=== PATIENT | male | born 1945 | race African-American/Black ===

== ENCOUNTER → 2020-08-16 13:23 | Outpatient (BNVA) | payer MEDICARE, MEDICAID, SELFPAY | PROVIDERS: PCP Hospitalist; Visit Provider Urology | DX: N40.1 Benign prostatic hyperplasia with lower urinary tract symptoms (principal); N39.41 Urge incontinence | CPT/HCPCS: 99212 ==

== ENCOUNTER 2020-09-06 09:47 | Outpatient (REF) | payer MEDICARE, MEDICAID, SELFPAY ==
--- NOTE | ~2020-09-06 | CT_ITS ---
EXAMINATION: CT ANGIOGRAM ABDOMEN CLINICAL INFORMATION: Aneurysmal dilation of the proximal abdominal aorta. COMPARISON: CT abdomen and pelvis 08/25/2012, CT chest 08/16/2016. TECHNIQUE: Multiple axial images were obtained through the abdomen following the administration of 85 mL Omnipaque 350 intravenous contrast. Images were reviewed on a dedicated 3-D workstation. This CT examination was performed using dose optimization techniques as appropriate, variously including the following: *Automated exposure control. *Adjustment of mA and/or kV according to patient size (this includes techniques or standardized protocols for targeted exams where dose is matched to indication/reason for exam; i.e. extremities or head). *Use of iterative reconstruction technique. DLP: 196 mGy-cm FINDINGS: VASCULAR: There is fusiform dilation of the descending thoracic aorta. From the [id number]-pk-[id number] aspect it measures 3.5 cm in diameter. There is no evidence of dissection or other acute aortic syndrome. While the study is not a dedicated evaluation of the ascending thoracic aorta, the aortic root and a portion of the ascending thoracic aorta is included in the [id number]. The sinotubular junction measures on the order of 4 x 3.8 cm and there is dilation of the ascending thoracic aorta beyond. On previous noncontrast study on 08/16/2016, the ascending thoracic aorta measures up to 4.7 cm in diameter. At the aortic hiatus, the aorta measures 3.8 x 3.5 cm and 3.7 x 3.3 cm between the levels of the celiac trunk and superior mesenteric artery. At the level the renal arteries, the aorta measures 3 x 2.8 cm and the infrarenal aorta measures 2.5 x 2.3 cm. The visualized portion of the iliac bifurcation is unremarkable and there is moderate eccentric wall calcification present. The celiac trunk and its branch vessels are widely patent. Superior mesenteric artery is widely patent from its origin and the inferior mesenteric artery is patent. There are 2 renal arteries to each kidney. Each of the more proximal arteries is relatively diminutive and the more dominant artery is located more distally. The arteries are widely patent from their origins and without hemodynamically significant stenosis. The venous structures have an unremarkable appearance for an arterial phase of contrast. NONVASCULAR: There is minimal opacity at the right base which may represent dependent atelectasis. There are no pleural fluid collections. Imaged heart is not enlarged. The liver is normal in size, shape and overall attenuation. There is a 6 mm focus of hyperattenuation/enhancement within segment 6 (image 251, series 8) abutting the capsule which is suggestive of transient hepatic attenuation difference or flash-filling hemangioma. No other focal hepatic lesion is seen. No intrahepatic or extrahepatic duct dilation is seen. The gallbladder is unremarkable. The pancreas is unremarkable. There is no pancreatic duct dilation. There is a 1 cm right adrenal nodule. There is a region of low attenuation identified within (less than 10 Hounsfield units) which is suggestive of a lipid-rich adenoma. Left adrenal gland is unremarkable. The kidneys are equal in overall enhancement. On the left there is a large, slightly lobulated cyst at the upper pole which now measures 9.7 x 5.7 x 6.3 cm. At the superior margin of this cyst, there is an indeterminate 2.7 x 1.7 x 1.3 cm soft tissue structure (images 222, series 8 and 74, series 6). Additionally, there is an oblong cystic structure adjacent to the left ureter which is similar to the prior study and measures 2.5 cm in diameter and 4.1 cm in length. There is no hydronephrosis or hydroureter. No renal calculi are identified. The distal esophagus and stomach are unremarkable. The imaged small and large bowel are normal in caliber. There is no free intraperitoneal fluid. There is no abdominal or retroperitoneal free fluid. There is no significant hernia of the body wall. Minimal degenerative changes of the imaged thoracolumbar spine. No acute or aggressive bony abnormality. CT/CT angio abdomen IMPRESSION: 1. Fusiform dilation of the descending thoracic aorta which measures on the order of 3.5 cm at its aks-dd-zqjmoi portion which extends distally into the abdominal aorta which measures 3.8 x 3.5 cm at the hiatus and 3.7 x 3.3 cm at the level of celiac trunk. The aorta tapers at the perirenal level and is normal in caliber beyond. 2. Partial visualization of dilated ascending thoracic aorta. 3. There is an indeterminate soft tissue structure along the superior margin of a large left renal cyst which measures 2.7 x 1.7 x 1.3 cm which was not seen on prior studies. Further evaluation with multiphasic MR would be recommended. 4. There is a relatively stable appearance of a cystic structure adjacent to the proximal left ureter which could be evaluated at time of MR as well. This could represent some variant of a duplication cyst or ureteral cyst. 5. A 1 cm right adrenal nodule felt most likely to represent a lipid-rich adenoma. This could be further evaluated at time of MR as well.
== END 2020-09-06 09:48 | disposition home or self-care (01) ==
LOC: HO.CT 09:47
PROVIDERS: PCP Hospitalist; Visit Provider Hospitalist
DX: R93.5 Abnormal findings on diagnostic imaging of other abdominal regions, including retroperitoneum (principal)
CPT/HCPCS: 74175

== ENCOUNTER → 2020-10-29 14:05 | Outpatient (BNVA) | payer MEDICARE, MEDICAID, SELFPAY | PROVIDERS: PCP Hospitalist; Referring Provider Hospitalist; Visit Provider Internal Medicine Cardiovascular Disease | DX: I48.0 Paroxysmal atrial fibrillation (principal); I45.10 Unspecified right bundle-branch block; R00.2 Palpitations | CPT/HCPCS: 93005; 99212 ==

== ENCOUNTER 2020-11-28 08:46 | Outpatient (REF) | payer MEDICARE, MEDICAID, SELFPAY ==
--- NOTE | ~2020-11-28 | MR_ITS ---
EXAMINATION: MR ABDOMEN WITHOUT AND WITH CONTRAST CLINICAL INFORMATION: Renal cyst. Possible lipid-rich adenoma. COMPARISON: Previous CT of the abdomen and pelvis August 2012 and CTA of the abdomen August 2020 TECHNIQUE: MR abdomen was performed without and with use of 7.5 mL intravenous Gadavist gadolinium contrast. Postcontrast images are performed in multiphase dynamic sequences. Imaging was performed in 3 planes. Exam is limited due to motion artifact. Exam is limited due to motion artifact. FINDINGS: LUNG BASES: The visualized lung bases are unremarkable. LIVER, GALLBLADDER, AND BILIARY TREE: The liver is normal in size and contour. The liver is normal in signal. There are 2 liver lesions. There is a 2 cm lesion in the peripheral right lobe of the liver. This is low signal on T1-weighted sequences, high signal on T2-weighted sequences and demonstrates gradual peripheral puddling enhancement suggestive of a benign hemangioma. This is unchanged in size from noncontrast CT August 2012. There is a second smaller 0.8 cm lesion in the more inferior peripheral right lobe of the liver. This is low signal on T1-weighted sequences, high signal on T2-weighted sequences and demonstrates early homogeneous arterial phase enhancement and remains enhanced. This probably represents a flash filling hemangioma. The gallbladder is normal. There is no biliary duct dilatation. PANCREAS: Unremarkable. SPLEEN: Normal. ADRENAL GLANDS: There is a small 1 cm right adrenal nodule. This signal on usa-zd-[id number] sequences is suggestive of a benign lipid-rich adenoma. The left adrenal gland is normal. KIDNEYS AND URETERS: There are several small right renal cysts, largest measuring 1 cm in the upper pole. There are multiple large left renal cysts. The largest measures 5.2 x 9.4 cm in the upper pole of the left kidney. This appears minimally complex with single thin septation. There is a 1 x 1.4 cm lesion in the upper pole of the left kidney superior to this cyst. This is high signal on T1-weighted sequences and low signal on T2-weighted sequences. Evaluation for enhancement is difficult given the intrinsic high signal on T1-weighted sequences, however, no definite enhancement is seen and this probably represents a complex cyst. The remainder of the renal cysts represent simple cysts. There is a left retroperitoneal cyst adjacent to the left ureter. This measures 1.2 x 1.2 x 3.8 cm. This is unchanged from previous CT scans going back to August 2012 suggesting a benign lesion. No hydronephrosis or ureteral dilatation is seen. GASTROINTESTINAL TRACT: No bowel obstruction. No ascites or fluid collection. ABDOMINAL WALL: There is diastasis of the rectus muscles and umbilical hernia containing fat. LYMPH NODES: No lymphadenopathy. VASCULAR: There is atherosclerotic disease and dilatation of the upper abdominal aorta measuring maximum 4 x 3.8 cm in AP and transverse dimension. OSSEOUS STRUCTURES: There are degenerative changes of the spine. 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 Bilateral renal cysts, left greater than right. Two probable complex cysts in the left kidney, one large measuring 5 x 9 cm with single thin septation and one small measuring 1 x 1.4 cm which is high signal on T1-weighted sequences and low signal on T2-weighted sequences suggestive of a proteinaceous or hemorrhagic cyst. It is difficult to evaluate enhancement due to intrinsic increased T1 signal on the latter cyst, however, no definite enhancement is appreciated. Imaging followup in 6 months recommended. Stable retroperitoneal cystic lesion adjacent to the left ureter measuring 1.2 x 1.2 x 3.8 cm going back to 2012 CT scan suggestive of a benign lesion. Dilated upper abdominal aorta.
== END 2020-11-28 08:47 | disposition home or self-care (01) ==
LOC: HO.MRI 08:46
PROVIDERS: PCP Hospitalist; Visit Provider Hospitalist
DX: N28.1 Cyst of kidney, acquired (principal)
CPT/HCPCS: 74183; A9585

== ENCOUNTER → 2020-12-10 09:23 | Outpatient (REF) | payer MEDICARE, MEDICAID, SELFPAY ==
--- NOTE | 2020-12-10 09:27 | HM_ITS ---
Total monitoring time 6 days and 21 hours. Underlying rhythm is sinus. Minimum heart rate 54/Min. Maximum 115/Min. Average 63/Min. No atrial fibrillation or flutter. Second-degree Mobitz type 1 block noted (4:24pm), rate 44/min. Longest pause 2.5 seconds during sleep hours. Frequent PVCs noted. Ariel 3%. Two morphologies. 326couplets. Longest run 3 beats; 9 episodes. Rare supraventricular ectopy. Longest run 5 beats. No patient events. MTDD
--- NOTE | 2020-12-10 09:27 | CA_ITS ---
Transthoracic Echocardiogram Patient (Last, First, Middle): Ras Jacobo, Gender: Male Date of : 1945 Age: 75 Procedure Date: 12/10/2020 Procedure Type: Transthoracic Echocardiogram Location: OP Height: 182.88 cm Weight: 88. kg BSA: 2.10 m2 Heart Rate: bpm BP: 116 / 60 mmHg Rib Puller: Referring MD: August Rodriguez MD Apprenticeship Consultant: August Rodriguez MD Symptoms: I48.0 - Paroxysmal atrial fibrillation Study Quality: Fair ECG Rhythm: Sinus Conclusions: - 1. Normal LV systolic function with impaired relaxation filling pattern 2. Mildly dilated right ventricle and left atrium 3. Trivial aortic regurgitation 4. Moderately dilated ascending aorta at 4.5 cm 5. Normal RV systolic pressure 6. No pericardial effusion Findings Left Ventricle Normal left ventricular size, thickness, and systolic function. The visually estimated ejection fraction is between 60-65%. Spectral Doppler is indicative of an impaired relaxation filling pattern. E/E prime ratio is between 8 and 15 consistent with indeterminate filling pressures. Right Ventricle Mildly increased right ventricular cavity size. There is normal right ventricular systolic function. Atria The left atrium is mildly dilated. There is no evidence of interatrial shunt. The right atrium is normal in size. Aortic Valve The aortic valve was not well visualized. There is no aortic valve stenosis. There is trace (trivial) aortic valve regurgitation. Mitral Valve There is mild anterior mitral leaflet thickening. There is trace mitral valve regurgitation. There is no mitral valve stenosis. Pulmonic Valve The pulmonic valve was not well visualized. Tricuspid Valve Likely normal tricuspid valve structure and function. There is trace tricuspid valve regurgitation. The right ventricular systolic pressure is normal. Normal right atrial pressure. There is no evidence of pulmonary hypertension. Great Vessels The pulmonary artery was not well visualized. There is moderate dilatation of the ascending aorta measuring 4.50 cm. Venous The inferior vena cava is normal in size and collapses greater than 50% with inspiration. Pericardium/Pleural There is no evidence of pericardial effusion. Prior Study Comparison Changes noted compared to prior study dated: 08/20/2016. Ascending aorta is moderately dilated, was not mentioned on the prior study Measurements 2D Linear Measurements IVSd: 1.07 0.6-0.9/0.6-1.0 cm LVIDd: 4.74 3.9-5.3/4.2-5.9 cm LVIDd Index: 2.26 2.4-3.2/2.2-3.1 cm/m2 LVIDs: 2.69 2.0-3.6 cm LVPWd: 1.09 0.7-1.1 cm Ao Root: 4.10 2.1-3.5 cm LA Diam: 3.70 2.7-3.8/3.0-4.0 cm LAIDs Index: 1.76 1.5-2.3 cm/m2 LV Mass: 230.89 67-162/88-224 g LV Mass Index: 109.95 43-95/49-115 g/m2 LVOT Diam: 2.40 3.0+(-)1.3 cm 2D Systolic Function EF 4C: 57.70 >55% EF 2C: 62.90 >55% EF BiP: 58.80 >55% Mitral Valve MV Pk E: 0.52 MV PK A: 0.83 MV Decel Time: 328.00 E/A: 0.60 E'Lateral: 3.92 E'Medial: 5.87 E/E' Med: 8.90 E/E' Lat: 13.30 PHT: 96.00 MVA PHT: 2.29 Decel [place]: 1.60 Aortic Valve AoV Pk Sj: 1.14 AoV Mn Sj: 0.75 AoV VTI: 0.24 AoV Pk Grad: 5.00 Aov Mn Grad: 3.00 MARÍA Cont.VTI: 3.36 LVOT LVOT Pk Sj: 0.67 LVOT Mn Sj: 0.41 LVOT VTI: 0.18 LVOT Pk Grad: 2.00 LVOT Mn Grad: 1.00 LVOT Diam: 2.40 LVOT Area: 4.52 Diastolic Function MV Pk E: 0.52 MV Pk A: 0.83 E/A: 0.60 E'Medial: 5.87 E/E' Med: 8.90 E' Laterial: 3.92 E/E' Lat: 13.30 Tricuspid Valve TR Pk Sj: 2.47 TR Pk Grad: 24.00 RA Press: 3.00 RVSP: 27.00 Great Vessels Aorta Ao Root-2D: 4.10 2.0-3.7 cm Ao Asc: 4.50 2.1-3.4 cm Pulmonary Valve PV Pk Sj: 1.14 Peak PV Grad: 5.00 Updated in Other Vendor System with Status of Final August Rodriguez MD electronically signed on 12/10/2020 4:31:40 PM with status of Final
== END ==
LOC: HO.CARD 09:23
PROVIDERS: Visit Provider Internal Medicine Cardiovascular Disease
DX: I45.10 Unspecified right bundle-branch block (principal); I48.0 Paroxysmal atrial fibrillation; R00.2 Palpitations
CPT/HCPCS: 93242; 93306

== ENCOUNTER 2021-03-07 07:38 | Outpatient (REF) | payer MEDICARE, MEDICAID, SELFPAY ==
--- NOTE | ~2021-03-07 | CT_ITS ---
EXAMINATION: CT ANGIOGRAM CHEST CLINICAL INFORMATION: Aortic aneurysm COMPARISON: CT chest 08/16/2016 TECHNIQUE: Multiple axial images were obtained through the chest after the administration of 70 mL of Omnipaque 350 intravenous contrast. 3D POSTPROCESSING: Multiple 3-D angiographic images were processed from the initial data set by the development technologist at the modality workstation under concurrent physician supervision. This CT examination was performed using dose optimization techniques as appropriate, variously including the following: *Automated exposure control *Adjustment of mA and/or kV according to patient size (this includes techniques or standardized protocols for targeted exams where dose is matched to indication/reason for exam; i.e. extremities or head) *Use of iterative reconstruction technique DLP: 192 mGy-cm FINDINGS: The ascending aorta measures 4.6 x 4.6 cm which is not significantly changed from 4.6 x 4.5 08/16/2016. Mild atherosclerosis in the ascending segment. The aortic arch measures 3.3 cm unchanged from 08/16/2016. Three-vessel branching pattern. Mild atherosclerosis in the arch segment. The great vessels are patent where visualized. The proximal descending thoracic aorta measures 3.6 x 3.5 cm proximally and 4.0 x 3.7 cm distally which are not changed compared to 08/16/2016. There is mild atherosclerosis in the descending segment. No mediastinal adenopathy. No pericardial or pleural effusion. The no suspicious pulmonary nodules are seen. There are several polygonal subpleural nodules measuring less than 6 mm bilaterally which are consistent with parenchymal lymph nodes. The prior study was significantly limited by motion artifact, however likely no significant change compared to prior. Unchanged lipid rich right adrenal adenoma. There are degenerative changes in the spine. CT/CT angio chest aorta IMPRESSION: Stable ascending aortic aneurysm measuring 4.6 cm. Stable descending thoracic aortic aneurysm measuring 3.6 cm proximally and 4.0 cm distally. Fleischner guidelines were followed.
[2021-03-07] MEDS: iohexoL 350 MG/ML 100 ML INFUS..BTL IV (08:42)
== END 2021-03-07 07:39 | disposition home or self-care (01) ==
LOC: HO.CT 07:38
PROVIDERS: PCP Hospitalist; Visit Provider Internal Medicine Cardiovascular Disease
DX: I45.10 Unspecified right bundle-branch block (principal); I48.0 Paroxysmal atrial fibrillation
CPT/HCPCS: 71275; Q9967

== ENCOUNTER 2021-05-29 08:03 | Day surgery (SDC) | payer MEDICARE, MEDICAID, SELFPAY ==
[2021-05-28 08:19] VITALS: BMI 25.7
--- NOTE | 2021-05-29 08:20 | HO.ANESPROP2 ---
HPI - Anesthesia Eval Consult details Narrative: 75yo male patient for Colonoscopy ON LICENSE OF [facility] Active Problems Active Problems: All Active Problems (Updated 05/28/21 @ 14:28 by Susan Diaz) Right bundle branch block (RBBB) on electrocardiogram (ECG) (Acute) Paroxysmal atrial fibrillation (Acute) Urgency incontinence (Acute) BPH loc w urin obs/LUTS (Acute) Past Medical History Medical History (Updated 05/28/21 @ 14:28 by Susan Diaz) AAA (abdominal aortic aneurysm) without rupture Acute stress reaction Alcohol abuse Atrial flutter BPH loc w urin obs/LUTS Constipation, unspecified COPD (chronic obstructive pulmonary disease) CVA (cerebral vascular accident) Cyst of kidney, acquired Deficiency of other vitamins Dementia in other diseases classified elsewhere with behavioral disturbance Fatty (change of) liver, not elsewhere classified GERD (gastroesophageal reflux disease) HIV (human immunodeficiency virus infection) Low back pain Muscular weakness Other abnormalities of gait and mobility Paroxysmal atrial fibrillation Personal history of COVID-19 Preglaucoma, unspecified, unspecified eye 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 Resides in senior living care facility Right bundle branch block (RBBB) on electrocardiogram (ECG) Unspecified cataract Unspecified urinary incontinence Urgency incontinence Ventricular premature depolarization Family History Family history of problems with anesthesia: No Surgical History Surgical History (Updated 05/23/21 @ 15:30 by Elise Rivero RN) No pertinent past surgical history History of Problems with Anesthesia: No Social History Social History Patient Tobacco Use Status: Former Tobacco user Use of substances other than those prescribed or required for medical reasons: No Are you DNR?: No Advance Directives: No Advance Directives Information Provided: Yes Meds Allergies Allergy/AdvReac Type Severity Reaction Status Date / Time No Known Allergies Allergy Verified 08/16/20 13:47 [No Known Allergies*] Home Medications Medication Instructions Recorded Confirmed Last Taken Type abacavir 600 mg-dolutegravir 50 tab PO DAILY 08/16/20 10/29/20 Unknown History mg-lamivudine 300 mg tablet lithium carbonate 300 mg capsule 300 mg PO DAILY cap 08/16/20 10/29/20 Unknown History oxcarbazepine 150 mg tablet 150 mg PO BID tab 08/16/20 10/29/20 Unknown History oxcarbazepine 300 mg tablet 300 mg PO BID tab 08/16/20 10/29/20 Unknown History perphenazine 8 mg tablet 8 mg PO BID tab 08/16/20 10/29/20 Unknown History propranolol 10 mg tablet 10 mg PO QNOON tab 08/16/20 10/29/20 Unknown History propranolol 20 mg tablet 20 mg PO BID tab 08/16/20 10/29/20 Unknown History rivaroxaban 20 mg tablet 20 mg PO DAILY tab 08/16/20 10/29/20 05/25/21 History tamsulosin 0.4 mg capsule 0.4 mg PO DAILY cap 08/16/20 10/29/20 Unknown History finasteride 5 mg tablet 5 mg PO DAILY tab 10/29/20 10/29/20 Unknown History Colace 2 cap PO DAILY 05/28/21 05/28/21 Unknown History Dulcolax (bisacodyl) 1 supp [place] DAILY PRN 05/28/21 05/28/21 Unknown History acetaminophen 2 tab PO Q4H PRN 05/28/21 05/28/21 Unknown History omeprazole 1 tab PO DAILY 05/28/21 05/28/21 Unknown History Exam Exam Date and Time: May 29, 2021 0820 Height,Weight and Vital Signs: Height 6 ft 2 in Weight 90.718 kg Vital Signs Temp Pulse Resp BP Pulse Ox 05/29/21 08:23 97.5 F 70 18 130/88 97 Airway Mallampati Class: II TM Dist: >3cm Neck ROM: Full Loose/Missing/Broken Teeth: Yes (Edentulous) Heart: RRR Lungs: CTAB Assessment and Plan Assessment Anesthesia Assessment: Anesthesia Plan Discussed and Chart Reviewed Final Anesthetic Review Family History of Problems with Anesthesia: No History of Problems with Anesthesia: No NPO: Yes ASA Class: III Final Preanesthetic Review: No Changes in Pt Med Stat, Meds/Allgs Chart Reviewed, Consent Obtained/Reviewed and Anes Risks/Benef Reviewed Patient Risk: Intermediate Procedure Risk: Low Assessment/Block/Sedation in SS: Assess/Block/Sedation-SS Anesthetic Plan Anesthetic Plan: MAC: Disposition: Standard PACU
[2021-05-29 08:23] VITALS: BP 130/88; PULSE 70; RESP 18; TEMP 36.4; O2SAT 97
[2021-05-29] MEDS: Lactated Ringers 1,000 ML 100 ML IVCONT (08:37)
[2021-05-29 10:44] VITALS: BP 113/80; PULSE 69; RESP 16; TEMP 36.1; O2SAT 97
--- NOTE | 2021-05-29 10:45 | PM.OP ---
Brief Operative Note Date of Service: 05/29/21 Pre-op diagnosis: Screening Post-op diagnosis: other (Cecal polyp) Procedure: Colonoscopy to the cecum with hot snare polypectomy and placement of two Resolution clips Surgeon: Frederic Griffith Anesthesia: MAC Was an Chairman President And Chief Executive Officer used for this Procedure?: No Estimated blood loss (mL): 0 Pathology: other (A. Cecal polyp) Condition: stable Disposition: PACU
[2021-05-29 11:00] VITALS: BP 133/90; PULSE 66; RESP 18; TEMP 36.1; O2SAT 97
--- NOTE | 2021-05-29 12:31 | OP_ITS ---
SURGEON: Frederic Griffith MD INDICATIONS: The patient presents for evaluation of colorectal cancer screening. Full consent was obtained from his guardian for this, including risks of bleeding and perforation. PREOPERATIVE DIAGNOSIS: Colorectal cancer screening. POSTOPERATIVE DIAGNOSIS: PROCEDURE PERFORMED: Colonoscopy to the cecum with hot snare polypectomy and placement of 2 Resolution Clips. ESTIMATED BLOOD LOSS: COMPLICATIONS: ANESTHESIA: Monitored anesthesia care. ASSISTANTS: SPECIMENS: POSTOPERATIVE DIAGNOSES: Colorectal cancer screening, cecal polyp, diverticulosis and internal hemorrhoids. DESCRIPTION OF PROCEDURE: The patient was placed in the left lateral decubitus position. The digital rectal exam revealed no abnormalities. The Olympus video pediatric colonoscope was entered into the rectum and advanced to the cecum with the assistance of abdominal wall pressure. Once in the cecum, I had to copiously irrigate and suction away a lot of liquid stool. I did visualize an approximately 1.5 cm polyp on a short stalk, which was removed with a hot snare polypectomy. The polypectomy site appeared clean, without any sign of residual polyp nor bleeding. Two Resolution Clips were placed on the polypectomy site with good deployment and good hemostasis. The polyp was then retrieved with the retrieval net and brought out with the scope. Preparation of the colon was quite limited due to liquid stool. I therefore came out slowly with the polyp in the retrieval net and was able to obtain fairly good visualization. However, again the prep was quite limited in various parts due to liquid stool. I did not visualize any other polyps, colitis, nor angiodysplasia. There was some mild diverticulosis. In the rectum, the scope was retroflexed visualizing internal hemorrhoids, but no other pathology. The rectal mucosa appeared normal. The scope was withdrawn from the patient. He tolerated the procedure well and was returned to the recovery area in stable condition. Given the relatively limited prep, I did not think it was worthwhile to reinspect the colon after the retrieval net and polyp were removed. IMPRESSION: 1. Cecal polyp, status post hot snare polypectomy, and placement of 2 Resolution Clips. 2. Diverticulosis. 3. Internal hemorrhoids. 4. Limited prep. PLAN: The results of the pathology will be checked. Given the finding of a fairly large cecal polyp and the significantly limited bowel prep, I will plan to have him undergo repeat colonoscopy later this year with a 2 day prep for better inspection of the colon and make sure there are no other polyps. He was advised to resume his Xarelto in 48 hours. MD GENESIS Moya/DAREN / [id number] MTDCristina
== END 2021-05-29 11:31 | disposition home or self-care (01) ==
PROVIDERS: PCP Hospitalist; Visit Provider Internal Medicine
PROC: 0DJD8ZZ Inspection of Lower Intestinal Tract, Via Natural or Artificial Opening Endoscopic (ICD-10-PCS; CPT 45378; principal; 2021-05-29 09:40)
DX: Z12.11 Encounter for screening for malignant neoplasm of colon (principal); D12.0 Benign neoplasm of cecum; K57.30 Diverticulosis of large intestine without perforation or abscess without bleeding; K64.8 Other hemorrhoids; D18.03 Hemangioma of intra-abdominal structures; D35.00 Benign neoplasm of unspecified adrenal gland; N28.1 Cyst of kidney, acquired; B20 Human immunodeficiency virus [HIV] disease; K21.9 Gastro-esophageal reflux disease without esophagitis; F03.90 Unspecified dementia, unspecified severity, without behavioral disturbance, psychotic disturbance, mood disturbance, and anxiety; J44.9 Chronic obstructive pulmonary disease, unspecified; I48.91 Unspecified atrial fibrillation; Z79.01 Long term (current) use of anticoagulants; Z79.899 Other long term (current) drug therapy
CPT/HCPCS: 45385; 88305

== ENCOUNTER → 2021-07-02 09:57 | Outpatient (BNVA) | payer MEDICARE, MEDICAID, SELFPAY | PROVIDERS: PCP Hospitalist; Visit Provider Urology | DX: N40.1 Benign prostatic hyperplasia with lower urinary tract symptoms (principal); N13.8 Other obstructive and reflux uropathy; N39.41 Urge incontinence; Z87.891 Personal history of nicotine dependence | CPT/HCPCS: 51798; 99212 ==

== ENCOUNTER 2021-07-24 06:58 | Day surgery (SDC) | payer MEDICARE, MEDICAID, SELFPAY ==
[2021-07-18 14:16] VITALS: BMI 25.7
[2021-07-19 08:19] VITALS: BMI 25.7
--- NOTE | 2021-07-23 10:18 | P.CONAN_ITS ---
Documented by User: Tiffany Gloria NP 07/23/21 10:22 HPI - Anesthesia Eval Consult details Narrative: 76yo M for Colonoscopy Xarelto for afib s/p Colonoscopy 05/2021 with TIVA (poor prep) SNF resident. Legal guardian for consents Standard precautions PMFSH Active Problems Active Problems: All Active Problems (Updated 05/28/21 @ 14:28 by Susan Diaz) Right bundle branch block (RBBB) on electrocardiogram (ECG) (Acute) Paroxysmal atrial fibrillation (Acute) Urgency incontinence (Acute) BPH loc w urin obs/LUTS (Acute) Past Medical History Medical History AAA (abdominal aortic aneurysm) without rupture Acute stress reaction Alcohol abuse Atrial flutter BPH loc w urin obs/LUTS Constipation, unspecified COPD (chronic obstructive pulmonary disease) CVA (cerebral vascular accident) Cyst of kidney, acquired Deficiency of other vitamins Dementia in other diseases classified elsewhere with behavioral disturbance Fatty (change of) liver, not elsewhere classified GERD (gastroesophageal reflux disease) HIV (human immunodeficiency virus infection) Low back pain Muscular weakness Other abnormalities of gait and mobility Paroxysmal atrial fibrillation Personal history of COVID-19 Preglaucoma, unspecified, unspecified eye 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 Right bundle branch block (RBBB) on electrocardiogram (ECG) Unspecified cataract Unspecified urinary incontinence Urgency incontinence Ventricular premature depolarization Family History Family history of problems with anesthesia: No Surgical History Surgical History H/O colonoscopy History of Problems with Anesthesia: No Social History Social History Housing Other:: [facility] Are you a primary senior care manager to a significant other at home: No Do you presently have visiting nurse or other home services: Yes ([facility] staff) Patient Tobacco Use Status: Former Tobacco user Use of substances other than those prescribed or required for medical reasons: No Are you DNR?: No Advance Directives: Yes (court appointed guardianship document on chart) Advance Directives Information Provided: Yes Advance Directives on File: Yes Advance Directives Date on File: 07/19/21 Nutrition Risks: Surgical patient >75years Meds Allergies Allergy/AdvReac Type Severity Reaction Status Date / Time No Known Allergies Allergy Verified 07/02/21 09:59 [No Known Allergies*] Home Medications Medication Instructions Recorded Confirmed Last Taken Type abacavir 600 mg-dolutegravir 50 1 tab PO DAILY 08/16/20 07/18/21 Unknown History mg-lamivudine 300 mg tablet lithium carbonate 300 mg capsule 300 mg PO DAILY cap 08/16/20 07/18/21 Unknown History oxcarbazepine 150 mg tablet 150 mg PO BID tab 08/16/20 07/18/21 Unknown History oxcarbazepine 300 mg tablet 300 mg PO BID tab 08/16/20 07/18/21 Unknown History perphenazine 8 mg tablet 8 mg PO BID tab 08/16/20 07/18/21 Unknown History propranolol 10 mg tablet 10 mg PO QNOON tab 08/16/20 07/18/21 Unknown History propranolol 20 mg tablet 20 mg PO BID tab 08/16/20 07/18/21 Unknown History rivaroxaban 20 mg tablet 20 mg PO DAILY tab 08/16/20 07/24/21 07/20/21 History finasteride 5 mg tablet 5 mg PO DAILY tab 10/29/20 07/18/21 Unknown History Colace 2 cap PO DAILY 05/28/21 07/18/21 Unknown History Dulcolax (bisacodyl) 1 supp ME DAILY PRN 05/28/21 07/18/21 Unknown History acetaminophen 2 tab PO Q4H PRN 05/28/21 07/18/21 Unknown History omeprazole 1 tab PO DAILY 05/28/21 07/18/21 Unknown History Exam Exam Date and Time: July 23, 2021 1018 Height,Weight and Vital Signs: Height 6 ft 2 in Weight 90.718 kg Narrative Narrative: EKG 10/2020 normal sinus rhythm with first-degree AV block with right bundle-branch block Holter 11/2020 Total monitoring time 6 days and 21 hours.? Underlying rhythm is sinus.? Minimum heart rate 54/Min.? Maximum 115/Min.? Average 63/Min.? No atrial fibrillation or flutter.? Second-degree Mobitz type 1 block noted (4:24pm), rate 44/min.? Longest pause 2.5 seconds during sleep hours.? Frequent PVCs noted.? [place] 3%.? Two morphologies.? 326couplets.? Longest run 3 beats; 9 episodes.? Rare supraventricular ectopy.? Longest run 5 beats.? No patient events.? ECHO 11/2020 Conclusions: - 1. Normal LV systolic function with impaired relaxation filling pattern? 2. Mildly dilated right ventricle and left atrium? 3. Trivial aortic regurgitation? 4. Moderately dilated ascending aorta at 4.5 cm? 5. Normal RV systolic pressure ? 6. No pericardial effusion ?? Assessment and Plan Assessment Anesthesia Assessment: Chart Reviewed Final Anesthetic Review Family History of Problems with Anesthesia: No History of Problems with Anesthesia: No Documented by User: Leonard Robins MD 07/24/21 14:44 [facility] Past Medical History Medical History AAA (abdominal aortic aneurysm) without rupture Acute stress reaction Alcohol abuse Atrial flutter BPH loc w urin obs/LUTS Constipation, unspecified COPD (chronic obstructive pulmonary disease) CVA (cerebral vascular accident) Cyst of kidney, acquired Deficiency of other vitamins Dementia in other diseases classified elsewhere with behavioral disturbance Fatty (change of) liver, not elsewhere classified GERD (gastroesophageal reflux disease) HIV (human immunodeficiency virus infection) Low back pain Muscular weakness Other abnormalities of gait and mobility Paroxysmal atrial fibrillation Personal history of COVID-19 Preglaucoma, unspecified, unspecified eye 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 Resides in senior living care facility Right bundle branch block (RBBB) on electrocardiogram (ECG) Unspecified cataract Unspecified urinary incontinence Urgency incontinence Ventricular premature depolarization Surgical History Surgical History H/O colonoscopy Social History Social History Housing Other:: [facility] Are you a primary senior care manager to a significant other at home: No Do you presently have visiting nurse or other home services: Yes ([facility] staff) Patient Tobacco Use Status: Former Tobacco user Use of substances other than those prescribed or required for medical reasons: No Are you DNR?: No Advance Directives: Yes (court appointed guardianship document on chart) Advance Directives Information Provided: Yes Advance Directives on File: Yes Advance Directives Date on File: 07/19/21 Nutrition Risks: Surgical patient >75years Meds Allergies Allergy/AdvReac Type Severity Reaction Status Date / Time No Known Allergies Allergy Verified 07/02/21 09:59 [No Known Allergies*] Home Medications Medication Instructions Recorded Confirmed Last Taken Type abacavir 600 mg-dolutegravir 50 1 tab PO DAILY 08/16/20 07/18/21 Unknown History mg-lamivudine 300 mg tablet lithium carbonate 300 mg capsule 300 mg PO DAILY cap 08/16/20 07/18/21 Unknown History oxcarbazepine 150 mg tablet 150 mg PO BID tab 08/16/20 07/18/21 Unknown History oxcarbazepine 300 mg tablet 300 mg PO BID tab 08/16/20 07/18/21 Unknown History perphenazine 8 mg tablet 8 mg PO BID tab 08/16/20 07/18/21 Unknown History propranolol 10 mg tablet 10 mg PO QNOON tab 08/16/20 07/18/21 Unknown History propranolol 20 mg tablet 20 mg PO BID tab 08/16/20 07/18/21 Unknown History rivaroxaban 20 mg tablet 20 mg PO DAILY tab 08/16/20 07/24/21 07/20/21 History finasteride 5 mg tablet 5 mg PO DAILY tab 10/29/20 07/18/21 Unknown History Colace 2 cap PO DAILY 05/28/21 07/18/21 Unknown History Dulcolax (bisacodyl) 1 supp ME DAILY PRN 05/28/21 07/18/21 Unknown History acetaminophen 2 tab PO Q4H PRN 05/28/21 07/18/21 Unknown History omeprazole 1 tab PO DAILY 05/28/21 07/18/21 Unknown History Exam Airway Mallampati Class: III TM Dist: >3cm Neck ROM: Full Loose/Missing/Broken Teeth: Yes Heart: S1,S2 Lungs: b/l breath sounds Assessment and Plan Final Anesthetic Review NPO: Yes ASA Class: III Final Preanesthetic Review: Meds/Allgs Chart Reviewed, Consent Obtained/Reviewed and Anes Risks/Benef Reviewed Patient Risk: Intermediate Procedure Risk: Intermediate Anesthetic Plan Anesthetic Plan: MAC: Disposition: Standard PACU
[2021-07-24 08:17] VITALS: BP 109/71; PULSE 60; RESP 18; TEMP 36.6; O2SAT 96
[2021-07-24] MEDS: Lactated Ringers 1,000 ML 50 ML IVCONT (08:22)
[2021-07-24 09:25] VITALS: BP 98/66; PULSE 60; RESP 16; TEMP 36.2; O2SAT 94
--- NOTE | 2021-07-24 09:28 | P.BOP_ITS ---
Brief Operative Note Date of Service: 07/24/21 Pre-op diagnosis: Screening Post-op diagnosis: other (Diverticulosis) Procedure: Colonoscopy to the cecum Surgeon: Frederic Griffith Anesthesia: MAC Was an Directional Bore Operator used for this Procedure?: No Estimated blood loss (mL): 0 Pathology: none sent Condition: stable Disposition: PACU
[2021-07-24 09:40] VITALS: BP 120/75; PULSE 60; RESP 16; TEMP 36; O2SAT 94
--- NOTE | 2021-07-24 10:04 | PC.NURSE ---
gave verbal report ot nurse eri parra to [facility] to [facility],
[2021-07-24 10:05] VITALS: BP 128/80; PULSE 52; O2SAT 96
--- NOTE | 2021-07-24 22:07 | OP_ITS ---
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 Full consent has been obtained from the patient's legal guardian for this, including risks of bleeding and perforation. PREOPERATIVE DIAGNOSIS: Personal history of colon polyps and colorectal cancer screening. POSTOPERATIVE DIAGNOSIS: Personal history of colon polyps and colorectal cancer screening, diverticulosis, and internal hemorrhoids. PROCEDURE PERFORMED: Colonoscopy to the cecum. ESTIMATED BLOOD LOSS: COMPLICATIONS: ANESTHESIA: Monitored anesthesia care. ASSISTANTS: SPECIMENS: DESCRIPTION OF PROCEDURE: Patient was placed in the left lateral decubitus position. The digital rectal examination revealed some external hemorrhoids. The Olympus video pediatric colonoscope was entered into rectum and advanced to the cecum with assistance of abdominal pressure. Once in the cecum, I did identify cecal pouch with appendiceal orifice and a normal-appearing ileocecal valve. There was transillumination of light deep in the right lower quadrant. The entire cecum was well visualized. I was able to visualize a scar from his previous polypectomy, but without any sign of residual polyp tissue. The remainder of the cecum appeared normal. Scope was then slowly withdrawn, assessing all mucosal surfaces carefully. Preparation was excellent. I did not visualize any polyps, colitis, no angiodysplasia. There was a mild amount of sigmoid diverticulosis. In the rectum, scope was retroflexed, visualizing internal hemorrhoids, but no other pathology. The rectal mucosa appeared normal. Scope was straightened and withdrawn from the patient. He tolerated the procedure well and was returned to the recovery area in stable condition. IMPRESSION: 1. Diverticulosis. 2. Internal hemorrhoids. 3. External hemorrhoids. PLAN: Given today's completely negative examination and his age, I do not think he will need any further colonoscopies for screening at this point. He was advised that he could resume Xarelto today. He will otherwise see me on a p.r.n. basis. MD GENESIS Moya/DAREN / [id number] MTDD
== END 2021-07-24 10:40 | disposition home or self-care (01) ==
PROVIDERS: PCP Hospitalist; Visit Provider Internal Medicine
PROC: 0DJD8ZZ Inspection of Lower Intestinal Tract, Via Natural or Artificial Opening Endoscopic (ICD-10-PCS; CPT 45378; principal; 2021-07-24 08:20)
DX: Z12.11 Encounter for screening for malignant neoplasm of colon (principal); Z86.010 Personal history of colon polyps; K57.30 Diverticulosis of large intestine without perforation or abscess without bleeding; K64.8 Other hemorrhoids; K64.4 Residual hemorrhoidal skin tags; K59.00 Constipation, unspecified; K21.9 Gastro-esophageal reflux disease without esophagitis; B20 Human immunodeficiency virus [HIV] disease; F03.90 Unspecified dementia, unspecified severity, without behavioral disturbance, psychotic disturbance, mood disturbance, and anxiety; J44.9 Chronic obstructive pulmonary disease, unspecified; I48.91 Unspecified atrial fibrillation; Z79.01 Long term (current) use of anticoagulants; Z79.899 Other long term (current) drug therapy; Z86.16 Personal history of COVID-19; Z87.891 Personal history of nicotine dependence
CPT/HCPCS: G0105

== ENCOUNTER → 2021-09-11 09:21 | Outpatient (REF) | payer MEDICARE, MEDICAID, SELFPAY ==
--- NOTE | 2021-09-11 09:28 | CA_ITS ---
Transthoracic Echocardiogram Patient (Last, First, Middle): Ras Jacobo, Gender: Male Date of : 1945 Age: 76 Procedure Date: 09/11/2021 Procedure Type: Transthoracic Echocardiogram Location: OP Height: 198.12 cm Weight: 81.65 kg BSA: 2.16 m2 Heart Rate: bpm BP: 120 / 70 mmHg Manager Placement: DONTAE Referring MD: August Rodriguez MD Animal Nutritionist: August Rodriguez MD Symptoms: I48.0 - Paroxysmal atrial fibrillation Study Quality: Fair ECG Rhythm: Sinus Conclusions: - 1. Normal LV systolic function with mild LVH with LVEF of 55 60% with impaired relaxation filling pattern 2. Moderately dilated ascending aorta at 4.5 cm Findings Left Ventricle Normal left ventricular size and systolic function. There is mildly increased left ventricular wall thickness. The visually estimated ejection fraction is between 55-60%. Spectral Doppler is indicative of an impaired relaxation filling pattern. E/E prime ratio is between 8 and 15 consistent with indeterminate filling pressures. Great Vessels There is moderate dilatation of the ascending aorta measuring 4.50 cm. Pericardium/Pleural There is no evidence of pericardial effusion. Prior Study Comparison No significant change compared to prior study dated: 12/10/2020. Measurements 2D Linear Measurements IVSd: 1.37 0.6-0.9/0.6-1.0 cm LVIDd: 3.51 3.9-5.3/4.2-5.9 cm LVIDd Index: 1.63 2.4-3.2/2.2-3.1 cm/m2 LVIDs: 2.46 2.0-3.6 cm LVPWd: 1.27 0.7-1.1 cm LV Mass: 196.94 67-162/88-224 g LV Mass Index: 91.18 43-95/49-115 g/m2 2D Systolic Function EF 4C: 60.10 >55% EF 2C: 50.80 >55% EF BiP: 55.80 >55% Mitral Valve MV Pk E: 0.89 MV PK A: 0.81 MV Decel Time: 306.00 E/A: 1.10 E'Lateral: 6.42 E'Medial: 4.90 E/E' Med: 18.20 E/E' Lat: 13.90 PHT: 90.00 MVA PHT: 2.44 Decel [place]: 2.91 Diastolic Function MV Pk E: 0.89 MV Pk A: 0.81 E/A: 1.10 E'Medial: 4.90 E/E' Med: 18.20 E' Laterial: 6.42 E/E' Lat: 13.90 Great Vessels Aorta Ao Asc: 4.50 2.1-3.4 cm Updated in Other Vendor System with Status of Final August Rodriguez MD electronically signed on 09/12/2021 11:49:42 AM with status of Final
== END ==
LOC: HO.CARD 09:21
PROVIDERS: PCP Hospitalist; Visit Provider Internal Medicine Cardiovascular Disease
DX: I48.0 Paroxysmal atrial fibrillation (principal)
CPT/HCPCS: 93308

== ENCOUNTER 2021-11-04 13:50 | Outpatient (REF) | payer MEDICARE, MEDICAID, SELFPAY ==
[2021-11-04 16:06] LABS: Anion Gap 13 (12-20); Blood Urea Nitrogen 14 mg/dL (9-16); Calcium 9.5 mg/dL (8.4-10.2); Carbon Dioxide 26 mmol/L (22-29); Chloride 102 mmol/L (96-108); Estimated Glomerular Filt Rate > 60; Glucose Random 91 mg/dL (60-115); Sodium 137 mmol/L (135-145)
[2021-11-04 16:10] LABS: Hematocrit 40.5 % (42.0-52.0); Mean Corpuscular HGB Conc 32.1 g/dl (31.0-36.0); Mean Corpuscular Volume 90.4 fL (80.0-98.0); Mean Platelet Volume 10.5 fL (9.4-12.4); Platelet Count 204 X10*3/uL (160-400); Red Blood Count 4.48 X10*6/uL (4.60-5.80); Red Cell Distribution Width 16.3 % (11.0-16.0); White Blood Count 6.9 X10*3/uL (4.8-10.8)
== END 2021-11-04 13:51 | disposition home or self-care (01) ==
LOC: HO.LAB 13:50
PROVIDERS: PCP Hospitalist; Referring Provider Hospitalist; Visit Provider Internal Medicine Cardiovascular Disease
DX: I48.0 Paroxysmal atrial fibrillation (principal); I71.2 Thoracic aortic aneurysm, without rupture
CPT/HCPCS: 36415; 80048; 85027; 93005; 99212

== ENCOUNTER 2021-11-12 09:12 | Outpatient (REF) | payer MEDICARE, MEDICAID, SELFPAY ==
--- NOTE | ~2021-11-12 | CT_ITS ---
EXAMINATION: CT ABDOMEN WITHOUT AND WITH CONTRAST CLINICAL INFORMATION: Cyst of the kidney. COMPARISON: None. TECHNIQUE: Contiguous axial thin section helical images of the abdomen were performed before and after the administration of oral contrast and 85 mL of Omnipaque 350 intravenous contrast. The data set was reformatted in the coronal and sagittal planes and reviewed on an independent workstation. This CT examination was performed using dose optimization techniques as appropriate, variously including the following: *Automated exposure control *Adjustment of mA and/or kV according to patient size (this includes techniques or standardized protocols for targeted exams where dose is matched to indication/reason for exam; i.e. extremities or head) *Use of iterative reconstruction technique DLP: 645 mGy-cm. FINDINGS: LUNG BASES: There is plate-like atelectasis right lung base with basilar tiny pleural thickening or small effusions. The heart size is normal LIVER, GALLBLADDER, AND BILIARY TREE: The liver is normal size, contour and density. No focal lesion or intrahepatic ductal dilatation seen. There are no radiopaque gallstones or wall thickening. PANCREAS: The pancreas is homogeneous in density and normal size. The peripancreatic fat borders are preserved. SPLEEN: There is a 1.4 cm hypodense nonenhancing lesion along the anterior border. The rest of the spleen is homogeneous in density and normal size. ADRENAL GLANDS AND KIDNEYS: There is a right adrenal lesion measuring 1.5 x 1.5 cm x 1.8 cm and 66 Hounsfield units. The left adrenal gland is normal. There is a large lobular left renal cyst upper pole left kidney. It measures 6.5 x 9.1 x 7 cm. There are additional smaller cysts in the upper pole, midpole and lower pole left kidney. Small cysts are visualized in the right kidney as well. No radiopaque renal calculi or hydronephrosis seen. No enhancing renal mass seen. BOWEL LOOPS: Moderate scattered stool is seen in the colon without significant distention. The small bowel loops are normal caliber. The stomach is nondistended. No inflammatory process or free air seen. LYMPH NODES: Normal. VASCULAR: The abdominal aorta is normal caliber. BONES: No lytic or sclerotic process seen. CT/CT abdomen wo/w con IMPRESSION: Multiple bilateral renal cysts with largest lobulated cyst upper/midpole left kidney is noted. They are simple cyst. No enhancing renal mass, radiopaque calculi or hydronephrosis. Right lower lobe scarring versus atelectasis with minimal bilateral posterior pleural thickening/tiny effusion. Fleischner guidelines were followed.
[2021-11-12] MEDS: iohexoL 350 MG/ML 100 ML INFUS..BTL IV (10:41)
== END 2021-11-12 09:13 | disposition home or self-care (01) ==
LOC: HO.CT 09:12
PROVIDERS: Visit Provider Hospitalist
DX: N28.1 Cyst of kidney, acquired (principal)
CPT/HCPCS: 74170; Q9967

== ENCOUNTER → 2021-12-26 14:33 | Outpatient (BNVA) | payer MEDICARE, MEDICAID, SELFPAY | PROVIDERS: PCP Hospitalist; Visit Provider Urology | DX: N40.1 Benign prostatic hyperplasia with lower urinary tract symptoms (principal); N39.41 Urge incontinence | CPT/HCPCS: 51798; Q3014 ==

== ENCOUNTER → 2022-03-06 13:09 | Outpatient (BNVA) | payer MEDICARE, MEDICAID, SELFPAY | PROVIDERS: PCP Hospitalist; Visit Provider Nurse Practitioner Family | DX: N40.1 Benign prostatic hyperplasia with lower urinary tract symptoms (principal); N13.8 Other obstructive and reflux uropathy; N39.41 Urge incontinence | CPT/HCPCS: Q3014 ==

== ENCOUNTER → 2022-04-16 08:46 | Outpatient (BNVA) | payer MEDICARE, MEDICAID, SELFPAY | PROVIDERS: PCP Hospitalist; Visit Provider Nurse Practitioner Family | DX: N40.1 Benign prostatic hyperplasia with lower urinary tract symptoms (principal); N39.41 Urge incontinence | CPT/HCPCS: 51798; 99212 ==

== ENCOUNTER 2022-07-14 07:41 | Outpatient (REF) | payer MEDICARE, MEDICAID, SELFPAY ==
--- NOTE | ~2022-07-14 | CT_ITS ---
EXAMINATION: CT ABDOMEN WITHOUT AND WITH CONTRAST CLINICAL INFORMATION: Renal cyst. COMPARISON: 11/12/2021 TECHNIQUE: Contiguous axial thin section helical images of the abdomen were performed before and after the administration of 85 mL of Omnipaque 350 intravenous contrast. The data set was reformatted in the coronal and sagittal planes and reviewed on an independent workstation. This CT examination was performed using dose optimization techniques as appropriate, variously including the following: *Automated exposure control *Adjustment of mA and/or kV according to patient size (this includes techniques or standardized protocols for targeted exams where dose is matched to indication/reason for exam; i.e. extremities or head) *Use of iterative reconstruction technique DLP: 883 mGy-cm FINDINGS: LUNG BASES: Scarring at the right lung base. LIVER, GALLBLADDER, AND BILIARY TREE: Stable hemangiomas in the right lobe of the liver. Otherwise no discrete liver mass. No ductal dilatation. The common bile duct is normal in caliber. The gallbladder appears normal. PANCREAS: No discrete pancreatic mass. No ductal dilatation. SPLEEN: Lobulated low-attenuation lesion in the inferior spleen is stable. ADRENAL GLANDS AND KIDNEYS: Stable 1.7 cm homogeneous nodule measuring 7 Hounsfield units on noncontrast imaging in the right adrenal gland consistent with a benign lipid rich adenoma. The left adrenal gland appears normal. There are simple cysts in the right kidney. No follow-up imaging is recommended. There are multiple simple cysts in the left kidney. No follow-up imaging is recommended. There is a nonenhancing exophytic lesion from the upper pole of the left kidney measuring 2 cm, 47 HU precontrast, and 53 noncontrast consistent with a proteinaceous cyst (Bosniak 2). There is a nonenhancing lesion in the posterior mid left kidney measuring 1.5 cm, 32 HU precontrast, and 36 HU postcontrast consistent with a proteinaceous cyst (Bosniak 2). There is a 10.0 x 5.7 x 6.4 cm thinly septated cyst in the mid left kidney (Bosniak 2). Variously this measure 9.6 x 5.5 [address] angiogram 09/06/2020. The retroperitoneal cyst along the left ureter is unchanged. BOWEL LOOPS: The visualized small bowel is normal in caliber. The visualized large bowel appears normal. LYMPH NODES: No lymphadenopathy. VASCULAR: Distal thoracic aortic aneurysm measures 4.6 x 4.5 cm compared to 4.3 x 4.3 cm 09/06/2020. BONES: Degenerative changes in the spine. CT/CT abdomen wo/w IV con IMPRESSION: There are 3 stable Bosniak 2 cysts in the left kidney. No follow-up imaging is recommended. 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 No follow-up imaging is recommended. Stable liver hemangiomas. No follow-up imaging is recommended. Fleischner guidelines were followed.
[2022-07-14] MEDS: iohexoL 350 MG/ML 100 ML INFUS..BTL 85 ML IV (08:21)
[2022-07-15 13:04] LABS: Creatinine POC 0.7 mg/dL (0.5-1.4); GFR POC > 60
== END 2022-07-14 07:42 | disposition home or self-care (01) ==
LOC: HO.CT 07:41
PROVIDERS: PCP Hospitalist; Visit Provider Hospitalist
DX: N28.1 Cyst of kidney, acquired (principal)
CPT/HCPCS: 74170; 82565; Q9967

== ENCOUNTER → 2022-08-22 09:54 | Outpatient (REF) | payer MEDICARE, MEDICAID, SELFPAY ==
--- NOTE | 2022-08-22 09:59 | CA_ITS ---
Transthoracic Echocardiogram Patient (Last, First, Middle): Ras Jacobo, Gender: Male Date of : 1945 Age: 77 Procedure Date: 08/22/2022 Procedure Type: Transthoracic Echocardiogram Location: OP Height: 198.12 cm Weight: 87.09 kg BSA: 2.22 m2 Heart Rate: 72 bpm BP: 122 / 70 mmHg Internet Media Planner: TO Referring MD: August Rodriguez MD Senior Tax Analyst: August Rodriguez MD Symptoms: I71.2 - Thoracic aortic aneurysm, without rupture Study Quality: Adequate ECG Rhythm: Atrial Fibrillation Conclusions: - 1. Low normal LV systolic function with LVEF of 50-55% 2. Moderate biatrial enlargement 3. Trace aortic regurgitation next 4. Moderately dilated ascending aorta at 4.5 cm 5. Normal RV systolic pressure 6. No gross pericardial effusion Findings Left Ventricle Normal left ventricular cavity size. There is normal left ventricular wall thickness. The left ventricular systolic function is low normal. The visually estimated ejection fraction is between 50-55%. Diastolic function is indeterminate on the basis of available data. Right Ventricle Normal right ventricular cavity size and systolic function. Atria The left atrium is moderately dilated. There is no evidence of interatrial shunt. The right atrium is moderately dilated. Aortic Valve Normal aortic valve structure and function. There is no aortic valve stenosis. There is trace (trivial) aortic valve regurgitation. Mitral Valve There is mild anterior and posterior mitral leaflet thickening. There is mild mitral valve regurgitation. There is no mitral valve stenosis. Pulmonic Valve There is trace to mild pulmonic valve regurgitation. Tricuspid Valve Normal tricuspid valve structure. There is mild tricuspid valve regurgitation. The right ventricular systolic pressure is normal. The right ventricular systolic pressure is 26 mmHg. Normal right atrial pressure. There is no evidence of pulmonary hypertension. Great Vessels The pulmonary artery was not well visualized. There is moderate dilatation of the ascending aorta measuring 4.50 cm. Venous The inferior vena cava is normal in size and collapses greater than 50% with inspiration. Pericardium/Pleural There is no evidence of pericardial effusion. Prior Study Comparison No significant change compared to prior study dated: 09/11/2021. Measurements 2D Linear Measurements IVSd: 1.46 0.6-0.9/0.6-1.0 cm LVIDd: 3.91 3.9-5.3/4.2-5.9 cm LVIDd Index: 1.76 2.4-3.2/2.2-3.1 cm/m2 LVIDs: 2.20 2.0-3.6 cm LVPWd: 0.85 0.7-1.1 cm LA Diam: 4.40 2.7-3.8/3.0-4.0 cm LAIDs Index: 1.98 1.5-2.3 cm/m2 LV Mass: 187.62 67-162/88-224 g LV Mass Index: 84.51 43-95/49-115 g/m2 LVOT Diam: 2.30 3.0+(-)1.3 cm 2D Systolic Function EF 4C: 53.30 >55% EF 2C: 54.20 >55% EF BiP: 53.60 >55% Mitral Valve MV Pk E: 1.01 MV Decel Time: 175.00 E'Lateral: 8.49 E'Medial: 5.98 E/E' Med: 16.90 E/E' Lat: 11.90 PHT: 51.00 MVA PHT: 4.31 Decel [place]: 5.77 Aortic Valve AoV Pk Sj: 0.84 AoV Pk Grad: 3.00 MARÍA: 2.78 LVOT LVOT Pk Sj: 0.56 LVOT Mn Sj: 0.33 LVOT VTI: 0.12 LVOT Pk Grad: 1.00 LVOT Mn Grad: 0.00 LVOT Diam: 2.30 LVOT Area: 4.15 Diastolic Function MV Pk E: 1.01 E'Medial: 5.98 E/E' Med: 16.90 E' Laterial: 8.49 E/E' Lat: 11.90 Right Ventricle TAPSE (mm): 26.00 TVS' Sj: 12.70 Tricuspid Valve TR Pk Sj: 2.42 TR Pk Grad: 23.00 RA Press: 3.00 RVSP: 26.00 Great Vessels Aorta Sinus of Valsalva: 4.29 2.0-3.5 cm Ao Asc: 4.50 2.1-3.4 cm Updated in Other Vendor System with Status of Final August Rodriguez MD electronically signed on 08/25/2022 12:14:05 PM with status of Final
== END ==
LOC: HO.CARD 09:54
PROVIDERS: PCP Hospitalist; Visit Provider Internal Medicine Cardiovascular Disease
DX: I71.20 Thoracic aortic aneurysm, without rupture, unspecified (principal)
CPT/HCPCS: 93306

== ENCOUNTER 2022-10-14 10:59 | Outpatient (AMB) | payer MEDICARE, MEDICAID, SELFPAY ==
--- NOTE | 2022-10-14 11:08 | A.OFFVIS_ITS ---
Intake Intake Visit Reasons: follow up/PVR Intake Note: Patient presents for follow up BPH/Incontinence Urology Medication: finasteride, terazosin, myrbetriq Blood Thinner: rivaroxaban (xarelto) PVR: 0ml's Club Waiter/Waitress Required: No Accompanied by: stereo equipment salesperson Allergies No Known Allergies [No Known Allergies*] Allergy (Verified 10/14/22 13:50) Medication List - Last Reconciled 10/14/22 by Alisia Bruce [facility]- [id number] 600-50-300 mg 1 tab PO DAILY [acetaminophen 2 tabs PO Q4H PRN] [Colace 2 caps PO DAILY] [Dulcolax (bisacodyl) 1 supp ND DAILY PRN] finasteride 5 mg PO DAILY lithium carbonate 300 mg PO DAILY lithium carbonate 150 mg PO DAILY mirabegron ER (Myrbetriq) 50 mg PO DAILY 90 days [omeprazole 1 tab PO DAILY] omeprazole mg PO oseltamivir 75 mg PO DAILY oxcarbazepine 150 mg PO BID oxcarbazepine 300 mg PO BID perphenazine 8 mg PO BID perphenazine mg PO perphenazine mg PO propranolol 20 mg PO BID propranolol 10 mg PO QNOON rivaroxaban 20 mg PO DAILY terazosin 5 mg PO BEDTIME 90 days HPI HPI Comments History of Present Illness Details Ras is a pleasant 77 year old male who was accompanied by 1 of the [facility] capacity manager Saiar. He is a patient of Dr. Hanson. He has a past medical history of abdominal aortic aneurysm without rupture, alcohol abuse, ascending aortic aneurysm, atrial flutter, BPH with lower urinary tract symptoms, constipation, COPD, CVA, acquired bilateral cysts of kidneys, dementia, fatty liver, GERD, HIV, paroxysmal AFib, and urgency incontinence. He presents to the office today for follow-up of his lower urinary tract symptoms. In discussion with the patient today he reports to be doing and feeling well. He reports compliance with finasteride and Myrbetriq daily. He denies any urinary issues or concerns at this time. In review of patient's chart it appears CT of the abdomen and pelvis was ordered and performed due to patient's longstanding history of bilateral renal cysts. These results were reviewed with the patient and AUTO CRANE DRIVER worker today. There are 3 stable Bosniak 2 cysts in the left kidney. No follow-up imaging is recommended. 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 No follow-up imaging is recommended. Stable liver hemangiomas. No follow-up imaging is recommended. Unable to obtain urine for urinalysis however PVR 0 mLs. Discussed near future in office cystoscopy if symptoms arise. Discussed nicotine and avoiding bladder irritants. Patient denies dysuria, hematuria, flank pain, fever and or chills. Discussed long-term psychiatric medication as well as nicotine and bladder irritants at length. [facility] Medical History AAA (abdominal aortic aneurysm) without rupture Acute stress reaction Alcohol abuse Ascending aortic aneurysm Atrial flutter BPH loc w urin obs/LUTS Constipation, unspecified COPD (chronic obstructive pulmonary disease) CVA (cerebral vascular accident) Cyst of kidney, acquired Deficiency of other vitamins Dementia in other diseases classified elsewhere with behavioral disturbance Fatty (change of) liver, not elsewhere classified GERD (gastroesophageal reflux disease) HIV (human immunodeficiency virus infection) Low back pain Muscular weakness Other abnormalities of gait and mobility Paroxysmal atrial fibrillation Personal history of COVID-19 Preglaucoma, unspecified, unspecified eye 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 Resides in prison care facility Right bundle branch block (RBBB) on electrocardiogram (ECG) Unspecified cataract Unspecified urinary incontinence Urgency incontinence Ventricular premature depolarization Surgical History H/O colonoscopy Social History Housing Other:: [facility] Are you a primary day care supervisor to a significant other at home: No Do you presently have visiting nurse or other home services: Yes ([facility] staff) Patient Tobacco Use Status: Former Tobacco user Advance Directives Date on File: 07/19/21 Review of Systems Eyes Reports no additional complaints ENT Reports no additional complaints Card Reports as per HPI Resp Reports as per HPI GI Reports as per HPI Reports as per HPI Musc Reports as per HPI Neuro Reports as per HPI Psych Reports as per HPI Endo Reports as per HPI Michael/Lymph Reports no additional complaints Aller/Immun Reports no additional complaints Physical Exam Const General: cooperative, healthy appearing, comfortable, no acute distress, well developed, alert and awake Orientation/consciousness: patient oriented x3 Limitations: no limitations HEENT Head: Yes normal to inspection, Yes normocephalic and Yes atraumatic Ears: hearing grossly normal bilaterally Eyes General: appearance normal, both eyes and all related structures Neck Neck: Yes normal visual inspection and Yes trachea midline Chest Chest palpation & inspection: normal inspection of the chest Resp Effort & Inspection: normal respiratory effort and able to speak in complete sentences Cardio Rate: regular rate GI Inspection: Yes normal to inspection General: Yes no CVA tenderness Back/Spine/Pelvis Back: no CVA tenderness Skin General skin exam: no rashes or lesions noted Neuro General: patient oriented x3 Extrem General: Yes normal to inspection Psych Appearance: grossly normal and well kempt Mental Status: mental status grossly normal Speech and movement: Normal speech and movement present and Clear speech present Affect: normal affect Attitude: cooperative Thought process: Normal thought process present Thought content: Normal thought content present Insight: Good insight present (Psych) Judgement: Good judgement present (Psych) Office Procedures Post Void Residual Post Residual Void Post Void Residual (PVR): 0 [id number] Void Residual by ultrasound Results Reviewed Results Reviewed: Date of Service: 07/14/22 EXAMINATION: CT ABDOMEN WITHOUT AND WITH CONTRAST FINDINGS: LUNG BASES: Scarring at the right lung base.? LIVER, GALLBLADDER, AND BILIARY TREE: Stable hemangiomas in the right lobe of the liver. Otherwise no discrete liver mass. No ductal dilatation. The common bile duct is normal in caliber. The gallbladder appears normal. PANCREAS: No discrete pancreatic mass. No ductal dilatation.? SPLEEN: Lobulated low-attenuation lesion in the inferior spleen is stable.? ADRENAL GLANDS AND KIDNEYS: Stable 1.7 cm homogeneous nodule measuring 7 Hounsfield units on noncontrast imaging in the right adrenal gland consistent with a benign lipid rich adenoma. The left adrenal gland appears normal. There are simple cysts in the right kidney. No follow-up imaging is recommended. There are multiple simple cysts in the left kidney. No follow-up imaging is recommended. There is a nonenhancing exophytic lesion from the upper pole of the left kidney measuring 2 cm, 47 HU precontrast, and 53 noncontrast consistent with a proteinaceous cyst (Bosniak 2). There is a nonenhancing lesion in the posterior mid left kidney measuring 1.5 cm, 32 HU precontrast, and 36 HU postcontrast consistent with a proteinaceous cyst (Bosniak 2). There is a 10.0 x 5.7 x 6.4 cm thinly septated cyst in the mid left kidney (Bosniak 2). Variously this measure 9.6 x 5.5 [address] angiogram 09/06/2020. The retroperitoneal cyst along the left ureter is unchanged. BOWEL LOOPS: The visualized small bowel is normal in caliber. The visualized large bowel appears normal.? LYMPH NODES: No lymphadenopathy. VASCULAR: Distal thoracic aortic aneurysm measures 4.6 x 4.5 cm compared to 4.3 x 4.3 cm 09/06/2020. BONES: Degenerative changes in the spine.? IMPRESSION: There are 3 stable Bosniak 2 cysts in the left kidney. No follow-up imaging is recommended. ? 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 No follow-up imaging is recommended. ? Stable liver hemangiomas. No follow-up imaging is recommended. Assessment & Plan Assessment & Plan (1) Renal cysts, acquired, bilateral: Code(s): N28.1 - Cyst of kidney, acquired (2) Urgency incontinence: Code(s): N39.41 - Urge incontinence (3) BPH loc w urin obs/LUTS: Code(s): N40.1 - Benign prostatic hyperplasia with lower urinary tract symptoms Plan Unable to obtain urine for urinalysis PVR [address] imaging results; as noted above Patient denies any urinary issues or concerns at this time Patient reports to be happy with current voiding parameters on Myrbetriq 50 mg daily and Finasteride; will continue Discussed bladder irritants at length Will obtain PSA in 6 months Follow-up in 6 months with lab to be completed prior; or sooner with any issues, concerns, and or questions. Orders: Orders PSA,Total (Free>4and<10) 6 Months N40.1 - Benign prostatic hyperplasia with lower urinary tract symptoms AMB Post Void Residual by ultrasound Today N39.41 - Urge incontinence Patient Instructions: The patient had an opportunity to ask questions regarding the treatment plan. All questions were answered. Physical exam, labs, and imaging were discussed and reviewed in detail. As well as risks, benefits, and discussion of treatment choices. No major barriers to understanding were identified. The patient expressed understanding and agreement with the above treatment plan. The patient was made aware they should contact our office by phone for worsening of their current condition, the appearance of new symptoms, or with any questions or concerns. Compliance is encouraged with any medications and follow up testing that is ordered. It is a privilege to be allowed the opportunity to participate in? your urological care.? Again, if you have any questions or concerns If you have any questions or concerns please do not hesitate to contact me. The office is [phone]. This note is constructed using voice recognition software. While every effort has been made to ensure accuracy education courses sales representative errors may have been included. Yours sincerely, JOSE Pineda Coding Level of Care Code Est Pt Level 3 (24518) Diagnoses Renal cysts, acquired, bilateral N28.1 Urgency incontinence N39.41 BPH loc w urin obs/LUTS N40.1 CPT Codes Post Residual Void - PVR CPT Code: 18909-[id number] Void Residual by ultrasound ([id number])
== END 2022-10-14 11:33 | disposition home or self-care (01) ==
LOC: HO.HUSH 10:59
PROVIDERS: PCP Hospitalist; Visit Provider Nurse Practitioner Family
DX: N28.1 Cyst of kidney, acquired (principal); N39.41 Urge incontinence; N40.1 Benign prostatic hyperplasia with lower urinary tract symptoms
CPT/HCPCS: 99213

== ENCOUNTER → 2022-10-14 10:59 | Outpatient (BNVA) | payer MEDICARE, MEDICAID, SELFPAY | PROVIDERS: PCP Hospitalist; Visit Provider Nurse Practitioner Family | DX: N40.1 Benign prostatic hyperplasia with lower urinary tract symptoms (principal); N13.8 Other obstructive and reflux uropathy; N28.1 Cyst of kidney, acquired; N39.41 Urge incontinence | CPT/HCPCS: 51798; 99212 ==

== ENCOUNTER 2022-11-10 14:33 | Outpatient (AMB) | payer MEDICARE, MEDICAID, SELFPAY ==
[2022-11-10 14:51] VITALS: BP 132/80; PULSE 59; BMI 24.6
--- NOTE | 2022-11-10 14:51 | A.OFFVIS_ITS ---
Intake Vital Signs 11/10/22 14:51 Height 6 ft 2 in Weight 191 lb 12.835 oz BMI 24.6 BP 132/80 Blood Pressure Location Lt brachial Position Sitting Pulse 59 Pulse Source Pulse Oximeter Intake Visit Reasons: 1 year follow-up after echo Intake Note: 1 year f/p after echo Polishing Wheel Setter Required: No Allergies No Known Allergies [No Known Allergies*] Allergy (Verified 11/10/22 14:59) Medication List - Last Reconciled 11/10/22 by August Rodriguez MD [id number]-[id number] 600-50-300 mg 1 tab PO DAILY [acetaminophen 2 tabs PO Q4H PRN] [Colace 2 caps PO DAILY] [Dulcolax (bisacodyl) 1 supp OR DAILY PRN] finasteride 5 mg PO DAILY latanoprost 0.005% 0 drps ophthalmic (eye) lithium carbonate 300 mg PO DAILY lithium carbonate 150 mg PO DAILY mirabegron ER (Myrbetriq) 50 mg PO DAILY 90 days [omeprazole 1 tab PO DAILY] omeprazole mg PO oseltamivir 75 mg PO DAILY oxcarbazepine 150 mg PO BID oxcarbazepine 300 mg PO BID perphenazine 8 mg PO BID perphenazine mg PO perphenazine mg PO propranolol 20 mg PO BID propranolol 10 mg PO QNOON rivaroxaban 20 mg PO DAILY terazosin 5 mg PO BEDTIME 90 days HPI HPI Comments History of Present Illness Details Ras comes for follow-up office ascending aortic aneurysm atrial fibrillation. He presents here with a MESSENGER OFFICE. He currently has no cardiac symptoms. Denies any palpitations or lightheadedness or syncope. No worsening shortness of breath, orthopnea, PND. No leg edema. No lightheadedness, syncope. No bleeding issues or neurologic events. Takes all his medications. Recent echocardiogram shows moderate ascending aortic aneurysm which has remained stable. [facility] Medical History (Updated 11/10/22 @ 15:22 by August Rodriguez MD) AAA (abdominal aortic aneurysm) without rupture Acute stress reaction Alcohol abuse Ascending aortic aneurysm Atrial flutter BPH loc w urin obs/LUTS Constipation, unspecified COPD (chronic obstructive pulmonary disease) CVA (cerebral vascular accident) Cyst of kidney, acquired Deficiency of other vitamins Dementia in other diseases classified elsewhere with behavioral disturbance Fatty (change of) liver, not elsewhere classified GERD (gastroesophageal reflux disease) HIV (human immunodeficiency virus infection) Low back pain Muscular weakness Other abnormalities of gait and mobility Paroxysmal atrial fibrillation Persistent atrial fibrillation Personal history of COVID-19 Preglaucoma, unspecified, unspecified eye 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 Right bundle branch block (RBBB) on electrocardiogram (ECG) Unspecified cataract Unspecified urinary incontinence Urgency incontinence Ventricular premature depolarization Surgical History H/O colonoscopy Social History Housing Other:: [facility] Are you a primary health care facilities inspector to a significant other at home: No Do you presently have visiting nurse or other home services: Yes ([facility] staff) Patient Tobacco Use Status: Former Tobacco user Advance Directives Date on File: 07/19/21 Review of Systems ENT Reports dizziness Card Denies chest pain, Denies chest pain at rest, Denies chest pain with activity, Denies rapid heart rate, Denies pedal edema, Denies edema, Denies leg edema, Denies lightheadedness, Denies palpitations, Denies dyspnea, Denies dyspnea on exertion and Denies orthopnea Resp Denies cough, Denies dyspnea and Denies dyspnea on exertion GI Denies hematochezia and Denies change in stool character Musc Denies abnormal gait, Reports limited range of motion, Reports muscle cramps, Denies muscle weakness, Denies numbness, Denies radiating pain into limb, Denies stiffness and Denies tingling Neuro Denies abnormal gait, Reports dizziness, Denies numbness and Denies tingling Endo Denies palpitations Physical Exam Vital Signs: Last Vital Signs Pulse 59 11/10/22 14:51 BP 132/80 11/10/22 14:51 BMI result Body Mass Index 24.6 Const General: cooperative, comfortable, no acute distress, alert and awake Nutritional Appearance: overweight and other (Frail elderly man) Orientation/consciousness: patient oriented x3 Limitations: ambulation with walker Neck Neck: Yes trachea midline and Yes supple Resp Effort & Inspection: normal respiratory effort Auscultation: clear to auscultation bilaterally Cardio Jugular venous distension: no JVD Palpation: normal PMI Rhythm: abnormal rhythm irregularly irregular Heart sounds: S1 normal heart sound present, S2 normal heart sound present, no click, no gallops, no murmurs and no rubs GI Auscultation: normal bowel sounds Neuro General: patient oriented x3 and no focal motor deficits Extrem General: Yes no clubbing, cyanosis or edema Assessment & Plan Assessment & Plan (1) Persistent atrial fibrillation: Code(s): I48.19 - Other persistent atrial fibrillation Plan: Persistent rate control atrial fibrillation without any new symptoms or signs of cardiac decompensation. Given his age and no symptoms, will pursue rate control approach which appears to be well optimized continue current propranolol therapy. Continue full oral anticoagulation, currently on Xarelto 20 mg daily. At least semi annual renal function test and annual CBC should be performed. (2) Ascending aortic aneurysm: Code(s): I71.2 - Thoracic aortic aneurysm, without rupture Plan: Ascending aortic aneurysm which has remained stable and moderate. No interventions required. Continue current medical therapy and aggressive blood pressure control. Blood pressure is currently well optimized. Advised to avoid sudden strenuous isometric exercise. Follow-up in 1 year's time. Will follow up with echocardiogram in 1 year's time. Thank you for allowing me to partake in his care Coding Level of Care Code Est Pt Level 4 (48631) Diagnoses Persistent atrial fibrillation I48.19 Ascending aortic aneurysm I71.2
== END 2022-11-10 15:21 | disposition home or self-care (01) ==
PROVIDERS: PCP Hospitalist; Referring Provider Hospitalist; Visit Provider Internal Medicine Cardiovascular Disease
DX: I48.19 Other persistent atrial fibrillation (principal); I71.20 Thoracic aortic aneurysm, without rupture, unspecified
CPT/HCPCS: 99214

== ENCOUNTER → 2022-11-10 14:33 | Outpatient (BNVA) | payer MEDICARE, MEDICAID, SELFPAY | PROVIDERS: PCP Hospitalist; Referring Provider Hospitalist; Visit Provider Internal Medicine Cardiovascular Disease | DX: I71.20 Thoracic aortic aneurysm, without rupture, unspecified (principal); I48.92 Unspecified atrial flutter | CPT/HCPCS: 99212 ==

== ENCOUNTER 2023-01-14 08:04 | Outpatient (REF) | payer MEDICARE, MEDICAID, SELFPAY ==
--- NOTE | ~2023-01-14 | CT_ITS ---
EXAMINATION: CT ABDOMEN WITHOUT AND WITH CONTRAST CLINICAL INFORMATION: Follow-up renal cyst. COMPARISON: Multiple previous CTs, most recent, 07/14/2022. 11/28/2020 MRI. TECHNIQUE: Contiguous axial thin section helical images of the abdomen were performed before and after the administration of oral contrast and 85 mL of Omnipaque 350 intravenous contrast. The data set was reformatted in the coronal and sagittal planes and reviewed on an independent workstation. This CT examination was performed using dose optimization techniques as appropriate, variously including the following: *Automated exposure control *Adjustment of mA and/or kV according to patient size (this includes techniques or standardized protocols for targeted exams where dose is matched to indication/reason for exam; i.e. 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 Vascular calcifications. LUNG BASES: Hyperinflation with chronic scarring. Mild pericardial thickening/fluid. LIVER, GALLBLADDER, AND BILIARY TREE: Stable 1.8 cm subcapsular right hepatic lesion, previously characterized as hemangioma on MRI. Interval development of 6 mm right hepatic hypodensity, likely cyst. No intra or extrahepatic biliary ductal dilatation. Unremarkable gallbladder. PANCREAS: Atrophic. SPLEEN: Unchanged 1.6 cm complicated cysts. ADRENAL GLANDS: Mildly hypertrophic left adrenal gland. No change 2.2 cm right adrenal gland. Previous MRI demonstrating 1 cm lipid rich adrenal adenoma. KIDNEYS: Bilateral varying sized renal hypodensities, many too small to characterize, many with Hounsfield units consistent with simple cysts, largest on the right measures 1.6 cm., largest on the left, 9.6 cm with septation. In the left upper pole, 2.4 x 2.8 cm indeterminate renal hypodensity previously measured 1.7 x 1.4 cm on 11/28/2020 MRI, thought likely to represent complex cyst. 1.7 cm posterior upper pole indeterminate lesion has shown gradual enlargement, 4:65. Too small to characterize lateral upper pole cortical hypodensity slightly enlarged with more exophytic appearance on today's study. 2.5 x 2.5 x 4.2 cm left retroperitoneal cyst adjacent to the left ureter has shown interval enlargement. GASTROINTESTINAL: Decompressed stomach. Nonobstructive bowel pattern. Fecal retention. ABDOMINAL WALL: Rectus diastasis and small fat filled umbilical hernia. LYMPH NODES: Normal. VASCULAR: Atherosclerotic calcifications of the abdominal aorta. At the level of the celiac artery, aorta measures 4.2 x 3.8 cm with mild mural thrombus. Given interobserver variability, no significant change. Immediate infrarenal abdominal aorta measures 2.9 x 2.8 cm. Distal aorta measures 2.6 x 2.4 cm. Dilated bilateral common iliac arteries, on the right measuring 1.9 cm, on the left, 1.6 cm BONES: No suspicious osseous lesions. Degenerative changes. CT/CT abdomen wo/w IV con IMPRESSION: Enlarging indeterminant left renal hypodensities. Follow-up MRI recommended. Multiple stable renal cysts. Enlarging left retroperitoneal cyst. Hepatic lesions, largest measuring 1.8 cm, previously characterized as hemangioma. Stable splenic complicated cyst. No significant change 4.2 cm upper abdominal aortic aneurysm and bilateral iliac aneurysms No change 2.2 cm right adrenal gland, containing previously characterized but rich adenoma. Fleischner guidelines were followed.
[2023-01-14] MEDS: iohexoL 350 MG/ML 100 ML INFUS..BTL IV (09:35)
[2023-01-14 14:00] LABS: Creatinine POC 0.5 mg/dL (0.5-1.4); GFR POC > 60
== END 2023-01-14 08:05 | disposition home or self-care (01) ==
LOC: HO.CT 08:04
PROVIDERS: PCP Hospitalist; Visit Provider Hospitalist
DX: N28.1 Cyst of kidney, acquired (principal)
CPT/HCPCS: 74170; 82565; Q9967

== ENCOUNTER 2023-04-14 10:21 | Outpatient (AMB) | payer MEDICARE, MEDICAID, SELFPAY ==
--- NOTE | 2023-04-14 10:54 | A.OFFVIS_ITS ---
Intake Intake Visit Reasons: 6m/labs Intake Note: Patient presents for follow up BPH/Incontinence, PSA lab results (psa 3.0) Urology Medication: finasteride, terazosin, myrbetriq Blood Thinner: rivaroxaban (xarelto) PVR: 0ml's Cost Accounting Clerk Required: No Accompanied by: health inspector Allergies No Known Allergies [No Known Allergies*] Allergy (Verified 04/14/23 11:13) Medication List - Last Reconciled 04/14/23 by Alisia Bruce [facility] gtovuxfz-ppbehagrmfah-aatjdos 600-50-300 mg 1 tab PO DAILY [acetaminophen 2 tabs PO Q4H PRN] [Colace 2 caps PO DAILY] [Dulcolax (bisacodyl) 1 supp GA DAILY PRN] finasteride 5 mg PO DAILY latanoprost 0.005% 0 drps ophthalmic (eye) lithium carbonate 300 mg PO DAILY lithium carbonate 150 mg PO DAILY mirabegron ER (Myrbetriq) 50 mg PO DAILY 90 days [omeprazole 1 tab PO DAILY] omeprazole mg PO oseltamivir 75 mg PO DAILY oxcarbazepine 150 mg PO BID oxcarbazepine 300 mg PO BID perphenazine 8 mg PO BID propranolol 20 mg PO BID propranolol 10 mg PO QNOON rivaroxaban 20 mg PO DAILY terazosin 5 mg PO BEDTIME 90 days HPI HPI Comments History of Present Illness Details Ras is a pleasant 77 year old male who was accompanied by one of the [employer] product designeralexandrea Willett. He is a patient of Dr. Hanson. He has a past medical history of abdominal aortic aneurysm without rupture, alcohol abuse, ascending aortic aneurysm, atrial flutter, BPH with lower urinary tract symptoms, constipation, COPD, CVA, acquired bilateral cysts of kidneys, dementia, fatty liver, GERD, HIV, paroxysmal AFib, and urgency incontinence. He presents to the office today for follow-up of his lower urinary tract symptoms. In discussion with the patient today he reports to be doing and feeling well. He reports compliance with finasteride and Myrbetriq daily. He reports noting decreased urinary issues when practicing scheduled/timed voiding. He denies any urinary issues or concerns at this time. Unable to obtain urine for urinalysis however PVR [address] of the abdomen was ordered and performed approximately 3 months ago at which time recommendations were made for MRI follow-up regarding complex renal cysts. These results were reviewed with the patient today. Bilateral varying sized renal hypodensities, many too small to characterize. There is a 2.5 x 2.5 x 4.2 cm left retroperitoneal cyst adjacent to the left ureter which has shown interval enlargement since last imaging. Given enlarging indeterminant left renal hypodensities are noted Follow-up MRI recommended. Discussed nicotine dependence and avoiding bladder irritants. Patient denies dysuria, hematuria, flank pain, fever and or chills. PSA 04/15--3.0 PFS Medical History Persistent atrial fibrillation Ascending aortic aneurysm Psychotic disorder with hallucinations due to known physiological condition Unspecified urinary incontinence Constipation, unspecified Preglaucoma, unspecified, unspecified eye Acute stress reaction Ventricular premature depolarization Unspecified cataract Presbyopia Dementia in other diseases classified elsewhere with behavioral disturbance Atrial flutter Deficiency of other vitamins Other abnormalities of gait and mobility Muscular weakness Cyst of kidney, acquired Fatty (change of) liver, not elsewhere classified AAA (abdominal aortic aneurysm) without rupture Personal history of COVID-19 Low back pain Alcohol abuse HIV (human immunodeficiency virus infection) Resides in longterm care facility GERD (gastroesophageal reflux disease) COPD (chronic obstructive pulmonary disease) Right bundle branch block (RBBB) on electrocardiogram (ECG) CVA (cerebral vascular accident) Paroxysmal atrial fibrillation Urgency incontinence BPH loc w urin obs/LUTS Surgical History H/O colonoscopy Social History Housing Other:: [facility] Are you a primary palliative care coordinator to a significant other at home: No Do you presently have visiting nurse or other home services: Yes ([facility] staff) Patient Tobacco Use Status: Former Tobacco user Advance Directives Date on File: 07/19/21 Review of Systems Eyes Reports no additional complaints ENT Reports no additional complaints Card Reports as per HPI Resp Reports as per HPI GI Reports as per HPI Reports as per HPI Musc Reports as per HPI Neuro Reports as per HPI Psych Reports as per HPI Endo Reports as per HPI Michael/Lymph Reports no additional complaints Aller/Immun Reports no additional complaints Physical Exam Const General: cooperative, healthy appearing, comfortable, no acute distress, well developed, alert and awake Orientation/consciousness: patient oriented x3 Limitations: ambulation with walker HEENT Head: Yes normal to inspection, Yes normocephalic and Yes atraumatic Ears: hearing grossly normal bilaterally Eyes General: appearance normal, both eyes and all related structures Neck Neck: Yes normal visual inspection and Yes trachea midline Chest Chest palpation & inspection: normal inspection of the chest Resp Effort & Inspection: normal respiratory effort and able to speak in complete sentences Cardio Rate: regular rate GI Inspection: Yes normal to inspection General: Yes no CVA tenderness Back/Spine/Pelvis Back: no CVA tenderness Skin General skin exam: no rashes or lesions noted Neuro General: patient oriented x3 Extrem General: Yes normal to inspection Psych Appearance: grossly normal and well kempt Mental Status: mental status grossly normal Speech and movement: Normal speech and movement present and Clear speech present Affect: normal affect Attitude: cooperative Thought process: Normal thought process present Thought content: Normal thought content present Insight: Fair insight present (Psych) Judgement: Fair judgement present (Psych) Office Procedures Post Void Residual Post Residual Void Post Void Residual (PVR): 0 [id number]-[id number] Void Residual by ultrasound Results Reviewed Results Reviewed: Date of Service: 01/14/23 EXAMINATION: CT ABDOMEN WITHOUT AND WITH CONTRAST FINDINGS: IMPLEMENTATION PROJECT MANAGER:: Nonobstructive bowel pattern. Vascular calcifications. LUNG BASES: Hyperinflation with chronic scarring. Mild pericardial thickening/fluid. LIVER, GALLBLADDER, AND BILIARY TREE: Stable 1.8 cm subcapsular right hepatic lesion, previously characterized as hemangioma on MRI. Interval development of 6 mm right hepatic hypodensity, likely cyst. No intra or extrahepatic biliary ductal dilatation. Unremarkable gallbladder. PANCREAS: Atrophic. SPLEEN: Unchanged 1.6 cm complicated cysts. ADRENAL GLANDS: Mildly hypertrophic left adrenal gland. No change 2.2 cm right adrenal gland. Previous MRI demonstrating 1 cm lipid rich adrenal adenoma. KIDNEYS: Bilateral varying sized renal hypodensities, many too small to characterize, many with Hounsfield units consistent with simple cysts, largest on the right measures 1.6 cm., largest on the left, 9.6 cm with septation. In the left upper pole, 2.4 x 2.8 cm indeterminate renal hypodensity previously measured 1.7 x 1.4 cm on 11/28/2020 MRI, thought likely to represent complex cyst. 1.7 cm posterior upper pole indeterminate lesion has shown gradual enlargement, 4:65. Too small to characterize lateral upper pole cortical hypodensity slightly enlarged with more exophytic appearance on today's study. 2.5 x 2.5 x 4.2 cm left retroperitoneal cyst adjacent to the left ureter has shown interval enlargement. GASTROINTESTINAL: Decompressed stomach. Nonobstructive bowel pattern. Fecal retention. ABDOMINAL WALL: Rectus diastasis and small fat filled umbilical hernia. LYMPH NODES: Normal. VASCULAR: Atherosclerotic calcifications of the abdominal aorta. At the level of the celiac artery, aorta measures 4.2 x 3.8 cm with mild mural thrombus. Given interobserver variability, no significant change. Immediate infrarenal abdominal aorta measures 2.9 x 2.8 cm. Distal aorta measures 2.6 x 2.4 cm. Dilated bilateral common iliac arteries, on the right measuring 1.9 cm, on the left, 1.6 cm BONES: No suspicious osseous lesions. Degenerative changes. IMPRESSION: Enlarging indeterminant left renal hypodensities. Follow-up MRI recommended. Multiple stable renal cysts. Enlarging left retroperitoneal cyst. Hepatic lesions, largest measuring 1.8 cm, previously characterized as hemangioma. Stable splenic complicated cyst. No significant change 4.2 cm upper abdominal aortic aneurysm and bilateral iliac aneurysms No change 2.2 cm right adrenal gland, containing previously characterized but rich adenoma. Assessment & Plan Assessment & Plan (1) Renal cysts, acquired, bilateral: Code(s): N28.1 - Cyst of kidney, acquired (2) Urgency incontinence: Code(s): N39.41 - Urge incontinence (3) BPH loc w urin obs/LUTS: Code(s): N40.1 - Benign prostatic hyperplasia with lower urinary tract symptoms Plan Unable to obtain urine for urinalysis however PVR [address] results reviewed with the patient today; as noted above. Recent PSA results reviewed with the patient today; as noted above. Continue scheduled/timed voiding. Continue finasteride 5 mg daily and Myrbetriq 25 mg daily as discussed and prescribed. Patient currently denies any bothersome urinary issues. Will obtain MRI of the kidneys with and without contrast given increased size and hypodensities noted on recent CT as well as for further assessment and evaluation Discussed bladder triggers/irritants. Discussed and educated on the importance of limiting/quitting nicotine dependence for overall health and well-being. Follow-up in 1-3 months with imaging to be completed prior; or sooner with any issues, concerns, and or questions. Orders: Orders MR kidney wo/w con Today N28.1 - Cyst of kidney, acquired AMB Post Void Residual by ultrasound Today N39.41 - Urge incontinence Patient Instructions: The patient had an opportunity to ask questions regarding the treatment plan. All questions were answered. Physical exam, labs, and imaging were discussed and reviewed in detail. As well as risks, benefits, and discussion of treatment choices. No major barriers to understanding were identified. The patient expressed understanding and agreement with the above treatment plan. The patient was made aware they should contact our office by phone for worsening of their current condition, the appearance of new symptoms, or with any questions or concerns. Compliance is encouraged with any medications and follow up testing that is ordered. It is a privilege to be allowed the opportunity to participate in? your urological care.? Again, if you have any questions or concerns If you have any questions or concerns please do not hesitate to contact me. The office is [phone]. This note is constructed using voice recognition software. While every effort has been made to ensure accuracy associate account director errors may have been included. Yours sincerely, JOSE Pineda Coding Level of Care Code Est Pt Level 3 (93297) Diagnoses Renal cysts, acquired, bilateral N28.1 Urgency incontinence N39.41 BPH loc w urin obs/LUTS N40.1 CPT Codes Post Residual Void - PVR CPT Code: 10915-Crkg Void Residual by ultrasound ([id number])
== END 2023-04-14 11:31 | disposition home or self-care (01) ==
PROVIDERS: PCP Hospitalist; Visit Provider Nurse Practitioner Family
DX: N28.1 Cyst of kidney, acquired (principal); N39.41 Urge incontinence; N40.1 Benign prostatic hyperplasia with lower urinary tract symptoms
CPT/HCPCS: 99213

== ENCOUNTER → 2023-04-14 10:21 | Outpatient (BNVA) | payer MEDICARE, MEDICAID, SELFPAY | PROVIDERS: PCP Hospitalist; Visit Provider Nurse Practitioner Family | DX: N28.1 Cyst of kidney, acquired (principal); N39.41 Urge incontinence; N40.1 Benign prostatic hyperplasia with lower urinary tract symptoms; N13.8 Other obstructive and reflux uropathy; Z79.899 Other long term (current) drug therapy | CPT/HCPCS: 51798; 99212 ==

== ENCOUNTER 2023-04-18 16:06 | Inpatient (IN) | payer MEDICARE, MEDICAID, SELFPAY ==
[2023-04-18] VITALS (16 sets, daily range): BP systolic 84–138; BP diastolic 51–93; PULSE 38–106; RESP 13–20; TEMP 36.2–36.6; O2SAT 92–99; BMI 25.8; BMI 26.5; BMI 25.0
--- NOTE | ~2023-04-18 | XR_ITS ---
EXAMINATION: XR CHEST CLINICAL INFORMATION: Status post central line placement COMPARISON: Chest x-ray 05/31/2018 TECHNIQUE: Frontal view of the chest was obtained. FINDINGS: Support devices: Right internal jugular approach central venous catheter tip terminates at the cavoatrial junction. Overlying EKG leads. Left chest defibrillator pad. Cardiomediastinal silhouette is within normal limits. No pneumothorax or pleural effusion. No focal airspace consolidation. XR/XR chest 1V IMPRESSION: Right internal jugular central catheter tip terminating at the cavoatrial junction.
--- NOTE | ~2023-04-18 | XR_ITS ---
EXAMINATION: XR CHEST CLINICAL INFORMATION: Status post pacemaker placement. COMPARISON: Chest radiograph 04/18/2023. TECHNIQUE: Frontal view of the chest was obtained. FINDINGS: Right-sided pacer with leads projecting over the region of the right atrium and right ventricle. Right IJ CVC catheter tip at the level of the superior cavoatrial junction. Patient's rotation limits the examination. Increased central and bibasilar airspace opacities. Numerous small left-sided pleural effusion. No pneumothorax. No acute osseous findings. XR/XR chest 1V IMPRESSION: 1. Right-sided pacer leads projecting over the regions of the right atrium and right ventricle. 2. No pneumothorax. 3. Findings suggestive of worsening pulmonary edema with increased central and bibasilar interstitial opacities as well as trace amount of left-sided pleural fluid. A superimposed infectious/inflammatory process is difficult to exclude. Short-term follow-up recommended.
--- NOTE | ~2023-04-18 | FL_ITS ---
EXAMINATION: XR FLUOROSCOPY WITH IMAGES CLINICAL INFORMATION: Pacemaker insertion. COMPARISON: Chest radiograph 04/18/2023. TECHNIQUE: Fluoroscopy Supervised By: Dr. Ramires. Fluoroscopy Time: 5.7 minutes. Cumulative Dose: 17.2 mGy. DAP: 21.3 Gycm2. Images: 1. FL/FL guidance in OR FINDINGS/IMPRESSION: Single frontal fluoroscopic image demonstrating 2 pacer leads, one projecting over the expected location of the right atrium and the other one projecting over the expected location of the right ventricle. Lateral views were not provided. A radiologist was not present during this procedure. Please recommend correlation with intraoperative report for additional details.
--- NOTE | 2023-04-18 16:27 | ECG_ITS ---
Test Reason : SARAY Blood Pressure : / mmHG Vent. Rate : 034 BPM Atrial Rate : 000 BPM P-R Int : 000 ms QRS Dur : 126 ms QT Int : 622 ms P-R-T Axes : 000 026 043 degrees QTc Int : 467 ms Atrial fibrillation with slow ventricular response Right bundle branch block Abnormal ECG When compared with ECG of 31-MAY-2018 10:32, Atrial fibrillation has replaced Sinus rhythm Vent. rate has decreased BY [address] no longer elevated in Inferior leads T wave inversion no longer evident in Anterior leads Referred By: Jeannette Barajas Electronically Signed By:Olaf Hu
--- NOTE | 2023-04-18 16:31 | ED_ITS ---
HPI - General Adult General Chief complaint: Altered Mental Status Stated complaint: Found walking into wall, bp dropping but stable Time Seen by Provider: 04/18/23 16:19 Source: EMS Mode of arrival: EMS Limitations: altered mental status History of Present Illness HPI narrative: Patient comes to the emergency room via ambulance from [facility]. Patient has history of dementia. However, patient seems more confused than usual, according to the caretakers, patient has been continuously walking into [place]. Patient has no obvious injuries. Patient can not give any significant history. Patient states that he feels well and has no complaints. Related Data Home Medications Medication Instructions Recorded Confirmed abacavir 600 mg-dolutegravir 50 1 tab PO DAILY 08/16/20 04/14/23 mg-lamivudine 300 mg tablet lithium carbonate 300 mg capsule 300 mg PO DAILY 08/16/20 04/14/23 oxcarbazepine 150 mg tablet 150 mg PO BID 08/16/20 04/14/23 oxcarbazepine 300 mg tablet 300 mg PO BID 08/16/20 04/14/23 perphenazine 8 mg tablet 8 mg PO BID 08/16/20 04/14/23 propranolol 10 mg tablet 10 mg PO QNOON 08/16/20 04/14/23 propranolol 20 mg tablet 20 mg PO BID 08/16/20 04/14/23 rivaroxaban 20 mg tablet 20 mg PO DAILY 08/16/20 04/14/23 finasteride 5 mg tablet 5 mg PO DAILY 10/29/20 04/14/23 Colace 2 cap PO DAILY 05/28/21 04/14/23 Dulcolax (bisacodyl) 1 supp KS DAILY PRN Constipation 05/28/21 04/14/23 acetaminophen 2 tab PO Q4H PRN Pain 05/28/21 04/14/23 omeprazole 1 tab PO DAILY 05/28/21 04/14/23 omeprazole 20 mg capsule,delayed mg PO 03/06/22 04/14/23 release lithium carbonate 150 mg capsule 150 mg PO DAILY 04/16/22 04/14/23 oseltamivir 75 mg capsule 75 mg PO DAILY 04/16/22 04/14/23 latanoprost 0.005 % eye drops 0 drp ophthalmic (eye) 11/10/22 04/14/23 Previous Rx's Medication Instructions Recorded terazosin 5 mg capsule 5 mg PO BEDTIME 90 days #90 caps 07/02/21 mirabegron 50 mg tablet,extended 50 mg PO DAILY 90 days #90 tabs 04/16/22 release 24 hr (Myrbetriq) Allergies Allergy/AdvReac Type Severity Reaction Status Date / Time No Known Allergies Allergy Verified 04/14/23 11:13 [No Known Allergies*] Review of Systems 2 Review of Systems: Yes Unobtainable due to mental condition ( Patient denies any symptoms) PMFSH Past Medical History Medical History Persistent atrial fibrillation Ascending aortic aneurysm Psychotic disorder with hallucinations due to known physiological condition Unspecified urinary incontinence Constipation, unspecified Preglaucoma, unspecified, unspecified eye Acute stress reaction Ventricular premature depolarization Unspecified cataract Presbyopia Dementia in other diseases classified elsewhere with behavioral disturbance Atrial flutter Deficiency of other vitamins Other abnormalities of gait and mobility Muscular weakness Cyst of kidney, acquired Fatty (change of) liver, not elsewhere classified AAA (abdominal aortic aneurysm) without rupture Personal history of COVID-19 Low back pain Alcohol abuse HIV (human immunodeficiency virus infection) 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 in 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 GERD (gastroesophageal reflux disease) COPD (chronic obstructive pulmonary disease) Right bundle branch block (RBBB) on electrocardiogram (ECG) CVA (cerebral vascular accident) Paroxysmal atrial fibrillation Urgency incontinence BPH loc w urin obs/LUTS Surgical History H/O colonoscopy Social History Social History Housing Other:: [facility] Are you a primary nurse behavioral health care to a significant other at home: No Do you presently have visiting nurse or other home services: Yes ([facility] staff) Patient Tobacco Use Status: Former Tobacco user Smoked in Last 30 Days: No Use of substances other than those prescribed or required for medical reasons: No Advance Directives: Yes Advance Directives on File: Yes Advance Directives Date on File: 07/19/21 Physical Exam ED Vital Signs: Vital Signs - 24 hr 04/18/23 16:26 04/18/23 16:27 04/18/23 16:59 Temperature 97.7 F 97.7 F 97.7 F Pulse Rate 40 L 42 L 38 L Respiratory Rate 16 16 16 Blood Pressure 104/60 93/63 114/81 Pulse Oximetry 99 96 97 Oxygen Delivery Method Room Air Room Air Room Air Oxygen Flow Rate 04/18/23 17:17 04/18/23 17:26 04/18/23 17:36 Temperature Pulse Rate 49 L 42 L 58 Respiratory Rate 19 Blood Pressure 112/69 112/61 103/60 Pulse Oximetry 99 Oxygen Delivery Method Nasal Cannula Oxygen Flow Rate 2 04/18/23 17:42 04/18/23 18:41 04/18/23 19:32 Temperature 97.8 F Pulse Rate 55 88 88 Respiratory Rate 20 20 20 Blood Pressure 105/51 L 123/71 132/78 Pulse Oximetry 96 96 95 Oxygen Delivery Method Nasal Cannula Nasal Cannula Nasal Cannula Oxygen Flow Rate 2 2 1 BMI result Body Mass Index 26.5 Const Other: ?Appearance: Alert.? lethargic but easily arousable, Oriented X1.? No acute distress.?? Eyes: Pupils equal, round and reactive to light.? ENT: Pharynx normal.? Neck: Normal inspection.? Neck supple. No lymph nodes noted. No crepitus CVS: patient is significantly bradycardic between 25-45 Pulses normal. Normal S1 and S2 Respiratory: No respiratory distress.? Breath sounds normal. No Wheezing. No rales? Abdomen: Soft and nontender. No rigidity. No distention.? Skin: Skin warm and dry.? Normal skin color.? Normal skin turgor.? Extremities: No lower extremity edema. No Lacerations. No Rash Neuro: Oriented X 1.? No motor deficit.? No sensory deficit. Moving all extremities. No slurred speech. CN 2 through 12 grossly intact Psych: calm, cooperative, normal affect Course Course Course Narrative: - Medications Administered Generic Name Dose Route Start Last Admin Trade Name Freq PRN Reason Stop Dose Admin Dopamine HCl/Dextrose 400 mg in 250 mls @ 0 mls/hr 04/18/23 17:15 04/18/23 17:36 Dopamine Hcl/D5w IVCONT 10 mcg/kg/min .Q0M JEMIMA 33.3 mls/hr Titration Protocol Per Protocol Discontinued Medications Generic Name Dose Route Start Last Admin Trade Name Freq PRN Reason Stop Dose Admin Glucagon 1 mg 04/18/23 16:51 04/18/23 16:56 Glucagon Hcl 1 Mg Vial IVPUSH 04/18/23 16:52 1 mg ONCE ONE Administration Procedures Central Line Placement Right IJ: Time Out Performed: Yes Patient Placed on Monitor/Pulse Ox: Yes MD Prep: mask, gown and gloves Central Line Prep: Povidone-Iodine 1% Local Anesthetic: lidocaine 1% Amount of anesthesia used (mL): 5 Ultrasound Used for Placement: Yes Central Line Lumen Inserted: triple Post Procedure: sutured in place, good blood return, all ports aspirated, flushed, capped and sterile dressing applied Post Procedure X-Ray: tip of catheter in good position and no pneumothorax seen Patient Tolerated Procedure: no complications Complications: none Medical Decision Making Medical Decision Making [facility] Narrative: - my interpretation of EKG: Atrial flutter, heart rate 34, no ST segment depression or elevation, no T-wave inversion, QTC 467 - patient's blood pressure between 105 and 115 systolic. Patient denies chest pain or shortness of breath. No lightheadedness. However, patient is lethargic. - I discussed the patient with Dr. Hu, we will start IV dopamine, patient will need a pacemaker. Although of the labs are pending. - In the meantime while we wait for labs, we will start a central line - patient has a central line in place, right IJ, tolerated well the procedure. Patient is still on dopamine IV. - My interpretation of chest x-ray, central line is in place. - I discussed the patient with Dr. Ramires, since the patient is fairly stable, recommends doing The pacemaker in the morning. Discussed the patient with Dr. Hu. okay to the pacemaker or in the morning. However if patient decompensates, the pacemaker needs to be inserted Dr. Mary mejias aware - patient's blood pressure 132/78, heart rate 88 - I discussed with our art glass setter the above-mentioned, patient being admitted to the ICU Differential Diagnosis Differential Diagnoses: The differential diagnosis associated with the presentation includes ( symptomatic bradycardia, third-degree block, atrial flutter with low ventricular rate) Admission/Observation Consideration of admission/observation: Escalation of care including admission/observation considered Consult Healthcare Provider Management of the patient was discussed with: Hospitalist and Senior Research Associate Lab Data [facility] Lab Attestation statement: I reviewed the patient's lab results. 04/18/23 16:51 04/18/23 16:51 Labs: Lab Results 04/18/23 04/18/23 04/18/23 Range/Units 16:51 16:51 16:51 WBC 7.7 (4.8-10.8) X10*3/uL RBC 4.24 L (4.60-5.80) X10*6/uL Hgb 13.2 L (14.0-18.0) g/dl Hct 40.0 L (42.0-52.0) % MCV 94.3 (80.0-98.0) fL MCH 31.1 (27.0-33.0) pg MCHC 33.0 (31.0-36.0) g/dl RDW 15.6 (11.0-16.0) % Plt Count 194 (160-400) X10*3/uL MPV 10.1 (9.4-12.4) fL Immature Gran % (Auto) 0.3 (0.0-0.4) % Neut % (Auto) 53.0 (45-73) % Lymph % (Auto) 37.6 (20-40) % Beckham % (Auto) 7.1 (2-11) % Eos % (Auto) 1.6 (0-4) % Baso % (Auto) 0.4 (0-2) % Lymph # (Auto) 2.9 (1.2-4.9) X10*3/uL Beckham # (Auto) 0.5 (0.1-1.2) X10*3/uL Eos # (Auto) 0.1 (0.0-0.4) X10*3/uL Baso # (Auto) 0.0 (0.0-0.2) X10*3/uL Abs Immat Gran (auto) 0.02 (0.00-0.03) X10*3/uL Absolute Neuts (auto) 4.1 (2.0-8.3) x10*3/uL Absolute Nucleated RBC 0.000 (0.0-0.012) X10*3/uL Nucleated RBC % (auto) 0.0 (0.0-0.2) /100WBC PT 14.0 H (11.1-13.3) SEC INR 1.2 H (0.9-1.1) VBG pH (7.32-7.43) VBG pCO2 mmHg VBG pO2 mmHg VBG HCO3 (22-26) mmol/L VBG O2 Saturation % VBG Base Excess mmol/L Sodium 138 (135-145) mmol/L Potassium 4.0 (3.3-5.1) mmol/L Chloride 106 (96-108) mmol/L Carbon Dioxide 22 (22-29) mmol/L Anion Gap 14 (12-20) BUN 14 (9-16) mg/dL Creatinine 1.11 (0.5-1.4) mg/dL Estim Creat Clear Calc 61.9 Estimated GFR > 60 POC Glucose (60-115) mg/dL Random Glucose 117 H (60-115) mg/dL Lactic Acid 1.8 (0.5-2.0) mmol/L Calcium 9.8 (8.4-10.2) mg/dL Magnesium 2.1 Cancelled (1.6-2.6) mg/dL Total Bilirubin 0.3 (0.0-1.0) mg/dL Direct Bilirubin 0.1 (0.0-0.5) mg/dL AST 15 (5-37) U/L ALT 7 (0-40) U/L Alkaline Phosphatase 67 (39-117) U/L Troponin I High Sens 3.5 (<3.5-35.0) ng/L B-Natriuretic Peptide 150 H (<100) pg/mL Total Protein 7.3 (6.5-8.0) g/dL Albumin 3.9 (3.5-5.0) g/dL TSH 1.48 Cancelled (0.32-4.0) uIU/mL Ethyl Alcohol < 10 mg/dL COVID-19 (NEDRA) (Negative) COVID-19 Clin Com Influenza Type A (AYAZ) (Negative) Influenza Type B (AYAZ) (Negative) Influenza A & B Note 04/18/23 04/18/23 04/18/23 Range/Units 16:51 16:52 16:57 WBC (4.8-10.8) X10*3/uL RBC (4.60-5.80) X10*6/uL Hgb (14.0-18.0) g/dl Hct (42.0-52.0) % MCV (80.0-98.0) fL MCH (27.0-33.0) pg MCHC (31.0-36.0) g/dl RDW (11.0-16.0) % Plt Count (160-400) X10*3/uL MPV (9.4-12.4) fL Immature Gran % (Auto) (0.0-0.4) % Neut % (Auto) (45-73) % Lymph % (Auto) (20-40) % Beckham % (Auto) (2-11) % Eos % (Auto) (0-4) % Baso % (Auto) (0-2) % Lymph # (Auto) (1.2-4.9) X10*3/uL Beckham # (Auto) (0.1-1.2) X10*3/uL Eos # (Auto) (0.0-0.4) X10*3/uL Baso # (Auto) (0.0-0.2) X10*3/uL Abs Immat Gran (auto) (0.00-0.03) X10*3/uL Absolute Neuts (auto) (2.0-8.3) x10*3/uL Absolute Nucleated RBC (0.0-0.012) X10*3/uL Nucleated RBC % (auto) (0.0-0.2) /100WBC PT (11.1-13.3) SEC INR (0.9-1.1) VBG pH 7.37 (7.32-7.43) VBG pCO2 42 mmHg VBG pO2 39 mmHg VBG HCO3 24 (22-26) mmol/L VBG O2 Saturation 60.0 % VBG Base Excess -0.4 mmol/L Sodium (135-145) mmol/L Potassium (3.3-5.1) mmol/L Chloride (96-108) mmol/L Carbon Dioxide (22-29) mmol/L Anion Gap (12-20) BUN (9-16) mg/dL Creatinine (0.5-1.4) mg/dL Estim Creat Clear Calc Estimated GFR POC Glucose 140 H (60-115) mg/dL Random Glucose (60-115) mg/dL Lactic Acid (0.5-2.0) mmol/L Calcium (8.4-10.2) mg/dL Magnesium (1.6-2.6) mg/dL Total Bilirubin (0.0-1.0) mg/dL Direct Bilirubin (0.0-0.5) mg/dL AST (5-37) U/L ALT (0-40) U/L Alkaline Phosphatase (39-117) U/L Troponin I High Sens (<3.5-35.0) ng/L B-Natriuretic Peptide (<100) pg/mL Total Protein (6.5-8.0) g/dL Albumin (3.5-5.0) g/dL TSH (0.32-4.0) uIU/mL Ethyl Alcohol Cancelled mg/dL COVID-19 (NEDRA) Negative (Negative) COVID-19 Clin Com See Note Influenza Type A (AYAZ) Negative (Negative) Influenza Type B (AYAZ) Negative (Negative) Influenza A & B Note See Note Independent Interpretation I performed an independent interpretation of an: EKG and Plain X-Ray Critical Care Time Critical Care Time Critical Care Time: Yes Total Critical Care Time: 120 Attestation: I have personally provided critical care time. Time includes review of lab data, radiology results, discussion with consultants, and monitoring for potential decompensation. Intervention performed as documented. Discharge Plan Discharge Clinical Impression: Bradycardia Patient Disposition: Admitted As Inpatient Prescriptions: No Action Colace 100 mg capsule 2 cap PO DAILY Dulcolax (bisacodyl) 10 mg suppository 1 supp KS DAILY PRN (Reason: Constipation) acetaminophen 325 mg tablet 2 tab PO Q4H PRN (Reason: Pain) omeprazole 20 mg tablet 1 tab PO DAILY perphenazine 8 mg tablet 8 mg PO BID oxcarbazepine 150 mg tablet 150 mg PO BID Xarelto 20 mg tablet 20 mg PO DAILY propranolol 20 mg tablet 20 mg PO BID lithium carbonate 300 mg capsule 300 mg PO DAILY oxcarbazepine 300 mg tablet 300 mg PO BID Triumeq 600-50-300 mg tablet 1 tab PO DAILY propranolol 10 mg tablet 10 mg PO QNOON finasteride 5 mg tablet 5 mg PO DAILY omeprazole 20 mg capsule,delayed release(DR/EC) PO oseltamivir 75 mg capsule 75 mg PO DAILY lithium carbonate 150 mg capsule 150 mg PO DAILY Myrbetriq 50 mg tablet extended release 24 hr 50 mg PO DAILY 90 Days Qty: 90 0RF terazosin 5 mg capsule 5 mg PO BEDTIME 90 Days Qty: 90 1RF latanoprost 0.005 % drops 0 drp ophthalmic (eye)
[2023-04-18 16:56] LABS: Glucose, Whole Blood 140 mg/dL (60-115)
[2023-04-18] MEDS: glucagon HCL 1 MG VIAL IVPUSH (16:56)
[2023-04-18 16:59] LABS: MANUAL DIFF FLAG NO
[2023-04-18 17:02] LABS: Basophils Percent Auto 0.4 % (0-2); Eosinophils Absolute Auto 0.1 X10*3/uL (0.0-0.4); Eosinophils Percent Auto 1.6 % (0-4); Hemoglobin 13.2 g/dl (14.0-18.0); Imm Gran Abs Auto 0.02 X10*3/uL (0.00-0.03); Imm Gran Pct Auto 0.3 % (0.0-0.4); Lymphocytes Absolute Auto 2.9 X10*3/uL (1.2-4.9); Lymphocytes Percent Auto 37.6 % (20-40); Mean Corpuscular Hemoglobin 31.1 pg (27.0-33.0); Mean Corpuscular Volume 94.3 fL (80.0-98.0); Mean Platelet Volume 10.1 fL (9.4-12.4); Monocytes Absolute Auto 0.5 X10*3/uL (0.1-1.2); Monocytes Percent Auto 7.1 % (2-11); Neutrophils Absolute Auto 4.1 x10*3/uL (2.0-8.3); Platelet Count 194 X10*3/uL (160-400); Red Blood Count 4.24 X10*6/uL (4.60-5.80); Red Cell Distribution Width 15.6 % (11.0-16.0); White Blood Count 7.7 X10*3/uL (4.8-10.8)
[2023-04-18 17:04] LABS: VBG Base Excess -0.4 mmol/L; VBG HCO3 24 mmol/L (22-26); VBG pCO2 42 mmHg; VBG pH 7.37 (7.32-7.43); VBG pO2 39 mmHg
[2023-04-18 17:05] LABS: Venous Blood Gas Refer to POC result
[2023-04-18 17:12] LABS: INTERNATIONAL NORM RATIO 1.2 (0.9-1.1)
[2023-04-18 17:14] LABS: COVID-19 Test Negative (Negative); IDNOW Serial# 08D9AD1C; IDNOW Serial# 152EDE1D; Influenza A Negative (Negative); Influenza B2 Negative (Negative)
[2023-04-18 17:17] LABS: Lactic Acid 1.8 mmol/L (0.5-2.0)
[2023-04-18] MEDS: DOPamine HCL/D5W 400 MG/250 ML PLAST..BAG 16.65 MG IVCONT (17:17)
[2023-04-18 17:23] LABS: B Type Natriuretic Peptide 150 pg/mL (<100)
--- NOTE | 2023-04-18 17:23 | PC.NURSE ---
Addendum entered by rBianne Louis 04/18/23 18:49: Correct time 1615 Original Note: 14:15- pt is lethargic, arousable to verbal stimuli only. Breathing even and unlabored, skin warm and dry. Pt denied any complaints when asked. Equal booker strength noted bilat. Pt very lethargic, slow to answer questions, speech slurring. Pupils noted to be pinpoint bilat, approx 2 mm. ABD soft, non-distended. Vital signs obtained, noted to be bradycardic. Pt placed on bed side registered nurse cardiac, aflutter noted between 30-50. Provider notified immediately.
[2023-04-18 17:27] LABS: Alanine Aminotransferase 7 U/L (0-40); Albumin Level 3.9 g/dL (3.5-5.0); Alkaline Phosphatase 67 U/L (39-117); Anion Gap 14 (12-20); Aspartate Amino Transferase 15 U/L (5-37); Bilirubin Direct 0.1 mg/dL (0.0-0.5); Bilirubin Total 0.3 mg/dL (0.0-1.0); Blood Urea Nitrogen 14 mg/dL (9-16); Calcium 9.8 mg/dL (8.4-10.2); Carbon Dioxide 22 mmol/L (22-29); Chloride 106 mmol/L (96-108); Creatinine Clr Calc Pharmacy 61.9; Estimated Glomerular Filt Rate > 60; Ethanol < 10 mg/dL; Glucose Random 117 mg/dL (60-115); Magnesium 2.1 mg/dL (1.6-2.6); Sodium 138 mmol/L (135-145); Total Protein 7.3 g/dL (6.5-8.0)
[2023-04-18 17:28] LABS: Troponin-I High Sensitivity 3.5 ng/L (<3.5-35.0)
[2023-04-18 17:42] LABS: TSH reflex Free T4 1.48 uIU/mL (0.32-4.0)
--- NOTE | 2023-04-18 17:45 | PC.NURSE ---
Pt resting in bed, brake mechanic showing afib 40-60 BPM. Pt noted to be more interactive, talking more and more responsive overall. Dopamine infusing, pt medicated per the MAR.
--- OUTSIDE RECORDS SUMMARY | 2023-04-18 18:29 | XMS_ITS | Patient Health Record ---
Author Name Unknown Organization [facility] Address [address] [place] [address] Care Team Providers Care Pest Control Specialist Name Role Phone Diogo Hanson Primary Care Provider Frederic Cobb Unavailable [phone] REASON FOR REFERRAL No Information MEDICATIONS Medication SIG (Take, Route, Frequency, Duration) Notes Start Date End Date Status Acetaminophen 325 MG 1 tablet as needed Orally every 4 hrs Active Tamsulosin HCl 0.4 MG Oral for 30 Active Perphenazine 4 MG Oral for 30 Active Finasteride 5 MG Oral for 30 A ctive Propranolol HCl 20 MG Oral for 30 Active Fleet Enema - as directed Rectal Active Standish Carbonate 300 MG Oral for 30 Active Colace 100 MG 1 capsule as needed Orally Once a day for 30 day(s) Active Bisacodyl 10 MG 1 suppository as nee ded Rectal Once a day for 30 day(s) Active Xarelto 20 MG Oral for 14 Acti ve OXcarbazepine 150 MG Oral for 30 Active Omeprazole Magnesium 20 MG 1 tablet 30 m inutes before morning meal Orally Once a day for 30 day(s) Active Triumeq 600-50-300 MG Oral for 30 Active Lotrimin AF 2 % 1 application Branch Operations Specialist ally Twice a day for 14 day(s) Active SOCIAL HISTORY Tobacco Use: Social History Observation Description Date Details (start date - stop date) Never Smoker NA - NA Sex Assigned At : Social History Observation Description Sex Assigned At Unknown Tobacco Use/Smoking Question Answer Notes Patient is a nonsmoker Alcohol Screen Question Answer Notes Did you have a drink containing alcohol in the p ast year? 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 confirmed 742980394 Problem History of colon polyps (Z86.010) Active confirmed History of polyp of colon (794147338) PLAN OF TREATMENT Future Test Test Name Order Date COLONOSCOPY 04/23/2021 COLONOSCOPY 06/16/2021 Insurance Providers Payer Name Payer Address Payer Phone Subscriber Number Group Number Insured Name Patient Relationship to Insured Coverage Start Date Coverage End Date MEDICARE OF [place] [address] [place] [address] [id number] DAMON VILLEDA Self - patient is the insured [address] [address] [phone] DAMON VILLEDA Self - patient is the insured MEDICAL (GENERAL) HISTORY Medical History History ICD Code COPD HIV(Reported) CYST OF KIDNEY ABNORMALITIES OF GAIT AND MOBILITY ATRIAL FIBRILLATION REPORTED DEMENTIA GERD CONSTIPATION URINARY INCONTINENCE PSYCHOTIC DISORDER Denies PA,DM,CVA,renal disease
--- NOTE | 2023-04-18 18:42 | PC.NURSE ---
Pts vitals improved, dopamine infusing per MAR. Pt more alert, making conversation. Pt continues to deny pain. Provider at the bedside placing central line.
--- NOTE | 2023-04-18 18:47 | PC.NURSE ---
Attempt made to contact pts guardian per pts paperwork and number confirmed by facility. [employer] on phone reported they are no longer the guardian and does not know the number of new guardian.
--- NOTE | 2023-04-18 19:06 | PC.NURSE ---
Assumed care of the pt at 1900. Pt is asleep in bed a this time. RR even and unlabored. 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 Pt has bilat 20g IV, and a triple lumen central line. Dopamine drip going at 10mcg/hr into the left AC. Waiting for confirmation on placment of the central line to be able to change access point. Pt is also on 2 LPM O2, satting well. Pt will be going to ICU tonight with plans of getting a pacemaker placed tomorrow. Previous nurses tried multiple times to get a hold of pt guardian with no success.
--- NOTE | 2023-04-18 19:56 | P.HPCC_ITS ---
History of Present Illness Date of Service: 04/18/23 Attending physician on admission: Hi Max Chief Complaint: Altered mental status The patient is a 77-year-old male with a past medical history of atrial fibrillation/ Atrial Flutter ( on Xarelto ), ascending aortic aneurysm, ? COPD, HIV, CVA, dementia, and BPH who presented to the emergency? department from half-way facility ([facility])? with altered mental status. ? According to staff from half-way patient? is confused at baseline but worsening today. He was ?walking into [place]?.? ?On arrival to the emergency department? patient bradycardic to the 30s. EKG showed atrial flutter, heart rate 34, no ST segment depression or elevation, no T-wave inversion.? Cardiology Dr Burch, consulted who advised? for initiation of dopamine and pacemaker placement.? Surgery, Dr Ramires, was also consulted who will place a pacemaker in the morning.? ? Admitted to the ICU for symptomatic bradycardia and required pressors Review of Systems 2 Review of Systems: Yes Unobtainable due to mental status PMFSH Past Medical History Medical History Persistent atrial fibrillation Ascending aortic aneurysm Psychotic disorder with hallucinations due to known physiological condition Unspecified urinary incontinence Constipation, unspecified Preglaucoma, unspecified, unspecified eye Acute stress reaction Ventricular premature depolarization Unspecified cataract Presbyopia Dementia in other diseases classified elsewhere with behavioral disturbance Atrial flutter Deficiency of other vitamins Other abnormalities of gait and mobility Muscular weakness Cyst of kidney, acquired Fatty (change of) liver, not elsewhere classified AAA (abdominal aortic aneurysm) without rupture Personal history of COVID-19 Low back pain Alcohol abuse HIV (human immunodeficiency virus infection) Resides in long term care phlebotomist care facility GERD (gastroesophageal reflux disease) COPD (chronic obstructive pulmonary disease) Right bundle branch block (RBBB) on electrocardiogram (ECG) CVA (cerebral vascular accident) Paroxysmal atrial fibrillation Urgency incontinence BPH loc w urin obs/LUTS Surgical History Surgical History H/O colonoscopy Social History Social History Household Members: Other Housing: [facility] Housing Other:: [facility] Are you a primary director career to a significant other at home: No Do you presently have visiting nurse or other home services: Yes ([facility] staff) Comment: COUNTS CORRECT Patient Tobacco Use Status: Former Tobacco user Smoked in Last 30 Days: No Use of substances other than those prescribed or required for medical reasons: No Currently Displaying Signs/Symptoms of Drug Intoxication Withdrawal: No Have you been hit, kicked, punched, or otherwise hurt by someone within the past year? If so, by whom?: No Do you feel safe in your current relationship?: No Current Relationship Is there a partner from a previous relationship who is making you feel unsafe now?: No Are you made to feel afraid or neglected: No Advance Directives: Yes Advance Directives on File: Yes Advance Directives Date on File: 07/19/21 Do you have thoughts of harming others: None Do you have a plan to hurt others: No Plan Recently lost weight without trying: No Meds Allergies Allergy/AdvReac Type Severity Reaction Status Date / Time No Known Allergies Allergy Verified 04/14/23 11:13 [No Known Allergies*] Active Medications: Current Medications Dopamine HCl/Dextrose (Dopamine Hcl/D5w) 400 mg in 250 mls @ 0 mls/hr IVCONT .Q0M [facility]; Protocol Last Titration: 04/18/23 17:36 Dose: 10 mcg/kg/min, 33.3 mls/hr Prothrombin Complex Concent ( Human) 2,000 unit/ IV Miscellaneous Supplies 80 mls @ 480 mls/hr IV .Q10M ONE Stop: 04/19/23 07:09 Home Medications Medication Instructions Recorded Confirmed Last Taken Type abacavir 600 mg-dolutegravir 50 1 tab PO DAILY@1200 08/16/20 04/19/23 04/18/23 History mg-lamivudine 300 mg tablet lithium carbonate 300 mg capsule 300 mg PO BEDTIME 08/16/20 04/19/23 04/17/23 History oxcarbazepine 150 mg tablet 150 mg PO BID 08/16/20 04/19/23 04/18/23 History oxcarbazepine 300 mg tablet 300 mg PO BID 08/16/20 04/19/23 04/18/23 History perphenazine 8 mg tablet 8 mg PO BID 08/16/20 04/19/23 04/18/23 History propranolol 10 mg tablet 10 mg PO DAILY@1200 08/16/20 04/19/23 04/18/23 History propranolol 20 mg tablet 20 mg PO BID 08/16/20 04/19/23 04/18/23 History rivaroxaban 20 mg tablet 20 mg PO DAILY@1800 08/16/20 04/19/23 04/17/23 History finasteride 5 mg tablet 5 mg PO DAILY 10/29/20 04/19/23 04/18/23 History omeprazole 20 mg capsule,delayed 20 mg PO DAILY@1630 03/06/22 04/19/23 04/17/23 History release lithium carbonate 150 mg capsule 150 mg PO DAILY 04/16/22 04/19/23 04/18/23 History latanoprost 0.005 % eye drops 1 drp ophthalmic (eye) BEDTIME 11/10/22 04/19/23 04/17/23 History acetaminophen 325 mg tablet 650 mg PO Q4H PRN Fever Or Pain 04/19/23 04/19/23 Unknown History (Tylenol) bisacodyl 10 mg rectal suppository 10 mg AR DAILY PRN Constipation 04/19/23 04/19/23 Unknown History calcium carbonate 500 mg calcium 500 mg PO BID 04/19/23 04/19/23 04/18/23 History (1,250 mg) tablet (Oyster Shell Calcium 500) cholecalciferol (vitamin D3) 10 10 mcg PO DAILY 04/19/23 04/19/23 04/18/23 History mcg (400 unit) tablet (Vitamin D3) docusate sodium 100 mg capsule 200 mg PO DAILY 04/19/23 04/19/23 04/18/23 History (Colace) lactulose 20 gram/30 mL oral 20 g PO DAILY 04/19/23 04/19/23 04/18/23 History solution miconazole nitrate 2 % topical 1 spray topical BID 04/19/23 04/19/23 Unknown History spray powder omeprazole 20 mg tablet,delayed 20 mg PO DAILY@0630 04/19/23 04/19/23 04/18/23 History release sennosides 8.6 mg tablet (senna) 8.6 mg PO DAILY PRN Constipation 04/19/23 04/19/23 Unknown History sodium phosphates 19 gram-7 118 ml AR DAILY PRN Constipation 04/19/23 04/19/23 Unknown History gram/118 mL enema (Fleet Enema) Physical Exam 2 Vital Signs: Vital Signs: Last Vital Signs Temp 97.8 F 04/18/23 19:32 Pulse 88 04/18/23 19:32 Resp 20 04/18/23 19:32 BP 132/78 04/18/23 19:32 Pulse Ox 95 04/18/23 19:32 O2 Del Method Nasal Cannula 04/18/23 19:32 O2 Flow Rate 1 04/18/23 19:32 BMI result Body Mass Index 26.5 ?General:? Alert oriented x person and place. ?Speaking full sentences. Following simple commands. ?HEENT:? Head is normocephalic, atraumatic, pupils equal round reactive to light accommodation bilaterally.? Extraocular movements appear intact.? Buccal mucosa is moist, Neck is supple ?Cardiac:? Atrial flutter rate 70-80. Rubs or murmur ?Pulmonary:? Clear to auscultation, no wheezes, rales or rhonchi. ?Abdomen:? ?Abdomen soft, non-tender, non-distended. Normal bowel sounds. No pulsatile mass. No hepatosplenomegaly. ?Musculoskeletal:? Moving all 4 extremities upon request a major joints, there is no crepitus or tenderness.? The strength is 5/5 bilaterally and throughout all 4 extremities.? Gait not assessed at this point. ?Neurologic:? No focal deficits noted.Motor strength as above.?? ?Skin:? Intact, no lesions, edema, erythema, clubbing or cyanosis.? No ulcers. Vascular:? 2+ pulses upper and lower extremities distally. Results Labs 04/19/23 05:16 04/19/23 05:16 Labs: Laboratory Results - last 24 hr 04/18/23 04/18/23 04/18/23 16:51 16:51 16:51 MCV 94.3 MCH 31.1 MCHC 33.0 RDW 15.6 Plt Count 194 MPV 10.1 Immature Gran % (Auto) 0.3 Neut % (Auto) 53.0 Lymph % (Auto) 37.6 [place] % (Auto) 7.1 Eos % (Auto) 1.6 Baso % (Auto) 0.4 Lymph # (Auto) 2.9 [place] # (Auto) 0.5 Eos # (Auto) 0.1 Baso # (Auto) 0.0 Abs Immat Gran (auto) 0.02 Absolute Neuts (auto) 4.1 Absolute Nucleated RBC 0.000 Nucleated RBC % (auto) 0.0 PT 14.0 H INR 1.2 H VBG pH VBG pCO2 VBG pO2 VBG HCO3 VBG O2 Saturation VBG Base Excess Anion Gap 14 Estim Creat Clear Calc 61.9 Estimated GFR > 60 POC Glucose Random Glucose 117 H Lactic Acid 1.8 Calcium 9.8 Magnesium 2.1 Cancelled Total Bilirubin 0.3 Direct Bilirubin 0.1 AST 15 ALT 7 Alkaline Phosphatase 67 B-Natriuretic Peptide 150 H Total Protein 7.3 Albumin 3.9 TSH 1.48 Cancelled Ethyl Alcohol < 10 COVID-19 (NEDRA) COVID-RegainGo Influenza Type A (AYAZ) Influenza Type B (AYAZ) Influenza A & B Note 04/18/23 04/18/23 04/18/23 16:51 16:52 16:57 MCV MCH MCHC RDW Plt Count MPV Immature Gran % (Auto) Neut % (Auto) Lymph % (Auto) [place] % (Auto) Eos % (Auto) Baso % (Auto) Lymph # (Auto) [place] # (Auto) Eos # (Auto) Baso # (Auto) Abs Immat Gran (auto) Absolute Neuts (auto) Absolute Nucleated RBC Nucleated RBC % (auto) PT INR VBG pH 7.37 VBG pCO2 42 VBG pO2 39 VBG HCO3 24 VBG O2 Saturation 60.0 VBG Base Excess -0.4 Anion Gap Estim Creat Clear Calc Estimated GFR POC Glucose 140 H Random Glucose Lactic Acid Calcium Magnesium Total Bilirubin Direct Bilirubin AST ALT Alkaline Phosphatase B-Natriuretic Peptide Total Protein Albumin TSH Ethyl Alcohol Cancelled COVID-19 (NEDRA) Negative COVID-[facility] Com See Note Influenza Type A (AYAZ) Negative Influenza Type B (AYAZ) Negative Influenza A & B Note See Note Assessment and Plan (1) Symptomatic bradycardia: Status: Acute (2) Atrial flutter: Status: Acute (3) Persistent atrial fibrillation: Status: Acute Plan Neuro:? no acute issues Cardiac:? ?Symptomatic bradycardia- patient started on dopamine.? Will receive pacemaker in the morning.? Cardiology and surgery services appreciated.? If patient deteriorates,? will have the pacemaker earlier. Cont dopamine.? Pulmonary:??? no acute issues Renal:?? ?No acute issues Endo: ? no acute issues GI:? No acute issues. ID:? ? no acute issues Heme/Onc:? ?No acute issues Psych:? No acute issues. Miscellaneous:? ? patient has a legal guardian in place,? But when ED? physician attempted to contact legal guardian from documentation she stated she is no longer patient legal guardian. Nurses from skilled nursing, report they do not have anyone else listed in chart. They will call back with the correct legal guardian.? Prophylaxis: ? home Xarelto hold,? for possible pacemaker in the morning Diet:? NPO after midnight for possible procedure?? Code status:? full code?
--- NOTE | 2023-04-18 20:01 | MHC.EDTECH ---
Patient blood drawn including type and screen ,Patient was incontinent of urine ,care given and bedding change ,vitals taken ,Pt resting quietly in bed .
[2023-04-18 20:04] LABS: Phosphorus 2.8 mg/dL (2.7-4.5)
[2023-04-18 21:20] LABS: Appearance Urine Clear; Color Urine Yellow; Glucose Urine UA Negative (Negative); Leukocyte Esterase Urine Negative (Negative); Nitrite Urine Negative (Negative); Specific Gravity - Urine <= 1.005 (1.005-1.025); Urine Blood Negative (Negative); Urine Ketones Negative (Negative); Urine Protein Negative (Neg-Trace)
[2023-04-18 21:28] LABS: Amphetamine Screen Urine Not Detected (Not Detect); Barbiturates, Urine Not Detected (Not Detect); Benzodiazepines Screen Urine Not Detected (Not Detect); Cannabinoid Screen Urine Not Detected (Not Detect); Cocaine Screen Urine Not Detected (Not Detect); Fentanyl, urine Not Detected (Not Detect); Opiate Screen Urine Not Detected (Not Detect); Phencyclidine Screen Urine Not Detected (Not Detect)
[2023-04-18 22:57] LABS: Lithium 0.65 mmol/L (0.60-1.20)
[2023-04-19] VITALS (23 sets, daily range): BP systolic 86–155; BP diastolic 62–105; PULSE 49–116; RESP 12–22; TEMP 36.1–36.7; O2SAT 92–100; BMI 25.0
[2023-04-19] MEDS: DOPamine HCL/D5W 400 MG/250 ML PLAST..BAG 33.3 MG IVCONT ×2 (00:29→07:40)
[2023-04-19 05:29] LABS: MANUAL DIFF FLAG NO
[2023-04-19 05:33] LABS: Basophils Percent Auto 0.2 % (0-2); Eosinophils Absolute Auto 0.1 X10*3/uL (0.0-0.4); Eosinophils Percent Auto 1.6 % (0-4); Hematocrit 41.2 % (42.0-52.0); Hemoglobin 13.9 g/dl (14.0-18.0); Imm Gran Abs Auto 0.02 X10*3/uL (0.00-0.03); Imm Gran Pct Auto 0.2 % (0.0-0.4); Lymphocytes Absolute Auto 1.8 X10*3/uL (1.2-4.9); Lymphocytes Percent Auto 20.9 % (20-40); Mean Corpuscular HGB Conc 33.7 g/dl (31.0-36.0); Mean Corpuscular Hemoglobin 30.9 pg (27.0-33.0); Mean Corpuscular Volume 91.6 fL (80.0-98.0); Mean Platelet Volume 9.7 fL (9.4-12.4); Monocytes Percent Auto 10.8 % (2-11); Neutrophils Absolute Auto 5.9 x10*3/uL (2.0-8.3); Neutrophils Percent Auto 66.3 % (45-73); Platelet Count 211 X10*3/uL (160-400); Red Cell Distribution Width 14.8 % (11.0-16.0); White Blood Count 8.8 X10*3/uL (4.8-10.8)
[2023-04-19 05:48] LABS: Anion Gap 12 (12-20); Blood Urea Nitrogen 12 mg/dL (9-16); Calcium 9.7 mg/dL (8.4-10.2); Carbon Dioxide 22 mmol/L (22-29); Chloride 107 mmol/L (96-108); Creatinine Clr Calc Pharmacy 80.9; Estimated Glomerular Filt Rate > 60; Glucose Random 128 mg/dL (60-115); Magnesium 1.9 mg/dL (1.6-2.6); Phosphorus 3.3 mg/dL (2.7-4.5); Potassium 3.9 mmol/L (3.3-5.1); Sodium 137 mmol/L (135-145)
[2023-04-19 05:51] LABS: INTERNATIONAL NORM RATIO 1.1 (0.9-1.1); Prothrombin Time 13.3 SEC (11.1-13.3)
[2023-04-19] MEDS: Hum Prothrombin Cplx(PCC)4Fact 2,000 UNIT in Container,Empty 0 ML 480 UNIT IV (07:41)
--- NOTE | 2023-04-19 08:05 | P.CONAN_ITS ---
[facility] Active Problems Active Problems: All Active Problems (Updated 04/18/23 @ 20:05 by Dinora Judge NP) Atrial flutter (Acute) Symptomatic bradycardia (Acute) Bradycardia (Acute) Persistent atrial fibrillation (Acute) Renal cysts, acquired, bilateral (Acute) Ascending aortic aneurysm (Acute) Right bundle branch block (RBBB) on electrocardiogram (ECG) (Acute) Urgency incontinence (Acute) BPH loc w urin obs/LUTS (Acute) Past Medical History Medical History Persistent atrial fibrillation Ascending aortic aneurysm Psychotic disorder with hallucinations due to known physiological condition Unspecified urinary incontinence Constipation, unspecified Preglaucoma, unspecified, unspecified eye Acute stress reaction Ventricular premature depolarization Unspecified cataract Presbyopia Dementia in other diseases classified elsewhere with behavioral disturbance Atrial flutter Deficiency of other vitamins Other abnormalities of gait and mobility Muscular weakness Cyst of kidney, acquired Fatty (change of) liver, not elsewhere classified AAA (abdominal aortic aneurysm) without rupture Personal history of COVID-19 Low back pain Alcohol abuse HIV (human immunodeficiency virus infection) Resides in residential care facility GERD (gastroesophageal reflux disease) COPD (chronic obstructive pulmonary disease) Right bundle branch block (RBBB) on electrocardiogram (ECG) CVA (cerebral vascular accident) Paroxysmal atrial fibrillation Urgency incontinence BPH loc w urin obs/LUTS Family History Family history of problems with anesthesia: No Surgical History Surgical History H/O colonoscopy History of Problems with Anesthesia: No Social History Social History Household Members: Other Housing: Shelter Housing Other:: [facility] Are you a primary body care manager to a significant other at home: No Do you presently have visiting nurse or other home services: Yes ([facility] staff) Patient Tobacco Use Status: Former Tobacco user Smoked in Last 30 Days: No Use of substances other than those prescribed or required for medical reasons: No Currently Displaying Signs/Symptoms of Drug Intoxication Withdrawal: No Have you been hit, kicked, punched, or otherwise hurt by someone within the past year? If so, by whom?: No Do you feel safe in your current relationship?: No Current Relationship Is there a partner from a previous relationship who is making you feel unsafe now?: No Are you made to feel afraid or neglected: No Advance Directives: Yes Advance Directives on File: Yes Advance Directives Date on File: 07/19/21 Do you have thoughts of harming others: None Do you have a plan to hurt others: No Plan Recently lost weight without trying: No Meds Allergies Allergy/AdvReac Type Severity Reaction Status Date / Time No Known Allergies Allergy Verified 04/14/23 11:13 [No Known Allergies*] Active Medications: Current Medications Dopamine HCl/Dextrose (Dopamine Hcl/D5w) 400 mg in 250 mls @ 0 mls/hr IVCONT .Q0M [facility]; Protocol Last Admin: 04/19/23 07:40 Dose: 10 mcg/kg/min, 33.3 mls/hr Home Medications Medication Instructions Recorded Confirmed Last Taken Type abacavir 600 mg-dolutegravir 50 1 tab PO DAILY 08/16/20 04/14/23 Unknown History mg-lamivudine 300 mg tablet lithium carbonate 300 mg capsule 300 mg PO DAILY 08/16/20 04/14/23 Unknown History oxcarbazepine 150 mg tablet 150 mg PO BID 08/16/20 04/14/23 Unknown History oxcarbazepine 300 mg tablet 300 mg PO BID 08/16/20 04/14/23 Unknown History perphenazine 8 mg tablet 8 mg PO BID 08/16/20 04/14/23 Unknown History propranolol 10 mg tablet 10 mg PO QNOON 08/16/20 04/14/23 Unknown History propranolol 20 mg tablet 20 mg PO BID 08/16/20 04/14/23 Unknown History rivaroxaban 20 mg tablet 20 mg PO DAILY 08/16/20 04/14/23 07/20/21 History finasteride 5 mg tablet 5 mg PO DAILY 10/29/20 04/14/23 Unknown History Colace 2 cap PO DAILY 05/28/21 04/14/23 Unknown History Dulcolax (bisacodyl) [address] DAILY PRN Constipation 05/28/21 04/14/23 Unknown History acetaminophen 2 tab PO Q4H PRN Pain 05/28/21 04/14/23 Unknown History omeprazole 1 tab PO DAILY 05/28/21 04/14/23 Unknown History omeprazole 20 mg capsule,delayed mg PO 03/06/22 04/14/23 Unknown History release lithium carbonate 150 mg capsule 150 mg PO DAILY 04/16/22 04/14/23 Unknown History oseltamivir 75 mg capsule 75 mg PO DAILY 04/16/22 04/14/23 Unknown History latanoprost 0.005 % eye drops 0 drp ophthalmic (eye) 11/10/22 04/14/23 Unknown History Exam Height,Weight and Vital Signs: Height 6 ft 1 in Weight 86.1 kg Last Vital Signs Temp 98.0 F 04/19/23 04:00 Pulse 116 H 04/19/23 07:40 Resp 15 04/19/23 07:00 BP 132/96 H 04/19/23 07:40 Pulse Ox 96 04/19/23 07:00 O2 Del Method Nasal Cannula 04/19/23 07:00 O2 Flow Rate 2 04/19/23 07:00 Pertinent Lab Results Pertinent Lab Results: Laboratory Tests 04/18/23 04/18/23 04/18/23 16:51 16:51 16:51 WBC 7.7 RBC 4.24 L Hgb 13.2 L Hct 40.0 L MCV 94.3 MCH 31.1 MCHC 33.0 RDW 15.6 Plt Count 194 MPV 10.1 Immature Gran % (Auto) 0.3 Neut % (Auto) 53.0 Lymph % (Auto) 37.6 [place] % (Auto) 7.1 Eos % (Auto) 1.6 Baso % (Auto) 0.4 Lymph # (Auto) 2.9 [place] # (Auto) 0.5 Eos # (Auto) 0.1 Baso # (Auto) 0.0 Abs Immat Gran (auto) 0.02 Absolute Neuts (auto) 4.1 Absolute Nucleated RBC 0.000 Nucleated RBC % (auto) 0.0 PT 14.0 H INR 1.2 H VBG pH VBG pCO2 VBG pO2 VBG HCO3 VBG O2 Saturation VBG Base Excess Sodium 138 Potassium 4.0 Chloride 106 Carbon Dioxide 22 Anion Gap 14 BUN 14 Creatinine 1.11 Estim Creat Clear Calc 61.9 Estimated GFR > 60 POC Glucose Random Glucose 117 H Lactic Acid 1.8 Calcium 9.8 Phosphorus Magnesium 2.1 Cancelled Total Bilirubin 0.3 Direct Bilirubin 0.1 AST 15 ALT 7 Alkaline Phosphatase 67 Troponin I High Sens 3.5 B-Natriuretic Peptide 150 H Total Protein 7.3 Albumin 3.9 TSH 1.48 Cancelled Urine Color Urine Appearance Urine pH Ur Specific [place] Urine Protein Urine Glucose (UA) Urine Ketones Urine Blood Urine Nitrite Ur Leukocyte Esterase Urine Opiates Screen Urine Fentanyl Screen Ur Barbiturates Screen Ur Phencyclidine Scrn Ur Amphetamines Screen U Benzodiazepines Scrn [place] Urine Cocaine Screen U Marijuana (THC) Screen Ethyl Alcohol < 10 COVID-19 ([facility]RA) COVID-19 Clin Com Influenza Type A (AYAZ) Influenza Type B (AYAZ) Influenza A & B Note Blood Type Antibody Screen 04/18/23 04/18/23 04/18/23 16:51 16:52 16:57 WBC RBC Hgb Hct MCV MCH MCHC RDW Plt Count MPV Immature Gran % (Auto) Neut % (Auto) Lymph % (Auto) [place] % (Auto) Eos % (Auto) Baso % (Auto) Lymph # (Auto) [place] # (Auto) Eos # (Auto) Baso # (Auto) Abs Immat Gran (auto) Absolute Neuts (auto) Absolute Nucleated RBC Nucleated RBC % (auto) PT INR VBG pH 7.37 VBG pCO2 42 VBG pO2 39 VBG HCO3 24 VBG O2 Saturation 60.0 VBG Base Excess -0.4 Sodium Potassium Chloride Carbon Dioxide Anion Gap BUN Creatinine Estim Creat Clear Calc Estimated GFR POC Glucose 140 H Random Glucose Lactic Acid Calcium Phosphorus Magnesium Total Bilirubin Direct Bilirubin AST ALT Alkaline Phosphatase Troponin I High Sens B-Natriuretic Peptide Total Protein Albumin TSH Urine Color Urine Appearance Urine pH Ur Specific [place] Urine Protein Urine Glucose (UA) Urine Ketones Urine Blood Urine Nitrite Ur Leukocyte Esterase Urine Opiates Screen Urine Fentanyl Screen Ur Barbiturates Screen Ur Phencyclidine Scrn Ur Amphetamines Screen U Benzodiazepines Scrn [place] Urine Cocaine Screen U Marijuana (THC) Screen Ethyl Alcohol Cancelled COVID-19 (NEDRA) Negative COVID-19 Clin Com See Note Influenza Type A (AYAZ) Negative Influenza Type B (AYAZ) Negative Influenza A & B Note See Note Blood Type Antibody Screen 04/18/23 04/18/23 04/18/23 17:05 19:43 21:07 WBC RBC Hgb Hct MCV MCH MCHC RDW Plt Count MPV Immature Gran % (Auto) Neut % (Auto) Lymph % (Auto) [place] % (Auto) Eos % (Auto) Baso % (Auto) Lymph # (Auto) [place] # (Auto) Eos # (Auto) Baso # (Auto) Abs Immat Gran (auto) Absolute Neuts (auto) Absolute Nucleated RBC Nucleated RBC % (auto) PT INR VBG pH VBG pCO2 VBG pO2 VBG HCO3 VBG O2 Saturation VBG Base Excess Sodium Potassium Chloride Carbon Dioxide Anion Gap BUN Creatinine Estim Creat Clear Calc Estimated GFR POC Glucose Random Glucose Lactic Acid Calcium Phosphorus 2.8 Magnesium Total Bilirubin Direct Bilirubin AST ALT Alkaline Phosphatase Troponin I High Sens B-Natriuretic Peptide Total Protein Albumin TSH Urine Color Yellow Urine Appearance Clear Urine pH 7.0 Ur Specific [place] <= 1.005 Urine Protein Negative Urine Glucose (UA) Negative Urine Ketones Negative Urine Blood Negative Urine Nitrite Negative Ur Leukocyte Esterase Negative Urine Opiates Screen Urine Fentanyl Screen Ur Barbiturates Screen Ur Phencyclidine Scrn Ur Amphetamines Screen U Benzodiazepines Scrn [place] 0.65 Urine Cocaine Screen U Marijuana (THC) Screen Ethyl Alcohol COVID-19 (NEDRA) COVID-19 Clin Com Influenza Type A (AYAZ) Influenza Type B (AYAZ) Influenza A & B Note Blood Type A Positive Antibody Screen NEGATIVE 04/18/23 04/19/23 21:08 05:16 WBC 8.8 RBC 4.50 L Hgb 13.9 L Hct 41.2 L MCV 91.6 MCH 30.9 MCHC 33.7 RDW 14.8 Plt Count 211 MPV 9.7 Immature Gran % (Auto) 0.2 Neut % (Auto) 66.3 Lymph % (Auto) 20.9 [place] % (Auto) 10.8 Eos % (Auto) 1.6 Baso % (Auto) 0.2 Lymph # (Auto) 1.8 [place] # (Auto) 1.0 Eos # (Auto) 0.1 Baso # (Auto) 0.0 Abs Immat Gran (auto) 0.02 Absolute Neuts (auto) 5.9 Absolute Nucleated RBC 0.000 Nucleated RBC % (auto) 0.0 PT 13.3 INR 1.1 VBG pH VBG pCO2 VBG pO2 VBG HCO3 VBG O2 Saturation VBG Base Excess Sodium 137 Potassium 3.9 Chloride 107 Carbon Dioxide 22 Anion Gap 12 BUN 12 Creatinine 0.85 Estim Creat Clear Calc 80.9 Estimated GFR > 60 POC Glucose Random Glucose 128 H Lactic Acid Calcium 9.7 Phosphorus 3.3 Magnesium 1.9 Total Bilirubin Direct Bilirubin AST ALT Alkaline Phosphatase Troponin I High Sens B-Natriuretic Peptide Total Protein Albumin TSH Urine Color Urine Appearance Urine pH Ur Specific [place] Urine Protein Urine Glucose (UA) Urine Ketones Urine Blood Urine Nitrite Ur Leukocyte Esterase Urine Opiates Screen Not Detected Urine Fentanyl Screen Not Detected Ur Barbiturates Screen Not Detected Ur Phencyclidine Scrn Not Detected Ur Amphetamines Screen Not Detected U Benzodiazepines Scrn Not Detected [place] Urine Cocaine Screen Not Detected U Marijuana (THC) Screen Not Detected Ethyl Alcohol COVID-19 (NEDRA) COVID-19 Clin Com Influenza Type A (AYAZ) Influenza Type B (AYAZ) Influenza A & B Note Blood Type Antibody Screen Airway Mallampati Class: III TM Dist: >3cm Neck ROM: Full Loose/Missing/Broken Teeth: No (edontolous) Heart: irregular Lungs: CTA Assessment and Plan Assessment Anesthesia Assessment: Anesthesia Plan Discussed Final Anesthetic Review Family History of Problems with Anesthesia: No History of Problems with Anesthesia: No NPO: Yes ASA Class: IV (i) and Emergency Final Preanesthetic Review: Meds/Allgs Chart Reviewed, Consent Obtained/Reviewed and Anes Risks/Benef Reviewed Patient Risk: High Procedure Risk: Intermediate Anesthetic Plan Anesthetic Plan: MAC: Disposition: Standard PACU
--- NOTE | 2023-04-19 08:13 | PC.NURSE ---
0800 pt is alert, pleasantly confused, follow directions, moves all extremities. md browne at bedside. consent from legal guardian
--- NOTE | 2023-04-19 08:20 | HO.THORCON_ITS ---
History of Present Illness Consult details Consult date: 04/19/23 Narrative: Thoracic consult for symptomatic profound bradycardia. Patient has multiple comorbidities and history of atrial flutter and now has profound symptomatic bradycardia. For specifics of cardiac dysrhythmia, please refer to cardiology note. Patient was admitted, stabilized, and now presents for permanent pacemaker placement. Chart was reviewed patient evaluated. Last evening, it was unclear when the patient's last meal was. Because of his dementia his history is unreliable. Patient is on Xarelto. This was reversed this morning with Kcentra. [facility] Past Medical History Medical History (Updated 04/18/23 @ 20:05 by Dinora Judge NP) Persistent atrial fibrillation Ascending aortic aneurysm Psychotic disorder with hallucinations due to known physiological condition Unspecified urinary incontinence Constipation, unspecified Preglaucoma, unspecified, unspecified eye Acute stress reaction Ventricular premature depolarization Unspecified cataract Presbyopia Dementia in other diseases classified elsewhere with behavioral disturbance Atrial flutter Deficiency of other vitamins Other abnormalities of gait and mobility Muscular weakness Cyst of kidney, acquired Fatty (change of) liver, not elsewhere classified AAA (abdominal aortic aneurysm) without rupture Personal history of COVID-19 Low back pain Alcohol abuse HIV (human immunodeficiency virus infection) Resides in [facility] facility GERD (gastroesophageal reflux disease) COPD (chronic obstructive pulmonary disease) Right bundle branch block (RBBB) on electrocardiogram (ECG) CVA (cerebral vascular accident) Paroxysmal atrial fibrillation Urgency incontinence BPH loc w urin obs/LUTS Surgical History Surgical History H/O colonoscopy Social History Social History Household Members: Other Housing: Longterm Housing Other:: [facility] Are you a primary career technical counselor to a significant other at home: No Do you presently have visiting nurse or other home services: Yes ([facility] staff) Patient Tobacco Use Status: Former Tobacco user Smoked in Last 30 Days: No Use of substances other than those prescribed or required for medical reasons: No Currently Displaying Signs/Symptoms of Drug Intoxication Withdrawal: No Have you been hit, kicked, punched, or otherwise hurt by someone within the past year? If so, by whom?: No Do you feel safe in your current relationship?: No Current Relationship Is there a partner from a previous relationship who is making you feel unsafe now?: No Are you made to feel afraid or neglected: No Advance Directives: Yes Advance Directives on File: Yes Advance Directives Date on File: 07/19/21 Do you have thoughts of harming others: None Do you have a plan to hurt others: No Plan Recently lost weight without trying: No Meds Allergies Allergy/AdvReac Type Severity Reaction Status Date / Time No Known Allergies Allergy Verified 04/14/23 11:13 [No Known Allergies*] Active Medications: Current Medications Dopamine HCl/Dextrose (Dopamine Hcl/D5w) 400 mg in 250 mls @ 0 mls/hr IVCONT .Q0M JEMIMA; Protocol Last Admin: 04/19/23 07:40 Dose: 10 mcg/kg/min, 33.3 mls/hr Home Medications Medication Instructions Recorded Confirmed Last Taken Type abacavir 600 mg-dolutegravir 50 1 tab PO DAILY 08/16/20 04/14/23 Unknown History mg-lamivudine 300 mg tablet lithium carbonate 300 mg capsule 300 mg PO DAILY 08/16/20 04/14/23 Unknown History oxcarbazepine 150 mg tablet 150 mg PO BID 08/16/20 04/14/23 Unknown History oxcarbazepine 300 mg tablet 300 mg PO BID 08/16/20 04/14/23 Unknown History perphenazine 8 mg tablet 8 mg PO BID 08/16/20 04/14/23 Unknown History propranolol 10 mg tablet 10 mg PO QNOON 08/16/20 04/14/23 Unknown History propranolol 20 mg tablet 20 mg PO BID 08/16/20 04/14/23 Unknown History rivaroxaban 20 mg tablet 20 mg PO DAILY 08/16/20 04/14/23 07/20/21 History finasteride 5 mg tablet 5 mg PO DAILY 10/29/20 04/14/23 Unknown History Colace 2 cap PO DAILY 05/28/21 04/14/23 Unknown History Dulcolax (bisacodyl) 1 supp [place] DAILY PRN Constipation 05/28/21 04/14/23 Unknown History acetaminophen 2 tab PO Q4H PRN Pain 05/28/21 04/14/23 Unknown History omeprazole 1 tab PO DAILY 05/28/21 04/14/23 Unknown History omeprazole 20 mg capsule,delayed mg PO 03/06/22 04/14/23 Unknown History release lithium carbonate 150 mg capsule 150 mg PO DAILY 04/16/22 04/14/23 Unknown History oseltamivir 75 mg capsule 75 mg PO DAILY 04/16/22 04/14/23 Unknown History latanoprost 0.005 % eye drops 0 drp ophthalmic (eye) 11/10/22 04/14/23 Unknown History Physical Exam 2 Vital Signs: Vital Signs: Last Vital Signs Temp 96.9 F 04/19/23 08:00 Pulse 95 04/19/23 08:00 Resp 12 04/19/23 08:00 BP 132/84 04/19/23 08:00 Pulse Ox 97 04/19/23 08:00 O2 Del Method Nasal Cannula 04/19/23 08:00 O2 Flow Rate 2 04/19/23 08:00 BMI result Body Mass Index 25.0 Const: Other: Patient very pleasant but has appreciable dementia. Chest: Other: Chest breath sounds bilaterally, currently pulses in the 90s. Patient has external pacer pads on. Triple-lumen in place for dopamine infusion. GI: Other: Abdomen soft, benign Results Labs 04/19/23 05:16 04/19/23 05:16 Labs: Abnormal lab results 04/18/23 04/18/23 04/19/23 Range/Units 16:51 16:52 05:16 RBC 4.24 L 4.50 L (4.60-5.80) X10*6/uL Hgb 13.2 L 13.9 L (14.0-18.0) g/dl Hct 40.0 L 41.2 L (42.0-52.0) % PT 14.0 H (11.1-13.3) SEC INR 1.2 H (0.9-1.1) POC Glucose 140 H (60-115) mg/dL Random Glucose 117 H 128 H (60-115) mg/dL B-Natriuretic Peptide 150 H (<100) pg/mL Short CBC 04/18/23 04/19/23 Range/Units 16:51 05:16 WBC 7.7 8.8 (4.8-10.8) X10*3/uL Hgb 13.2 L 13.9 L (14.0-18.0) g/dl Hct 40.0 L 41.2 L (42.0-52.0) % Plt Count 194 211 (160-400) X10*3/uL BMP 04/18/23 04/19/23 16:51 05:16 Sodium 138 137 Potassium 4.0 3.9 Chloride 106 107 Carbon Dioxide 22 22 BUN 14 12 Creatinine 1.11 0.85 Calcium 9.8 9.7 Liver Function 04/18/23 Range/Units 16:51 Total Bilirubin 0.3 (0.0-1.0) mg/dL Direct Bilirubin 0.1 (0.0-0.5) mg/dL AST 15 (5-37) U/L ALT 7 (0-40) U/L Alkaline Phosphatase 67 (39-117) U/L Albumin 3.9 (3.5-5.0) g/dL Urine 04/18/23 Range/Units 21:07 Urine Color Yellow Urine Appearance Clear Urine pH 7.0 (5.0-9.0) Ur Specific [place] <= 1.005 (1.005-1.025) Urine Protein Negative (Neg-Trace) mg/dL Urine Glucose (UA) Negative (Negative) mg/dL All other labs normal. Assessment and Plan (1) Atrial flutter: Status: Acute (2) Symptomatic bradycardia: Status: Acute (3) Bradycardia: Status: Acute (4) Persistent atrial fibrillation: Status: Acute Plan Risks, benefits, and alternatives were reviewed with the patient's conservator, Kervin carnes. This included but not limited to bleeding, infection, lead dislodgement, pneumothorax, numbness, pain, scarring and the conservator wished to proceed. All questions answered. Consent signed and witnessed by ICU nurse. Arrangements were made for urgent permanent pacemaker placement this morning. Procedures Date of Service Date of Service: 04/19/23
--- NOTE | 2023-04-19 09:48 | PHA.MEDREC ---
Pharmacy Consult ? Medication Reconciliation Pharmacy has completed the medication reconciliation. Pt from [facility].
--- NOTE | 2023-04-19 09:48 | MHC.CM.PN ---
Pt presently in ICU awaiting pacer placement: Call placed to Milagros, RN at [facility] who states pt is alert and confused at baseline, uses a walker and is a physical assist for completion of ADL's. He eats independently and wears an incontinent brief. Milagros also confirms pt's legal guardian is now Saira Mainsundeep and will fax new guardianship docket to [facility]. Pt registration updated on guardian. Pt is a LTC resident and will return via BLS once medically cleared. CM to follow.
--- NOTE | 2023-04-19 10:07 | PC.NURSE ---
pt returns from surgery. bedside report. pt is alert talkative. singing. denies pain. dressing intact, mild staining, hr a fib with pacer capture seen during pauses. bp map >70. breathing easy non labored, lungs clear. no crepitus.
--- NOTE | 2023-04-19 10:10 | W.PM.OPN ---
Operative Note Operative Note Date of Service: 04/19/23 Narrative: Preoperative diagnosis: [] Heart block, symptomatic severe bradycardia Postop diagnosis: [] Same Procedure [] dual-chamber permanent pacemaker placement with fluoroscopy Surgeon: [] [employer] Operator: [] Type of Anesthesia: [] MAC Indication for surgery: [] As noted above Findings: [] Patient is brought to the operating room, placed on operating room table supine position, after adequate level of MAC anesthesia was induced, shoulder roll was placed, patient positioned in Trendelenburg, in the right and left anterior chest and neck areas were prepped and draped in usual sterile fashion. Right arm was pulled inferiorly and uneventfully cannulation of the right subclavian vein was performed using Seldinger technique. A wire was advanced to the level of the superior vena cava under fluoroscopic guidance. A pocket was fashioned at the cannulation site using Bovie. 9 Lao dilating sheath was placed over the wire again under fluoroscopic guidance and the wire retained. Uneventful advancement and placement of the right ventricular lead was performed under fluoroscopic guidance with good sensing and capture. Screw in lead was secured. Peel-away sheath was removed without incident. Next ,over the retained wire atrial dilating sheath was then placed under fluoroscopic guidance and wire removed. Over this sheath, atrial lead was also uneventfully advanced and placed into the right atrium under fluoroscopic guidance with good sensing and capture. Screwin lead was secured. Dilating sheath was removed without incident. Leads were once again tested with good data. Please refer to [facility] work sheet regarding this. Each lead was secured to the pocket using interrupted 2-0 silk sutures x2 to the securing flanges. Leads were then appropriately connected to the generator, screwed in and secured and this was placed into the pocket. Wound was irrigated, secured hemostasis, and closed using interrupted inverted dermal 3-0 Vicryl sutures followed by Steri-Strips and sterile dressings. Wound was infiltrated at the beginning and at the end with 1% lidocaine/1.5% /0.5 Marcaine. Sponge, needle, and instrument counts reported correct. Patient tolerated the procedure well and emerged from anesthesia stable condition. EBL minimal. Postprocedure chest x-ray is pending.
--- NOTE | 2023-04-19 10:20 | P.PNCC_ITS ---
Subjective Subjective Date of Service: 04/19/23 Interval History: 77-year-old gentleman with underlying history of AFib/a flutter on Xarelto, ascending aortic aneurysm, COPD, HIV, prior CVA, dementia, BPH residing at [facility] admitted on 04/18/2023 with symptomatic bradycardia requiring dopamine support. Patient had dual-chamber pacemaker placed this a.m. and now has been titrated off dopamine. No events overnight. Critical Care Time (minutes): 45 Physical Exam 2 Vital Signs: Vital Signs: Last Vital Signs Temp 96.9 F 04/19/23 08:00 Pulse 92 04/19/23 10:00 Resp 18 04/19/23 10:00 BP 150/97 H 04/19/23 10:00 Pulse Ox 99 04/19/23 10:00 O2 Del Method Nasal Cannula 04/19/23 10:00 O2 Flow Rate 2 04/19/23 10:00 BMI result Body Mass Index 25.0 Const: General: no acute distress, alert and awake Eyes: Sclerae: sclerae normal EOM: EOMs intact bilaterally Neck: Neck: Yes no lymphadenopathy, Yes trachea midline and Yes supple Resp: Effort & Inspection: normal respiratory effort and no respiratory distress Auscultation: clear to auscultation bilaterally Cardio: Rate: regular rate Rhythm: regular rhythm Heart sounds: no gallops, no murmurs and no rubs GI: Palpation (GI): Soft to palpation and Other GI palpation findings present ( Nontender) Auscultation: normal bowel sounds Extrem: General: Yes no pedal edema, No clubbing and No cyanosis Objective Data Labs 04/19/23 05:16 04/19/23 05:16 Labs: Laboratory Results - last 24 hr 04/18/23 04/18/23 04/18/23 16:51 16:51 16:51 WBC 7.7 RBC 4.24 L Hgb 13.2 L Hct 40.0 L MCV 94.3 MCH 31.1 MCHC 33.0 RDW 15.6 Plt Count 194 MPV 10.1 Immature Gran % (Auto) 0.3 Neut % (Auto) 53.0 Lymph % (Auto) 37.6 [place] % (Auto) 7.1 Eos % (Auto) 1.6 Baso % (Auto) 0.4 Lymph # (Auto) 2.9 [place] # (Auto) 0.5 Eos # (Auto) 0.1 Baso # (Auto) 0.0 Abs Immat Gran (auto) 0.02 Absolute Neuts (auto) 4.1 Absolute Nucleated RBC 0.000 Nucleated RBC % (auto) 0.0 PT 14.0 H INR 1.2 H VBG pH VBG pCO2 VBG pO2 VBG HCO3 VBG O2 Saturation VBG Base Excess Sodium 138 Potassium 4.0 Chloride 106 Carbon Dioxide 22 Anion Gap 14 BUN 14 Creatinine 1.11 Estim Creat Clear Calc 61.9 Estimated GFR > 60 POC Glucose Random Glucose 117 H Lactic Acid 1.8 Calcium 9.8 Phosphorus Magnesium 2.1 Cancelled Total Bilirubin 0.3 Direct Bilirubin 0.1 AST 15 ALT 7 Alkaline Phosphatase 67 Troponin I High Sens 3.5 B-Natriuretic Peptide 150 H Total Protein 7.3 Albumin 3.9 TSH 1.48 Cancelled Urine Color Urine Appearance Urine pH Ur Specific [place] Urine Protein Urine Glucose (UA) Urine Ketones Urine Blood Urine Nitrite Ur Leukocyte Esterase Urine Opiates Screen Urine Fentanyl Screen Ur Barbiturates Screen Ur Phencyclidine Scrn Ur Amphetamines Screen U Benzodiazepines Scrn [place] Urine Cocaine Screen U Marijuana (THC) Screen Ethyl Alcohol < 10 COVID-19 (NEDRA) COVID-19 Clin Com Influenza Type A (AYAZ) Influenza Type B (AYAZ) Influenza A & B Note Blood Type Antibody Screen 04/18/23 04/18/23 04/18/23 16:51 16:52 16:57 WBC RBC Hgb Hct MCV MCH MCHC RDW Plt Count MPV Immature Gran % (Auto) Neut % (Auto) Lymph % (Auto) [place] % (Auto) Eos % (Auto) Baso % (Auto) Lymph # (Auto) [place] # (Auto) Eos # (Auto) Baso # (Auto) Abs Immat Gran (auto) Absolute Neuts (auto) Absolute Nucleated RBC Nucleated RBC % (auto) PT INR VBG pH 7.37 VBG pCO2 42 VBG pO2 39 VBG HCO3 24 VBG O2 Saturation 60.0 VBG Base Excess -0.4 Sodium Potassium Chloride Carbon Dioxide Anion Gap BUN Creatinine Estim Creat Clear Calc Estimated GFR POC Glucose 140 H Random Glucose Lactic Acid Calcium Phosphorus Magnesium Total Bilirubin Direct Bilirubin AST ALT Alkaline Phosphatase Troponin I High Sens B-Natriuretic Peptide Total Protein Albumin TSH Urine Color Urine Appearance Urine pH Ur Specific [place] Urine Protein Urine Glucose (UA) Urine Ketones Urine Blood Urine Nitrite Ur Leukocyte Esterase Urine Opiates Screen Urine Fentanyl Screen Ur Barbiturates Screen Ur Phencyclidine Scrn Ur Amphetamines Screen U Benzodiazepines Scrn [place] Urine Cocaine Screen U Marijuana (THC) Screen Ethyl Alcohol Cancelled COVID-19 (NEDRA) Negative COVID-19 Clin Com See Note Influenza Type A (AYAZ) Negative Influenza Type B (AYAZ) Negative Influenza A & B Note See Note Blood Type Antibody Screen 04/18/23 04/18/23 04/18/23 17:05 19:43 21:07 WBC RBC Hgb Hct MCV MCH MCHC RDW Plt Count MPV Immature Gran % (Auto) Neut % (Auto) Lymph % (Auto) [place] % (Auto) Eos % (Auto) Baso % (Auto) Lymph # (Auto) [place] # (Auto) Eos # (Auto) Baso # (Auto) Abs Immat Gran (auto) Absolute Neuts (auto) Absolute Nucleated RBC Nucleated RBC % (auto) PT INR VBG pH VBG pCO2 VBG pO2 VBG HCO3 VBG O2 Saturation VBG Base Excess Sodium Potassium Chloride Carbon Dioxide Anion Gap BUN Creatinine Estim Creat Clear Calc Estimated GFR POC Glucose Random Glucose Lactic Acid Calcium Phosphorus 2.8 Magnesium Total Bilirubin Direct Bilirubin AST ALT Alkaline Phosphatase Troponin I High Sens B-Natriuretic Peptide Total Protein Albumin TSH Urine Color Yellow Urine Appearance Clear Urine pH 7.0 Ur Specific [place] <= 1.005 Urine Protein Negative Urine Glucose (UA) Negative Urine Ketones Negative Urine Blood Negative Urine Nitrite Negative Ur Leukocyte Esterase Negative Urine Opiates Screen Urine Fentanyl Screen Ur Barbiturates Screen Ur Phencyclidine Scrn Ur Amphetamines Screen U Benzodiazepines Scrn [place] 0.65 Urine Cocaine Screen U Marijuana (THC) Screen Ethyl Alcohol COVID-19 (NEDRA) COVID-19 Clin Com Influenza Type A (AYAZ) Influenza Type B (AYAZ) Influenza A & B Note Blood Type A Positive Antibody Screen NEGATIVE 04/18/23 04/19/23 21:08 05:16 WBC 8.8 RBC 4.50 L Hgb 13.9 L Hct 41.2 L MCV 91.6 MCH 30.9 MCHC 33.7 RDW 14.8 Plt Count 211 MPV 9.7 Immature Gran % (Auto) 0.2 Neut % (Auto) 66.3 Lymph % (Auto) 20.9 [place] % (Auto) 10.8 Eos % (Auto) 1.6 Baso % (Auto) 0.2 Lymph # (Auto) 1.8 [place] # (Auto) 1.0 Eos # (Auto) 0.1 Baso # (Auto) 0.0 Abs Immat Gran (auto) 0.02 Absolute Neuts (auto) 5.9 Absolute Nucleated RBC 0.000 Nucleated RBC % (auto) 0.0 PT 13.3 INR 1.1 VBG pH VBG pCO2 VBG pO2 VBG HCO3 VBG O2 Saturation VBG Base Excess Sodium 137 Potassium 3.9 Chloride 107 Carbon Dioxide 22 Anion Gap 12 BUN 12 Creatinine 0.85 Estim Creat Clear Calc 80.9 Estimated GFR > 60 POC Glucose Random Glucose 128 H Lactic Acid Calcium 9.7 Phosphorus 3.3 Magnesium 1.9 Total Bilirubin Direct Bilirubin AST ALT Alkaline Phosphatase Troponin I High Sens B-Natriuretic Peptide Total Protein Albumin TSH Urine Color Urine Appearance Urine pH Ur Specific [place] Urine Protein Urine Glucose (UA) Urine Ketones Urine Blood Urine Nitrite Ur Leukocyte Esterase Urine Opiates Screen Not Detected Urine Fentanyl Screen Not Detected Ur Barbiturates Screen Not Detected Ur Phencyclidine Scrn Not Detected Ur Amphetamines Screen Not Detected U Benzodiazepines Scrn Not Detected [place] Urine Cocaine Screen Not Detected U Marijuana (THC) Screen Not Detected Ethyl Alcohol COVID-19 (NEDRA) COVID-19 Clin Com Influenza Type A (AYAZ) Influenza Type B (AYAZ) Influenza A & B Note Blood Type Antibody Screen Progress Note: A&P Assessment and plan (1) Symptomatic bradycardia: Status: Acute (2) Persistent atrial fibrillation: Status: Acute (3) Psychotic disorder with hallucinations due to known physiological condition: Status: Acute (4) HIV (human immunodeficiency virus infection): Status: Acute (5) COPD (chronic obstructive pulmonary disease): Status: Acute Plan Assessment: 77-year-old gentleman with multiple medical issues admitted with symptomatic bradycardia requiring dopamine support, now status post biventricular pacemaker placement Plan: Neuro: No acute issues. Cardiac: Symptomatic bradycardia, now status post Bi V pacemaker. Cardiology and thoracic surgery service care appreciated. Titrated off dopamine. Underlying AFib/aflutter. Restart anticoagulation. Pulmonary: No acute issues. Renal: No acute issues. Endo: No acute issues. GI: No acute issues. ID: No acute issues. Underlying HIV, continue outpatient regimen. Heme/Onc: No acute issues. Psych: No acute issues. Underlying psychotic disorder. Continue outpatient regimen. Miscellaneous: No acute issues. Prophylaxis: Xarelto Diet: Regular Critical care time spent: 45 minute Quality Stroke Does the patient have a stroke diagnosis?: No VTE Prior VTE?: No VTE Risk Level:: Medical - moderate - high VTE Device Contraindication: N/A - Device Ordered VTE Drug Contraindication: N/A - Med Ordered
[2023-04-19] MEDS: ceFAZolin Sodium/Dextrose,Iso 2 GM/50 ML PIGGYBACK IV (10:28)
--- NOTE | 2023-04-19 12:30 | P.CONCA_ITS ---
History of Present Illness History of Present Illness Date of Service: 04/19/23 Requesting physician: Jeannette Barajas Chief complaint: Symptomatic bradycardia Narrative: 77-year-old gentleman with chronic atrial fibrillation, HIV, previous CVA, COPD, ascending aortic aneurysm, right bundle-branch block and renal cysts who presented with symptomatic bradycardia. He was noticed to be in atrial fibrillation with heart rates in 30s. He was started on dopamine which improved the heart rate and blood pressure and was observed overnight in the ICU. He was taken for permanent pacemaker today. He is doing fine currently. Denying any symptoms at this point. Overall stable clinically. He has psychiatric issues and was resident of [facility]. [facility] Past Medical History Medical History (Updated 04/19/23 @ 10:22 by Hi Max MD) Persistent atrial fibrillation Ascending aortic aneurysm Psychotic disorder with hallucinations due to known physiological condition Unspecified urinary incontinence Constipation, unspecified Preglaucoma, unspecified, unspecified eye Acute stress reaction Ventricular premature depolarization Unspecified cataract Presbyopia Dementia in other diseases classified elsewhere with behavioral disturbance Atrial flutter Deficiency of other vitamins Other abnormalities of gait and mobility Muscular weakness Cyst of kidney, acquired Fatty (change of) liver, not elsewhere classified AAA (abdominal aortic aneurysm) without rupture Personal history of COVID-19 Low back pain Alcohol abuse HIV (human immunodeficiency virus infection) Resides in senior living care facility GERD (gastroesophageal reflux disease) COPD (chronic obstructive pulmonary disease) Right bundle branch block (RBBB) on electrocardiogram (ECG) CVA (cerebral vascular accident) Paroxysmal atrial fibrillation Urgency incontinence BPH loc w urin obs/LUTS Surgical History Surgical History H/O colonoscopy Social History Social History Household Members: Other Housing: Jail Housing Other:: [facility] Are you a primary health care coach to a significant other at home: No Do you presently have visiting nurse or other home services: Yes ([facility] staff) Comment: COUNTS CORRECT Patient Tobacco Use Status: Former Tobacco user Smoked in Last 30 Days: No Use of substances other than those prescribed or required for medical reasons: No Currently Displaying Signs/Symptoms of Drug Intoxication Withdrawal: No Have you been hit, kicked, punched, or otherwise hurt by someone within the past year? If so, by whom?: No Do you feel safe in your current relationship?: No Current Relationship Is there a partner from a previous relationship who is making you feel unsafe now?: No Are you made to feel afraid or neglected: No Advance Directives: Yes Advance Directives on File: Yes Advance Directives Date on File: 07/19/21 Do you have thoughts of harming others: None Do you have a plan to hurt others: No Plan Recently lost weight without trying: No Meds Allergies Allergy/AdvReac Type Severity Reaction Status Date / Time No Known Allergies Allergy Verified 04/14/23 11:13 [No Known Allergies*] Active Medications: Current Medications Abacavir/Lamivudine (Abacavir/Lamivudine 600/300 Tablet) 1 tab PO DAILY JEMIMA Dolutegravir Sodium (Dolutegravir Sodium 50 Mg Tablet) 50 mg PO DAILY [facility] Fentanyl (Fentanyl Citrate/Pf 100 Mcg/2 Ml Vial) 25 mcg IVPUSH Q5M PRN; Protocol PRN Reason: Pain, Moderate(Pain Scale 4-6) [place] Carbonate ([place] Carbonate 300 Mg Tablet) 300 mg PO BEDTIME JEMIMA Oxcarbazepine (Oxcarbazepine 150 Mg Tablet) 450 mg PO BID [facility] Perphenazine (Perphenazine 8 Mg Tablet) 8 mg PO BID [facility] Rivaroxaban (Rivaroxaban 20 Mg Tablet) 20 mg PO DAILY [facility] Home Medications Medication Instructions Recorded Confirmed Last Taken Type abacavir 600 mg-dolutegravir 50 1 tab PO DAILY@1200 08/16/20 04/19/23 04/18/23 History mg-lamivudine 300 mg tablet lithium carbonate 300 mg capsule 300 mg PO BEDTIME 08/16/20 04/19/23 04/17/23 History oxcarbazepine 150 mg tablet 150 mg PO BID 08/16/20 04/19/23 04/18/23 History oxcarbazepine 300 mg tablet 300 mg PO BID 08/16/20 04/19/23 04/18/23 History perphenazine 8 mg tablet 8 mg PO BID 08/16/20 04/19/23 04/18/23 History propranolol 10 mg tablet 10 mg PO DAILY@1200 08/16/20 04/19/23 04/18/23 History propranolol 20 mg tablet 20 mg PO BID 08/16/20 04/19/23 04/18/23 History rivaroxaban 20 mg tablet 20 mg PO DAILY@1800 08/16/20 04/19/23 04/17/23 History finasteride 5 mg tablet 5 mg PO DAILY 10/29/20 04/19/23 04/18/23 History omeprazole 20 mg capsule,delayed 20 mg PO DAILY@1630 03/06/22 04/19/23 04/17/23 History release lithium carbonate 150 mg capsule 150 mg PO DAILY 04/16/22 04/19/23 04/18/23 History latanoprost 0.005 % eye drops 1 drp ophthalmic (eye) BEDTIME 11/10/22 04/19/23 04/17/23 History acetaminophen 325 mg tablet 650 mg PO Q4H PRN Fever Or Pain 04/19/23 04/19/23 Unknown History (Tylenol) bisacodyl 10 mg rectal suppository 10 mg WI DAILY PRN Constipation 04/19/23 04/19/23 Unknown History calcium carbonate 500 mg calcium 500 mg PO BID 04/19/23 04/19/23 04/18/23 History (1,250 mg) tablet ([place]yster Shell Calcium 500) cholecalciferol (vitamin D3) 10 10 mcg PO DAILY 04/19/23 04/19/23 04/18/23 History mcg (400 unit) tablet (Vitamin D3) docusate sodium 100 mg capsule 200 mg PO DAILY 04/19/23 04/19/23 04/18/23 History (Colace) lactulose 20 gram/30 mL oral 20 g PO DAILY 04/19/23 04/19/23 04/18/23 History solution miconazole nitrate 2 % topical 1 spray topical BID 04/19/23 04/19/23 Unknown History spray powder omeprazole 20 mg tablet,delayed 20 mg PO DAILY@0630 04/19/23 04/19/23 04/18/23 History release sennosides 8.6 mg tablet (senna) 8.6 mg PO DAILY PRN Constipation 04/19/23 04/19/23 Unknown History sodium phosphates 19 gram-7 118 ml WI DAILY PRN Constipation 04/19/23 04/19/23 Unknown History gram/118 mL enema (Fleet Enema) Physical Exam 2 Vital Signs: Vital Signs: Last Vital Signs Temp 97.9 F 04/19/23 11:40 Pulse 68 04/19/23 11:40 Resp 18 04/19/23 11:40 BP 132/85 04/19/23 11:40 Pulse Ox 100 04/19/23 11:40 O2 Del Method Nasal Cannula 04/19/23 11:40 O2 Flow Rate 2 04/19/23 11:40 BMI result Body Mass Index 25.0 GENERAL APPEARANCE: in no acute distress, pleasant. NECK: no carotid bruit, no jugular venous distention. SKIN: no suspicious lesions, warm and dry. HEART: no murmurs, irregular rate and rhythm. LUNGS: clear to auscultation bilaterally. Right chest wall permanent pacemaker wound-dressed. ABDOMEN: soft, nontender. EXTREMITIES: no edema. PERIPHERAL PULSES: equal. NEUROLOGIC: No gross deficits, AAO X 3 Objective Labs and Meds 04/19/23 05:16 04/19/23 05:16 Lab results: Laboratory Results - last 24 hr 04/18/23 04/18/23 04/18/23 16:51 16:51 16:51 WBC 7.7 RBC 4.24 L Hgb 13.2 L Hct 40.0 L MCV 94.3 MCH 31.1 MCHC 33.0 RDW 15.6 Plt Count 194 MPV 10.1 Immature Gran % (Auto) 0.3 Neut % (Auto) 53.0 Lymph % (Auto) 37.6 [place] % (Auto) 7.1 Eos % (Auto) 1.6 Baso % (Auto) 0.4 Lymph # (Auto) 2.9 [place] # (Auto) 0.5 Eos # (Auto) 0.1 Baso # (Auto) 0.0 Abs Immat Gran (auto) 0.02 Absolute Neuts (auto) 4.1 Absolute Nucleated RBC 0.000 Nucleated RBC % (auto) 0.0 PT 14.0 H INR 1.2 H VBG pH VBG pCO2 VBG pO2 VBG HCO3 VBG O2 Saturation VBG Base Excess Sodium 138 Potassium 4.0 Chloride 106 Carbon Dioxide 22 Anion Gap 14 BUN 14 Creatinine 1.11 Estim Creat Clear Calc 61.9 Estimated GFR > 60 POC Glucose Random Glucose 117 H Lactic Acid 1.8 Calcium 9.8 Phosphorus Magnesium 2.1 Cancelled Total Bilirubin 0.3 Direct Bilirubin 0.1 AST 15 ALT 7 Alkaline Phosphatase 67 Troponin I High Sens 3.5 B-Natriuretic Peptide 150 H Total Protein 7.3 Albumin 3.9 TSH 1.48 Cancelled Urine Color Urine Appearance Urine pH Ur Specific [place] Urine Protein Urine Glucose (UA) Urine Ketones Urine Blood Urine Nitrite Ur Leukocyte Esterase Urine Opiates Screen Urine Fentanyl Screen Ur Barbiturates Screen Ur Phencyclidine Scrn Ur Amphetamines Screen U Benzodiazepines Scrn [place] Urine Cocaine Screen U Marijuana (THC) Screen Ethyl Alcohol < 10 COVID-19 (NEDRA) COVID-19 Clin Com Influenza Type A (AYAZ) Influenza Type B (AYAZ) Influenza A & B Note Blood Type Antibody Screen 04/18/23 04/18/23 04/18/23 16:51 16:52 16:57 WBC RBC Hgb Hct MCV MCH MCHC RDW Plt Count MPV Immature Gran % (Auto) Neut % (Auto) Lymph % (Auto) [place] % (Auto) Eos % (Auto) Baso % (Auto) Lymph # (Auto) [place] # (Auto) Eos # (Auto) Baso # (Auto) Abs Immat Gran (auto) Absolute Neuts (auto) Absolute Nucleated RBC Nucleated RBC % (auto) PT INR VBG pH 7.37 VBG pCO2 42 VBG pO2 39 VBG HCO3 24 VBG O2 Saturation 60.0 VBG Base Excess -0.4 Sodium Potassium Chloride Carbon Dioxide Anion Gap BUN Creatinine Estim Creat Clear Calc Estimated GFR POC Glucose 140 H Random Glucose Lactic Acid Calcium Phosphorus Magnesium Total Bilirubin Direct Bilirubin AST ALT Alkaline Phosphatase Troponin I High Sens B-Natriuretic Peptide Total Protein Albumin TSH Urine Color Urine Appearance Urine pH Ur Specific [place] Urine Protein Urine Glucose (UA) Urine Ketones Urine Blood Urine Nitrite Ur Leukocyte Esterase Urine Opiates Screen Urine Fentanyl Screen Ur Barbiturates Screen Ur Phencyclidine Scrn Ur Amphetamines Screen U Benzodiazepines Scrn [place] Urine Cocaine Screen U Marijuana (THC) Screen Ethyl Alcohol Cancelled COVID-19 (NEDRA) Negative COVID-19 Clin Com See Note Influenza Type A (AYAZ) Negative Influenza Type B (AYAZ) Negative Influenza A & B Note See Note Blood Type Antibody Screen 04/18/23 04/18/23 04/18/23 17:05 19:43 21:07 WBC RBC Hgb Hct MCV MCH MCHC RDW Plt Count MPV Immature Gran % (Auto) Neut % (Auto) Lymph % (Auto) [place] % (Auto) Eos % (Auto) Baso % (Auto) Lymph # (Auto) [place] # (Auto) Eos # (Auto) Baso # (Auto) Abs Immat Gran (auto) Absolute Neuts (auto) Absolute Nucleated RBC Nucleated RBC % (auto) PT INR VBG pH VBG pCO2 VBG pO2 VBG HCO3 VBG O2 Saturation VBG Base Excess Sodium Potassium Chloride Carbon Dioxide Anion Gap BUN Creatinine Estim Creat Clear Calc Estimated GFR POC Glucose Random Glucose Lactic Acid Calcium Phosphorus 2.8 Magnesium Total Bilirubin Direct Bilirubin AST ALT Alkaline Phosphatase Troponin I High Sens B-Natriuretic Peptide Total Protein Albumin TSH Urine Color Yellow Urine Appearance Clear Urine pH 7.0 Ur Specific [place] <= 1.005 Urine Protein Negative Urine Glucose (UA) Negative Urine Ketones Negative Urine Blood Negative Urine Nitrite Negative Ur Leukocyte Esterase Negative Urine Opiates Screen Urine Fentanyl Screen Ur Barbiturates Screen Ur Phencyclidine Scrn Ur Amphetamines Screen U Benzodiazepines Scrn [place] 0.65 Urine Cocaine Screen U Marijuana (THC) Screen Ethyl Alcohol COVID-19 (NEDRA) COVID-19 Clin Com Influenza Type A (AYAZ) Influenza Type B (AYAZ) Influenza A & B Note Blood Type A Positive Antibody Screen NEGATIVE 04/18/23 04/19/23 21:08 05:16 WBC 8.8 RBC 4.50 L Hgb 13.9 L Hct 41.2 L MCV 91.6 MCH 30.9 MCHC 33.7 RDW 14.8 Plt Count 211 MPV 9.7 Immature Gran % (Auto) 0.2 Neut % (Auto) 66.3 Lymph % (Auto) 20.9 [place] % (Auto) 10.8 Eos % (Auto) 1.6 Baso % (Auto) 0.2 Lymph # (Auto) 1.8 [place] # (Auto) 1.0 Eos # (Auto) 0.1 Baso # (Auto) 0.0 Abs Immat Gran (auto) 0.02 Absolute Neuts (auto) 5.9 Absolute Nucleated RBC 0.000 Nucleated RBC % (auto) 0.0 PT 13.3 INR 1.1 VBG pH VBG pCO2 VBG pO2 VBG HCO3 VBG O2 Saturation VBG Base Excess Sodium 137 Potassium 3.9 Chloride 107 Carbon Dioxide 22 Anion Gap 12 BUN 12 Creatinine 0.85 Estim Creat Clear Calc 80.9 Estimated GFR > 60 POC Glucose Random Glucose 128 H Lactic Acid Calcium 9.7 Phosphorus 3.3 Magnesium 1.9 Total Bilirubin Direct Bilirubin AST ALT Alkaline Phosphatase Troponin I High Sens B-Natriuretic Peptide Total Protein Albumin TSH Urine Color Urine Appearance Urine pH Ur Specific [place] Urine Protein Urine Glucose (UA) Urine Ketones Urine Blood Urine Nitrite Ur Leukocyte Esterase Urine Opiates Screen Not Detected Urine Fentanyl Screen Not Detected Ur Barbiturates Screen Not Detected Ur Phencyclidine Scrn Not Detected Ur Amphetamines Screen Not Detected U Benzodiazepines Scrn Not Detected [place] Urine Cocaine Screen Not Detected U Marijuana (THC) Screen Not Detected Ethyl Alcohol COVID-19 (NEDRA) COVID-19 Clin Com Influenza Type A (AYAZ) Influenza Type B (AYAZ) Influenza A & B Note Blood Type Antibody Screen Imaging Radiologist's impression: Impressions Chest X-Ray 04/18/23 18:53 IMPRESSION: Right internal jugular central catheter tip terminating at the cavoatrial junction. Guidance Fluoroscopy 04/19/23 09:45 FINDINGS/IMPRESSION: Single frontal fluoroscopic image demonstrating 2 pacer leads, one projecting over the expected location of the right atrium and the other one projecting over the expected location of the right ventricle. Lateral views were not provided. A radiologist was not present during this procedure. Please recommend correlation with intraoperative report for additional details. Chest X-Ray 04/19/23 10:26 IMPRESSION: 1. Right-sided pacer leads projecting over the regions of the right atrium and right ventricle. 2. No pneumothorax. 3. Findings suggestive of worsening pulmonary edema with increased central and bibasilar interstitial opacities as well as trace amount of left-sided pleural fluid. A superimposed infectious/inflammatory process is difficult to exclude. Short-term follow-up recommended. Assessment and Plan (1) Symptomatic bradycardia: Status: Acute (2) Persistent atrial fibrillation: Status: Acute Plan 77-year-old gentleman with persistent atrial fibrillation presenting with symptomatic bradycardia. He was on propanolol which is low-dose. He is also on lithium for bipolar disorder. He was started on dopamine which improved his heart rate and he was monitored in ICU overnight. He underwent permanent pacemaker placement today. It appears he had a dual-chamber pacemaker placed, he was labeled as permanent atrial fibrillation in the past and single lead would have been sufficient but it may help him in case he reverts to sinus in the future. Can resume his home medications. Chest x-ray showing evidence of congestive heart failure. Would favor gently diuresing him. Start him on 20 mg IV Lasix. Thank you for allowing me to participate in the care of your patient. Please feel free to contact me if you have any questions. Procedures Date of Service Date of Service: 04/19/23
[2023-04-19] MEDS: Furosemide 20 MG/2 ML VIAL IVPUSH (14:25)
[2023-04-19] MEDS: Perphenazine 8 MG TABLET PO ×2 (14:25→21:05)
[2023-04-19] MEDS: Acetaminophen 325 MG TABLET 650 MG PO (18:22)
[2023-04-19] MEDS: OXcarbazepine 150 MG TABLET 450 MG PO (21:05)
[2023-04-19] MEDS: Lithium Carbonate 300 MG TABLET PO (21:05)
[2023-04-20] VITALS (7 sets, daily range): BP systolic 110–145; BP diastolic 79–90; PULSE 69–83; RESP 18–20; TEMP 36.1–36.9; O2SAT 96–98; BMI 24.8; BMI 25.2
[2023-04-20 06:58] LABS: MANUAL DIFF FLAG NO
[2023-04-20 07:20] LABS: Basophils Percent Auto 0.3 % (0-2); Eosinophils Absolute Auto 0.1 X10*3/uL (0.0-0.4); Eosinophils Percent Auto 1.1 % (0-4); Hematocrit 39.3 % (42.0-52.0); Hemoglobin 13.1 g/dl (14.0-18.0); Imm Gran Abs Auto 0.04 X10*3/uL (0.00-0.03); Imm Gran Pct Auto 0.4 % (0.0-0.4); Lymphocytes Absolute Auto 2.5 X10*3/uL (1.2-4.9); Lymphocytes Percent Auto 26.1 % (20-40); Mean Corpuscular HGB Conc 33.3 g/dl (31.0-36.0); Mean Corpuscular Hemoglobin 31.3 pg (27.0-33.0); Mean Platelet Volume 10.6 fL (9.4-12.4); Monocytes Percent Auto 10.4 % (2-11); Neutrophils Absolute Auto 5.9 x10*3/uL (2.0-8.3); Neutrophils Percent Auto 61.7 % (45-73); Platelet Count 193 X10*3/uL (160-400); Red Blood Count 4.18 X10*6/uL (4.60-5.80); Red Cell Distribution Width 14.9 % (11.0-16.0); White Blood Count 9.5 X10*3/uL (4.8-10.8)
[2023-04-20 07:26] LABS: Alanine Aminotransferase 6 U/L (0-40); Albumin Level 3.7 g/dL (3.5-5.0); Alkaline Phosphatase 75 U/L (39-117); Anion Gap 13 (12-20); Aspartate Amino Transferase 16 U/L (5-37); Bilirubin Total 0.7 mg/dL (0.0-1.0); Blood Urea Nitrogen 13 mg/dL (9-16); Calcium 9.8 mg/dL (8.4-10.2); Carbon Dioxide 24 mmol/L (22-29); Chloride 103 mmol/L (96-108); Creatinine Clr Calc Pharmacy 81.9; Estimated Glomerular Filt Rate > 60; Glucose Random 105 mg/dL (60-115); Potassium 4.1 mmol/L (3.3-5.1); Sodium 136 mmol/L (135-145); Total Protein 6.9 g/dL (6.5-8.0)
[2023-04-20] MEDS: Perphenazine 8 MG TABLET PO ×2 (08:04→23:14)
[2023-04-20] MEDS: OXcarbazepine 150 MG TABLET 450 MG PO ×2 (08:04→23:15)
[2023-04-20] MEDS: Rivaroxaban 20 MG TABLET PO (08:04)
[2023-04-20] MEDS: Abacavir/lamiVUDine 600/300 TABLET 1 TAB PO (08:04)
[2023-04-20] MEDS: Dolutegravir Sodium 50 MG TABLET PO (08:04)
[2023-04-20] MEDS: Docusate Sodium 100 MG CAPSULE 200 MG PO (10:19)
[2023-04-20] MEDS: Cholecalciferol (Vitamin D3) 10 MCG TABLET PO (10:20)
[2023-04-20] MEDS: Finasteride 5 MG TABLET PO (10:20)
[2023-04-20] MEDS: Lactulose 20 GM/30 ML SOLUTION PO (10:20)
[2023-04-20] MEDS: Mirabegron 50 MG TAB.ER.24H PO (10:20)
--- NOTE | 2023-04-20 10:42 | PM.PNCARD ---
Subjective Subjective Date of Service: 04/20/23 Principal diagnosis: Bradycardia, atrial fibrillation Interval history: Patient status post dual-chamber pacemaker although has persistent atrial fibrillation. There was no plan for cardioversion. Patient has been on oral anticoagulation therapy with Xarelto. Underwent pacemaker placement yesterday which is working well. Patient denies any cardiac symptoms and says he feels better. Review of Systems Review of Systems Yes all other systems are reviewed and are negative Physical Exam Vital Signs: Last Vital Signs Temp 97.0 F 04/20/23 07:22 Pulse 74 04/20/23 07:22 Resp 20 04/20/23 07:22 BP 110/83 04/20/23 07:22 Pulse Ox 97 04/20/23 07:22 O2 Del Method Room Air 04/20/23 07:22 O2 Flow Rate 2 04/19/23 11:40 BMI result Body Mass Index 24.8 GENERAL APPEARANCE: in no acute distress, pleasant. NECK: no carotid bruit, no jugular venous distention. SKIN: no suspicious lesions, warm and dry. HEART: no murmurs, irregular rate and rhythm. LUNGS: clear to auscultation bilaterally. Right chest wall permanent pacemaker wound-dressed. ABDOMEN: soft, nontender. EXTREMITIES: no edema. PERIPHERAL PULSES: equal. NEUROLOGIC: No gross deficits, AAO X 3 Objective Labs and Meds 04/20/23 05:59 04/20/23 05:59 Lab results: Laboratory Results - last 24 hr 04/20/23 05:59 WBC 9.5 RBC 4.18 L Hgb 13.1 L Hct 39.3 L MCV 94.0 MCH 31.3 MCHC 33.3 RDW 14.9 Plt Count 193 MPV 10.6 Immature Gran % (Auto) 0.4 Neut % (Auto) 61.7 Lymph % (Auto) 26.1 [place] % (Auto) 10.4 Eos % (Auto) 1.1 Baso % (Auto) 0.3 Lymph # (Auto) 2.5 [place] # (Auto) 1.0 Eos # (Auto) 0.1 Baso # (Auto) 0.0 Abs Immat Gran (auto) 0.04 H Absolute Neuts (auto) 5.9 Absolute Nucleated RBC 0.000 Nucleated RBC % (auto) 0.0 Sodium 136 Potassium 4.1 Chloride 103 Carbon Dioxide 24 Anion Gap 13 BUN 13 Creatinine 0.84 Estim Creat Clear Calc 81.9 Estimated GFR > 60 Random Glucose 105 Calcium 9.8 Phosphorus 3.0 Magnesium 2.0 Total Bilirubin 0.7 AST 16 ALT 6 Alkaline Phosphatase 75 Total Protein 6.9 Albumin 3.7 Imaging Radiologist's impression: Impressions Chest X-Ray 04/19/23 10:26 IMPRESSION: 1. Right-sided pacer leads projecting over the regions of the right atrium and right ventricle. 2. No pneumothorax. 3. Findings suggestive of worsening pulmonary edema with increased central and bibasilar interstitial opacities as well as trace amount of left-sided pleural fluid. A superimposed infectious/inflammatory process is difficult to exclude. Short-term follow-up recommended. Progress Note: A&P Assessment and plan (1) Cardiac pacemaker in situ: Status: Acute Assessment and Plan: Cardiac pacemaker in-situ, dual-chamber was placed. Patient persistent atrial fibrillation. Currently programmed in DDD with mode change. Will eventually if remains in atrial fibrillation without symptoms will switch to VVI mode. Will follow up in the clinic in 6 weeks time. (2) Persistent atrial fibrillation: Status: Acute Assessment and Plan: Persistent/chronic atrial fibrillation without symptoms. Prior history of CVA. Continue full oral anticoagulation with Xarelto to reduce risk of stroke. Continue rate control with propranolol., patient can be discharged from my perspective. Will set up for follow-up for pacemaker check in 6 weeks time. Time Spent With Patient Time: Total time managing care of this patient today ____ minutes. Progress Note: Quality Stroke Does the patient have a stroke diagnosis?: No Procedures Date of Service Date of Service: 04/20/23
--- NOTE | 2023-04-20 10:57 | MHC.CM.PN ---
IMM sent to guardian via c. mail. CM called guardian Saira Metz this am and spoke to her assistance, Yuriy, to inform her that pt is here, and confirm mailing address for IMM. LOUIE informed yuriy that Pt will return to [facility] when medically stable and guardian will be informed. Updated clincal information was sent to [facility] via [facility] [employer].
--- NOTE | 2023-04-20 11:01 | P.PNTS_ITS ---
Subjective Subjective Date of Service: 04/20/23 Interval history: Feels better, minimal pain. Wants to leave and smoke a cigarette. Physical Exam Vital Signs: Vital Signs: Last Vital Signs Temp 97.0 F 04/20/23 07:22 Pulse 74 04/20/23 07:22 Resp 20 04/20/23 07:22 BP 110/83 04/20/23 07:22 Pulse Ox 97 04/20/23 07:22 O2 Del Method Room Air 04/20/23 07:22 O2 Flow Rate 2 04/19/23 11:40 BMI result Body Mass Index 24.8 Const: General: comfortable, no acute distress and alert Or ientation/consciousness: patient oriented x3 Chest: Other: pacemaker site clean Resp: Effort & Inspection: normal respiratory effort and no respiratory distress Skin: General skin exam: no rashes or lesions noted Neuro: General: patient oriented x3 Procedures Date of Service Date of Service: 04/20/23 Progress Note: A&P Assessment and plan (1) Cardiac pacemaker in situ: Status: Acute Plan POD #1 s/p dual-chamber permanent pacemaker placement with fluoroscopy for heart block, symptomatic severe bradycardia. Doing well post op. In a fib but rate regular, pacemaker functioning, interrogated this morning. Incision clean. No pneumo on yesterday film. Will sign off. Can f/u in office in [address] Ramires. Time Spent With Patient Time: Total time managing care of this patient today ____ minutes. Quality Stroke Does the patient have a stroke diagnosis?: No VTE Prior VTE?: No VTE Risk Level:: Medical - moderate - high VTE Device Contraindication: N/A - Device Ordered VTE Drug Contraindication: N/A - Med Ordered
--- NOTE | 2023-04-20 11:18 | PM.DS ---
DS: Providers Provider Date of Service: 04/20/23 Date of admission: 04/18/23 19:16 Primary care physician: Diogo Hanson DO Consults: 04/19/23 10:18 Consult to Cardiology Routine Consulting Provider[place] [facility] Reason for consultation: symptomatic bradycardia Has provider been notified: Yes DS: Diagnosis Discharge Diagnosis (1) Cardiac pacemaker in situ: Status: Acute DS: Summary Hospital Course Hospital Course: Chief Complaint: Altered mental status The patient is a 77-year-old male with a past medical history of atrial fibrillation/ Atrial Flutter ( on Xarelto ), ascending aortic aneurysm, ? COPD, HIV, CVA, dementia, and BPH who presented [facility] the emergency? [facility] with altered mental status. ? According to staff from penitentiary patient? is confused at baseline but worsening today. He was ?walking into [facility]?.? ?On arrival to the emergency department? patient bradycardic to the 30s. EKG showed atrial flutter, heart rate 34, no ST segment depression or elevation, no T-wave inversion.? Cardiology Dr Burch, consulted who advised? for initiation of dopamine and pacemaker placement.? Surgery, Dr Ramires, was also consulted who will place a pacemaker in the morning.? ? Admitted to the ICU for symptomatic bradycardia and required pressors Hospital course: Patient presented with altered mental status and found to have symptomatic bradycardia and hypotension and was initiated on dopmaine and ultimately underwent permanent pacemaker placement by Dr. Ramires on 04/19/23. Post pacemkaker check is unremarkable,he will restart meds including propranolol at disharge and resume Xarelto for AFIB Time Attestation Discharge coordination time: Greater than 30 minutes Quality: Safe Use of Opioids Does Pt have an Active Cancer Diagnosis on the Problem List?: No Quality: Stroke Does the patient have a stroke diagnosis?: No Physical Exam Vital Signs: Vital Signs: Last Vital Signs Temp 97.0 F 04/20/23 07:22 Pulse 74 04/20/23 07:22 Resp 20 04/20/23 07:22 BP 110/83 04/20/23 07:22 Pulse Ox 97 04/20/23 07:22 O2 Del Method Room Air 04/20/23 07:22 O2 Flow Rate 2 04/19/23 11:40 BMI result Body Mass Index 24.8 Const: Other: General: alert and oriented to self, plac Resp: CTA bilateral chest pace maker site is clean, no hematoma CVS: S1,S2, iregular ireuglar GI: +BS, NT, no distention Skin: No rash Neuro: motor grossly intact Psych: appropriate affect DS: Data Data Completed and Pending Labs on day of discharge: Laboratory Results - last 24 hr 04/20/23 05:59 WBC 9.5 RBC 4.18 L Hgb 13.1 L Hct 39.3 L MCV 94.0 MCH 31.3 MCHC 33.3 RDW 14.9 Plt Count 193 MPV 10.6 Immature Gran % (Auto) 0.4 Neut % (Auto) 61.7 Lymph % (Auto) 26.1 [place] % (Auto) 10.4 Eos % (Auto) 1.1 Baso % (Auto) 0.3 Lymph # (Auto) 2.5 [place] # (Auto) 1.0 Eos # (Auto) 0.1 Baso # (Auto) 0.0 Abs Immat Gran (auto) 0.04 H Absolute Neuts (auto) 5.9 Absolute Nucleated RBC 0.000 Nucleated RBC % (auto) 0.0 Sodium 136 Potassium 4.1 Chloride 103 Carbon Dioxide 24 Anion Gap 13 BUN 13 Creatinine 0.84 Estim Creat Clear Calc 81.9 Estimated GFR > 60 Random Glucose 105 Calcium 9.8 Phosphorus 3.0 Magnesium 2.0 Total Bilirubin 0.7 AST 16 ALT 6 Alkaline Phosphatase 75 Total Protein 6.9 Albumin 3.7 Preliminary micro results at discharge 04/18/23 17:05 Blood Culture - Preliminary Blood - Venous No growth after 24 hours. 04/18/23 17:05 Blood Culture - Preliminary Blood - Venous No growth after 24 hours. Discharge Plan Discharge Anticipated Discharge Date/Time: 04/20/23 11:13 Patient Disposition: Admitted As Inpatient Discharge Diagnosis: Symptomatic Bradycardia Referrals: [facility] [Outside] - 1 Week Adonis Ramires MD [Physician] - 1 Week Physician,Nithin J [Physician] - 1 Week Discharge Medications: Continued sennosides [senna] 8.6 mg Tablet 8.6 mg PO DAILY PRN (Reason: Constipation) acetaminophen [Tylenol] 325 mg Tablet 650 mg PO Q4H PRN (Reason: Fever Or Pain) miconazole nitrate 2 % Aerosol Powder 1 spray TOPICAL BID calcium carbonate [Oyster Shell Calcium 500] 500 mg calcium (1,250 mg) Tablet 500 mg PO BID bisacodyl 10 mg Suppository 10 mg NV DAILY PRN (Reason: Constipation) Fleet Enema 19-7 gram/118 mL Enema 118 ml NV DAILY PRN (Reason: Constipation) docusate sodium [Colace] 100 mg Capsule 200 mg PO DAILY cholecalciferol (vitamin D3) [Vitamin D3] 10 mcg (400 unit) Tablet 10 mcg PO DAILY lactulose 20 gram/30 mL Solution 20 g PO DAILY omeprazole 20 mg Tablet,Delayed Release (Dr/Ec) 20 mg PO DAILY@0630 perphenazine 8 mg tablet 8 mg PO BID oxcarbazepine 150 mg tablet 150 mg PO BID Xarelto 20 mg tablet 20 mg PO DAILY@1800 propranolol 20 mg tablet 20 mg PO BID lithium carbonate 300 mg capsule 300 mg PO BEDTIME oxcarbazepine 300 mg tablet 300 mg PO BID Triumeq 600-50-300 mg tablet 1 tab PO DAILY@1200 propranolol 10 mg tablet 10 mg PO DAILY@1200 finasteride 5 mg tablet 5 mg PO DAILY omeprazole 20 mg capsule,delayed release(DR/EC) 20 mg PO DAILY@1630 lithium carbonate 150 mg capsule 150 mg PO DAILY Myrbetriq 50 mg tablet extended release 24 hr 50 mg PO DAILY 90 Days Qty: 90 0RF latanoprost 0.005 % drops 1 drp ophthalmic (eye) BEDTIME Diet: Advance to usual diet Activity on Discharge: No heavy lifting Activity Restrictions/Additional Instructions: Ice to wound 20 minutes several times today and tomorrow. May shower in 2 days. Remove outside dressing only. Leave Steri-Strips intact. No strenuous activities. Right upper extremity sling, especially at night Care Plan Goals: recovery from pace maker insertion Health Concerns: Bradycardia that needed pace maker insertion Plan of Treatment: resume all prior medication and care, follow up with Dr. Ramires and to follow up with cardiology service
--- NOTE | 2023-04-20 14:13 | HO.POSTANES ---
Post Anesthesia Evaluation Post Anesthesia Evaluation Date of Service: 04/20/23 Vital Signs: Vital Signs Temp Pulse Resp BP Pulse Ox O2 Del Method 04/20/23 11:45 98.0 F 83 20 110/90 H 96 Room Air 04/20/23 09:13 96 Room Air 04/20/23 07:22 97.0 F 74 20 110/83 97 Room Air 04/20/23 03:24 97.0 F 72 20 120/86 98 Room Air Anesthesia: Monitored Mental Status: Awake Pain Control: Satisfactory Nausea/Vomiting: None Hydration: Adequate Anesthesia-Related Issues: No Anes. Related Issues
[2023-04-20] MEDS: Omeprazole 20 MG CAPSULE.DR PO (16:19)
[2023-04-20] MEDS: Lithium Carbonate 300 MG TABLET PO (23:14)
[2023-04-21] VITALS: BP 117/75; PULSE 78; RESP 18; TEMP 36.3; O2SAT 98
[2023-04-21 03:08] VITALS: BP 123/83; PULSE 71; RESP 18; TEMP 36.1; O2SAT 97
[2023-04-21] MEDS: Omeprazole 20 MG CAPSULE.DR PO (06:40)
[2023-04-21 08:00] VITALS: BP 123/84; PULSE 67; RESP 20; TEMP 36.3; O2SAT 99
[2023-04-21 09:00] VITALS: O2SAT 98
--- NOTE | 2023-04-21 09:27 | MHC.CM.PN ---
PT MEDICALLY CLEARED FOR DC, CM ATTEMPTED TP CONTACT PT'S GUARDIAN LISTED IN EXPANSE VLADISLAV EDWARD AT NUMBER ON FILE HOWEVER CM NUMBER CURRENTLY NOT TAKING CALLS, CM CHECKED PT'S GUARDIANSHIP PAPERWORK AND [facility] SHEETS [phone] AND [facility] REPORTS THAT VLADISLAV EDWARD IS THE PROPOSED NEW GUARDIAN FOR PT HOWEVER UNSURE WHEN THAT WILL BE, [facility] DELIVERED AND [facility] REQUESTS CM SEND W/PT BACK TO FACILITY, [facility] UPDATED AND PT HER ON MEDICARE BENEFIT AND [facility] WILL TRANSPORT AT 12:30PM.
[2023-04-21] MEDS: OXcarbazepine 150 MG TABLET 450 MG PO (09:46)
[2023-04-21] MEDS: Rivaroxaban 20 MG TABLET PO (09:46)
[2023-04-21] MEDS: Docusate Sodium 100 MG CAPSULE 200 MG PO (09:46)
[2023-04-21] MEDS: Dolutegravir Sodium 50 MG TABLET PO (09:46)
[2023-04-21] MEDS: Abacavir/lamiVUDine 600/300 TABLET 1 TAB PO (09:46)
[2023-04-21] MEDS: Mirabegron 50 MG TAB.ER.24H PO (09:46)
[2023-04-21] MEDS: Perphenazine 8 MG TABLET PO (09:46)
[2023-04-21] MEDS: Cholecalciferol (Vitamin D3) 10 MCG TABLET PO (09:46)
[2023-04-21] MEDS: Finasteride 5 MG TABLET PO (09:47)
[2023-04-21] MEDS: Lactulose 20 GM/30 ML SOLUTION PO (09:47)
[2023-04-21 11:55] VITALS: BP 125/90; PULSE 78; RESP 20; TEMP 36.6; O2SAT 96
--- NOTE | 2023-04-28 11:42 | P.CDIM_ITS ---
PROVIDER RESPONSE TEXT: To clarify, the appropriate diagnosis supported by the clinical indicators: Other (explain): Please ask Cardiology QUERY TEXT: PHYSICIAN'S DOCUMENTATION REQUEST Date of Query: 04/22/2023 09:11 AM EST Patient Name: Ras Jacobo Admit Date: 04/19/2023 Dear Adonis Ramires, RETROSPECTIVE QUERY A review of the medical record indicates additional documentation may be needed. Please review below and update the documentation accordingly. Clinical Indicators: OP note dated 04/19 - Preoperative diagnosis: Heart block, symptomatic severe bradycardia Postop diagnosis: Same Dual-chamber permanent pacemaker placement with fluoroscopy. Cardiology consult note 04/19 - Patient with RBBB presented with symptomatic bradycardia. Noticed to be in atrial fibrillation with heart rate in 30's. Discharge summary: Pdx - Cardiac pacemaker in situ Specifics to the documented diagnosis of Heart Block within the medical record if known: Heart block Bifascicular, Complete, Atrioventricular (incomplete, partial), First degree, Second degree, Third de gree, Other (explain) Clinically unable to determine (explain) Thank you, Sara Sepulveda, CCS, CDIS Use of terms such as suspected, likely, concern for, or probable (associated with a specific diagnosi s that is being evaluated, monitored, or treated as if it exists) are acceptable and can be coded in the inpatient se tting, when documented at the time of discharge. Please use your independent medical judgment in providing your response. THIS QUERY IS PART OF THE PERMANENT MEDICAL RECORD
== END 2023-04-21 12:56 | disposition skilled nursing facility (03) | DRG 244 ==
LOC: HO.ED 18:28 → HO.EDOVER 19:53 → HO.ICU 19:54 → HO.IMC 04-19 11:03
PROVIDERS: Internal Medicine Pulmonary Disease; Surgery; Admitting Provider Registered Nurse Community Health; Emergency Provider Emergency Medicine; PCP Hospitalist; Visit Provider Internal Medicine
DX: I45.9 Conduction disorder, unspecified (principal); R00.1 Bradycardia, unspecified; I48.19 Other persistent atrial fibrillation; F03.90 Unspecified dementia, unspecified severity, without behavioral disturbance, psychotic disturbance, mood disturbance, and anxiety; N40.0 Benign prostatic hyperplasia without lower urinary tract symptoms; Z21 Asymptomatic human immunodeficiency virus [HIV] infection status; I95.9 Hypotension, unspecified; I48.92 Unspecified atrial flutter; F29 Unspecified psychosis not due to a substance or known physiological condition; Z20.822 Contact with and (suspected) exposure to COVID-19; Z86.73 Personal history of transient ischemic attack (TIA), and cerebral infarction without residual deficits; Z79.899 Other long term (current) drug therapy
CPT/HCPCS: 36415; 71045; 80048; 80053; 80076; 80178; 80307; 81003; 82803; 82947; 83605; 83735; 83880; 84100; 84443; 84484; 85025; 85610; 86850; 86900; 86901; 87040; 87502; 87635; 93005; 99285; C1785; C1892; C1898; J0690; J1265; J1610; J1940; J2250; J2704; J2795; J3370; J7168

== ENCOUNTER → 2023-04-18 19:16 | Outpatient (BNV) | payer MEDICARE, MEDICAID, SELFPAY | PROVIDERS: Admitting Provider Registered Nurse Community Health; Emergency Provider Emergency Medicine; Visit Provider Surgery | DX: I48.92 Unspecified atrial flutter (principal); R00.1 Bradycardia, unspecified; I48.19 Other persistent atrial fibrillation | CPT/HCPCS: 33208; 99024; 99223 ==

== ENCOUNTER → 2023-04-18 19:16 | Outpatient (BNV) | payer MEDICARE, MEDICAID, SELFPAY | PROVIDERS: Admitting Provider Registered Nurse Community Health; Emergency Provider Emergency Medicine; PCP Hospitalist; Visit Provider Internal Medicine | DX: Z95.0 Presence of cardiac pacemaker (principal); R00.1 Bradycardia, unspecified | CPT/HCPCS: 99239 ==

== ENCOUNTER → 2023-04-18 19:16 | Outpatient (BNV) | payer MEDICARE, MEDICAID, SELFPAY | PROVIDERS: Admitting Provider Registered Nurse Community Health; Emergency Provider Emergency Medicine; Visit Provider Registered Nurse Community Health | DX: I48.92 Unspecified atrial flutter (principal); I48.19 Other persistent atrial fibrillation; R00.1 Bradycardia, unspecified | CPT/HCPCS: 99291 ==

== ENCOUNTER → 2023-04-18 19:16 | Outpatient (BNV) | payer MEDICARE, MEDICAID, SELFPAY | PROVIDERS: Admitting Provider Registered Nurse Community Health; Emergency Provider Emergency Medicine; Visit Provider Internal Medicine Cardiovascular Disease | DX: R00.1 Bradycardia, unspecified (principal); I48.19 Other persistent atrial fibrillation; R94.31 Abnormal electrocardiogram [ECG] [EKG]; Z98.890 Other specified postprocedural states | CPT/HCPCS: 93010; 99222; 99233 ==

== ENCOUNTER → 2023-04-18 19:16 | Outpatient (BNV) | payer MEDICARE, MEDICAID, SELFPAY | PROVIDERS: Admitting Provider Registered Nurse Community Health; Emergency Provider Emergency Medicine; Visit Provider Internal Medicine Pulmonary Disease | DX: R00.1 Bradycardia, unspecified (principal); I48.19 Other persistent atrial fibrillation; F06.0 Psychotic disorder with hallucinations due to known physiological condition; B20 Human immunodeficiency virus [HIV] disease; J44.9 Chronic obstructive pulmonary disease, unspecified | CPT/HCPCS: 99291 ==

== ENCOUNTER → 2023-05-12 23:59 | Outpatient (BNV) | payer MEDICARE, MEDICAID, SELFPAY ==
--- NOTE | 2023-05-13 15:46 | MHC.OFFVIS ---
Intake Intake Visit Reasons: Remote Device Check- [facility] Allergies No Known Allergies [No Known Allergies*] Allergy (Verified 04/14/23 11:13) [facility] Medical History (Updated 04/22/23 @ 00:05 by Beth Chapa) Persistent atrial fibrillation Ascending aortic aneurysm Psychotic disorder with hallucinations due to known physiological condition Unspecified urinary incontinence Constipation, unspecified Preglaucoma, unspecified, unspecified eye Acute stress reaction Ventricular premature depolarization Unspecified cataract Presbyopia Dementia in other diseases classified elsewhere with behavioral disturbance Atrial flutter Deficiency of other vitamins Other abnormalities of gait and mobility Muscular weakness Cyst of kidney, acquired Fatty (change of) liver, not elsewhere classified AAA (abdominal aortic aneurysm) without rupture Personal history of COVID-19 Low back pain Alcohol abuse HIV (human immunodeficiency virus infection) Resides in shelter care facility GERD (gastroesophageal reflux disease) COPD (chronic obstructive pulmonary disease) Right bundle branch block (RBBB) on electrocardiogram (ECG) CVA (cerebral vascular accident) Paroxysmal atrial fibrillation Urgency incontinence BPH loc w urin obs/LUTS Surgical History H/O colonoscopy Social History Household Members: Other Housing: [facility] Housing Other:: [facility] Are you a primary health care facility administrator to a significant other at home: No Do you presently have visiting nurse or other home services: Yes ([facility] staff) Comment: COUNTS CORRECT Patient Tobacco Use Status: Former Tobacco user Advance Directives Date on File: 07/19/21 Office Procedures Cardiac Device Check Cardiac Device Check Details: Remote pacemaker report generated 05/12/2023. Pacemaker function is adequate. Patient noted to be in constant atrial fibrillation [id number] Cardiac Device Interrogation, pacemaker Procedure code (CPT) selection complete Assessment & Plan Assessment & Plan (1) Cardiac pacemaker in situ: Code(s): Z95.0 - Presence of cardiac pacemaker Plan: See above Coding Level of Care Code Procedure Only Diagnoses Cardiac pacemaker in situ Z95.0 CPT Codes Cardiac Device Check - Cardiac Device 12: [id number] Cardiac Device Interrogation, pacemaker ([id number])
== END ==
PROVIDERS: PCP Hospitalist; Visit Provider Internal Medicine Cardiovascular Disease
DX: I48.19 Other persistent atrial fibrillation (principal); Z95.0 Presence of cardiac pacemaker
CPT/HCPCS: 93294

== ENCOUNTER 2023-05-25 13:28 | Outpatient (AMB) | payer MEDICARE, MEDICAID, SELFPAY ==
[2023-05-25 13:43] VITALS: BP 100/82; PULSE 74; BMI 25.0
--- NOTE | 2023-05-25 13:43 | MHC.OFFVIS ---
Intake Vital Signs 05/25/23 13:43 Height 6 ft 1 in Weight 189 lb 9.561 oz BMI 25.0 BP 100/82 Blood Pressure Location Lt brachial Position Sitting Pulse 74 Pulse Source Pulse Oximeter Intake Visit Reasons: 6 week f/u [facility] [employer] Required: No Target Man: Target Man Present Allergies No Known Allergies [No Known Allergies*] Allergy (Verified 05/25/23 13:44) Medication List - Last Reconciled 05/25/23 by COSMO Hairston [id number] 600-50-300 mg 1 tab PO DAILY@1200 acetaminophen (Tylenol) 650 mg PO Q4H PRN bisacodyl 10 mg AL DAILY PRN calcium carbonate (Oyster Shell Calcium 500) 500 mg PO BID cholecalciferol (vitamin D3) (Vitamin D3) 10 mcg PO DAILY docusate sodium (Colace) 200 mg PO DAILY finasteride 5 mg PO DAILY lactulose 20 grams PO DAILY latanoprost 0.005% 1 drp ophthalmic (eye) BEDTIME lithium carbonate 300 mg PO BEDTIME lithium carbonate 150 mg PO DAILY miconazole nitrate 2% 1 spray topical BID mirabegron ER (Myrbetriq) 50 mg PO DAILY 90 days omeprazole 20 mg PO DAILY@0630 omeprazole 20 mg PO DAILY@1630 oxcarbazepine 150 mg PO BID oxcarbazepine 300 mg PO BID perphenazine 8 mg PO BID propranolol 20 mg PO BID propranolol 10 mg PO DAILY@1200 rivaroxaban 20 mg PO DAILY@1800 sennosides (senna) 8.6 mg PO DAILY PRN sodium phosphates 19-7 gram/118 mL (Fleet Enema) 118 mL AL DAILY PRN HPI 6 week f/u [facility] HPI Details Ras is a 77-year-old male with past medical history of CVA, chronic atrial fibrillation who was recently admitted to [facility] with pulse rate in the 30s. He was found to have atrial flutter with slow ventricular response. He was initially treated with dopamine then dual-chamber pacemaker was placed. Today he reports he has been feeling well since his pacemaker placement. He has not having any discomfort from his right-sided pacemaker site. He denies lightheadedness, presyncope, syncope, falls. He ambulates with a walker. No chest discomfort at rest or with activity. No shortness of breath, heart palpitations, PND, orthopnea or edema. Resides at long-term care facility and worker with him at this visit. Taking all medications as prescribed. No bleeding issues reported [facility] Medical History Persistent atrial fibrillation Ascending aortic aneurysm Psychotic disorder with hallucinations due to known physiological condition Unspecified urinary incontinence Constipation, unspecified Preglaucoma, unspecified, unspecified eye Acute stress reaction Ventricular premature depolarization Unspecified cataract Presbyopia Dementia in other diseases classified elsewhere with behavioral disturbance Atrial flutter Deficiency of other vitamins Other abnormalities of gait and mobility Muscular weakness Cyst of kidney, acquired Fatty (change of) liver, not elsewhere classified AAA (abdominal aortic aneurysm) without rupture Personal history of COVID-19 Low back pain Alcohol abuse HIV (human immunodeficiency virus infection) 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 GERD (gastroesophageal reflux disease) COPD (chronic obstructive pulmonary disease) Right bundle branch block (RBBB) on electrocardiogram (ECG) CVA (cerebral vascular accident) Paroxysmal atrial fibrillation Urgency incontinence BPH loc w urin obs/LUTS Surgical History H/O colonoscopy Social History Household Members: Other Housing: Skilled Nursing Housing Other:: [facility] Are you a primary care transitions manager to a significant other at home: No Do you presently have visiting nurse or other home services: Yes ([facility] staff) Comment: COUNTS CORRECT Patient Tobacco Use Status: Former Tobacco user Advance Directives Date on File: 07/19/21 Review of Systems Const All systems reviewed & are unremarkable except as noted in HPI and below ENT Denies dizziness Card Denies chest pain, Denies chest pain at rest, Denies chest pain with activity, Denies rapid heart rate, Denies pedal edema, Denies edema, Denies leg edema, Denies lightheadedness, Denies palpitations, Denies dyspnea, Denies dyspnea on exertion and Denies orthopnea Resp Denies cough, Denies dyspnea and Denies dyspnea on exertion GI Denies hematochezia and Denies change in stool character Musc Details: uses walker Reports abnormal gait, Denies limited range of motion, Denies muscle cramps, Denies muscle weakness, Denies numbness, Denies radiating pain into limb, Denies stiffness and Denies tingling Neuro Reports abnormal gait, Denies dizziness, Denies numbness and Denies tingling Endo Denies palpitations Physical Exam Vital Signs: Last Vital Signs Pulse 74 05/25/23 13:43 BP 100/82 05/25/23 13:43 BMI result Body Mass Index 25.0 Const General: cooperative, healthy appearing, comfortable and no acute distress Orientation/consciousness: patient oriented x3 Neck Neck: Yes normal visual inspection and Yes no JVD Resp Effort & Inspection: normal respiratory effort Auscultation: clear to auscultation bilaterally, no crackles, no rales, no rhonchi and no wheezes Cardio Jugular venous distension: no JVD Rate: regular rate Rhythm: regular rhythm Heart sounds: S1 normal heart sound present, S2 normal heart sound present, no murmurs and no rubs Neuro General: patient oriented x3 Extrem General: Yes normal to inspection and No no pedal edema Psych Appearance: grossly normal Mental Status: mental status grossly normal Speech and movement: Normal speech and movement present Office Procedures Cardiac Device Check Cardiac Device Check Details: [facility] dual-chamber pacemaker interrogation today, battery 7.4-9.6 years, RV threshold 0.5 volts at 0.5 milliseconds, chronic atrial fibrillation since implant 04/19/2023, DDD mode, low rate 60, V paced 61%, RV noise reversion alert, assessed by rep, no changes made. [id number] Cardiac Device Check, pacemaker dual lead Procedure code (CPT) selection complete Assessment & Plan Assessment & Plan (1) Symptomatic bradycardia: Code(s): R00.1 - Bradycardia, unspecified Plan: Recent [facility] admission for symptomatic bradycardia, pulse rate in the 30s with atrial flutter. Initially requiring dopamine then dual-chamber pacemaker was placed. He continues on his usual propranolol for heart rate control. Today he reports feeling well with no concerning symptoms. Pacemaker site is healing well with no signs of infection or dehiscence. Device interrogation today shows it is functioning normally. Next office interrogation will be in 6 months. Remote monitoring in use. He reports having a monitor set up at his bedside. No med changes made. Cardiology follow-up 6 months, sooner if needed (2) Cardiac pacemaker in situ: Comment: Medtronic dual-chamber Code(s): Z95.0 - Presence of cardiac pacemaker Plan: As above (3) Persistent atrial fibrillation: Code(s): I48.19 - Other persistent atrial fibrillation Plan: History of persistent atrial fibrillation. Patient has been in continuous AFib since his pacemaker insertion 04/19/2023. Heart rate is controlled with use of propranolol. He denies any heart palpitations. He is on Xarelto for anticoagulation. No bleeding issues reported. Labs done 04/20/2023 showed creatinine clearance 81.9. Continue current treatment (4) Ascending aortic aneurysm: Code(s): I71.2 - Thoracic aortic aneurysm, without rupture Plan: Last echocardiogram 08/22/2022 EF 50-55%, moderate biatrial enlargement, moderately dilated ascending aorta 4.5 cm. Has order for repeat echo 10/2023 (5) Hospital discharge follow-up: Code(s): Z09 - Encounter for follow-up examination after completed treatment for conditions other than malignant neoplasm Plan: As above Plan Time spent on chart review, documentation, interview and assessment Orders: Orders CA echo transthoracic complete 14 Weeks I71.2 - Thoracic aortic aneurysm, without rupture Coding Level of Care Code Est Pt Level 4 (71343) Diagnoses Symptomatic bradycardia R00.1 Cardiac pacemaker in situ Z95.0 Persistent atrial fibrillation I48.19 Ascending aortic aneurysm I71.2 Hospital discharge follow-up Z09 CPT Codes Cardiac Device Check - Cardiac Device 2: [id number] Cardiac Device Check, pacemaker dual lead ([id number]) Time Spent (min) 28
== END 2023-05-25 14:02 | disposition home or self-care (01) ==
PROVIDERS: PCP Hospitalist; Visit Provider Nurse Practitioner Family
DX: R00.1 Bradycardia, unspecified (principal); I48.19 Other persistent atrial fibrillation; Z95.0 Presence of cardiac pacemaker; I71.20 Thoracic aortic aneurysm, without rupture, unspecified
CPT/HCPCS: 93280; 99214

== ENCOUNTER → 2023-05-25 13:28 | Outpatient (BNVA) | payer MEDICARE, MEDICAID, SELFPAY | PROVIDERS: PCP Hospitalist; Visit Provider Nurse Practitioner Family | DX: Z45.018 Encounter for adjustment and management of other part of cardiac pacemaker (principal); R00.1 Bradycardia, unspecified; I48.19 Other persistent atrial fibrillation; I71.20 Thoracic aortic aneurysm, without rupture, unspecified | CPT/HCPCS: 93280; 99212 ==

== ENCOUNTER → 2023-08-11 23:59 | Outpatient (BNV) | payer MEDICARE, SELFPAY ==
--- NOTE | 2023-08-11 15:08 | A.OFFVIS_ITS ---
Intake Visit Reasons: Remote device check- [facility] Allergies No Known Allergies [No Known Allergies*] Allergy (Verified 05/25/23 13:44) [facility] Medical History Persistent atrial fibrillation Ascending aortic aneurysm Psychotic disorder with hallucinations due to known physiological condition Unspecified urinary incontinence Constipation, unspecified Preglaucoma, unspecified, unspecified eye Acute stress reaction Ventricular premature depolarization Unspecified cataract Presbyopia Dementia in other diseases classified elsewhere with behavioral disturbance Atrial flutter Deficiency of other vitamins Other abnormalities of gait and mobility Muscular weakness Cyst of kidney, acquired Fatty (change of) liver, not elsewhere classified AAA (abdominal aortic aneurysm) without rupture Personal history of COVID-19 Low back pain Alcohol abuse HIV (human immunodeficiency virus infection) Resides in care home care facility GERD (gastroesophageal reflux disease) COPD (chronic obstructive pulmonary disease) Right bundle branch block (RBBB) on electrocardiogram (ECG) CVA (cerebral vascular accident) Paroxysmal atrial fibrillation Urgency incontinence BPH loc w urin obs/LUTS Surgical History H/O colonoscopy Social History Household Members: Other Housing: Correction Housing Other:: [facility] Are you a primary long term care phlebotomist to a significant other at home: No Do you presently have visiting nurse or other home services: Yes ([facility] staff) Comment: COUNTS CORRECT Patient Tobacco Use Status: Former Tobacco user Advance Directives Date on File: 07/19/21 Office Procedures Cardiac Device Check Cardiac Device Check Details: Remote pacemaker report generated 08/11/2023. Pacemaker function is adequate [id number] Cardiac Device Interrogation, pacemaker Procedure code (CPT) selection complete Assessment & Plan Assessment & Plan (1) Cardiac pacemaker in situ: Comment: Medtronic dual-chamber Code(s): Z95.0 - Presence of cardiac pacemaker Category: Medical Plan: See above Coding Level of Care Code Procedure Only Diagnoses Cardiac pacemaker in situ Z95.0 CPT Codes Cardiac Device Check - Cardiac Device 12: [id number] Cardiac Device Interrogation, pacemaker ([id number])
== END ==
PROVIDERS: PCP Hospitalist; Visit Provider Internal Medicine Cardiovascular Disease
DX: Z45.018 Encounter for adjustment and management of other part of cardiac pacemaker (principal)
CPT/HCPCS: 93294

== ENCOUNTER 2023-08-20 10:42 | Outpatient (REF) | payer MEDICARE, SELFPAY ==
--- NOTE | ~2023-08-20 | XR_ITS ---
EXAMINATION: XR PRE-MRI COMPLETE CLINICAL INDICATION: Pre-MRI COMPARISON: 04/19/2023 TECHNIQUE: 2 views of the abdomen. FINDINGS: AP view of the abdomen shows a large stool burden the right colon. No free air or proximal obstruction. No radiopaque foreign body. 2 views of the skull are obtained which show no radiopaque foreign body particularly overlying the orbits. Visualized paranasal sinuses are clear. Please note that on 04/19/2023, a cardiac pacer was observed. This would preclude an MRI study. Please repeat the chest radiograph to ensure that there is no evidence of a spacer at this time. XR/XR pre mri screening IMPRESSION: A chest radiograph is required to exclude the presence of a radiopaque foreign body, or pacer.
== END 2023-08-20 10:43 | disposition home or self-care (01) ==
LOC: HO.MRI 10:42
PROVIDERS: PCP Hospitalist; Visit Provider Nurse Practitioner Family
DX: Z13.89 Encounter for screening for other disorder (principal)

== ENCOUNTER 2023-08-24 12:42 | Outpatient (REF) | payer MEDICARE, MEDICAID, SELFPAY ==
--- NOTE | ~2023-08-24 | XR_ITS ---
EXAMINATION: XR CHEST CLINICAL INFORMATION: Presence of cardiac pacemaker COMPARISON: Portable chest 04/19/2023 TECHNIQUE: Frontal view of the chest was obtained. FINDINGS: A right-sided pacemaker with leads projecting over the region of the right atrium and right ventricle is again seen. No interval removal of right IJ catheter. Lungs are well expanded. A few linear densities suggestive of atelectasis are seen on the left mid and lower chest. No focal consolidation, interstitial pulmonary edema or pneumothorax. The cardiomediastinal silhouette is within normal limits. There are no pleural effusions. There are acute osseous abnormality. XR/XR chest 1V IMPRESSION: 1. Stable position of right-sided pacemaker. 2. No acute cardiopulmonary disease.
== END 2023-08-24 12:43 | disposition home or self-care (01) ==
LOC: HO.XRAY 12:42
PROVIDERS: PCP Hospitalist; Visit Provider Nurse Practitioner Family
DX: Z95.0 Presence of cardiac pacemaker (principal)
CPT/HCPCS: 71045; 93280

== ENCOUNTER 2023-08-24 13:17 | Outpatient (AMB) | payer MEDICARE, SELFPAY ==
--- NOTE | 2023-08-25 17:38 | A.OFFVIS_ITS ---
Intake Visit Reasons: device evaluation and adjustment per DC Allergies No Known Allergies [No Known Allergies*] Allergy (Verified 05/25/23 13:44) [facility] Medical History Persistent atrial fibrillation Ascending aortic aneurysm Psychotic disorder with hallucinations due to known physiological condition Unspecified urinary incontinence Constipation, unspecified Preglaucoma, unspecified, unspecified eye Acute stress reaction Ventricular premature depolarization Unspecified cataract Presbyopia Dementia in other diseases classified elsewhere with behavioral disturbance Atrial flutter Deficiency of other vitamins Other abnormalities of gait and mobility Muscular weakness Cyst of kidney, acquired Fatty (change of) liver, not elsewhere classified AAA (abdominal aortic aneurysm) without rupture Personal history of COVID-19 Low back pain Alcohol abuse HIV (human immunodeficiency virus infection) Resides in intermediate card tender care facility GERD (gastroesophageal reflux disease) COPD (chronic obstructive pulmonary disease) Right bundle branch block (RBBB) on electrocardiogram (ECG) CVA (cerebral vascular accident) Paroxysmal atrial fibrillation Urgency incontinence BPH loc w urin obs/LUTS Surgical History H/O colonoscopy Social History Household Members: Other Housing: Skilled Nursing Housing Other:: [facility] Are you a primary multi care technician to a significant other at home: No Do you presently have visiting nurse or other home services: Yes ([facility] staff) Comment: COUNTS CORRECT Patient Tobacco Use Status: Former Tobacco user Advance Directives Date on File: 07/19/21 Office Procedures Cardiac Device Check Cardiac Device Check Details: Medtronic dual-chamber pacemaker interrogation today shows battery 6.6-9.7 years, DDD mode, low rate 60, Atrial threshold not completed due to AF, RV threshold 0.5 volts at 0.5 milliseconds, changed the RV lead to bipolar sensing. Remote monitoring had shown issue with atrial sensing. Device check today shows it is functioning normally at this time. Reviewed with rep. [id number] Cardiac Device Check, pacemaker dual lead Procedure code (CPT) selection complete Assessment & Plan Assessment & Plan (1) Cardiac pacemaker in situ: Comment: Medtronic dual-chamber Code(s): Z95.0 - Presence of cardiac pacemaker Category: Medical Plan: device check Coding Level of Care Code Procedure Only Diagnoses Cardiac pacemaker in situ Z95.0 CPT Codes Cardiac Device Check - Cardiac Device 2: 53273-HB Cardiac Device Check, pacemaker dual lead ([id number])
== END 2023-08-24 15:52 | disposition home or self-care (01) ==
PROVIDERS: PCP Hospitalist; Visit Provider Nurse Practitioner Family
DX: Z45.018 Encounter for adjustment and management of other part of cardiac pacemaker (principal)
CPT/HCPCS: 93280

== ENCOUNTER → 2023-08-31 08:09 | Outpatient (REF) | payer MEDICARE, SELFPAY ==
--- NOTE | 2023-08-31 08:17 | CA_ITS ---
Transthoracic Echocardiogram Patient (Last, First, Middle): Ras Jacobo, Gender: Male Date of : 1945 Age: 78 Procedure Date: 08/31/2023 Procedure Type: Transthoracic Echocardiogram Location: OP Height: 198. cm Weight: 89.99 kg BSA: 2.25 m2 Heart Rate: bpm BP: 124 / 78 mmHg Concierge Receptionist: VH Referring MD: Hortencia Montague CAKE PRESS OPERATOR-C Symptoms: I71.2 - Thoracic aortic aneurysm, without rupture Study Quality: Adequate ECG Rhythm: Atrial Fibrillation Conclusions: - The left ventricular systolic function is normal. The visually estimated ejection fraction is between 55-60%. - There is moderately increased left ventricular wall thickness. - Moderately increased right ventricular cavity size. - Severe biatrial enlargement. - Trace to mild aortic regurgitation. - There is moderate mitral annular calcification. - There is mild to moderate tricuspid valve regurgitation. - There is moderate dilatation of the ascending aorta measuring 4.70 cm. Findings Left Ventricle Normal left ventricular cavity size. There is moderately increased left ventricular wall thickness. The left ventricular systolic function is normal. The visually estimated ejection fraction is between 55-60%. There is no evidence of regional wall motion abnormalities. Diastolic function is indeterminate on the basis of available data. Right Ventricle Moderately increased right ventricular cavity size. There is normal right ventricular systolic function. There is a pacemaker wire seen in the right ventricle. Atria Severe biatrial enlargement. Aortic Valve There is a normal trileaflet aortic valve. There is no aortic valve stenosis. Trace to mild aortic regurgitation. Mitral Valve There is moderate mitral annular calcification. There is trace mitral valve regurgitation. There is no mitral valve stenosis. Pulmonic Valve The pulmonic valve is likely normal. Tricuspid Valve There is mild to moderate tricuspid valve regurgitation. There is no evidence of pulmonary hypertension. Great Vessels There is moderate dilatation of the ascending aorta measuring 4.70 cm. Venous The inferior vena cava is mildly dilated and collapses less than 50% with inspiration. Pericardium/Pleural There is no evidence of pericardial effusion. Prior Study Comparison Changes noted compared to prior study dated: 08/22/2022. Increase in ascending aortic size. Measurements 2D Linear Measurements IVSd: 1.42 0.6-0.9/0.6-1.0 cm LVIDd: 3.84 3.9-5.3/4.2-5.9 cm LVIDd Index: 1.71 2.4-3.2/2.2-3.1 cm/m2 LVIDs: 2.48 2.0-3.6 cm LVPWd: 1.23 0.7-1.1 cm Ao Root: 4.00 2.1-3.5 cm LA Diam: 4.40 2.7-3.8/3.0-4.0 cm LAIDs Index: 1.96 1.5-2.3 cm/m2 LV Mass: 225.41 67-162/88-224 g LV Mass Index: 100.18 43-95/49-115 g/m2 LVOT Diam: 2.30 3.0+(-)1.3 cm 2D Systolic Function EF 4C: 55.70 >55% EF 2C: 67.30 >55% Mitral Valve MV Pk E: 0.87 MV Decel Time: 205.00 E'Lateral: 9.79 E'Medial: 5.55 E/E' Med: 15.60 E/E' Lat: 8.80 PHT: 60.00 MVA PHT: 3.67 Decel Divide: 4.22 Aortic Valve AoV Pk Sj: 1.09 AoV Mn Sj: 0.66 AoV VTI: 0.23 AoV Pk Grad: 5.00 Aov Mn Grad: 2.00 MARÍA Cont.VTI: 2.28 LVOT LVOT Pk Sj: 0.68 LVOT Mn Sj: 0.44 LVOT VTI: 0.12 LVOT Pk Grad: 2.00 LVOT Mn Grad: 1.00 LVOT Diam: 2.30 LVOT Area: 4.15 Diastolic Function MV Pk E: 0.87 E'Medial: 5.55 E/E' Med: 15.60 E' Laterial: 9.79 E/E' Lat: 8.80 Right Ventricle TAPSE (mm): 19.00 TVS' Sj: 12.00 Tricuspid Valve TR Pk Sj: 2.62 TR Pk Grad: 27.00 RA Press: 3.00 RVSP: 30.00 Great Vessels Aorta Ao Root-2D: 4.00 2.0-3.7 cm Ao Asc: 4.70 2.1-3.4 cm Pulmonary Valve PV Pk Sj: 1.04 Peak PV Grad: 4.00 Updated in Other Vendor System with Status of Final Derian Buchanan MD electronically signed on 08/31/2023 10:40:43 AM with status of Final
== END ==
LOC: HO.CARD 08:09
PROVIDERS: PCP Hospitalist; Visit Provider Nurse Practitioner Family
DX: I71.20 Thoracic aortic aneurysm, without rupture, unspecified (principal)
CPT/HCPCS: 93306

== ENCOUNTER → 2023-08-31 08:17 | Outpatient (BNV) | payer MEDICARE, SELFPAY | PROVIDERS: PCP Hospitalist; Visit Provider Internal Medicine | DX: I36.1 Nonrheumatic tricuspid (valve) insufficiency (principal); I34.81 Nonrheumatic mitral (valve) annulus calcification; I35.1 Nonrheumatic aortic (valve) insufficiency; I51.7 Cardiomegaly | CPT/HCPCS: 93306 ==

== ENCOUNTER → 2023-11-10 23:59 | Outpatient (BNV) | payer MEDICARE, SELFPAY ==
--- NOTE | 2023-11-13 15:09 | MHC.OFFVIS ---
Intake Visit Reasons: Remote device check- [facility] Allergies No Known Allergies [No Known Allergies*] Allergy (Verified 05/25/23 13:44) [facility] Medical History Persistent atrial fibrillation Ascending aortic aneurysm Psychotic disorder with hallucinations due to known physiological condition Unspecified urinary incontinence Constipation, unspecified Preglaucoma, unspecified, unspecified eye Acute stress reaction Ventricular premature depolarization Unspecified cataract Presbyopia Dementia in other diseases classified elsewhere with behavioral disturbance Atrial flutter Deficiency of other vitamins Other abnormalities of gait and mobility Muscular weakness Cyst of kidney, acquired Fatty (change of) liver, not elsewhere classified AAA (abdominal aortic aneurysm) without rupture Personal history of COVID-19 Low back pain Alcohol abuse HIV (human immunodeficiency virus infection) Resides in skilled nursing care facility GERD (gastroesophageal reflux disease) COPD (chronic obstructive pulmonary disease) Right bundle branch block (RBBB) on electrocardiogram (ECG) CVA (cerebral vascular accident) Paroxysmal atrial fibrillation Urgency incontinence BPH loc w urin obs/LUTS Surgical History H/O colonoscopy Social History Household Members: Other Housing: Snf Housing Other:: [facility] Are you a primary caretaker grounds to a significant other at home: No Do you presently have visiting nurse or other home services: Yes ([facility] staff) Comment: COUNTS CORRECT Patient Tobacco Use Status: Former Tobacco user Advance Directives Date on File: 07/19/21 Office Procedures Cardiac Device Check Cardiac Device Check Details: Remote pacemaker report generated 11/10/2023. Pacemaker function is adequate [id number] Cardiac Device Interrogation, pacemaker Procedure code (CPT) selection complete Assessment & Plan Assessment & Plan (1) Cardiac pacemaker in situ: Comment: Medtronic dual-chamber Code(s): Z95.0 - Presence of cardiac pacemaker Category: Medical Plan: See above Coding Level of Care Code Procedure Only Diagnoses Cardiac pacemaker in situ Z95.0 CPT Codes Cardiac Device Check - Cardiac Device 12: [id number] Cardiac Device Interrogation, pacemaker ([id number])
== END ==
PROVIDERS: PCP Hospitalist; Visit Provider Internal Medicine Cardiovascular Disease
DX: Z45.018 Encounter for adjustment and management of other part of cardiac pacemaker (principal)
CPT/HCPCS: 93294

== ENCOUNTER 2023-12-21 13:35 | Outpatient (AMB) | payer MEDICARE, SELFPAY ==
--- NOTE | 2023-12-21 13:50 | A.OFFVIS_ITS ---
Vital Signs 12/21/23 13:51 Height 6 ft 1 in Weight 187 lb 6.287 oz BMI 24.7 BP 126/66 Blood Pressure Location Lt brachial Position Sitting Pulse 64 Intake Visit Reasons: 6 mth f/up w/ [facility] DC Intake Note: 6 month follow-up with [facility] check feeling good Stamp Pad Maker Required: No Allergies No Known Allergies [No Known Allergies*] Allergy (Verified 05/25/23 13:44) Medication List - Last Reconciled 12/21/23 by August Rodriguez MD [id number] 600-50-300 mg 1 tab PO DAILY@1200 acetaminophen (Tylenol) 650 mg PO Q4H PRN bisacodyl 10 mg OH DAILY PRN calcium carbonate (Oyster Shell Calcium 500) 500 mg PO BID cholecalciferol (vitamin D3) (Vitamin D3) 10 mcg PO DAILY docusate sodium (Colace) 200 mg PO DAILY finasteride 5 mg PO DAILY lactulose 20 grams PO DAILY latanoprost 0.005% 1 drp ophthalmic (eye) BEDTIME lithium carbonate 300 mg PO BEDTIME lithium carbonate 150 mg PO DAILY miconazole nitrate 2% 1 spray topical BID mirabegron ER (Myrbetriq) 50 mg PO DAILY 90 days omeprazole 20 mg PO DAILY@0630 omeprazole 20 mg PO DAILY@1630 oxcarbazepine 150 mg PO BID oxcarbazepine 300 mg PO BID perphenazine 8 mg PO BID propranolol 20 mg PO BID propranolol 10 mg PO DAILY@1200 rivaroxaban 20 mg PO DAILY@1800 sennosides (senna) 8.6 mg PO DAILY PRN sodium phosphates 19-7 gram/118 mL (Fleet Enema) 118 mL OH DAILY PRN HPI Comments Details: Ras comes for follow-up for pacemaker check. He is accompanied by his ENTRY LEVEL PROGRAMMER from the care home facility. Denies any cardiac symptoms. Denies any prolonged palpitation irregular heartbeat. Denies any lightheadedness, syncope. No heart failure symptoms. No chest pain. No bleeding issues or neurologic events. Takes all his medications. [facility] Medical History (Updated 12/21/23 @ 14:24 by August Rodriguez MD) Chronic atrial fibrillation Persistent atrial fibrillation Ascending aortic aneurysm Psychotic disorder with hallucinations due to known physiological condition Unspecified urinary incontinence Constipation, unspecified Preglaucoma, unspecified, unspecified eye Acute stress reaction Ventricular premature depolarization Unspecified cataract Presbyopia Dementia in other diseases classified elsewhere with behavioral disturbance Atrial flutter Deficiency of other vitamins Other abnormalities of gait and mobility Muscular weakness Cyst of kidney, acquired Fatty (change of) liver, not elsewhere classified AAA (abdominal aortic aneurysm) without rupture Personal history of COVID-19 Low back pain Alcohol abuse HIV (human immunodeficiency virus infection) [facility] GERD (gastroesophageal reflux disease) COPD (chronic obstructive pulmonary disease) Right bundle branch block (RBBB) on electrocardiogram (ECG) CVA (cerebral vascular accident) Paroxysmal atrial fibrillation Urgency incontinence BPH loc w urin obs/LUTS Surgical History H/O colonoscopy Social History Household Members: Other Housing: Group Home Housing Other:: [facility] Are you a primary chronic care nurse to a significant other at home: No Do you presently have visiting nurse or other home services: Yes ([facility] staff) Comment: COUNTS CORRECT Patient Tobacco Use Status: Former Tobacco user Advance Directives Date on File: 07/19/21 Review of Systems Const Denies chills, Denies fatigue, Denies fever(s), Denies frequent falls, Denies we akness, Denies weight gain and Denies weight loss ENT Denies dizziness Card Denies chest pain, Denies leg edema, Denies lightheadedness, Denies palpit ations, Denies dyspnea, Denies dyspnea on exertion, Denies orthopnea and Denies other (loss of consciousness) Resp Denies cough, Denies dyspnea and Denies dyspnea on exertion GI Denies hematochezia and Denies change in stool character Musc Denies abnormal gait, Denies muscle weakness, Denies numbness, Denies radiating pain into limb and Denies tingling Neuro Denies abnormal gait, Denies dizziness, Denies frequent falls, Denies numbness, Denies tingling and Denies weakness Endo Denies fatigue and Denies palpitations Physical Exam Vital Signs: Last Vital Signs Pulse 64 12/21/23 13:51 BP 126/66 12/21/23 13:51 BMI result Body Mass Index 24.7 Office Procedures Cardiac Device Check Cardiac Device Check Details: Dual-chamber [facility] pacemaker in place, reprogrammed from DDD to VVIR due to chronic persistent atrial fibrillation. Ventricular pacing thresholds are excellent and in auto capture mode. Ventricular sensing could not be checked. Pacing lead impedance is stable. Battery life is excellent. [id number] Cardiac Device Check, pacemaker dual lead Procedure code (CPT) selection complete Assessment & Plan Assessment & Plan (1) Chronic atrial fibrillation: Code(s): I48.20 - Chronic atrial fibrillation, unspecified Category: Medical Plan: Chronic rate control atrial fibrillation without any obvious symptoms or decompensation from cardiac perspective. Continue full oral anticoagulation, currently on Xarelto 20 mg daily. CHADSVASc score of at least 5. Semi annual renal function test should be pursued. Annual CBC should be pursued. Will follow-up labs that were done recently through the care home [facility]. (2) Ascending aortic aneurysm: Code(s): I71.2 - Thoracic aortic aneurysm, without rupture Category: Medical Plan: Ascending aortic aneurysm moderate in size. No indication for repair at this point time. Continue aggressive blood pressure control which is currently well optimized. Follow-up annually with echocardiogram. Management was discussed with him. Advised to avoid sudden strenuous isometric exercise. (3) Cardiac pacemaker in situ: Comment: [facility] dual-chamber Code(s): Z95.0 - Presence of cardiac pacemaker Category: Medical Plan: Cardiac pacemaker in-situ, working well. Reprogrammed for adequate functioning. Will follow up in the clinic in 6 months time. Thank you for allowing me to partake in his care Coding Level of Care Code Est Pt Level 4 (86059) Diagnoses Chronic atrial fibrillation I48.20 Ascending aortic aneurysm I71.2 Cardiac pacemaker in situ Z95.0 CPT Codes Cardiac Device Check - Cardiac Device 2: [id number] Cardiac Device Check, pacemaker dual lead ([id number])
[2023-12-21 13:51] VITALS: BP 126/66; PULSE 64; BMI 24.7
== END 2023-12-21 14:23 | disposition home or self-care (01) ==
PROVIDERS: PCP Hospitalist; Visit Provider Internal Medicine Cardiovascular Disease
DX: I48.20 Chronic atrial fibrillation, unspecified (principal); I71.20 Thoracic aortic aneurysm, without rupture, unspecified; Z95.0 Presence of cardiac pacemaker
CPT/HCPCS: 93280; 99214

== ENCOUNTER → 2023-12-21 13:35 | Outpatient (BNVA) | payer MEDICARE, SELFPAY | PROVIDERS: PCP Hospitalist; Visit Provider Internal Medicine Cardiovascular Disease | DX: I48.20 Chronic atrial fibrillation, unspecified (principal); I71.20 Thoracic aortic aneurysm, without rupture, unspecified; Z45.018 Encounter for adjustment and management of other part of cardiac pacemaker | CPT/HCPCS: 93280; 99212 ==

== ENCOUNTER 2023-12-31 08:32 | Outpatient (REF) | payer MEDICARE, SELFPAY ==
--- NOTE | ~2023-12-31 | MR_ITS ---
EXAMINATION: MR ABDOMEN WITHOUT AND WITH CONTRAST CLINICAL INFORMATION: Cyst of the kidney, acquired. COMPARISON: MRI dated November 28, 2020. Collated to CT dated January 14, 2023. TECHNIQUE: MR abdomen was performed without and with use of 7.5 mL intravenous Gadavist gadolinium contrast. Postcontrast images are performed in multiphase dynamic sequences. Imaging was performed in 3 planes. No reported immediate complications. FINDINGS: Submitted for interpretation on March 03, 2024. Limited by patient's breathing motion artifact. LIVER, GALLBLADDER, AND BILIARY TREE: Liver measures 15 cm. There is a 1.8 cm peripheral, discontinuous and centripetal enhancing lesion in the periphery of the right hepatic lobe. The other lesion is not fully depicted on this exam. Portal veins, hepatic veins and intrahepatic portions of the IVC are patent. There are scattered less than 2 mm nonenhancing hyperintense signal lesions throughout the liver parenchyma too small to be fully characterized. No pericholecystic fluid collection or gallbladder wall thickening. The common bile duct measures 7 mm. PANCREAS: No focal mass. No peripancreatic fluid collection. No main pancreatic ductal dilatation. SPLEEN: 9 cm. There is a 1.6 cm peripheral, discontinuous centered in the distal enhancing lesion. 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 No gross lesions. KIDNEYS AND URETERS: Right kidney: There is a 0.6 cm intrinsic hyperintense T1 exophytic lesion in the posterior upper pole without gross enhancement. There is a 0.4 cm intrinsic hyperintense T1 nonenhancing signal and the renal cortex of the posterior midportion. There is a 0.9 cm intrinsic hyperintense T1 nonenhancing lesion in the anterior lower pole. There are multifocal, less than 2 cm, nonenhancing, thin septated fluid signal characteristic lesions of the corticomedullary junction in the upper pole and midportion. There is a 0.5 cm nonenhancing fluid signal characteristic lesions at the corticomedullary junction of the lower pole. No hydronephrosis. Normal enhancement pattern of the main renal vessels. Left kidney: There is a 2.1 cm, exophytic, nonenhancing, thin capsulated, fluid signal characteristic lesion with layering intrinsic hyperintense T1 signal in the posterior lower pole. There is a 3 mm intrinsic hyperintense T1 nonenhancing lesion at the corticomedullary junction posterior midportion. There is a 1.2 cm intrinsic hyperintense T1 nonenhancing lesion in the renal cortex posterior upper pole. There is a 1 cm intrinsic hyperintense T1 and hypointense T2 nonenhancing lesion in the renal cortex of the lateral midportion. There is a large, 8 cm septated nonenhancing fluid signal characteristic lesion in the upper pole. There are other scattered nonenhancing fluid signal characteristic lesions throughout the renal cortex the corticomedullary junction of the upper pole and lower pole. No hydronephrosis. There is normal enhancement of the renal parenchyma demonstrated thinning of the upper pole. Normal enhancement of the main renal vessels. GASTROINTESTINAL TRACT: Abundant stool. No intestinal obstruction pattern. No ascites. ABDOMINAL WALL: Small fat-containing umbilical hernia. LYMPH NODES: No gross lymphadenopathy. VASCULAR: There is a 4 cm in maximum diameter descending thoracic and suprarenal abdominal aorta with the tortuosity. No intraluminal flap. No IV contrast extravasation. The mesenteric arteries are enhancing as well as the main renal arteries. OSSEOUS STRUCTURES: Multilevel spondylosis. 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 Recommend follow-up. Overall stable. Electronically signed by: Cam Miguel MD 03/03/2024 03:20 PM EST
[2023-12-31] MEDS: gadobutroL 7.5 ML VIAL IVPUSH (10:36)
== END 2023-12-31 08:33 | disposition home or self-care (01) ==
LOC: HO.MRI 08:32
PROVIDERS: PCP Hospitalist; Visit Provider Nurse Practitioner Family
DX: N28.1 Cyst of kidney, acquired (principal)
CPT/HCPCS: 74183; A9585

== ENCOUNTER → 2023-12-31 09:00 | Outpatient (BNV) | payer MEDICARE, SELFPAY | PROVIDERS: PCP Hospitalist; Visit Provider Radiology Diagnostic Radiology | DX: N28.1 Cyst of kidney, acquired (principal) | CPT/HCPCS: 74183 ==

== ENCOUNTER 2024-01-20 13:14 | Emergency (ER) | payer MEDICARE, MEDICAID, SELFPAY ==
--- NOTE | ~2024-01-20 | CT_ITS ---
EXAMINATION: CT CERVICAL SPINE WITHOUT CONTRAST CLINICAL INFORMATION: Head strike. Fall. COMPARISON: None available. TECHNIQUE: Thin section axial imaging with sagittal and coronal reformats. This CT examination was performed using dose optimization techniques as appropriate, variously including the following: *Automated exposure control *Adjustment of mA and/or kV according to patient size (this includes techniques or standardized protocols for targeted exams where dose is matched to indication/reason for exam; i.e. extremities or head) *Use of iterative reconstruction technique DLP: 480.25 mGy-cm FINDINGS: Advanced degenerative change observed, C3-C7 with disc space narrowing and marginal osteophyte formation but no fracture or destructive process. There is mild narrowing on the AP diameter of the spinal canal at the C5-6 level due to hard and soft disc material. Prevertebral soft tissues are normal. There is some dystrophic calcification observed in the nuchal ligament. CT/CT cervical spine wo IV con IMPRESSION: Multilevel degenerative change. No fracture. Fleischner guidelines were followed. Electronically signed by: Micheal Otoole MD 01/20/2024 04:05 PM EDT
--- NOTE | ~2024-01-20 | XR_ITS ---
EXAMINATION: XR HIP, LEFT CLINICAL INFORMATION: Injury COMPARISON: None available. TECHNIQUE: Two views of the left hip. FINDINGS: No acute cortical disruption or malalignment. No lytic or blastic lesions. Osteopenia versus osteoporosis. Vascular calcifications. Facet joint hypertrophy L5-S1. XR/XR hip LT w PEL1V IMPRESSION: No acute fracture or dislocation, left hip. Atherosclerosis disease, peripheral. Electronically signed by: Cam Miguel MD 01/20/2024 02:44 PM EDT
--- NOTE | ~2024-01-20 | CT_ITS ---
EXAMINATION: CT HEAD WITHOUT CONTRAST CLINICAL INFORMATION: Fall. Head strike. Pain COMPARISON: None available. TECHNIQUE: Contiguous axial imaging was performed from the skull base to vertex without intravenous administration of contrast. This CT examination was performed using dose optimization techniques as appropriate, variously including the following: *Automated exposure control *Adjustment of mA and/or kV according to patient size (this includes techniques or standardized protocols for targeted exams where dose is matched to indication/reason for exam; i.e. extremities or head) *Use of iterative reconstruction technique DLP: 302 mGy-cm FINDINGS: There is prominence to the sulci and ventricles with deep white matter gliosis observed. No intra or extra-axial fluid collection or hemorrhage, mass or mass effect. There is an old lacune noted in the head of the left caudate. Calvarium intact. CT/CT head/brain wo IV con IMPRESSION: No acute intracranial pathology. Electronically signed by: Micheal Otoole MD 01/20/2024 03:58 PM EDT RP
[2024-01-20 13:23] VITALS: BP 140/78; PULSE 66; O2SAT 98
--- NOTE | 2024-01-20 13:31 | ED_ITS ---
HPI - General Adult General Chief complaint: Fall Stated complaint: FALL,L HIP PAIN FROM SNF,-LOC,+CCOLLAR PER EMS Time Seen by Provider: 01/20/24 13:31 Source: patient and EMS Mode of arrival: EMS Limitations: physical limitation (patient has a history of dementia) History of Present Illness ED Provider: Bozena Gutierrez PA-C HPI narrative: Patient is a 78 year old assigned female at with a history of dementia and atrial fib on anti coags presenting to the emergency department today with left hip pain after a trip and fall. Patient states that she was walking in the hallway when she tripped, fell, and landed on her left hip. Patient states that she is on blood thinners. Patient denies any dizziness, lightheadedness, abdominal pain, nausea, vomiting, fever, chills, blurry vision, double vision, loss of vision, chest pain, difficulty breathing, shortness of breath, back pain, night sweats, pain with urination, increased urinary frequency, increased urinary urgency, blood in her urine or stool, syncope or a near syncopal episode, bowel incontinence, bladder incontinence, or any other complaints at this time. Relieving factors: none Exacerbating factors: none Associated symptoms: denies other symptoms Treatments prior to arrival: none Related Data Home Medications ?Medication ?Instructions ?Recorded ?Confirmed abacavir 600 mg-dolutegravir 50 1 tab PO DAILY@1200 08/16/20 12/21/23 mg-lamivudine 300 mg tablet lithium carbonate 300 mg capsule 300 mg PO BEDTIME 08/16/20 12/21/23 oxcarbazepine 150 mg tablet 150 mg PO BID 08/16/20 12/21/23 oxcarbazepine 300 mg tablet 300 mg PO BID 08/16/20 12/21/23 perphenazine 8 mg tablet 8 mg PO BID 08/16/20 12/21/23 propranolol 10 mg tablet 10 mg PO DAILY@1200 08/16/20 12/21/23 propranolol 20 mg tablet 20 mg PO BID 08/16/20 12/21/23 rivaroxaban 20 mg tablet 20 mg PO DAILY@1800 08/16/20 12/21/23 finasteride 5 mg tablet 5 mg PO DAILY 10/29/20 12/21/23 omeprazole 20 mg capsule,delayed 20 mg PO DAILY@1630 03/06/22 12/21/23 release lithium carbonate 150 mg capsule 150 mg PO DAILY 04/16/22 12/21/23 latanoprost 0.005 % eye drops 1 drp ophthalmic (eye) BEDTIME 11/10/22 12/21/23 acetaminophen 325 mg tablet 650 mg PO Q4H PRN Fever Or Pain 04/19/23 12/21/23 (Tylenol) bisacodyl 10 mg rectal suppository 10 mg ID DAILY PRN Constipation 04/19/23 12/21/23 calcium carbonate (Oyster Shell 500 mg PO BID 04/19/23 12/21/23 Calcium 500) cholecalciferol (vitamin D3) 10 10 mcg PO DAILY 04/19/23 12/21/23 mcg (400 unit) tablet (Vitamin D3) docusate sodium 100 mg capsule 200 mg PO DAILY 04/19/23 12/21/23 (Colace) lactulose 20 gram/30 mL oral 20 g PO DAILY 04/19/23 12/21/23 solution miconazole nitrate 2 % topical 1 spray topical BID 04/19/23 12/21/23 spray powder omeprazole 20 mg tablet,delayed 20 mg PO DAILY@0630 04/19/23 12/21/23 release sennosides 8.6 mg tablet (senna) 8.6 mg PO DAILY PRN Constipation 04/19/23 12/21/23 sodium phosphates 19 gram-7 118 ml ID DAILY PRN Constipation 04/19/23 12/21/23 gram/118 mL enema (Fleet Enema) Previous Rx's ?Medication ?Instructions ?Recorded mirabegron 50 mg tablet,extended 50 mg PO DAILY 90 days #90 tabs 04/16/22 release 24 hr (Myrbetriq) Allergies Allergy/AdvReac Type Severity Reaction Status Date / Time No Known Allergies Allergy Verified 01/20/24 13:36 [No Known Allergies*] Review of Systems Constitutional: Constitutional: Reports no additional constitutional compla ints, Denies chills, Denies fever(s) and Denies night sweats Eyes: Eyes: Reports no additional eye complaints, Denies blurry vision, Denies change in vision, Denies diplopia, Denies eye discharge, Denies loss of vision and Denies eye pain ENT: Denies dizziness Cardiovascular: Cardiovascular: Reports no additional cardiovascular complaints, Denies chest pain, Denies lightheadedness, Denies Loss of Consciousness and Denies dyspnea Respiratory: Respiratory: Reports no additional respiratory complaints and Denies dyspnea Gastrointestinal: Gastrointestinal: Reports no additional gastrointestinal complaints, Denies abdominal pain, Denies melena, Denies hematochezia, Denies change in bowel habits and Denies change in stool character Genitourinary: Genitourinary: Reports no additional male genitourinary complaints, Denies hematuria, Denies oliguria, Denies difficulty urinating, Denies dysuria, Denies urinary frequency, Denies urinary hesitancy, Denies urinary incontinence and Denies urinary urgency Musculoskeletal: Musculoskeletal: Reports no additional musculoskeletal complaints, Denies numbness and Denies tingling Comments: left hip pain Neurologic: Denies dizziness, Denies loss of vision, Denies numbness and Denies tingling Psychiatric: Psychiatric: Reports no additional psychiatric complaints Endocrine: Endocrine: Reports no additional endocrine complaints Hematologic/Lymphatic: Hematologic/Lymphatic: Reports no additional hematologic/lymphatic complaints Allergic/Immunologic: Allergic/Immunologic: Reports no additional all ergic/immunologic complaints [facility] Past Medical History Attestation statement: The following information was validated with the patient. Source: old records reviewed and nursing notes reviewed Medical History Chronic atrial fibrillation Persistent atrial fibrillation Ascending aortic aneurysm Psychotic disorder with hallucinations due to known physiological condition Unspecified urinary incontinence Constipation, unspecified Preglaucoma, unspecified, unspecified eye Acute stress reaction Ventricular premature depolarization Unspecified cataract Presbyopia Dementia in other diseases classified elsewhere with behavioral disturbance Atrial flutter Deficiency of other vitamins Other abnormalities of gait and mobility Muscular weakness Cyst of kidney, acquired Fatty (change of) liver, not elsewhere classified AAA (abdominal aortic aneurysm) without rupture Personal history of COVID-19 Low back pain Alcohol abuse HIV (human immunodeficiency virus infection) Resides in press tender long goods care facility GERD (gastroesophageal reflux disease) COPD (chronic obstructive pulmonary disease) Right bundle branch block (RBBB) on electrocardiogram (ECG) CVA (cerebral vascular accident) Paroxysmal atrial fibrillation Urgency incontinence BPH loc w urin obs/LUTS Surgical History H/O colonoscopy Social History Social History Household Members: Other Housing: Correction Housing Other:: [facility] Are you a primary managed care specialist to a significant other at home: No Do you presently have visiting nurse or other home services: Yes ([facility] staff) Comment: COUNTS CORRECT Patient Tobacco Use Status: Former Tobacco user Smoked in Last 30 Days: No Use of substances other than those prescribed or required for medical reasons: No Advance Directives: No Advance Directives Information Provided: Yes Advance Directives Date on File: 07/19/21 Physical Exam ED Vital Signs: Vital Signs - 24 hr 01/20/24 13:34 01/20/24 14:32 Temperature 98.2 F Pulse Rate 60 66 Respiratory Rate 18 16 Blood Pressure 119/69 122/78 Pulse Oximetry 97 Oxygen Delivery Method Room Air BMI result Body Mass Index 22.7 Const General: cooperative, no acute distress, alert and awake Nutritional Appearance: well nourished Orientation/consciousness: patient oriented x3 Limitations: no limitations HENMT Head: Yes normal to inspection and Yes atraumatic Ears: hearing grossly normal bilaterally and external ears normal General nose exam: Normal external nose present, no nasal discharge noted and no epistaxis Face and sinus: Yes normal facial exam, No abrasion and No laceration Mouth: Normal oral and palatal mucosa present, no drooling and no muffled voice Eyes General: appearance normal, both eyes and all related structures Periorbital: periorbital findings normal Eyelids: Yes eyelids normal Conjunctivae: conjunctivae normal Pupils: Equal, round and reactive pupils present EOM: EOMs intact bilaterally Neck Neck: Yes normal visual inspection, Yes full ROM and Yes no lymphadenopathy Chest Chest palpation & inspection: normal inspection of the chest Resp Effort & Inspection: normal respiratory effort and able to speak in complete sentences GI Inspection: Yes normal to inspection Neuro General: patient oriented x3 and moves all extremities Cranial nerves: Yes Equal, round and reactive pupils present Cognition (Neuro): normal cognition Extrem General: Yes normal to inspection, Yes full ROM and Yes capillary refill normal Psych Appearance: grossly normal Mental Status: mental status grossly normal Affect: normal affect Attitude: cooperative Thought process: Normal thought process present Thought content: Normal thought content present Insight: Good insight present (Psych) Medical Decision Making Medical Decision Making MDM Narrative: Patient is a 78 year old assigned female at with a history of dementia and atrial fib on anti coags presenting to the emergency department today with left hip pain after a trip and fall. Patient's physical exam was unremarkable. Patient's left hip and pelvis x-ray showed no acute process. Patient's CT head and c-spine is pending. I explained my physical exam findings as well as all test results to the patient. I answered all questions asked by the patient. Patient signed out to the evening FRIEDA pending CT reads. Differential Diagnosis Differential Diagnoses: The differential diagnosis associated with the presentation includes Fall Head injury Cervical spine injury Hip fracture Hip contusion Admission/Observation Consideration of admission/observation: Escalation of care including admission/observation considered Patient's disposition will be determined after CTs are read. Independent Interpretation I performed an independent interpretation of an: Plain X-Ray Interpretation: My interpretation is in agreement with the radiologist's impression of this imaging study. EXAMINATION: XR HIP, LEFT CLINICAL INFORMATION: Injury COMPARISON: None available. TECHNIQUE: Two views of the left hip. FINDINGS: No acute cortical disruption or malalignment. No lytic or blastic lesions. Osteopenia versus osteoporosis. Vascular calcifications. Facet joint hypertrophy L5-S1. XR/XR hip LT w PEL1V IMPRESSION: No acute fracture or dislocation, left hip. Atherosclerosis disease, peripheral. Electronically signed by: Cam Miguel MD 01/20/2024 02:44 PM EDT Dictated By: Cam Yañez Signed By: Electronically signed by Cam Keane 01/20/24 1444 Radiology Impression Discussion of test interpretation with radiology: I have reviewed the radiologist's reading. Independent Historian Clinical information obtained from an independent historian. History obtained f rom or confirmed by: EMS (EMS provided additional history and confirmed the history provided by the patient.) Discharge Plan Discharge Clinical Impression: Fall, Acute hip pain Prescriptions: No Action sennosides [senna] 8.6 mg Tablet 8.6 mg PO DAILY PRN (Reason: Constipation) acetaminophen [Tylenol] 325 mg Tablet 650 mg PO Q4H PRN (Reason: Fever Or Pain) miconazole nitrate 2 % Aerosol Powder 1 spray TOPICAL BID calcium carbonate [Oyster Shell Calcium 500] 500 mg calcium (1,250 mg) Tablet 500 mg PO BID bisacodyl 10 mg Suppository 10 mg ID DAILY PRN (Reason: Constipation) Fleet Enema 19-7 gram/118 mL Enema 118 ml ID DAILY PRN (Reason: Constipation) docusate sodium [Colace] 100 mg Capsule 200 mg PO DAILY cholecalciferol (vitamin D3) [Vitamin D3] 10 mcg (400 unit) Tablet 10 mcg PO DAILY lactulose 20 gram/30 mL Solution 20 g PO DAILY omeprazole 20 mg Tablet,Delayed Release (Dr/Ec) 20 mg PO DAILY@0630 perphenazine 8 mg tablet 8 mg PO BID oxcarbazepine 150 mg tablet 150 mg PO BID rivaroxaban 20 mg tablet 20 mg PO DAILY@1800 propranolol 20 mg tablet 20 mg PO BID lithium carbonate 300 mg capsule 300 mg PO BEDTIME oxcarbazepine 300 mg tablet 300 mg PO BID [id number]-[id number]-hsbfdoe 600-50-300 mg tablet 1 tab PO DAILY@1200 propranolol 10 mg tablet 10 mg PO DAILY@1200 finasteride 5 mg tablet 5 mg PO DAILY omeprazole 20 mg capsule,delayed release(DR/EC) 20 mg PO DAILY@1630 lithium carbonate 150 mg capsule 150 mg PO DAILY Myrbetriq 50 mg tablet extended release 24 hr 50 mg PO DAILY 90 Days Qty: 90 0RF latanoprost 0.005 % drops 1 drp ophthalmic (eye) BEDTIME Print Language: Occitan
[2024-01-20 13:34] VITALS: BP 119/69; PULSE 60; RESP 18; TEMP 36.8; O2SAT 97; BMI 22.7
--- OUTSIDE RECORDS SUMMARY | 2024-01-20 13:52 | XMS_ITS | Patient Health Record ---
Author Organization [facility] Address [address] [place] [address] Care Team Providers Care Sap Director Name Role Phone Diogo Hanson Primary Care Provider Frederic Cobb Unavailable [phone] REASON FOR REFERRAL No Information MEDICATIONS Medication [...] Fleet Enema - as directed Rectal Active Breese Carbonate 300 MG Oral for 30 Active [...] Active Lotrimin AF 2 % 1 application Packager And Strapper ally Twice a day for 14 day(s) [...] W/U Status Risk SNOMED Code Notes Problem senior care current use of anticoagulant (Z79.01) Active confirmed 862225587 Problem Encounter for screening for malignant neoplasm of colon (Z12.11) Active confirmed 782966353 Problem Preprocedural examination (Z01.818) Active confirmed 386526431920593 Problem Diverticulosis of colon (K57.30) Active confirmed Diverticulosi s of colon (703551052) Problem 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 confirmed 991373182 Problem History of colon polyps (Z86.010) Active confirmed History of polyp of colon (098454628) PLAN OF TREATMENT Future Test Test Name Order Date COLONOSCOPY 04/23/2021 COLONOSCOPY 06/16/2021 Insurance Providers Payer Name Payer Address Payer Phone Subscriber Number Group Number Insured Name Patient Relationship to Insured Coverage Start Date Coverage End Date MEDICARE OF [place] [address] [place] [address] [id number] DAMON VILLEDA Self - patient is the insured [address] [address] DAMON VILLEDA Self - patient is the insured MEDICAL (GENERAL) HISTORY Medical History History ICD Code COPD HIV(Reported) CYST OF KIDNEY ABNORMALITIES OF GAIT AND MOBILITY ATRIAL FIBRILLATION REPORTED DEMENTIA GERD CONSTIPATION URINARY INCONTINENCE PSYCHOTIC DISORDER Denies NH,DM,CVA,renal disease
[2024-01-20 14:32] VITALS: BP 122/78; PULSE 66; RESP 16
[2024-01-20 16:29] VITALS: BP 118/60; PULSE 68; RESP 14; TEMP 37.2; O2SAT 96
[2024-01-20 18:00] VITALS: BP 131/76; PULSE 68; RESP 13; TEMP 37.1; O2SAT 94
[2024-01-20 19:23] VITALS: BP 131/76; PULSE 68; RESP 13; TEMP 37.1; O2SAT 94
== END 2024-01-20 19:25 | disposition skilled nursing facility (03) ==
PROVIDERS: Emergency Provider Emergency Medicine; PCP Hospitalist
DX: S09.90XA Unspecified injury of head, initial encounter (principal); W01.0XXA Fall on same level from slipping, tripping and stumbling without subsequent striking against object, initial encounter; Y93.9 Activity, unspecified; Y92.9 Unspecified place or not applicable; Y99.9 Unspecified external cause status; M25.552 Pain in left hip; I48.91 Unspecified atrial fibrillation; F03.90 Unspecified dementia, unspecified severity, without behavioral disturbance, psychotic disturbance, mood disturbance, and anxiety; Z91.81 History of falling; Z79.01 Long term (current) use of anticoagulants; Z79.899 Other long term (current) drug therapy
CPT/HCPCS: 70450; 72125; 73502; 99284

== ENCOUNTER → 2024-01-20 13:32 | Outpatient (BNV) | payer MEDICARE, MEDICAID, SELFPAY | PROVIDERS: Emergency Provider Emergency Medicine; PCP Hospitalist; Visit Provider Radiology Diagnostic Radiology | DX: M25.552 Pain in left hip (principal) | CPT/HCPCS: 73502 ==

== ENCOUNTER → 2024-02-09 23:59 | Outpatient (BNV) | payer MEDICARE, MEDICAID, SELFPAY ==
--- NOTE | 2024-02-10 15:36 | A.OFFVIS_ITS ---
Intake Visit Reasons: Remote device check- [facility] Allergies No Known Allergies [No Known Allergies*] Allergy (Verified 01/20/24 13:36) [facility] Medical History Chronic atrial fibrillation Persistent atrial fibrillation Ascending aortic aneurysm Psychotic disorder with hallucinations due to known physiological condition Unspecified urinary incontinence Constipation, unspecified Preglaucoma, unspecified, unspecified eye Acute stress reaction Ventricular premature depolarization Unspecified cataract Presbyopia Dementia in other diseases classified elsewhere with behavioral disturbance Atrial flutter Deficiency of other vitamins Other abnormalities of gait and mobility Muscular weakness Cyst of kidney, acquired Fatty (change of) liver, not elsewhere classified AAA (abdominal aortic aneurysm) without rupture Personal history of COVID-19 Low back pain Alcohol abuse HIV (human immunodeficiency virus infection) Resides in manager long term care care facility GERD (gastroesophageal reflux disease) COPD (chronic obstructive pulmonary disease) Right bundle branch block (RBBB) on electrocardiogram (ECG) CVA (cerebral vascular accident) Paroxysmal atrial fibrillation Urgency incontinence BPH loc w urin obs/LUTS Surgical History H/O colonoscopy Social History Household Members: Other Housing: Intermediate Housing Other:: [facility] Are you a primary manager long term care to a significant other at home: No Do you presently have visiting nurse or other home services: Yes ([facility] staff) Comment: COUNTS CORRECT Patient Tobacco Use Status: Former Tobacco user Smoked in Last 30 Days: No Use of substances other than those prescribed or required for medical reasons: No Advance Directives: No Advance Directives Information Provided: Yes Advance Directives Date on File: 07/19/21 Office Procedures Cardiac Device Check Cardiac Device Check Details: Remote pacemaker report generated 02/09/2024. Pacemaker function is adequate [id number] Cardiac Device Interrogation, pacemaker Procedure code (CPT) selection complete Assessment & Plan Assessment & Plan (1) Cardiac pacemaker in situ: Comment: [facility] dual-chamber Code(s): Z95.0 - Presence of cardiac pacemaker Category: Medical Plan: See above Coding Level of Care Code Procedure Only Diagnoses Cardiac pacemaker in situ Z95.0 CPT Codes Cardiac Device Check - Cardiac Device 12: [id number] Cardiac Device Interrogation, pacemaker ([id number])
== END ==
PROVIDERS: PCP Hospitalist; Visit Provider Internal Medicine Cardiovascular Disease
DX: Z45.018 Encounter for adjustment and management of other part of cardiac pacemaker (principal)
CPT/HCPCS: 93294

== ENCOUNTER 2024-04-19 13:14 | Outpatient (AMB) | payer MEDICARE, MEDICAID, SELFPAY ==
--- NOTE | 2024-04-19 13:36 | MHC.OFFVIS ---
Intake Visit Reasons: f/u MRI results(set) Intake Note: Patient presents today for follow up on: incontinence, renal cyst, and mri results Imaging Completed: 12/31/23 Urology Medication: finasteride, terazosin, myrbetriq Blood Thinner: rivaroxaban (xarelto) PVR: 94ml's Travel Pta Required: No Accompanied by: slurry mixer Allergies No Known Allergies [No Known Allergies*] Allergy (Verified 04/19/24 14:29) Medication List - Last Reconciled 04/19/24 by Alisia Bruce [facility] [id number] 600-50-300 mg 1 tab PO DAILY@1200 acetaminophen (Tylenol) 650 mg PO Q4H PRN bisacodyl 10 mg DC DAILY PRN calcium carbonate (Oyster Shell Calcium 500) 500 mg PO BID cholecalciferol (vitamin D3) (Vitamin D3) 10 mcg PO DAILY docusate sodium (Colace) 200 mg PO DAILY finasteride 5 mg PO DAILY lactulose 20 grams PO DAILY latanoprost 0.005% 1 drp ophthalmic (eye) BEDTIME lithium carbonate 300 mg PO BEDTIME lithium carbonate 150 mg PO DAILY miconazole nitrate 2% 1 spray topical BID mirabegron ER (Myrbetriq) 50 mg PO DAILY 90 days omeprazole 20 mg PO DAILY@0630 omeprazole 20 mg PO DAILY@1630 oxcarbazepine 150 mg PO BID oxcarbazepine 300 mg PO BID perphenazine 8 mg PO BID propranolol 20 mg PO BID propranolol 10 mg PO DAILY@1200 rivaroxaban 20 mg PO DAILY@1800 sennosides (senna) 8.6 mg PO DAILY PRN sodium phosphates 19-7 gram/118 mL (Fleet Enema) 118 mL DC DAILY PRN HPI Comments Details: Ras is a pleasant 78 year old male who was accompanied by one of the [facility] Raymon Willett. He is a patient of Dr. Hanson. He has a past medical history of abdominal aortic aneurysm without rupture, alcohol abuse, ascending aortic aneurysm, atrial flutter, BPH with lower urinary tract symptoms, constipation, COPD, CVA, acquired bilateral cysts of kidneys, dementia, fatty liver, GERD, HIV, paroxysmal AFib, and urgency incontinence. He presents to the office today for follow-up of his lower urinary tract symptoms in renal cysts. Of note, patient was last seen approximately 1 year ago at which time an MRI renal mass protocol was ordered as patient with a longstanding history of bilateral complex renal cysts. These results were reviewed with the patient and Tamie today. 01/13 Bosniak type 2 F lesions with proteinaceous/hemorrhagic components, bilaterally. Recommending surveillance monitoring. Overall stable when compared to previous imaging. In discussion with the patient today he reports to be doing and feeling well. He reports compliance with finasteride and Myrbetriq as prescribed. He continues to practice timed/scheduled voiding. He does report urinary dribbling we discussed importance of pelvic floor exercises to assist. He otherwise denies any other bothersome urinary issues or concerns. Unable to obtain urine for urinalysis as patient unable to void however PVR less than 100 mL. We discussed nicotine dependence and avoiding bladder irritants. Patient denies dysuria, hematuria, flank pain, fever and or chills. PSA 04/15 3.0. PFSH Medical History Chronic atrial fibrillation Persistent atrial fibrillation Ascending aortic aneurysm Psychotic disorder with hallucinations due to known physiological condition Unspecified urinary incontinence Constipation, unspecified Preglaucoma, unspecified, unspecified eye Acute stress reaction Ventricular premature depolarization Unspecified cataract Presbyopia Dementia in other diseases classified elsewhere with behavioral disturbance Atrial flutter Deficiency of other vitamins Other abnormalities of gait and mobility Muscular weakness Cyst of kidney, acquired Fatty (change of) liver, not elsewhere classified AAA (abdominal aortic aneurysm) without rupture Personal history of COVID-19 Low back pain Alcohol abuse HIV (human immunodeficiency virus infection) 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 GERD (gastroesophageal reflux disease) COPD (chronic obstructive pulmonary disease) Right bundle branch block (RBBB) on electrocardiogram (ECG) CVA (cerebral vascular accident) Paroxysmal atrial fibrillation Urgency incontinence BPH loc w urin obs/LUTS Surgical History H/O colonoscopy Social History Household Members: Other Housing: [facility] Housing Other:: [facility] Are you a primary manager progressive care to a significant other at home: No Do you presently have visiting nurse or other home services: Yes ([facility] staff) Comment: COUNTS CORRECT Patient Tobacco Use Status: Former Tobacco user Advance Directives Date on File: 07/19/21 Review of Systems Eyes Reports no additional complaints ENT Reports no additional complaints Card Reports as per [facility] Resp Reports as per [facility] GI Reports as per [facility] Reports as per [facility] Musc Reports as per [facility] Neuro Reports as per [facility] Psych Reports as per [facility] Endo Reports as per [facility] Michael/Lymph Reports no additional complaints Aller/Immun Reports no additional complaints Physical Exam Const General: cooperative, healthy appearing, comfortable, no acute distress, well developed, alert and awake Orientation/consciousness: patient oriented x3 Limitations: ambulation with walker HEENT Head: Yes normal to inspection, Yes normocephalic and Yes atraumatic Ears: hearing grossly normal bilaterally Eyes General: appearance normal, both eyes and all related structures Neck Neck: Yes normal visual inspection and Yes trachea midline Chest Chest palpation & inspection: normal inspection of the chest Resp Effort & Inspection: normal respiratory effort and able to speak in complete sentences Cardio Rate: regular rate GI Inspection: Yes normal to inspection General: Yes no CVA tenderness Back/Spine/Pelvis Back: no CVA tenderness Skin General skin exam: no rashes or lesions noted Neuro General: patient oriented x3 Extrem General: Yes normal to inspection Psych Appearance: grossly normal and well kempt Mental Status: mental status grossly normal Speech and movement: Normal speech and movement present and Clear speech present Affect: normal affect Attitude: cooperative Thought process: Normal thought process present Thought content: Normal thought content present Insight: Fair insight present (Psych) Judgement: Fair judgement present (Psych) Office Procedures Post Void Residual Post Residual Void Post Void Residual (PVR): [id number] Void Residual by ultrasound Results Reviewed Results Reviewed: Date of Service: 12/31/23 EXAMINATION: MR ABDOMEN WITHOUT AND WITH CONTRAST FINDINGS: Submitted for interpretation on March 03, 2024. Limited by patient's breathing motion artifact. LIVER, GALLBLADDER, AND BILIARY TREE: Liver measures 15 cm. There is a 1.8 cm peripheral, discontinuous and centripetal enhancing lesion in the periphery of the right hepatic lobe. The other lesion is not fully depicted on this exam. Portal veins, hepatic veins and intrahepatic portions of the IVC are patent. There are scattered less than 2 mm nonenhancing hyperintense signal lesions throughout the liver parenchyma too small to be fully characterized. No pericholecystic fluid collection or gallbladder wall thickening. The common bile duct measures 7 mm. PANCREAS: No focal mass. No peripancreatic fluid collection. No main pancreatic ductal dilatation. SPLEEN: 9 cm. There is a 1.6 cm peripheral, discontinuous centered in the distal enhancing lesion. 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 No gross lesions. KIDNEYS AND URETERS: Right kidney: There is a 0.6 cm intrinsic hyperintense T1 exophytic lesion in the posterior upper pole without gross enhancement. There is a 0.4 cm intrinsic hyperintense T1 nonenhancing signal and the renal cortex of the posterior midportion. There is a 0.9 cm intrinsic hyperintense T1 nonenhancing lesion in the anterior lower pole. There are multifocal, less than 2 cm, nonenhancing, thin septated fluid signal characteristic lesions of the corticomedullary junction in the upper pole and midportion. There is a 0.5 cm nonenhancing fluid signal characteristic lesions at the corticomedullary junction of the lower pole. No hydronephrosis. Normal enhancement pattern of the main renal vessels. Left kidney: There is a 2.1 cm, exophytic, nonenhancing, thin capsulated, fluid signal characteristic lesion with layering intrinsic hyperintense T1 signal in the posterior lower pole. There is a 3 mm intrinsic hyperintense T1 nonenhancing lesion at the corticomedullary junction posterior midportion. There is a 1.2 cm intrinsic hyperintense T1 nonenhancing lesion in the renal cortex posterior upper pole. There is a 1 cm intrinsic hyperintense T1 and hypointense T2 nonenhancing lesion in the renal cortex of the lateral midportion. There is a large, 8 cm septated nonenhancing fluid signal characteristic lesion in the upper pole. There are other scattered nonenhancing fluid signal characteristic lesions throughout the renal cortex the corticomedullary junction of the upper pole and lower pole. No hydronephrosis. There is normal enhancement of the renal parenchyma demonstrated thinning of the upper pole. Normal enhancement of the main renal vessels. GASTROINTESTINAL TRACT: Abundant stool. No intestinal obstruction pattern. No ascites. ABDOMINAL WALL: Small fat-containing umbilical hernia. LYMPH NODES: No gross lymphadenopathy. VASCULAR: There is a 4 cm in maximum diameter descending thoracic and suprarenal abdominal aorta with the tortuosity. No intraluminal flap. No IV contrast extravasation. The mesenteric arteries are enhancing as well as the main renal arteries. OSSEOUS STRUCTURES: Multilevel spondylosis. IMPRESSION: Bosniak Type II F lesions with proteinaceous/hemorrhagic components, bilaterally. Recommend follow-up. Overall stable. Assessment & Plan Assessment & Plan (1) Renal cysts, acquired, bilateral: Code(s): N28.1 - Cyst of kidney, acquired Category: Medical (2) BPH loc w urin obs/LUTS: Code(s): N40.1 - Benign prostatic hyperplasia with lower urinary tract symptoms Category: Medical Plan Unable to obtain urine for urinalysis as patient unable to void PVR less than 100 mL. Continue finasteride and Myrbetriq. Recent MRI renal mass protocol results reviewed with the patient today; as noted above. We discussed importance of surveillance monitoring. We discussed pelvic floor exercises to assist with urinary dribbling. Will obtain PSA Will obtain renal ultrasound in 6 months for surveillance monitoring. We discussed importance of limiting nicotine dependence for overall health and well-being. We discussed bladder triggers/irritants. Follow-up in 6 months with PSA, imaging, and PVR; or sooner with any issues, concerns, and or questions. Orders: Orders Prostate Specific Antigen Today N40.1 - Benign prostatic hyperplasia with lower urinary tract symptoms AMB Post Void Residual by ultrasound Today N39.41 - Urge incontinence US renal BI 6 Months N28.1 - Cyst of kidney, acquired Patient Instructions: The patient had an opportunity to ask questions regarding the treatment plan. All questions were answered. Physical exam, labs, and imaging were discussed and reviewed in detail. As well as risks, benefits, and discussion of treatment choices. No major barriers to understanding were identified. The patient expressed understanding and agreement with the above treatment plan. The patient was made aware they should contact our office by phone for worsening of their current condition, the appearance of new symptoms, or with any questions or concerns. Compliance is encouraged with any medications and follow up testing that is ordered. It is a privilege to be allowed the opportunity to participate in? your urological care.? Again, if you have any questions or concerns If you have any questions or concerns please do not hesitate to contact me. The office is [phone]. This note is constructed using voice recognition software. While every effort has been made to ensure accuracy certified corporate travel executive errors may have been included. Yours sincerely, JOSE Pineda Coding Level of Care Code Est Pt Level 3 (93740) Complex EM visit Add On G2211 Diagnoses Renal cysts, acquired, bilateral N28.1 BPH loc w urin obs/LUTS N40.1 CPT Codes Post Residual Void - PVR CPT Code: 68289-[id number] Void Residual by ultrasound ([id number])
--- OUTSIDE RECORDS SUMMARY | 2024-04-19 14:14 | XMS_ITS | Clinical Summary ---
Author Organization [address] Address [address] [place] [address] Phone Care Team Providers Care Telegraphic Typewriter Operator Name Role Phone Unavailable Primary Care Provider Unavailabl e Encounters Date Type Department Care Team Description 03/24/2024 Lab Requisition [facility] [address] [place] [phone] Diogo Hanson MD Elevated prostate specific antigen (PSA); Encounter for screening for malignant neoplasm of prostate; Unspecified atrial fibrillation (CMS/HCC) 03/02/2024 Lab Requisition [facility] [address] [place] [phone] Diogo Hanson MD Other custodial (current) drug therapy; Human immunodeficiency virus (HIV) disease (CMS/HCC); Unspecified atrial fibrillation (CMS/HCC) 02/24/2024 Lab Requisition [facility] [address] [place] [phone] Diogo Hanson MD Vitamin D deficiency, unspecified; Unspecified atrial fibrillation (CMS/HCC); Dementia in other diseases classified elsewhere, unspecified severity, with psychotic disturbance (CMS/HCC); Deficiency of other vitamins 02/03/2024 Lab Requisition [facility] [address] [place] [phone] Diogo Hanson MD Other custodial (current) drug therapy 02/01/2024 Lab Requisition [facility] [address] [place] [phone] Diogo Hanson MD 02/01/2024 Lab Requisition [facility] [address] [place] [phone] Diogo Hanson MD Human immunodeficiency virus (HIV) disease (CMS/HCC) from Last 3 Months Social History Tobacco Use Types Packs/Day Years Used Date Smoking Tobacco: Never Assessed Sex and Gender Information Value Date Recorded Sex Assigned at Not on file Gender Identity Not on file Sexual Orientation Not on file Plan of Treatment Health Maintenance Due Date Last Done Comments Meningococcal ACWY Vaccine ( 1 - Risk 2-dose series) 1946 COVID-19 Vaccine (#1) 1949 Pneumococcal Vaccine: 65+ Years (1 of 2 - PCV) 1950 MMR Vaccines (1 of 2 - Risk 2-dose series) 1962 DTaP,Tdap,and Td Vaccines (1 - Tdap) 06/01/1963 Hepatitis A Vaccines (1 of 2 - Risk 2-dose series) 06/01/1963 Zoster Vaccines (1 of 2) 06/01/1963 Hepatitis B Vaccines (1 of 3 - Risk 3-dose series) 2004 RSV Immunization Patients 60 + Years Old (1 - 1-dose 75+ series) 06/01/2019 Depression Screening 02/23/2022 Falls Risk Assessment 02/23/2022 Hepatitis C Screening 02/23/2022 Medicare Annual Wellness Visit 02/23/2022 Social Influencers of Health Screening 02/23/2022 Influenza Vaccine (#1) 2023 Cholesterol Screening (Lipid Panel) 03/02/2029 03/02/2024, 02/24/2024 HIB Vaccines Aged Out No longer eligi ble based on patient's age to complete this topic HPV Vaccines Aged Out No longer eligi ble based on patient's age to complete this topic IPV Vaccines Aged Out No longer eligi ble based on patient's age to complete this topic RSV Immunization Patients Under 20 months Aged Out No longer eligible b ased on patient's age to complete this topic Varicella Vaccines Aged Out No longer eligible based on patient's age to complete this topic Procedures Procedure Name Priority Date/Time Associated Diagnosis Comments PROSTATE SPECIFIC ANTIGEN DIAGNOSTIC Routine 03/24/2024 6:48 AM EST Elevated prostate specific antigen (PSA) Encounter for screening for malignant neoplasm of prostate Unspecified atrial fibrillation (CMS/HCC) COMPREHENSIVE METABOLIC PANEL Routine 03/24/2024 6:48 AM EST Elevated prostate specific antigen (PSA) Encounter for screening for malignant neoplasm of prostate Unspecified atrial fibrillation (CMS/HCC) LIPID PANEL WITH REFLEX TO DIRECT LDL Routine 03/02/2024 6:49 AM EST Human immunodeficiency virus (HIV) disease (CMS/HCC) Unspecified atrial fibrillation (CMS/HCC) Other custodial (current) drug therapy VITAMIN D 25 HYDROXY Routine 03/02/2024 6:49 AM EST Human immunodeficiency virus (HIV) disease (CMS/HCC) Unspecified atrial fibrillation (CMS/HCC) Other bed bug exterminator (current) drug therapy HEMOGLOBIN A1C Routine 03/02/2024 6:49 AM EST Human immunodeficiency virus (HIV) disease (CMS/HCC) Unspecified atrial fibrillation (CMS/HCC) Other bed bug exterminator (current) drug therapy CBC WITH AUTO DIFFERENTIAL Routine 02/24/2024 7:35 AM EST Vitamin D deficiency, unspecified Unspecified atrial fibrillation (CMS/HCC) Dementia in other diseases classified elsewhere, unspecified severity, with psychotic disturbance (CMS/HCC) Deficiency of other vitamins VITAMIN D 25 HYDROXY Routine 02/24/2024 7:35 AM EST Vitamin D deficiency, unspecified Unspecified atrial fibrillation (CMS/HCC) Dementia in other diseases classified elsewhere, unspecified severity, with psychotic disturbance (CMS/HCC) Deficiency of other vitamins HEMOGLOBIN A1C Routine 02/24/2024 7:35 AM EST Vitamin D deficiency, unspecified Unspecified atrial fibrillation (CMS/HCC) Dementia in other diseases classified elsewhere, unspecified severity, with psychotic disturbance (CMS/HCC) Deficiency of other vitamins AMMONIA Routine 02/24/2024 7:35 AM EST Vitamin D deficiency, unspecified Unspecified atrial fibrillation (CMS/HCC) Dementia in other diseases classified elsewhere, unspecified severity, with psychotic disturbance (CMS/HCC) Deficiency of other vitamins LIPID PANEL WITH REFLEX TO DIRECT LDL Routine 02/24/2024 7:35 AM EST Vitamin D deficiency, unspecified Unspecified atrial fibrillation (CMS/HCC) Dementia in other diseases classified elsewhere, unspecified severity, with psychotic disturbance (CMS/HCC) Deficiency of other vitamins CBC AND DIFFERENTIAL Routine 02/24/2024 7:35 AM EST Vitamin D deficiency, unspecified Unspecified atrial fibrillation (CMS/HCC) Dementia in other diseases classified elsewhere, unspecified severity, with psychotic disturbance (CMS/HCC) Deficiency of other vitamins CBC WITH AUTO DIFFERENTIAL Routine 02/03/2024 6:15 AM EST Other bed bug exterminator (current) drug therapy CBC AND DIFFERENTIAL Routine 02/03/2024 6:15 AM EST Other custodial (current) drug therapy TREPONEMA PALLIDUM ANTIBODY WITH REFLEX TO RPR AND PARTICLE AGGLUTINATION Routine 02/01/2024 5:31 AM EST Human immunodeficiency virus (HIV) disease (CMS/HCC) RED - PLAIN Routine 02/01/2024 5:31 AM EST Human immunodeficiency virus (HIV) disease (CMS/HCC) HIV 1 MOLECULAR STUDY QUANTITATIVE Routine 02/01/2024 5:31 AM EST Human immunodeficiency virus (HIV) disease (CMS/HCC) ALANINE AMINOTRANSFERASE Routine 02/01/2024 5:31 AM EST Human immunodeficiency virus (HIV) disease (CMS/HCC) ASPARTATE AMINOTRANSFERASE Routine 02/01/2024 5:31 AM EST Human immunodeficiency virus (HIV) disease (CMS/HCC) CREATININE, SERUM Routine 02/01/2024 5:3 1 AM EST Human immunodeficiency virus (HIV) disease (CMS/HCC) LYMPHOCYTE T-CELL PANEL Routine 02/01/20 24 5:31 AM EST Human immunodeficiency virus (HIV) disease (CMS/HCC) from Last 3 Months Results * Prostate specific antigen diagnostic (03/24/2024 6:48 AM EST) PSA 3.28 0.00 - 4.00 ng/mL LAB CHEMISTRY METHOD 03/24/2024 8:06 AM [facility] Blood Venous blood specimen / Unknown 03/24/2024 6:48 AM EST 03/24/2024 7:19 AM EST [facility] - 03/24/2024 8:06 AM EST The Siemens Advia Centaur Chemiluminescent Immunoassay is used. Results obtained with different assay methods or kits cannot be used interchangeably. Results cannot be interpreted as absolute evidence of the presence or absence of malignant disease. Diogo Hanson MD LAB BLOOD ORDERABLES [facility] [address] [place] [address], * (ABNORMAL) Comprehensive metabolic panel (03/24/2024 6:48 AM EST) Sodium 134 133 - 145 mmol/L LAB CHEMISTRY METHOD 03/26/2024 7:48 AM [facility] Potassium 4.0 3.5 - 5.5 mmol/L LAB CHEMISTRY METHOD 03/26/2024 7:48 AM [facility] Chloride 105 96 - 110 mmol/L LAB CHEMISTRY METHOD 03/26/2024 7:48 AM [facility] CO2 22 21 - 32 mmol/L LAB CHEMISTRY METHOD 03/26/2024 7:48 AM [facility] Anion Gap 7 3 - 11 LAB CHEMISTRY METHOD 03/26/2024 7:48 AM [facility] Glucose 142(H) 70 - 100 mg/dL LAB CHEMISTRY METHOD 03/26/2024 7:48 AM [facility] BUN 11 5 - 25 mg/dL LAB CHEMISTRY METHOD 03/26/2024 7:48 AM [facility] Creatinine 1.00 0.70 - 1.30 mg/dL LAB CHEMISTRY METHOD 03/26/2024 7:48 AM [facility] eGFR 77 >=60 mL/min/1. 73m2 LAB CHEMISTRY METHOD 03/26/2024 7:48 AM [facility] Comment:Calculation based on the??Chronic Kidney Disease Epidemiology Collaboration (CKD-EPI) equation refit??without adjustment for race. BUN/Creatinine Ratio 11.0 LAB CHEMISTRY METHOD 03/26/2024 7:48 AM [facility] Calcium 9.0 8.5 - 10.5 mg/dL LAB CHEMISTRY METHOD 03/26/2024 7:48 AM [facility] AST (SGOT) 10 10 - 42 unit/L LAB CHEMISTRY METHOD 03/26/2024 7:48 AM [facility] ALT (SGPT) 11 10 - 60 unit/L LAB CHEMISTRY METHOD 03/26/2024 7:48 AM [facility] Alkaline Phosphatase 145(H) 42 - 121 unit/L LAB CHEMISTRY METHOD 03/26/2024 7:48 AM [facility] Total Protein 7.5 6.0 - 8.0 g/dL LAB CHEMISTRY METHOD 03/26/2024 7:48 AM [facility] Albumin 3.8 3.2 - 5.0 g/dL LAB CHEMISTRY METHOD 03/26/2024 7:48 AM [facility] Total Bilirubin 0.4 0.0 - 1.4 mg/dL LAB CHEMISTRY METHOD 03/26/2024 7:48 AM [facility] Blood Venous blood specimen / Unknown 03/24/2024 6:48 AM EST 03/24/2024 7:19 AM EST Diogo Hanson MD LAB BLOOD ORDERABLES [facility] [address] [place] [address], * (ABNORMAL) Lipid panel with reflex to direct LDL (03/02/2024 6:49 AM EST) Only the most recent of2 resultswithin the time period is included. Cholesterol 148 0 - 200 mg/dL LAB CHEMISTRY METHOD 03/02/2024 8:50 AM [facility] Triglycerides 150 0 - 150 mg/dL LAB CHEMISTRY METHOD 03/02/2024 8:50 AM [facility] HDL 36(L) >=40 mg/dL LAB CHEMISTRY METHOD 03/02/2024 8:50 AM [facility] LDL Calculated 82 0 - 100 mg/dL LAB CHEMISTRY METHOD 03/02/2024 8:50 AM [facility] VLDL Cholesterol Dillon 30 mg/dL LAB CHEMISTRY METHOD 03/02/2024 8:50 AM [facility] Non HDL Chol. (LDL+VLDL) 112 <145 mg/dL LAB CHEMISTRY METHOD 03/02/2024 8:50 AM [facility] Chol/HDL Ratio 4.1 0.0 - 4.4 LAB CHEMISTRY METHOD 03/02/2024 8:50 AM [facility] Blood Venous blood specimen / Unknown 03/02/2024 6:49 AM EST 03/02/2024 7:32 AM EST Diogo Hanson MD LAB BLOOD ORDERABLES [facility] [address] [place] [address], * (ABNORMAL) Vitamin D 25 hydroxy (03/02/2024 6:49 AM EST) Only the most recent of2 resultswithin the time period is included. Vit D, 25-Hydroxy 27.6(L) 30.0 - 80.0 ng/mL LAB CHEMISTRY METHOD 03/02/2024 10:13 AM [facility] Blood Venous blood specimen / Unknown 03/02/2024 6:49 AM EST 03/02/2024 7:32 AM EST Diogo Hanson MD LAB BLOOD ORDERABLES Performing Organization Address [facility]/ZIP Co de Phone Number [facility] [address] [place] [address], * (ABNORMAL) Hemoglobin A1c (03/02/2024 6:49 AM EST) Only the most recent of2 resultswithin the time period is included. Pathologist [facility] Hemoglobin A1C 6.8(H) <6.5 % LAB CHEMISTRY METHOD 03/02/2024 11:25 AM EST [facility] Mean Bld Glu Estim. 148 mg/dL LAB CHEMISTRY METHOD 03/02/2024 11:25 AM EST [facility] Blood Venous blood specimen / Unknown 03/02/2024 6:49 AM EST 03/02/2024 7:32 AM EST Diogo Hanson MD LAB BLOOD ORDERABLES Performing Organization Address [facility]/ZIP Co de Phone Number [facility] [address] [place] [address], [place] [phone] * (ABNORMAL) CBC auto differential (02/24/2024 7:35 AM EST) Only the most recent of2 resultswithin the time period is included. Pathologist [facility] WBC 6.7 4.8 - 10.8 K/mcL LAB HEMETOLOGY METHOD 02/24/2024 12:54 PM [facility] RBC 4.20(L) 4.50 - 5.50 M/mcL LAB HEMETOLOGY METHOD 02/24/2024 12:54 PM [facility] Hemoglobin 13.1(L) 13.5 - 17.5 g/dL LAB HEMETOLOGY METHOD 02/24/2024 12:54 PM [facility] Hematocrit 40.0(L) 42.0 - 54.0 % LAB HEMETOLOGY METHOD 02/24/2024 12:54 PM [facility] MCV 94.6 79.0 - 98.0 FL LAB HEMETOLOGY METHOD 02/24/2024 12:54 PM [facility] MCH 31.0 27.0 - 32.0 pcg LAB HEMETOLOGY METHOD 02/24/2024 12:54 PM [facility] MCHC 32.8 32.0 - 37.0 g/dL LAB HEMETOLOGY METHOD 02/24/2024 12:54 PM [facility] RDW 15.2(H) 11.0 - 15.0 % LAB HEMETOLOGY METHOD 02/24/2024 12:54 PM [facility] Platelets 237 130 - 400 K/mcL LAB HEMETOLOGY METHOD 02/24/2024 12:54 PM [facility] MPV 9.8 7.0 - 11.0 FL LAB HEMETOLOGY METHOD 02/24/2024 12:54 PM [facility] NRBC 0.0 <1.0 % LAB HEMETOLOGY METHOD 02/24/2024 12:54 PM [facility] NRBC Absolute 0.00 <0.10 K/mcL LAB HEMETOLOGY METHOD 02/24/2024 12:54 PM [facility] Neutrophils Relative 55.4 % LAB HEMETOLOGY METHOD 02/24/2024 12:54 PM [facility] Lymphocytes Relative 33.8 % LAB HEMETOLOGY METHOD 02/24/2024 12:54 PM [facility] Monocytes Relative 8.9 % LAB HEMETOLOGY METHOD 02/24/2024 12:54 PM [facility] Eosinophils Relative 1.2 % LAB HEMETOLOGY METHOD 02/24/2024 12:54 PM [facility] Basophils Relative 0.4 % LAB HEMETOLOGY METHOD 02/24/2024 12:54 PM [facility] Immature Granulocytes Relative 0.3 % LAB HEMETOLOGY METHOD 02/24/2024 12:54 PM EST [facility] Neutrophils Absolute 3.73 1.50 - 7.00 K/mcL LAB HEMETOLOGY METHOD 02/24/2024 12:54 PM [facility] Lymphocytes Absolute 2.28 1.00 - 5.00 K/mcL LAB HEMETOLOGY METHOD 02/24/2024 12:54 PM EST [facility] Monocytes Absolute 0.60 0.20 - 1.00 K/mcL LAB HEMETOLOGY METHOD 02/24/2024 12:54 PM [facility] Eosinophils Absolute 0.08 0.00 - 0.50 K/mcL LAB HEMETOLOGY METHOD 02/24/2024 12:54 PM [facility] Basophils Absolute 0.03 0.00 - 0.20 K/mcL LAB HEMETOLOGY METHOD 02/24/2024 12:54 PM [facility] Immature Granulocytes Absolute 0.02 0.00 - 0.03 K/mcL LAB HEMETOLOGY METHOD 02/24/2024 12:54 PM [facility] Blood Venous blood specimen / Unknown 02/24/2024 7:35 AM EST 02/24/2024 8:41 AM EST Diogo Hansno MD LAB BLOOD ORDERABLES [facility] [address] [place] [address], * Ammonia (02/24/2024 7:35 AM EST) Ammonia 13 11 - 35 mcmol/L LAB CHEMISTRY METHOD 02/24/2024 9:10 AM EST [facility] Blood Venous blood specimen / Unknown 02/24/2024 7:35 AM EST 02/24/2024 8:41 AM EST Diogo Hanson MD LAB BLOOD ORDERABLES Performing Organization Address [facility]/ZIP Co de Phone Number [facility] [address] [place] [address], [place] [phone] * Treponema pallidum antibody with reflex to RPR and particle agglutination (02/01/2024 5:31 AM EST) Pathologist [facility] T. Pallidum Antibodies Negative Negative LAB CHEMISTRY METHOD 02/01/2024 10:17 AM EST [facility] Blood Venous blood specimen / Unknown 02/01/2024 5:31 AM EST 02/01/2024 9:25 AM EST Diogo Hanson MD LAB BLOOD ORDERABLES Performing Organization Address [facility] Co de Phone Number [facility] [address] [place] [address], [place] [phone] * Red tube (02/01/2024 5:31 AM EST) Pathologist [facility] Extra Tube Hold for add-ons. 02/01/2024 11:01 AM EST [facility] Comment:Auto resulted. Blood Venous blood specimen / Unknown 02/01/2024 5:31 AM EST 02/01/2024 8:34 AM EST Doigo Hanson MD LAB BLOOD ORDERABLES Performing Organization Address [facility]/ZIP Co de Phone Number [facility] [address] [place] [address], [place] [phone] * (ABNORMAL) Lymphocyte T-cell panel (02/01/2024 5:31 AM EST) CD4 1,034 426 - 1,776 cells/mcL 02/03/2024 3:38 PM EST [facility] CD8 1,077(H) 161 - 838 cells/mcL 02/03/2024 3:38 PM EST [facility] CD4/CD8 Ratio 0.96 0.90 - 4.90 02/03/2024 3:38 PM EST [facility] CD4 % 45 33 - 64 % 02/03/2024 3:38 PM EST [facility] CD8 % 47(H) 10 - 39 % 02/03/2024 3:38 PM EST [facility] Blood Venous blood specimen / Unknown 02/01/2024 5:31 AM EST 02/01/2024 8:02 AM EST Diogo Hanson MD LAB MOLECULAR DIAGNO STICS ORDERABLES [facility] [address] [place] [address], [place] [phone] * HIV 1 molecular study quantitative (02/01/2024 5:31 AM EST) Pathologist [facility] HIV-1 RNA Interpretation Not Detected Not Detected LAB MOLECULAR DIAGNOSTICS METHOD 02/02/2024 9:55 AM EST [facility] Blood Venous blood specimen / Unknown 02/01/2024 5:31 AM EST 02/01/2024 8:02 AM EST Diogo Hanson MD LAB BLOOD ORDERABLES [facility] [address] [place] [address], [place] [phone] * Creatinine (02/01/2024 5:31 AM EST) Pathologist [facility] Creatinine 1.06 0.70 - 1.30 mg/dL LAB CHEMISTRY METHOD 02/01/2024 3:05 PM EST [facility] eGFR 71 >=60 mL/min/1. 73m2 LAB CHEMISTRY METHOD 02/01/2024 3:05 PM EST [facility] Comment:Calculation based on the??Chronic Kidney Disease Epidemiology Collaboration (CKD-EPI) equation refit??without adjustment for race. Blood Venous blood specimen / Unknown 02/01/2024 5:31 AM EST 02/01/2024 8:02 AM EST Diogo Hanson MD LAB BLOOD ORDERABLES Performing Organization Address [facility]/ZIP Co de Phone Number [facility] [address] [place] [address], [place] [phone] * Alanine aminotransferase (02/01/2024 5:31 AM EST) ALT (SGPT) 11 10 - 60 unit/L LAB CHEMISTRY METHOD 02/01/2024 3:05 PM EST [facility] Blood Venous blood specimen / Unknown 02/01/2024 5:31 AM EST 02/01/2024 8:02 AM EST Diogo Hanson MD LAB BLOOD ORDERABLES Performing Organization Address [facility] de Phone Number [facility] [address] [place] [address], [place] [phone] * Aspartate aminotransferase (02/01/2024 5:31 AM EST) AST (SGOT) 11 10 - 42 unit/L LAB CHEMISTRY METHOD 02/01/2024 3:05 PM EST [facility] Blood Venous blood specimen / Unknown 02/01/2024 5:31 AM EST 02/01/2024 8:02 AM EST Diogo Hanson MD LAB BLOOD ORDERABLES Performing Organization Address City/[facility]/ZIP Co de Phone Number [facility] [address] [place] [address], [place] [phone] from Last 3 Months
--- OUTSIDE RECORDS SUMMARY | 2024-04-19 14:14 | XMS_ITS | Encounter Summary ---
Author Organization [facility] Address [address] [place] [address] Care Team Providers Care Core Cutter And Reamer Name Role Phone Unavailable Primary Care Provider Unavailabl e Encounter Details Date Type Department Care Team (Late st Contact Info) Description 02/01/2024 Lab Requisition [facility] [address] [facility] [place] [address] Diogo Hanson MD [address] [place] [address] [address] [place], [place] Social History Tobacco Use Types Packs/Day Years Used Date Smoking Tobacco: Never Assessed Sex and Gender Information Value Date Recorded Sex Assigned at Not on file Gender Identity Not on file Sexual Orientation Not on file documented as of this encounter Plan of Treatment Not on file documented as of this encounter Visit Diagnoses Not on filedocumented in this encounter
--- OUTSIDE RECORDS SUMMARY | 2024-04-19 14:14 | XMS_ITS | Encounter Summary ---
Author Organization [facility] Address [address] [place] [address] Care Team Providers Care Chemical Economist Name Role Phone Unavailable Primary Care Provider Unavailabl e Encounter Details Date Type Department Care Team (Late st Contact Info) Description 03/24/2024 Lab Requisition [facility] [address] [facility] [place] [phone] Diogo Hanson MD [address] [place] [address] [address] [facility]INITY Cardenas Elevated prostate specific antigen (PSA); Encounter for screening for malignant neoplasm of prostate; Unspecified atrial fibrillation (CMS/HCC) Social History Tobacco Use Types Packs/Day Years Used Date Smoking Tobacco: Never Assessed Sex and Gender Information Value Date Recorded Sex Assigned at Not on file Gender Identity Not on file Sexual Orientation Not on file documented as of this encounter Plan of Treatment Not on file documented as of this encounter Procedures Procedure Name Priority Date/Time Associated Diagnosis Comments PROSTATE SPECIFIC ANTIGEN DIAGNOSTIC Routine 03/24/2024 6:48 AM EST Elevated prostate specific antigen (PSA) Encounter for screening for malignant neoplasm of prostate Unspecified atrial fibrillation (CMS/HCC) COMPREHENSIVE METABOLIC PANEL Routine 03/24/2024 6:48 AM EST Elevated prostate specific antigen (PSA) Encounter for screening for malignant neoplasm of prostate Unspecified atrial fibrillation (CMS/HCC) documented in this encounter Results * Prostate specific antigen diagnostic (03/24/2024 6:48 AM EST) PSA 3.28 0.00 - 4.00 ng/mL LAB CHEMISTRY METHOD 03/24/2024 8:06 AM EST [facility] Blood Venous blood specimen / Unknown 03/24/2024 6:48 AM EST 03/24/2024 7:19 AM EST [facility] LAB - 03/24/2024 8:06 AM EST The Siemens Advia Centaur Chemiluminescent Immunoassay is used. Results obtained with different assay methods or kits cannot be used interchangeably. Results cannot be interpreted as absolute evidence of the presence or absence of malignant disease. Diogo Hanson MD LAB BLOOD ORDERABLES [facility] [address] [place] [address], * (ABNORMAL) Comprehensive metabolic panel (03/24/2024 6:48 AM EST) Sodium 134 133 - 145 mmol/L LAB CHEMISTRY METHOD 03/26/2024 7:[address] [facility] Potassium 4.0 3.5 - 5.5 mmol/L LAB CHEMISTRY METHOD 03/26/2024 7:[address] [facility] Chloride 105 96 - 110 mmol/L LAB CHEMISTRY METHOD 03/26/2024 7:[address] [facility] CO2 22 21 - 32 mmol/L LAB CHEMISTRY METHOD 03/26/2024 7:[address] [facility] Anion Gap 7 3 - 11 LAB CHEMISTRY METHOD 03/26/2024 7:[address] [facility] Glucose 142(H) 70 - 100 mg/dL LAB CHEMISTRY METHOD 03/26/2024 7:[address] [facility] BUN 11 5 - 25 mg/dL LAB CHEMISTRY METHOD 03/26/2024 7:[address] [facility] Creatinine 1.00 0.70 - 1.30 mg/dL LAB CHEMISTRY METHOD 03/26/2024 7:[address] [facility] eGFR 77 >=60 mL/min/1. 73m2 LAB CHEMISTRY METHOD 03/26/2024 7:[address] [facility] LAB Comment:Calculation based on the??Chronic Kidney Disease Epidemiology Collaboration (CKD-EPI) equation refit??without adjustment for race. BUN/Creatinine Ratio 11.0 LAB CHEMISTRY METHOD 03/26/2024 7:[address] [facility] Calcium 9.0 8.5 - 10.5 mg/dL LAB CHEMISTRY METHOD 03/26/2024 7:[address] [facility] AST (SGOT) 10 10 - 42 unit/L LAB CHEMISTRY METHOD 03/26/2024 7:[address] [facility] ALT (SGPT) 11 10 - 60 unit/L LAB CHEMISTRY METHOD 03/26/2024 7:[address] [facility] Alkaline Phosphatase 145(H) 42 - 121 unit/L LAB CHEMISTRY METHOD 03/26/2024 7:[address] [facility] Total Protein 7.5 6.0 - 8.0 g/dL LAB CHEMISTRY METHOD 03/26/2024 7:[address] [facility] Albumin 3.8 3.2 - 5.0 g/dL LAB CHEMISTRY METHOD 03/26/2024 7:[address] [facility] Total Bilirubin 0.4 0.0 - 1.4 mg/dL LAB CHEMISTRY METHOD 03/26/2024 7:[address] [facility] Blood Venous blood specimen / Unknown 03/24/2024 6:48 AM EST 03/24/2024 7:19 AM EST Diogo Hanson MD LAB BLOOD ORDERABLES [facility] [address] [place] [address], documented in this encounter Visit Diagnoses Diagnosis Elevated prostate specific antigen (PSA) Encounter for screening for malignant neoplasm of prostate Unspecified atrial fibrillation (CMS/HCC) documented in this encounter
--- OUTSIDE RECORDS SUMMARY | 2024-04-19 14:14 | XMS_ITS | Patient Health Record ---
Author Organization [facility] Address [address] [place] [address] Care Team Providers Care Secretary To Board Of Commissioners Name Role Phone Diogo Hanson Primary Care Provider Frederic Cobb Unavailable [phone] REASON FOR REFERRAL No Information MEDICATIONS Medication [...] Fleet Enema - as directed Rectal Active Talco Carbonate 300 MG Oral for 30 Active [...] Active Lotrimin AF 2 % 1 application Dimension Mill Worker ally Twice a day for 14 day(s) [...] W/U Status Risk SNOMED Code Notes Problem assisted current use of anticoagulant (Z79.01) Active confirmed 224418370 Problem Encounter for screening for malignant neoplasm of colon (Z12.11) Active confirmed 318491717 Problem Preprocedural examination (Z01.818) Active confirmed 570536860227815 Problem Diverticulosis of colon (K57.30) Active confirmed Diverticulosi s of colon (896658773) Problem 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
--- OUTSIDE RECORDS SUMMARY | 2024-04-19 14:14 | XMS_ITS | Encounter Summary ---
Author Organization [facility] Address [address] [place] [address] Care Team Providers Care Pattern Grader Supervisor Name Role Phone Unavailable Primary Care Provider Unavailabl e Encounter Details Date Type Department Care Team (Latest Contact Info) Description 03/02/2024 Lab Requisition [facility] - Main Lab [address] [facility] [place] [address] Diogo Hanson MD [address] [place] [address] [address] TRINITY Cardenas Other circular knitter (current) drug therapy; Human immunodeficiency virus (HIV) disease (CMS/HCC); Unspecified atrial fibrillation (CMS/HCC) Social History Tobacco [...] Procedure Name Priority Date/Time Associated Diagnosis Comments LIPID PANEL WITH REFLEX TO DIRECT LDL Routine 03/02/2024 6:49 AM EST Human immunodeficiency virus (HIV) disease (CMS/HCC) Unspecified atrial fibrillation (CMS/HCC) Other fci (current) drug therapy VITAMIN D 25 HYDROXY Routine 03/02/2024 6:49 AM EST Human immunodeficiency virus (HIV) disease (CMS/HCC) Unspecified atrial fibrillation (CMS/HCC) Other circular knitter (current) drug therapy HEMOGLOBIN A1C Routine 03/02/2024 6:49 AM EST Human immunodeficiency virus (HIV) disease (CMS/HCC) Unspecified atrial fibrillation (CMS/HCC) Other circular knitter (current) drug therapy documented in this encounter Results * (ABNORMAL) Lipid panel with reflex to direct LDL (03/02/2024 6:49 AM EST) Cholesterol 148 0 - 200 mg/dL LAB CHEMISTRY METHOD 03/02/2024 8:50 AM [facility] Triglycerides 150 0 - 150 mg/dL LAB CHEMISTRY METHOD 03/02/2024 8:50 AM [facility] HDL 36(L) >=40 mg/dL LAB CHEMISTRY METHOD 03/02/2024 8:50 AM [facility] LDL Calculated 82 0 - 100 mg/dL LAB CHEMISTRY METHOD 03/02/2024 8:50 AM [facility] VLDL Cholesterol Dillon 30 mg/dL LAB CHEMISTRY METHOD 03/02/2024 8:50 AM [facility] Non HDL Chol. (LDL+VLDL) 112 <145 mg/dL LAB CHEMISTRY METHOD 03/02/2024 8:50 AM [facility] Chol/HDL Ratio 4.1 0.0 - 4.4 LAB CHEMISTRY METHOD 03/02/2024 8:50 AM [facility] Blood Venous blood specimen / Unknown 03/02/2024 6:49 AM EST 03/02/2024 7:32 AM EST Diogo Hanson MD LAB BLOOD ORDERABLES [facility] [address] [place] [address], * (ABNORMAL) Vitamin D 25 hydroxy (03/02/2024 6:49 AM EST) Vit D, 25-Hydroxy 27.6(L) 30.0 - 80.0 ng/mL LAB CHEMISTRY METHOD 03/02/2024 10:13 AM EST [facility] Blood Venous blood specimen / Unknown 03/02/2024 6:49 AM EST 03/02/2024 7:32 AM EST Diogo Hanson MD LAB BLOOD ORDERABLES [facility] [address] [place] [address], [place] [phone] * (ABNORMAL) Hemoglobin A1c (03/02/2024 6:49 AM EST) Hemoglobin A1C 6.8(H) <6.5 % LAB CHEMISTRY METHOD 03/02/2024 11:25 AM EST [facility] Mean Bld Glu Estim. 148 mg/dL LAB CHEMISTRY METHOD 03/02/2024 11:25 AM EST [facility] Blood Venous blood specimen / Unknown 03/02/2024 6:49 AM EST 03/02/2024 7:32 AM EST Diogo Hanson MD LAB BLOOD ORDERABLES [facility] [address] [place] [address], documented in this encounter Visit Diagnoses Diagnosis Other circular knitter (current) drug therapy Human immunodeficiency virus (HIV) disease (CMS/HCC) Human immunodeficiency virus [HIV] disease Unspecified atrial fibrillation (CMS/HCC) documented in this encounter
--- OUTSIDE RECORDS SUMMARY | 2024-04-19 14:14 | XMS_ITS | Encounter Summary ---
Author Organization [facility] Address [address] [place] [address] Care Team Providers Care Hackler Doll Wigs Name Role Phone Unavailable Primary Care Provider Unavailabl e Encounter Details Date Type Department Care Team (Late st Contact Info) Description 02/24/[address] [facility] - Main Lab [address] [facility] [place] [address] Diogo Hanson MD [address] [place] [address] [address] [place] Vitamin D deficiency, unspecified; Unspecified atrial fibrillation (CMS/HCC); Dementia in other diseases classified elsewhere, unspecified severity, with psychotic disturbance (CMS/HCC); Deficiency of other vitamins Social History Tobacco Use Types Packs/Day Years [...] other vitamins CBC WITH AUTO DIFFERENTIAL Routine 02/24/2024 7:35 [...] psychotic disturbance (CMS/HCC) Deficiency of other vitamins documented in this encounter Results * (ABNORMAL) CBC auto differential (02/24/2024 7:35 AM EST) WBC 6.7 4.8 - 10.8 K/mcL LAB HEMETOLOGY METHOD 02/24/2024 12:54 PM [facility] RBC 4.20(L) 4.50 - 5.50 M/mcL LAB HEMETOLOGY METHOD 02/24/2024 12:54 PM [facility] Hemoglobin 13.1(L) 13.5 - 17.5 g/dL LAB HEMETOLOGY METHOD 02/24/2024 12:54 PM [facility] Hematocrit 40.0(L) 42.0 - 54.0 % LAB HEMETOLOGY METHOD 02/24/2024 12:54 PM [facility] MCV 94.6 79.0 - 98.0 FL LAB HEMETOLOGY METHOD 02/24/2024 12:54 PM [facility] MCH 31.0 27.0 - 32.0 pcg LAB HEMETOLOGY METHOD 02/24/2024 12:54 PM [facility] MCHC 32.8 32.0 - 37.0 g/dL LAB HEMETOLOGY METHOD 02/24/2024 12:54 PM [facility] RDW 15.2(H) 11.0 - 15.0 % LAB HEMETOLOGY METHOD 02/24/2024 12:54 PM [facility] Platelets 237 130 - 400 K/mcL LAB HEMETOLOGY METHOD 02/24/2024 12:54 PM [facility] MPV 9.8 7.0 - 11.0 FL LAB HEMETOLOGY METHOD 02/24/2024 12:54 PM [facility] NRBC 0.0 <1.0 % LAB HEMETOLOGY METHOD 02/24/2024 12:54 PM [facility] NRBC Absolute 0.00 <0.10 K/mcL LAB HEMETOLOGY METHOD 02/24/2024 12:54 PM [facility] Neutrophils Relative 55.4 % LAB HEMETOLOGY METHOD 02/24/2024 12:54 PM [facility] Lymphocytes Relative 33.8 % LAB HEMETOLOGY METHOD 02/24/2024 12:54 PM [facility] Monocytes Relative 8.9 % LAB HEMETOLOGY METHOD 02/24/2024 12:54 PM [facility] Eosinophils Relative 1.2 % LAB HEMETOLOGY METHOD 02/24/2024 12:54 PM [facility] Basophils Relative 0.4 % LAB HEMETOLOGY METHOD 02/24/2024 12:54 PM [facility] Immature Granulocytes Relative 0.3 % LAB HEMETOLOGY METHOD 02/24/2024 12:54 PM [facility] Neutrophils Absolute 3.73 1.50 - 7.00 K/mcL LAB HEMETOLOGY METHOD 02/24/2024 12:54 PM [facility] Lymphocytes Absolute 2.28 1.00 - 5.00 K/mcL LAB HEMETOLOGY METHOD 02/24/2024 12:54 PM EST [facility] Monocytes Absolute 0.60 0.20 - 1.00 K/mcL LAB HEMETOLOGY METHOD 02/24/2024 12:54 PM EST [facility] Eosinophils Absolute 0.08 0.00 - 0.50 K/mcL LAB HEMETOLOGY METHOD 02/24/2024 12:54 PM [facility] Basophils Absolute 0.03 0.00 - 0.20 K/mcL LAB HEMETOLOGY METHOD 02/24/2024 12:54 PM [facility] Immature Granulocytes Absolute 0.02 0.00 - 0.03 K/mcL LAB HEMETOLOGY METHOD 02/24/2024 12:54 PM [facility] Blood Venous blood specimen / Unknown 02/24/2024 7:35 AM EST 02/24/2024 8:41 AM EST Diogo Hanson MD LAB BLOOD ORDERABLES [facility] [address] [place] [address], * Vitamin D 25 hydroxy (02/24/2024 7:35 AM EST) Pathologist [facility] Vit D, 25-Hydroxy 35.1 30.0 - 80.0 ng/mL LAB CHEMISTRY METHOD 02/24/2024 2:36 PM EST [facility] Blood Venous blood specimen / Unknown 02/24/2024 7:35 AM EST 02/24/2024 8:41 AM EST Diogo Hanson MD LAB BLOOD ORDERABLES [facility] [address] [place] [address], [place] [phone] * Hemoglobin A1c (02/24/2024 7:35 AM EST) Pathologist [facility] Hemoglobin A1C 5.9 <6.5 % LAB CHEMISTRY METHOD 02/24/2024 2:17 PM EST [facility] Mean Bld Glu Estim. 123 mg/dL LAB CHEMISTRY METHOD 02/24/2024 2:17 PM [facility] Blood Venous blood specimen / Unknown 02/24/2024 7:35 AM EST 02/24/2024 8:41 AM EST Diogo Hanson MD LAB BLOOD ORDERABLES Performing Organization Address City/[facility]/ZIP Co de Phone Number [facility] [address] [place] [address], [place] [phone] * Ammonia (02/24/2024 7:35 AM EST) [facility] Ammonia 13 11 - 35 mcmol/L LAB CHEMISTRY METHOD 02/24/2024 9:10 AM [facility] Blood Venous blood specimen / Unknown 02/24/2024 7:35 AM EST 02/24/2024 8:41 AM EST Diogo Hanson MD LAB BLOOD ORDERABLES Performing Organization Address City/[facility]/ZIP Co de Phone Number [facility] [address] [place] [address], [place] [phone] * (ABNORMAL) Lipid panel with reflex to direct LDL (02/24/2024 7:35 AM EST) Pathologist [facility] Cholesterol 146 0 - 200 mg/dL LAB CHEMISTRY METHOD 02/24/2024 2:46 PM [facility] Triglycerides 103 0 - 150 mg/dL LAB CHEMISTRY METHOD 02/24/2024 2:46 PM [facility] HDL 39(L) >=40 mg/dL LAB CHEMISTRY METHOD 02/24/2024 2:46 PM [facility] LDL Calculated 86 0 - 100 mg/dL LAB CHEMISTRY METHOD 02/24/2024 2:46 PM [facility] VLDL Cholesterol Dillon 20.6 mg/dL LAB CHEMISTRY METHOD 02/24/2024 2:46 PM EST [facility] Non HDL Chol. (LDL+VLDL) 107 <145 mg/dL LAB CHEMISTRY METHOD 02/24/2024 2:46 PM EST [facility] Chol/HDL Ratio 3.7 0.0 - 4.4 LAB CHEMISTRY METHOD 02/24/2024 2:46 PM EST [facility] Blood Venous blood specimen / Unknown 02/24/2024 7:35 AM EST 02/24/2024 8:41 AM EST Diogo Hanson MD LAB BLOOD ORDERABLES 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
--- OUTSIDE RECORDS SUMMARY | 2024-04-19 14:14 | XMS_ITS | Encounter Summary ---
[facility] Organization [facility] Address [address] [place] [address] Care Team Providers Care Environmental Health And Safety Intern Name Role Phone Unavailable Primary Care Provider Unavailabl e Encounter Details Date Type Department Care Team (Latest Contact Info) Description 02/01/2024 Lab Requisition [facility] - Main Lab [address] [facility] [place] [id number] Diogo Hanson MD [address] [place] [address] [address] [place] Human immunodeficiency virus (HIV) disease (CMS/HCC) Social History Tobacco Use Types Packs/Day Years Used Date Smoking Tobacco: Never Assessed Sex and Gender Information Value Date Recorded Sex Assigned at Not on file Gender Identity Not on file Sexual Orientation Not on file documented as of this encounter Plan of Treatment Not on file documented as of this encounter Procedures Procedure Name Priority Date/Time Associated Diagnosis Comments TREPONEMA PALLIDUM ANTIBODY WITH REFLEX TO RPR [...] EST Human immunodeficiency virus (HIV) disease (CMS/HCC) documented in this encounter Results * Treponema pallidum antibody with reflex to RPR and particle agglutination (02/01/2024 5:31 AM EST) Pathologist [facility] T. Pallidum Antibodies Negative Negative LAB CHEMISTRY METHOD 02/01/2024 10:17 AM EST [facility] Blood Venous blood specimen / Unknown 02/01/2024 5:31 AM EST 02/01/2024 9:25 AM EST Diogo Hanson MD LAB BLOOD ORDERABLES Performing Organization Address City/[facility]/ZIP Co de Phone Number [facility] [address] [place] [address], * Red tube (02/01/2024 5:31 AM EST) [facility] Extra Tube Hold for add-ons. 02/01/2024 11:01 AM EST [facility] Comment:Auto resulted. Blood Venous blood specimen / Unknown 02/01/2024 5:31 AM EST 02/01/2024 8:34 AM EST Diogo Hanson MD LAB BLOOD ORDERABLES [facility] [address] [place] [address], [place] [phone] * HIV 1 molecular study quantitative (02/01/2024 5:31 AM EST) [facility] HIV-1 RNA Interpretation Not Detected Not Detected LAB MOLECULAR DIAGNOSTICS METHOD 02/02/2024 9:55 AM EST [facility] Blood Venous blood specimen / Unknown 02/01/2024 5:31 AM EST 02/01/2024 8:02 AM EST Diogo Hanson MD LAB BLOOD ORDERABLES Performing Organization Address City/[facility]/ZIP Co de Phone Number [facility] [address] [place] [address], [place] [phone] * Alanine aminotransferase (02/01/2024 5:31 AM EST) ALT (SGPT) 11 10 - 60 unit/L LAB CHEMISTRY METHOD 02/01/2024 3:05 PM EST [facility] Blood Venous blood specimen / Unknown 02/01/2024 5:31 AM EST 02/01/2024 8:02 AM EST Diogo Hanson MD LAB BLOOD ORDERABLES Performing Organization Address [facility]/ZIP Co de Phone Number [facility] [address] [place] [address], [place] [phone] * Aspartate aminotransferase (02/01/2024 5:31 AM EST) AST (SGOT) 11 10 - 42 unit/L LAB CHEMISTRY METHOD 02/01/2024 3:05 PM EST [facility] Blood Venous blood specimen / Unknown 02/01/2024 5:31 AM EST 02/01/2024 8:02 AM EST Diogo Hanson MD LAB BLOOD ORDERABLES Performing Organization Address City/[facility]/ZIP Co de Phone Number [facility] [address] [place] [address], [place] [phone] * Creatinine (02/01/2024 5:31 AM EST) Creatinine 1.06 0.70 - 1.30 mg/dL LAB CHEMISTRY METHOD 02/01/2024 3:05 PM [facility] eGFR 71 >=60 mL/min/1. 73m2 LAB CHEMISTRY METHOD 02/01/2024 3:05 PM [facility] Comment:Calculation based on the??Chronic Kidney Disease Epidemiology Collaboration (CKD-EPI) equation refit??without adjustment for race. Blood Venous blood specimen / Unknown 02/01/2024 5:31 AM EST 02/01/2024 8:02 AM EST Diogo Hanson MD LAB BLOOD ORDERABLES [facility] [address] [place] [address], [place] [phone] * (ABNORMAL) Lymphocyte T-cell panel (02/01/2024 5:31 AM EST) CD4 1,034 426 - 1,776 cells/mcL 02/03/2024 3:38 PM EST [facility] CD8 1,077(H) 161 - 838 cells/mcL 02/03/2024 3:38 PM EST [facility] CD4/CD8 Ratio 0.96 0.90 - 4.90 02/03/2024 3:38 PM EST [facility] CD4 % 45 33 - 64 % 02/03/2024 3:38 PM EST [facility] CD8 % 47(H) 10 - 39 % 02/03/2024 3:38 PM EST [facility] Blood Venous blood specimen / Unknown 02/01/2024 5:31 AM EST 02/01/2024 8:02 AM EST Diogo Hanson MD LAB MOLECULAR DIAGNO STICS ORDERABLES [facility] [address] [place] [address], [place] [phone] documented in this encounter Visit Diagnoses Diagnosis Human immunodeficiency virus (HIV) disease ([facility]/HCC) Human immunodeficiency virus [HIV] disease documented in this encounter
--- OUTSIDE RECORDS SUMMARY | 2024-04-19 14:14 | XMS_ITS | Encounter Summary ---
Author Organization [facility] Address [address] [place] [address] Care Team Providers Care Figure Refinisher And Repairer Name Role Phone Unavailable Primary Care Provider Unavailabl e Encounter Details Date Type Department Care Team (Late st Contact Info) Description 02/03/2024 Lab Requisition [facility] - Main Lab [address] [facility] [place] [phone] Diogo Hanson MD [address] [place] [address] [address] [place] Other shelter (current) drug therapy Social History Tobacco Use Types Packs/Day Years Used Date Smoking Tobacco: Never Assessed Sex and Gender Information Value Date Recorded Sex Assigned at Not on file Gender Identity Not on file Sexual Orientation Not on file documented as of this encounter Plan of Treatment Not on file documented as of this encounter Procedures Procedure Name Priority Date/Time Associated Diagnosis Comments CBC WITH AUTO DIFFERENTIAL Routine 02/03/2024 6:15 AM EST Other superintendent plant (current) drug therapy CBC AND DIFFERENTIAL Routine 02/03/2024 6:15 AM EST Other shelter (current) drug therapy documented in this encounter Results * (ABNORMAL) CBC auto differential (02/03/2024 6:15 AM EST) WBC 7.9 4.8 - 10.8 K/mcL LAB HEMETOLOGY METHOD 02/03/2024 9:33 AM EST [facility] RBC 4.00(L) 4.50 - 5.50 M/[facility] LAB HEMETOLOGY METHOD 02/03/2024 9:33 AM EST [facility] Hemoglobin 12.2(L) 13.5 - 17.5 g/dL LAB HEMETOLOGY METHOD 02/03/2024 9:33 AM [facility] Hematocrit 38.1(L) 42.0 - 54.0 % LAB HEMETOLOGY METHOD 02/03/2024 9:33 AM [facility] MCV 95.3 79.0 - 98.0 FL LAB HEMETOLOGY METHOD 02/03/2024 9:33 AM [facility] MCH 30.5 27.0 - 32.0 pcg LAB HEMETOLOGY METHOD 02/03/2024 9:33 AM [facility] MCHC 32.0 32.0 - 37.0 g/dL LAB HEMETOLOGY METHOD 02/03/2024 9:33 AM [facility] RDW 15.5(H) 11.0 - 15.0 % LAB HEMETOLOGY METHOD 02/03/2024 9:33 AM [facility] Platelets 215 130 - 400 K/mcL LAB HEMETOLOGY METHOD 02/03/2024 9:33 AM [facility] MPV 10.3 7.0 - 11.0 FL LAB HEMETOLOGY METHOD 02/03/2024 9:33 AM [facility] NRBC 0.0 <1.0 % LAB HEMETOLOGY METHOD 02/03/2024 9:33 AM [facility] NRBC Absolute 0.00 <0.10 K/mcL LAB HEMETOLOGY METHOD 02/03/2024 9:33 AM [facility] Neutrophils Relative 57.7 % LAB HEMETOLOGY METHOD 02/03/2024 9:33 AM [facility] Lymphocytes Relative 31.1 % LAB HEMETOLOGY METHOD 02/03/2024 9:33 AM [facility] Monocytes Relative 8.3 % LAB HEMETOLOGY METHOD 02/03/2024 9:33 AM [facility] Eosinophils Relative 2.0 % LAB HEMETOLOGY METHOD 02/03/2024 9:33 AM [facility] Basophils Relative 0.4 % LAB HEMETOLOGY METHOD 02/03/2024 9:33 AM EST [facility] Immature Granulocytes Relative 0.5 % LAB HEMETOLOGY METHOD 02/03/2024 9:33 AM [facility] Neutrophils Absolute 4.57 1.50 - 7.00 K/mcL LAB HEMETOLOGY METHOD 02/03/2024 9:33 AM EST [facility] Lymphocytes Absolute 2.47 1.00 - 5.00 K/mcL LAB HEMETOLOGY METHOD 02/03/2024 9:33 AM [facility] Monocytes Absolute 0.66 0.20 - 1.00 K/mcL LAB HEMETOLOGY METHOD 02/03/2024 9:33 AM EST [facility] Eosinophils Absolute 0.16 0.00 - 0.50 K/mcL LAB HEMETOLOGY METHOD 02/03/2024 9:33 AM EST [facility] Basophils Absolute 0.03 0.00 - 0.20 K/mcL LAB HEMETOLOGY METHOD 02/03/2024 9:33 AM [facility] Immature Granulocytes Absolute 0.04(H) 0.00 - 0.03 K/mcL LAB HEMETOLOGY METHOD 02/03/2024 9:33 AM [facility] Blood Venous blood specimen / Unknown 02/03/2024 6:15 AM EST 02/03/2024 8:42 AM EST Diogo Hanson MD LAB BLOOD ORDERABLES [facility] [address] [place] [address], documented in this encounter Visit Diagnoses Diagnosis Other superintendent plant (current) drug therapy documented in this encounter
== END 2024-04-19 14:19 | disposition home or self-care (01) ==
PROVIDERS: PCP Hospitalist; Visit Provider Nurse Practitioner Family
DX: N28.1 Cyst of kidney, acquired (principal); N40.1 Benign prostatic hyperplasia with lower urinary tract symptoms
CPT/HCPCS: 99213; G2211

== ENCOUNTER → 2024-04-19 13:14 | Outpatient (BNVA) | payer MEDICARE, MEDICAID, SELFPAY | PROVIDERS: PCP Hospitalist; Visit Provider Nurse Practitioner Family | DX: N40.1 Benign prostatic hyperplasia with lower urinary tract symptoms (principal); N28.1 Cyst of kidney, acquired; N39.41 Urge incontinence | CPT/HCPCS: 51798; 99212 ==

== ENCOUNTER → 2024-05-10 23:59 | Outpatient (BNV) | payer MEDICARE, MEDICAID, SELFPAY ==
--- NOTE | 2024-05-16 15:47 | MHC.OFFVIS ---
Intake Visit Reasons: Remote Device Check- [facility] Allergies No Known Allergies [No Known Allergies*] Allergy (Verified 04/19/24 14:29) [facility] Medical History Chronic atrial fibrillation Persistent atrial fibrillation Ascending aortic aneurysm Psychotic disorder with hallucinations due to known physiological condition Unspecified urinary incontinence Constipation, unspecified Preglaucoma, unspecified, unspecified eye Acute stress reaction Ventricular premature depolarization Unspecified cataract Presbyopia Dementia in other diseases classified elsewhere with behavioral disturbance Atrial flutter Deficiency of other vitamins Other abnormalities of gait and mobility Muscular weakness Cyst of kidney, acquired Fatty (change of) liver, not elsewhere classified AAA (abdominal aortic aneurysm) without rupture Personal history of COVID-19 Low back pain Alcohol abuse HIV (human immunodeficiency virus infection) Resides in [facility] care facility GERD (gastroesophageal reflux disease) COPD (chronic obstructive pulmonary disease) Right bundle branch block (RBBB) on electrocardiogram (ECG) CVA (cerebral vascular accident) Paroxysmal atrial fibrillation Urgency incontinence BPH loc w urin obs/LUTS Surgical History H/O colonoscopy Social History Household Members: Other Housing: Detention Housing Other:: [facility] Are you a primary healthcare customer service to a significant other at home: No Do you presently have visiting nurse or other home services: Yes ([facility] staff) Comment: COUNTS CORRECT Patient Tobacco Use Status: Former Tobacco user Advance Directives Date on File: 07/19/21 Office Procedures Cardiac Device Check Cardiac Device Check Details: Remote pacemaker report generated 05/10/2024. Pacemaker function is adequate [id number] Cardiac Device Interrogation, pacemaker Procedure code (CPT) selection complete Assessment & Plan Assessment & Plan (1) Cardiac pacemaker in situ: Comment: [facility] dual-chamber Code(s): Z95.0 - Presence of cardiac pacemaker Category: Medical Plan: See above Coding Level of Care Code Procedure Only Diagnoses Cardiac pacemaker in situ Z95.0 CPT Codes Cardiac Device Check - Cardiac Device 12: [id number] Cardiac Device Interrogation, pacemaker ([id number])
== END ==
PROVIDERS: PCP Hospitalist; Visit Provider Internal Medicine Cardiovascular Disease
DX: Z45.018 Encounter for adjustment and management of other part of cardiac pacemaker (principal)
CPT/HCPCS: 93294

== ENCOUNTER 2024-08-08 14:51 | Emergency (ER) | payer MEDICARE, MEDICAID, SELFPAY ==
--- NOTE | ~2024-08-08 | XR_ITS ---
EXAMINATION: XR CHEST CLINICAL INFORMATION: SOB with exertion COMPARISON: August 24, 2023. TECHNIQUE: Frontal view of the chest was obtained. FINDINGS: Prominence of the interstitial lung markings and perihilar regions. No gross consolidation, pleural fissure pneumothorax. Low lung volume. Cardiomediastinal silhouette size is mildly prominent. Calcified plaque thoracic aortic arch. Multilevel thoracic spondylosis. Degenerative changes in the right greater than left shoulders. Right-sided pacemaker with 2 intact electrode leads in the right heart chambers. XR/XR chest 1V IMPRESSION: Pulmonary edema. Mild cardiomegaly versus pericardial effusion. Electronically signed by: Cam Miguel MD 08/08/2024 03:46 PM EDT
[2024-08-08 14:58] VITALS: BP 103/68; PULSE 91; O2SAT 99
--- NOTE | 2024-08-08 14:59 | ECG_ITS ---
Test Reason : CHEST PAIN Blood Pressure : */* mmHG Vent. Rate : 69 BPM Atrial Rate : * BPM P-R Int : * ms QRS Dur : 120 ms QT Int : 430 ms P-R-T Axes : * 0 -21 degrees QTcB Int : 460 ms Atrial fibrillation Right bundle branch block Abnormal ECG When compared with ECG of 18-Apr-2023 16:47, Vent. rate has increased by 35 bpm T wave inversion now evident in Inferior leads T wave inversion now evident in Anterior leads Nonspecific T wave abnormality, improved in Lateral leads Referred By: Bozena Gutierrez Electronically Signed By: Olaf Hu
[2024-08-08 15:01] VITALS: BP 101/69; PULSE 77; RESP 18; TEMP 36.4; O2SAT 95; BMI 19.6
[2024-08-08 15:23] LABS: MANUAL DIFF FLAG NO
[2024-08-08 15:26] LABS: Basophils Percent Auto 0.1 % (0-2); Eosinophils Percent Auto 0.4 % (0-4); Hemoglobin 13.5 g/dl (14.0-18.0); Imm Gran Abs Auto 0.02 X10*3/uL (0.00-0.03); Imm Gran Pct Auto 0.3 % (0.0-0.4); Lymphocytes Absolute Auto 1.3 X10*3/uL (1.2-4.9); Lymphocytes Percent Auto 17.3 % (20-40); Mean Corpuscular HGB Conc 33.8 g/dl (31.0-36.0); Mean Corpuscular Hemoglobin 29.9 pg (27.0-33.0); Mean Corpuscular Volume 88.5 fL (80.0-98.0); Mean Platelet Volume 9.8 fL (9.4-12.4); Monocytes Absolute Auto 0.5 X10*3/uL (0.1-1.2); Monocytes Percent Auto 6.9 % (2-11); Neutrophils Absolute Auto 5.4 x10*3/uL (2.0-8.3); Platelet Count 178 X10*3/uL (160-400); Red Blood Count 4.52 X10*6/uL (4.60-5.80); Red Cell Distribution Width 17.7 % (11.0-16.0); White Blood Count 7.2 X10*3/uL (4.8-10.8)
--- OUTSIDE RECORDS SUMMARY | 2024-08-08 15:27 | XMS_ITS | Encounter Summary ---
Author Organization [facility] Address [address] [place] [address] Care Team Providers Care Invasive Cardiovascular Technologist Name Role Phone Diogo Hanson MD Primary Care Provider [phone] Encounter Details Date Type Department Care Team (Late st Contact Info) Description 06/20/2024 Lab Requisition [facility] - Main Lab [address] [facility] [place] [address] Diogo Hanson MD [address] [place] [address] [address] TRINITY Cardenas Dementia in other diseases classified elsewhere, unspecified severity, with psychotic disturbance (CMS/HCC V24, CMS/HCC V28) Social History Tobacco Use Types Packs/Day Years Used Date Smoking Tobacco: Never Assessed Sex and Gender Information Value Date Recorded Sex Assigned at Not on file Legal Sex Male 3:10 AM EST Gender Identity Not on file Sexual Orientation Not on file documented as of this encounter Plan of Treatment Not on file documented as of this encounter Procedures Procedure Name Priority Date/Time Associated Diagnosis Comments LITHIUM LEVEL Routine 06/20/2024 6:34 AM EDT Dementia in other diseases classified elsewhere, unspecified severity, with psychotic disturbance (CMS/[facility]) documented in this encounter Results * [place]ada level (06/20/2024 6:34 AM EDT) [place] Level 0.8 0.6 - 1.2 mEq/L LAB CHEMISTRY METHOD 06/20/2024 7:55 AM EDT [facility] ([facility]) [facility] Blood Venous blood specimen / Unknown 06/20/2024 6:34 AM EDT 06/20/2024 7:02 AM EDT us Diogo Hanson MD LAB BLOOD ORDERABLES Final Resul t [facility] ([facility]) H[facility]PITAL LAB [address] [place] [address], documented in this encounter Visit Diagnoses Diagnosis Dementia in other diseases classified elsewhere, unspecified severity, with psychotic disturbance (CMS/HCC V24, CMS/HCC V28) documented in this encounter Care Teams Invasive Cardiovascular Technologist Relationship Specialty Start Date End Date Diogo Hanson MD [address] [facility] [address] [place], [place] PCP - General Internal Medicine 05/26/24 documented as of this encounter
--- OUTSIDE RECORDS SUMMARY | 2024-08-08 15:27 | XMS_ITS | Encounter Summary ---
Author Organization [facility] Address [address] [place] [address] Care Team Providers Care Senior Trial Attorney Name Role Phone Diogo Hanson MD Primary Care Provider [phone] Encounter Details Date Type Department Care Team (Late st Contact Info) Description 06/14/2024 Lab Requisition [facility] [place] [facility] Lab [address] [facility] [email or web address] [address] Diogo Hanson MD [address] [place] [address] [address] TRINITY Cardenas Unspecified atrial fibrillation (CMS/HCC V24, CMS/HCC V28) Social History Tobacco [...] Procedure Name Priority Date/Time Associated Diagnosis Comments BASIC METABOLIC PANEL Routine 06/14/2024 6:48 AM EDT Unspecified atrial fibrillation (CMS/HCC) documented in this encounter Results * (ABNORMAL) Basic metabolic panel (06/14/2024 6:48 AM EDT) Sodium 135 133 - 145 mmol/L LAB CHEMISTRY METHOD 06/14/2024 7:55 AM EDT [facility] Potassium 4.4 3.5 - 5.5 mmol/L LAB CHEMISTRY METHOD 06/14/2024 7:55 AM EDT [facility] LAB Chloride 103 96 - 110 mmol/L LAB CHEMISTRY METHOD 06/14/2024 7:55 AM [facility] CO2 24 21 - 32 mmol/L LAB CHEMISTRY METHOD 06/14/2024 7:55 AM [facility] Anion Gap 8 3 - 11 LAB CHEMISTRY METHOD 06/14/2024 7:55 AM [facility] Glucose 108(H) 70 - 100 mg/dL LAB CHEMISTRY METHOD 06/14/2024 7:55 AM [facility] BUN 11 5 - 25 mg/dL LAB CHEMISTRY METHOD 06/14/2024 7:55 AM [facility] Creatinine 0.72 0.70 - 1.30 mg/dL LAB CHEMISTRY METHOD 06/14/2024 7:55 AM [facility] LAB eGFR 92 >=60 mL/min/1. 73m2 LAB CHEMISTRY METHOD 06/14/2024 7:55 AM [facility] LAB Comment:Calculation based on the??Chronic Kidney Disease Epidemiology Collaboration (CKD-EPI) equation refit??without adjustment for race. BUN/Creatinine Ratio 15.3 LAB CHEMISTRY METHOD 06/14/2024 7:55 AM [facility] Calcium 9.2 8.5 - 10.5 mg/dL LAB CHEMISTRY METHOD 06/14/2024 7:55 AM [facility] Blood Venous blood specimen / Unknown 06/14/2024 6:48 AM EDT 06/14/2024 7:31 AM EDT us Diogo Hanson MD LAB BLOOD ORDERABLES Final Resul t [facility] [address] [place] [address], documented in this encounter Visit Diagnoses Diagnosis Unspecified atrial fibrillation (CMS/HCC V24, CMS/HCC V28) documented in this encounter Care Teams Senior Trial Attorney Relationship Specialty Start Date End Date Diogo Hanson MD [address] [place] [address] [address] [facility] [place], [place] PCP - General Internal Medicine 05/26/24 documented as of this encounter
--- OUTSIDE RECORDS SUMMARY | 2024-08-08 15:27 | XMS_ITS | Encounter Summary ---
Author Organization [facility] Address [address] [place] [address] Care Team Providers Care Shank Sander Name Role Phone Diogo Hanson MD Primary Care Provider [phone] Encounter Details Date Type Department Care Team (Late st Contact Info) Description 07/06/2024 Lab Requisition [facility] Lab [address] [facility] [employer] [place] [address] Diogo Hanson MD [address] [place] [address] Dr [address] TRINITY Cardenas Unspecified atrial [...] Procedure Name Priority Date/Time Associated Diagnosis Comments COMPREHENSIVE METABOLIC PANEL Routine 07/06/2024 6:57 AM EDT Unspecified atrial fibrillation (CMS/HCC V24, CMS/HCC V28) documented in this encounter Results * (ABNORMAL) Comprehensive metabolic panel (07/06/2024 6:57 AM EDT) Sodium 135 133 - 145 mmol/L LAB CHEMISTRY METHOD 07/06/2024 8:22 AM EDT [facility] Potassium 4.1 3.5 - 5.5 mmol/L LAB CHEMISTRY METHOD 07/06/2024 8:22 AM EDT [facility] Chloride 103 96 - 110 mmol/L LAB CHEMISTRY METHOD 07/06/2024 8:[address] [facility] CO2 26 21 - 32 mmol/L LAB CHEMISTRY METHOD 07/06/2024 8:[address] [facility] Anion Gap 6 3 - 11 LAB CHEMISTRY METHOD 07/06/2024 8:[address] [facility] Glucose 102(H) 70 - 100 mg/dL LAB CHEMISTRY METHOD 07/06/2024 8:[address] [facility] BUN 11 5 - 25 mg/dL LAB CHEMISTRY METHOD 07/06/2024 8:[address] [facility] Creatinine 0.91 0.70 - 1.30 mg/dL LAB CHEMISTRY METHOD 07/06/2024 8:[address] [facility] eGFR 85 >=60 mL/min/1. 73m2 LAB CHEMISTRY METHOD 07/06/2024 8:[address] [facility] LAB Comment:Calculation based on the??Chronic Kidney Disease Epidemiology Collaboration (CKD-EPI) equation refit??without adjustment for race. BUN/Creatinine Ratio 12.1 LAB CHEMISTRY METHOD 07/06/2024 8:[address] [facility] Calcium 9.3 8.5 - 10.5 mg/dL LAB CHEMISTRY METHOD 07/06/2024 8:[address] [facility] AST (SGOT) 12 10 - 42 unit/L LAB CHEMISTRY METHOD 07/06/2024 8:[address] [facility] ALT (SGPT) 13 10 - 60 unit/L LAB CHEMISTRY METHOD 07/06/2024 8:[address] [facility] Alkaline Phosphatase 90 42 - 121 unit/L LAB CHEMISTRY METHOD 07/06/2024 8:[address] [facility] Total Protein 7.8 6.0 - 8.0 g/dL LAB CHEMISTRY METHOD 07/06/2024 8:[address] [facility] Albumin 3.6 3.2 - 5.0 g/dL LAB CHEMISTRY METHOD 07/06/2024 8:[address] [facility] Total Bilirubin 0.5 0.0 - 1.4 mg/dL LAB CHEMISTRY METHOD 07/06/2024 8:22 AM EDT [facility] Blood Venous blood specimen / Unknown 07/06/2024 6:57 AM EDT 07/06/2024 7:29 AM EDT us Diogo Hanson MD LAB BLOOD ORDERABLES Final Resul t [facility] [address] [place] [address], documented in this encounter Visit Diagnoses Diagnosis Unspecified atrial fibrillation (CMS/HCC V24, CMS/HCC V28) documented in this encounter Care Teams Shank Sander Relationship Specialty Start Date End Date Diogo Hanson MD [address] [place] [address] Dr [address] [place], [place] PCP - General Internal Medicine 05/26/24 documented as of this encounter
--- OUTSIDE RECORDS SUMMARY | 2024-08-08 15:28 | XMS_ITS | Encounter Summary ---
Author Organization [facility] Address [address] [place] [address] Care Team Providers Care Priming Mixture Carrier Name Role Phone Diogo Hanson MD Primary Care Provider [phone] Encounter Details Date Type Department Care Team (Late st Contact Info) Description 02/03/2024 Lab Requisition [facility] Lab [address] [facility] [place] [address] Diogo Hanson MD [address] [place] [address] Dr [address] TRINITY Cardenas Other residential (current) drug therapy Social History Tobacco Use [...] DIFFERENTIAL Routine 02/03/2024 6:15 AM EST Other terminal makeup operator (current) drug therapy CBC AND DIFFERENTIAL Routine 02/03/2024 6:15 AM EST Other residential (current) drug therapy documented in this encounter Results * (ABNORMAL) CBC auto differential (02/03/2024 6:15 AM EST) WBC 7.9 4.8 - 10.8 K/mcL LAB HEMETOLOGY METHOD 02/03/2024 9:33 AM EST [facility] RBC 4.00(L) 4.50 - 5.50 M/mcL LAB HEMETOLOGY METHOD 02/03/2024 9:33 AM EST [facility] Hemoglobin 12.2(L) 13.5 - 17.5 g/dL LAB HEMETOLOGY METHOD 02/03/2024 9:33 AM [facility] Hematocrit 38.1(L) 42.0 - 54.0 % LAB HEMETOLOGY METHOD 02/03/2024 9:33 AM [facility] MCV 95.3 79.0 - 98.0 FL LAB HEMETOLOGY METHOD 02/03/2024 9:33 AM [facility] MCH 30.5 27.0 - 32.0 pcg LAB HEMETOLOGY METHOD 02/03/2024 9:33 AM [facility] MCHC 32.0 32.0 - 37.0 g/dL LAB HEMETOLOGY METHOD 02/03/2024 9:33 AM [facility] RDW 15.5(H) 11.0 - 15.0 % LAB HEMETOLOGY METHOD 02/03/2024 9:33 AM [facility] Platelets 215 130 - 400 K/mcL LAB HEMETOLOGY METHOD 02/03/2024 9:33 AM [facility] MPV 10.3 7.0 - 11.0 FL LAB HEMETOLOGY METHOD 02/03/2024 9:33 AM [facility] NRBC 0.0 <1.0 % LAB HEMETOLOGY METHOD 02/03/2024 9:33 AM [facility] NRBC Absolute 0.00 <0.10 K/mcL LAB HEMETOLOGY METHOD 02/03/2024 9:33 AM [facility] Neutrophils Relative 57.7 % LAB HEMETOLOGY METHOD 02/03/2024 9:33 AM [facility] Lymphocytes Relative 31.1 % LAB HEMETOLOGY METHOD 02/03/2024 9:33 AM [facility] Monocytes Relative 8.3 % LAB HEMETOLOGY METHOD 02/03/2024 9:33 AM [facility] Eosinophils Relative 2.0 % LAB HEMETOLOGY METHOD 02/03/2024 9:33 AM EST [facility] Basophils Relative 0.4 % LAB HEMETOLOGY METHOD 02/03/2024 9:33 AM [facility] Immature Granulocytes Relative 0.5 % LAB HEMETOLOGY METHOD 02/03/2024 9:33 AM [facility] Neutrophils Absolute 4.57 1.50 - 7.00 K/mcL LAB HEMETOLOGY METHOD 02/03/2024 9:33 AM EST [facility] Lymphocytes Absolute 2.47 1.00 - 5.00 K/mcL LAB HEMETOLOGY METHOD 02/03/2024 9:33 AM [facility] Monocytes Absolute 0.66 0.20 - 1.00 K/mcL LAB HEMETOLOGY METHOD 02/03/2024 9:33 AM [facility] Eosinophils Absolute 0.16 0.00 - 0.50 K/mcL LAB HEMETOLOGY METHOD 02/03/2024 9:33 AM EST [facility] Basophils Absolute 0.03 0.00 - 0.20 K/mcL LAB HEMETOLOGY METHOD 02/03/2024 9:33 AM EST [facility] Immature Granulocytes Absolute 0.04(H) 0.00 - 0.03 K/mcL LAB HEMETOLOGY METHOD 02/03/2024 9:33 AM EST [facility] Blood Venous blood specimen / Unknown 02/03/2024 6:15 AM EST 02/03/2024 8:42 AM EST us Diogo Hanson MD LAB BLOOD ORDERABLES Final Resul t [facility] [address] [place] [address], documented in this encounter Visit Diagnoses Diagnosis Other terminal makeup operator (current) drug therapy documented in this encounter Care Teams Priming Mixture Carrier Relationship Specialty Start Date End Date Diogo Hanson MD [address] [place] [address] Dr [address] TRINITY Cardenas PCP - General Internal Medicine 05/26/24 documented as of this encounter
--- OUTSIDE RECORDS SUMMARY | 2024-08-08 15:28 | XMS_ITS | Clinical Summary ---
Author Organization 299 [facility] Address [address] [place] [address] Phone Care Team Providers Care Curber Name Role Phone Diogo Hanson MD Primary Care Provider [phone] Encounters Date Type Department Care Team Description 07/06/[address] [facility] Lab [address] [place] [phone] Diogo Hanson MD Unspecified atrial fibrillation ([facility] V24, CMS/HCC V28) 06/20/[address] [facility] Lab [address] [place] [phone] Diogo Hanson MD Dementia in other diseases classified elsewhere, unspecified severity, with psychotic disturbance (CMS/HCC V24, CMS/HCC V28) 06/14/[address] [facility] Lab [address] [place] [phone] Diogo Hanson MD Unspecified atrial fibrillation (CMS/HCC V24, CMS/HCC V28) 05/26/[address] [facility] Lab [address] [place] [address] Diogo Hanson MD Encounter for therapeutic drug level monitoring; Fatty (change of) liver, not elsewhere classified; Psychotic disorder with delusions due to known physiological condition from Last 3 Months Social History Tobacco [...] 2-dose series) 1946 COVID-19 Vaccine (#1) 1949 MMR Vaccines (1 of 2 - Risk 2-dose series) 1962 DTaP,Tdap,and Td Vaccines (1 - Tdap) 06/01/1963 Hepatitis A Vaccines (1 of 2 - Risk 2-dose series) 06/01/1963 Pneumococcal Vaccine: 50+ Years (1 of 2 - PCV) 06/01/1963 Zoster Vaccines (1 of 2) 06/01/1963 Hepatitis B Vaccines (1 of 3 - Risk 3-dose series) 2004 RSV Immunization Adult Patients (1 - 1-dose 75+ series) 06/01/2019 Depression Screening 02/23/2022 Falls Risk Assessment 02/23/2022 Medicare Annual Wellness Visit 02/23/2022 Social Influencers of Health Screening 02/23/2022 Influenza Vaccine (Season Ended) 2024 Cholesterol Screening (Lipid Panel) 03/02/2029 03/02/2024, 02/24/2024 HIB Vaccines Aged Out No longer eligi ble based on patient's age to complete this topic HPV Vaccines Aged Out No longer eligi ble based on patient's age to complete this topic IPV Vaccines Aged Out No longer eligi ble based on patient's age to complete this topic Meningococcal B Vaccine Aged Out No l onger eligible based on patient's age to complete [...] Unspecified atrial fibrillation (CMS/HCC V24, CMS/HCC V28) LITHIUM LEVEL Routine 06/20/2024 6:34 AM EDT Dementia in other diseases classified elsewhere, unspecified severity, with psychotic disturbance (CMS/HCC) BASIC METABOLIC PANEL Routine 06/14/2024 6:48 AM EDT Unspecified atrial fibrillation (CMS/HCC) AMMONIA Routine 05/26/2024 6:29 AM EST Encounter for therapeutic drug level monitoring Fatty (change of) liver, not elsewhere classified Psychotic disorder with delusions due to known physiological condition THYROID STIMULATING HORMONE Routine 05/26/2024 6:29 AM EST Encounter for therapeutic drug level monitoring Fatty (change of) liver, not elsewhere classified Psychotic disorder with delusions due to known physiological condition COMPLETE BLOOD COUNT Routine 05/26/2024 6:29 AM EST Encounter for therapeutic drug level monitoring Fatty (change of) liver, not elsewhere classified Psychotic disorder with delusions due to known physiological condition LITHIUM LEVEL Routine 05/26/2024 6:29 AM EST Encounter for therapeutic drug level monitoring Fatty (change of) liver, not elsewhere classified Psychotic disorder with delusions due to known physiological condition LIPID PANEL WITH REFLEX TO DIRECT LDL Routine 03/02/2024 6:49 AM EST Human immunodeficiency virus (HIV) disease (CMS/HCC) Unspecified atrial fibrillation (CMS/HCC) Other assisted (current) drug therapy from Last 3 Months or Most Recently Relevant to Health Maintenance Results * (ABNORMAL) Comprehensive metabolic panel (07/06/2024 6:57 AM EDT) Sodium 135 133 - 145 mmol/L LAB CHEMISTRY METHOD 07/06/2024 8:22 AM [facility] Potassium 4.1 3.5 - 5.5 mmol/L LAB CHEMISTRY METHOD 07/06/2024 8:22 AM [facility] Chloride 103 96 - 110 mmol/L LAB CHEMISTRY METHOD 07/06/2024 8:22 AM [facility] CO2 26 21 - 32 mmol/L LAB CHEMISTRY METHOD 07/06/2024 8:22 AM [facility] Anion Gap 6 3 - 11 LAB CHEMISTRY METHOD 07/06/2024 8:22 AM [facility] Glucose 102(H) 70 - 100 mg/dL LAB CHEMISTRY METHOD 07/06/2024 8:22 AM [facility] BUN 11 5 - 25 mg/dL LAB CHEMISTRY METHOD 07/06/2024 8:22 AM [facility] Creatinine 0.91 0.70 - 1.30 mg/dL LAB CHEMISTRY METHOD 07/06/2024 8:22 AM [facility] LAB eGFR 85 >=60 mL/min/1. 73m2 LAB CHEMISTRY METHOD 07/06/2024 8:22 AM [facility] LAB Comment:Calculation based on the??Chronic Kidney Disease Epidemiology Collaboration (CKD-EPI) equation refit??without adjustment for race. BUN/Creatinine Ratio 12.1 LAB CHEMISTRY METHOD 07/06/2024 8:22 AM [facility] Calcium 9.3 8.5 - 10.5 mg/dL LAB CHEMISTRY METHOD 07/06/2024 8:22 AM [facility] AST (SGOT) 12 10 - 42 unit/L LAB CHEMISTRY METHOD 07/06/2024 8:22 AM [facility] ALT (SGPT) 13 10 - 60 unit/L LAB CHEMISTRY METHOD 07/06/2024 8:22 AM [facility] Alkaline Phosphatase 90 42 - 121 unit/L LAB CHEMISTRY METHOD 07/06/2024 8:22 AM [facility] Total Protein 7.8 6.0 - 8.0 g/dL LAB CHEMISTRY METHOD 07/06/2024 8:22 AM [facility] Albumin 3.6 3.2 - 5.0 g/dL LAB CHEMISTRY METHOD 07/06/2024 8:22 AM [facility] Total Bilirubin 0.5 0.0 - 1.4 mg/dL LAB CHEMISTRY METHOD 07/06/2024 8:22 AM [facility] Blood Venous blood specimen / Unknown 07/06/2024 6:57 AM EDT 07/06/2024 7:29 AM EDT Diogo Hanson MD LAB BLOOD ORDERABLES Final Resul t Performing Organization Address City/State/[facility] de Phone Number [facility] LAB [address] [place] [address], [place] [phone] * Bala level (06/20/2024 6:34 AM EDT) Only the most recent of2 resultswithin the time period is included. Bala Level 0.8 0.6 - 1.2 mEq/L LAB CHEMISTRY METHOD 06/20/2024 7:55 AM EDT [facility] Blood Venous blood specimen / Unknown 06/20/2024 6:34 AM EDT 06/20/2024 7:02 AM EDT Diogo Hanson MD LAB BLOOD ORDERABLES Final Resul t Performing Organization Address [facility] de Phone Number [facility] [address] [place] [address], * (ABNORMAL) Basic metabolic panel (06/14/2024 6:48 AM EDT) Pathologist [facility] Sodium 135 133 - 145 mmol/L LAB CHEMISTRY METHOD 06/14/2024 7:55 AM [facility] Potassium 4.4 3.5 - 5.5 mmol/L LAB CHEMISTRY METHOD 06/14/2024 7:55 AM [facility] Chloride 103 96 - 110 mmol/L LAB CHEMISTRY METHOD 06/14/2024 7:55 AM [facility] CO2 24 21 - 32 mmol/L LAB CHEMISTRY METHOD 06/14/2024 7:55 AM [facility] Anion Gap 8 3 - 11 LAB CHEMISTRY METHOD 06/14/2024 7:55 AM [facility] Glucose 108(H) 70 - 100 mg/dL LAB CHEMISTRY METHOD 06/14/2024 7:55 AM [facility] BUN 11 5 - 25 mg/dL LAB CHEMISTRY METHOD 06/14/2024 7:55 AM EDT [facility] Creatinine 0.72 0.70 - 1.30 mg/dL LAB CHEMISTRY METHOD 06/14/2024 7:55 AM EDT [facility] LAB eGFR 92 >=60 mL/min/1. 73m2 LAB CHEMISTRY METHOD 06/14/2024 7:55 AM EDT [facility] LAB Comment:Calculation based on the??Chronic Kidney Disease Epidemiology Collaboration (CKD-EPI) equation refit??without adjustment for race. BUN/Creatinine Ratio 15.3 LAB CHEMISTRY METHOD 06/14/2024 7:55 AM T [facility] LAB Calcium 9.2 8.5 - 10.5 mg/dL LAB CHEMISTRY METHOD 06/14/2024 7:55 AM [facility] Blood Venous blood specimen / Unknown 06/14/2024 6:48 AM EDT 06/14/2024 7:31 AM EDT us Diogo Hanson MD LAB BLOOD ORDERABLES Final Resul t [facility] [address] [place] [address], * (ABNORMAL) Complete blood count (05/26/2024 6:29 AM EST) WBC 5.6 4.8 - 10.8 K/mcL LAB HEMETOLOGY METHOD 05/26/2024 7:51 AM [facility] LAB RBC 4.50 4.50 - 5.50 M/[facility] LAB HEMETOLOGY METHOD 05/26/2024 7:51 AM [facility] LAB Hemoglobin 13.3(L) 13.5 - 17.5 g/dL LAB HEMETOLOGY METHOD 05/26/2024 7:51 AM [facility] LAB Hematocrit 41.6(L) 42.0 - 54.0 % LAB HEMETOLOGY METHOD 05/26/2024 7:51 AM EST [facility] MCV 91.6 79.0 - 98.0 FL LAB HEMETOLOGY METHOD 05/26/2024 7:51 AM [facility] LAB MCH 29.3 27.0 - 32.0 pcg LAB HEMETOLOGY METHOD 05/26/2024 7:51 AM [facility] MCHC 32.0 32.0 - 37.0 g/dL LAB HEMETOLOGY METHOD 05/26/2024 7:51 AM [facility] LAB RDW 15.4(H) 11.0 - 15.0 % LAB HEMETOLOGY METHOD 05/26/2024 7:51 AM [facility] LAB Platelets 203 130 - 400 K/mcL LAB HEMETOLOGY METHOD 05/26/2024 7:51 AM [facility] LAB MPV 10.5 7.0 - 11.0 FL LAB HEMETOLOGY METHOD 05/26/2024 7:51 AM [facility] LAB NRBC 0.0 <1.0 % LAB HEMETOLOGY METHOD 05/26/2024 7:51 AM [facility] LAB NRBC Absolute 0.00 <0.10 K/mcL LAB HEMETOLOGY METHOD 05/26/2024 7:51 AM [facility] Blood Venous blood specimen / Unknown 05/26/2024 6:29 AM EST 05/26/2024 7:40 AM EST us Diogo Hanson MD LAB BLOOD ORDERABLES Final Resul t [facility] [address] [place] [address], * Thyroid stimulating hormone (05/26/2024 6:29 AM EST) TSH 1.67 0.40 - 4.00 mcIU/mL LAB CHEMISTRY METHOD 05/26/2024 8:23 AM [facility] LAB Blood Venous blood specimen / Unknown 05/26/2024 6:29 AM EST 05/26/2024 7:40 AM EST us Diogo Hanson MD LAB BLOOD ORDERABLES Final Resul t Performing Organization Address [facility]/ZIP Co de Phone Number [facility] [address] [place] [address], [place] [phone] * Ammonia (05/26/2024 6:29 AM EST) Pathologist [facility] Ammonia 19 11 - 35 mcmol/L LAB CHEMISTRY METHOD 05/26/2024 8:06 AM [facility] Blood Venous blood specimen / Unknown 05/26/2024 6:29 AM EST 05/26/2024 7:40 AM EST us Diogo Hanson MD LAB BLOOD ORDERABLES Final Resul t Performing Organization Address [facility] Co de Phone Number [facility] [address] [place] [address], [place] [phone] * (ABNORMAL) Lipid panel with reflex to direct LDL (03/02/2024 6:49 AM EST) Cholesterol 148 0 - 200 mg/dL LAB CHEMISTRY METHOD 03/02/2024 8:50 AM [facility] Triglycerides 150 0 - 150 mg/dL LAB CHEMISTRY METHOD 03/02/2024 8:50 AM EST [facility] HDL 36(L) >=40 mg/dL LAB CHEMISTRY METHOD 03/02/2024 8:50 AM EST [facility] LDL Calculated 82 0 - 100 mg/dL LAB CHEMISTRY METHOD 03/02/2024 8:50 AM [facility] VLDL Cholesterol Dillon 30 mg/dL LAB CHEMISTRY METHOD 03/02/2024 8:50 AM EST [facility] Non HDL Chol. (LDL+VLDL) 112 <145 mg/dL LAB CHEMISTRY METHOD 03/02/2024 8:50 AM EST [facility] ([facility] Chol/HDL Ratio 4.1 0.0 - 4.4 LAB CHEMISTRY METHOD 03/02/2024 8:50 AM EST [facility] ([facility] LAB Blood Venous blood specimen / Unknown 03/02/2024 6:49 AM EST 03/02/2024 7:32 AM EST us Diogo Hanson MD LAB BLOOD ORDERABLES Final Resul t [facility] ([facility]) [facility] [address] [place] [address], from Last 3 Months or Most Recently Relevant to Health Maintenance [place] [id number] Care Teams Curber Relationship Specialty Start Date End Date Diogo Hanson MD [address] [place] [address] [address] TRINITY Cardenas PCP - General Internal Medicine 05/26/24
--- OUTSIDE RECORDS SUMMARY | 2024-08-08 15:28 | XMS_ITS | Encounter Summary ---
Author Organization [facility] Address [address] [place] [address] Care Team Providers Care Interior Painter Name Role Phone Diogo Hanson MD Primary Care Provider [phone] Encounter Details Date Type Department Care Team (Late st Contact Info) Description 02/24/2024 Lab Requisition [facility] [address] [facility] [place] [address] Diogo Hanson MD [address] [place] [address] Dr [address] TRINITY Cardenas Vitamin D deficiency, unspecified; Unspecified atrial fibrillation (CMS/HCC V24, CMS/HCC V28); Dementia in other diseases classified elsewhere, unspecified severity, with psychotic disturbance (CMS/HCC V24, CMS/HCC V28); Deficiency of other vitamins Social History Tobacco [...] K/mcL LAB HEMETOLOGY METHOD 02/24/2024 12:54 PM [facility] RBC 4.20(L) 4.50 - 5.50 M/mcL LAB HEMETOLOGY METHOD 02/24/2024 12:54 PM [facility] LAB Hemoglobin 13.1(L) 13.5 - 17.5 g/dL LAB HEMETOLOGY METHOD 02/24/2024 12:54 PM [facility] LAB Hematocrit 40.0(L) 42.0 - 54.0 % LAB HEMETOLOGY METHOD 02/24/2024 12:54 PM [facility] LAB MCV 94.6 79.0 - 98.0 FL LAB HEMETOLOGY METHOD 02/24/2024 12:54 PM [facility] LAB MCH 31.0 27.0 - 32.0 pcg LAB HEMETOLOGY METHOD 02/24/2024 12:54 PM [facility] LAB MCHC 32.8 32.0 - 37.0 g/dL LAB HEMETOLOGY METHOD 02/24/2024 12:54 PM [facility] LAB RDW 15.2(H) 11.0 - 15.0 % LAB HEMETOLOGY METHOD 02/24/2024 12:54 PM [facility] LAB Platelets 237 130 - 400 K/mcL LAB HEMETOLOGY METHOD 02/24/2024 12:54 PM [facility] LAB MPV 9.8 7.0 - 11.0 FL LAB HEMETOLOGY METHOD 02/24/2024 12:54 PM [facility] LAB NRBC 0.0 <1.0 % LAB HEMETOLOGY METHOD 02/24/2024 12:54 PM [facility] NRBC Absolute 0.00 <0.10 K/mcL LAB HEMETOLOGY METHOD 02/24/2024 12:54 PM [facility] Neutrophils Relative 55.4 % LAB HEMETOLOGY METHOD 02/24/2024 12:54 PM [facility] Lymphocytes Relative 33.8 % LAB HEMETOLOGY METHOD 02/24/2024 12:54 PM [facility] Monocytes Relative 8.9 % LAB HEMETOLOGY METHOD 02/24/2024 12:54 PM [facility] Eosinophils Relative 1.2 % LAB HEMETOLOGY METHOD 02/24/2024 12:54 PM [facility] Basophils Relative 0.4 % LAB HEMETOLOGY METHOD 02/24/2024 12:54 PM [facility] Immature Granulocytes Relative 0.3 % LAB HEMETOLOGY METHOD 02/24/2024 12:54 PM [facility] Neutrophils Absolute 3.73 1.50 - 7.00 K/mcL LAB HEMETOLOGY METHOD 02/24/2024 12:54 PM EST [facility] Lymphocytes Absolute 2.28 1.00 - 5.00 K/mcL LAB HEMETOLOGY METHOD 02/24/2024 12:54 PM EST [facility] Monocytes Absolute 0.60 0.20 - 1.00 K/mcL LAB HEMETOLOGY METHOD 02/24/2024 12:54 PM [facility] Eosinophils Absolute 0.08 0.00 - 0.50 K/mcL LAB HEMETOLOGY METHOD 02/24/2024 12:54 PM EST [facility] Basophils Absolute 0.03 0.00 - 0.20 K/mcL LAB HEMETOLOGY METHOD 02/24/2024 12:54 PM [facility] Immature Granulocytes Absolute 0.02 0.00 - 0.03 K/mcL LAB HEMETOLOGY METHOD 02/24/2024 12:54 PM [facility] Blood Venous blood specimen / Unknown 02/24/2024 7:35 AM EST 02/24/2024 8:41 AM EST us Diogo Hanson MD LAB BLOOD ORDERABLES Final Resul t Performing Organization Address City/[facility]/ZIP Co de Phone Number [facility] [address] [place] [address], [place] [phone] * Vitamin D 25 hydroxy (02/24/2024 7:35 AM EST) Vit D, 25-Hydroxy 35.1 30.0 - 80.0 ng/mL LAB CHEMISTRY METHOD 02/24/2024 2:36 PM EST [facility] Blood Venous blood specimen / Unknown 02/24/2024 7:35 AM EST 02/24/2024 8:41 AM EST us Diogo Hanson MD LAB BLOOD ORDERABLES Edited Resu lt - Final [facility] [address] [place] [address], [place] [phone] * Hemoglobin A1c (02/24/2024 7:35 AM EST) Pathologist [facility] Hemoglobin A1C 5.9 <6.5 % LAB CHEMISTRY METHOD 02/24/2024 2:17 PM EST [facility] Mean Bld Glu Estim. 123 mg/dL LAB CHEMISTRY METHOD 02/24/2024 2:17 PM EST [facility] Blood Venous blood specimen / Unknown 02/24/2024 7:35 AM EST 02/24/2024 8:41 AM EST us Diogo Hanson MD LAB BLOOD ORDERABLES Final Resul t Performing Organization Address [facility] Co de Phone Number [facility] [address] [place] [address], [place] [phone] * Ammonia (02/24/2024 7:35 AM EST) [facility] Ammonia 13 11 - 35 mcmol/L LAB CHEMISTRY METHOD 02/24/2024 9:10 AM EST [facility] Blood Venous blood specimen / Unknown 02/24/2024 7:35 AM EST 02/24/2024 8:41 AM EST us Diogo Hanson MD LAB BLOOD ORDERABLES Final Resul t Performing Organization Address City/[facility]/ZIP Co de Phone Number [facility] [address] [place] [address], [place] [phone] * (ABNORMAL) Lipid panel with reflex to direct LDL (02/24/2024 7:35 AM EST) [facility] Cholesterol 146 0 - 200 mg/dL LAB CHEMISTRY METHOD 02/24/2024 2:46 PM [facility] Triglycerides 103 0 - 150 mg/dL LAB CHEMISTRY METHOD 02/24/2024 2:46 PM EST [facility] HDL 39(L) >=40 mg/dL LAB CHEMISTRY METHOD 02/24/2024 2:46 PM EST [facility] LDL Calculated 86 0 - 100 mg/dL LAB CHEMISTRY METHOD 02/24/2024 2:46 PM EST [facility] VLDL Cholesterol Dillon 20.6 mg/dL LAB CHEMISTRY METHOD 02/24/2024 2:46 PM EST [facility] Non HDL Chol. (LDL+VLDL) 107 <145 mg/dL LAB CHEMISTRY METHOD 02/24/2024 2:46 PM EST [facility] Chol/HDL Ratio 3.7 0.0 - 4.4 LAB CHEMISTRY METHOD 02/24/2024 2:46 PM [facility] LAB Blood Venous blood specimen / Unknown 02/24/2024 7:35 AM EST 02/24/2024 8:41 AM EST us Diogo Hanson MD LAB BLOOD ORDERABLES Edited Resu lt - Final [facility] [address] [place] [address], [place] [phone] documented in this encounter Visit Diagnoses Diagnosis Vitamin D deficiency, unspecified Unspecified atrial fibrillation (CMS/HCC V24, CMS/HCC V28) Dementia in other diseases classified elsewhere, unspecified severity, with psychotic disturbance (CMS/HCC V24, CMS/HCC V28) Deficiency of other vitamins documented in this encounter Care Teams Interior Painter Relationship Specialty Start Date End Date Diogo Hanson MD [address] [place] [address] [address] [place] [address] [place] PCP - General Internal Medicine 05/26/24 documented as of this encounter
--- OUTSIDE RECORDS SUMMARY | 2024-08-08 15:28 | XMS_ITS | Encounter Summary ---
[facility] Address [address] [place] [address] Care Team Providers Care Plastics Plater Name Role Phone Diogo Hanson MD Primary Care Provider [phone] Encounter Details Date Type Department Care Team (Late st Contact Info) Description 03/24/2024 Lab Requisition [facility] Lab [address] [place] [address] Diogo Hanson MD [address] [place] [address] [address] TRINITY Cardenas Elevated prostate specific antigen (PSA); Encounter for screening for malignant neoplasm of prostate; Unspecified atrial fibrillation (CMS/HCC V24, CMS/HCC V28) [...] LAB CHEMISTRY METHOD 03/24/2024 8:06 AM EST [facility] ([facility] Blood Venous blood specimen / Unknown 03/24/2024 6:48 AM EST 03/24/2024 7:19 AM EST [facility] LAB - 03/24/2024 8:06 AM EST The Siemens Advia Centaur Chemiluminescent Immunoassay is used. Results obtained with different assay methods or kits cannot be used interchangeably. Results cannot be interpreted as absolute evidence of the presence or absence of malignant disease. us Diogo Hanson MD LAB BLOOD ORDERABLES Final Resul t [facility] [address] [place] [address], [place] [phone] * (ABNORMAL) Comprehensive metabolic panel (03/24/2024 6:48 AM EST) Sodium 134 133 - 145 mmol/L LAB CHEMISTRY METHOD 03/26/2024 7:48 AM [facility] Potassium 4.0 3.5 - 5.5 mmol/L LAB CHEMISTRY METHOD 03/26/2024 7:48 AM [facility] Chloride 105 96 - 110 mmol/L LAB CHEMISTRY METHOD 03/26/2024 7:48 AM [facility] CO2 22 21 - 32 mmol/L LAB CHEMISTRY METHOD 03/26/2024 7:48 AM [facility] Anion Gap 7 3 - 11 LAB CHEMISTRY METHOD 03/26/2024 7:48 AM [facility] Glucose 142(H) 70 - 100 mg/dL LAB CHEMISTRY METHOD 03/26/2024 7:48 AM [facility] BUN 11 5 - 25 mg/dL LAB CHEMISTRY METHOD 03/26/2024 7:48 AM [facility] Creatinine 1.00 0.70 - 1.30 mg/dL LAB CHEMISTRY METHOD 03/26/2024 7:48 AM [facility] LAB eGFR 77 >=60 mL/min/1. 73m2 LAB CHEMISTRY METHOD 03/26/2024 7:48 AM [facility] LAB Comment:Calculation based on the??Chronic Kidney Disease Epidemiology Collaboration (CKD-EPI) equation refit??without adjustment for race. BUN/Creatinine Ratio 11.0 LAB CHEMISTRY METHOD 03/26/2024 7:48 AM [facility] Calcium 9.0 8.5 - 10.5 mg/dL LAB CHEMISTRY METHOD 03/26/2024 7:48 AM [facility] AST (SGOT) 10 10 - 42 unit/L LAB CHEMISTRY METHOD 03/26/2024 7:48 AM [facility] ALT (SGPT) 11 10 - 60 unit/L LAB CHEMISTRY METHOD 03/26/2024 7:48 AM [facility] Alkaline Phosphatase 145(H) 42 - 121 unit/L LAB CHEMISTRY METHOD 03/26/2024 7:48 AM [facility] Total Protein 7.5 6.0 - 8.0 g/dL LAB CHEMISTRY METHOD 03/26/2024 7:48 AM [facility] Albumin 3.8 3.2 - 5.0 g/dL LAB CHEMISTRY METHOD 03/26/2024 7:48 AM [facility] Total Bilirubin 0.4 0.0 - 1.4 mg/dL LAB CHEMISTRY METHOD 03/26/2024 7:48 AM [facility] Blood Venous blood specimen / Unknown 03/24/2024 6:48 AM EST 03/24/2024 7:19 AM EST us Diogo Hanson MD LAB BLOOD ORDERABLES Edited Resu lt - Final [facility] [address] [place] [address], documented in this encounter Visit Diagnoses Diagnosis Elevated prostate specific antigen (PSA) Encounter for screening for malignant neoplasm of prostate Unspecified atrial fibrillation (CMS/HCC V24, CMS/HCC V28) documented in this encounter Care Teams Plastics Plater Relationship Specialty Start Date End Date Diogo Hanson MD [address] [place] [address] [address] TRINITY Cardenas PCP - General Internal Medicine 05/26/24 documented as of this encounter
--- OUTSIDE RECORDS SUMMARY | 2024-08-08 15:28 | XMS_ITS | Patient Health Record ---
Author Organization [facility] Address [address] [place] [address] Care Team Providers Care Shafting Worker Name Role Phone Diogo Hanson Primary Care Provider Frederic Cobb Unavailable [phone] Reason For Referral No Information Medications Medication SIG (Take, Route, Frequency, Duration) Notes Start Date End Date Status Acetaminophen 325 MG 1 tablet as needed Orally every 4 hrs Active Tamsulosin HCl 0.4 MG Oral for 30 Active Perphenazine 4 MG Oral for 30 Active Finasteride 5 MG Oral for 30 A ctive Propranolol HCl 20 MG Oral for 30 Active Fleet Enema - as directed Rectal Active [place] Carbonate 300 MG Oral for 30 Active [...] Active Lotrimin AF 2 % 1 application Relations Director ally Twice a day for 14 day(s) Active Social History Tobacco Use: Social History Observation Description Date Details (start date - stop date) Never Smoker NA - NA Tobacco Use/Smoking Question Answer Notes Patient is a nonsmoker Alcohol Screen Question Answer Notes Did you have a drink containing alcohol in the p ast year? 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) Active confirmed Plan Of Treatment Future Test Test Name Order Date COLONOSCOPY 04/23/2021 COLONOSCOPY 06/16/2021 Insurance Providers Payer Name Payer Address Payer Phone Subscriber Number Group Number Insured Name Patient Relationship to Insured Coverage Start Date Coverage End Date MEDICARE OF [place] [address] [place] [address] [id number] DAMON IVLLEDA Self - patient is the insured [address] [address] DAMON VILLEDA Self - patient is the insured Medical (General) History Medical History History ICD Code COPD HIV(Reported) CYST OF KIDNEY ABNORMALITIES OF GAIT AND MOBILITY ATRIAL FIBRILLATION REPORTED DEMENTIA GERD CONSTIPATION URINARY INCONTINENCE PSYCHOTIC DISORDER Denies MD,DM,CVA,renal disease
--- OUTSIDE RECORDS SUMMARY | 2024-08-08 15:28 | XMS_ITS | Encounter Summary ---
Author Organization [facility] Address [address] [place] [address] Care Team Providers Care Industrial Millwright Name Role Phone Diogo Hanson MD Primary Care Provider [phone] Encounter Details Date Type Department Care Team (Latest Contact Info) Description 03/02/2024 Lab Requisition [facility] - Main Lab [address] [facility] [place] [address] Diogo Hanson MD [address] [place] [address] [address] TRINITY Cardenas Other longterm (current) drug therapy; Human immunodeficiency virus (HIV) disease (CMS/HCC V24, CMS/HCC V28); Unspecified atrial fibrillation (CMS/HCC V24, CMS/HCC V28) [...] disease (CMS/HCC) Unspecified atrial fibrillation (CMS/HCC) Other director long term care (current) drug therapy VITAMIN D 25 HYDROXY Routine 03/02/2024 6:49 AM EST Human immunodeficiency virus (HIV) disease (CMS/HCC) Unspecified atrial fibrillation (CMS/HCC) Other longterm (current) drug therapy HEMOGLOBIN A1C Routine 03/02/2024 6:49 AM EST Human immunodeficiency virus (HIV) disease (CMS/HCC) Unspecified atrial fibrillation (CMS/HCC) Other longterm (current) drug therapy documented in this encounter Results * (ABNORMAL) Lipid panel with reflex to direct LDL (03/02/2024 6:49 AM EST) Cholesterol 148 0 - 200 mg/dL LAB CHEMISTRY METHOD 03/02/2024 8:50 AM EST [facility] Triglycerides 150 0 - 150 mg/dL LAB CHEMISTRY METHOD 03/02/2024 8:50 AM [facility] HDL 36(L) >=40 mg/dL LAB CHEMISTRY METHOD 03/02/2024 8:50 AM EST [facility] LDL Calculated 82 0 - 100 mg/dL LAB CHEMISTRY METHOD 03/02/2024 8:50 AM [facility] VLDL Cholesterol Dillon 30 mg/dL LAB CHEMISTRY METHOD 03/02/2024 8:50 AM [facility] Non HDL Chol. (LDL+VLDL) 112 <145 mg/dL LAB CHEMISTRY METHOD 03/02/2024 8:50 AM [facility] Chol/HDL Ratio 4.1 0.0 - 4.4 LAB CHEMISTRY METHOD 03/02/2024 8:50 AM [facility] Blood Venous blood specimen / Unknown 03/02/2024 6:49 AM EST 03/02/2024 7:32 AM EST us Diogo Hanson MD LAB BLOOD ORDERABLES Final Resul t [facility] [address] [place] [address], * (ABNORMAL) Vitamin D 25 hydroxy (03/02/2024 6:49 AM EST) Vit D, 25-Hydroxy 27.6(L) 30.0 - 80.0 ng/mL LAB CHEMISTRY METHOD 03/02/2024 10:13 AM EST [facility] Blood Venous blood specimen / Unknown 03/02/2024 6:49 AM EST 03/02/2024 7:32 AM EST us Diogo Hanson MD LAB BLOOD ORDERABLES Final Resul t Performing Organization Address City/[facility]/ZIP Co de Phone Number [facility] [address] [place] [address], [place] [phone] * (ABNORMAL) Hemoglobin A1c (03/02/2024 6:49 AM EST) Hemoglobin A1C 6.8(H) <6.5 % LAB CHEMISTRY METHOD 03/02/2024 11:25 AM EST [facility] Mean Bld Glu Estim. 148 mg/dL LAB CHEMISTRY METHOD 03/02/2024 11:25 AM EST [facility] Blood Venous blood specimen / Unknown 03/02/2024 6:49 AM EST 03/02/2024 7:32 AM EST us Diogo Hanson MD LAB BLOOD ORDERABLES Final Resul t Performing Organization Address [facility]/ZIP Co de Phone Number [facility] [address] [place] [address], [place] [phone] documented in this encounter Visit Diagnoses Diagnosis Other longterm (current) drug therapy Human immunodeficiency virus (HIV) disease (CMS/HCC V24, [facility] V28) Human immunodeficiency virus [HIV] disease Unspecified atrial fibrillation (CMS/HCC V24, [facility]/HCC V28) documented in this encounter Care Teams Industrial Millwright Relationship Specialty Start Date End Date Diogo Hanson MD [address] [place] [address] [address] TRINITY Cardenas PCP - General Internal Medicine 05/26/24 documented as of this encounter
--- OUTSIDE RECORDS SUMMARY | 2024-08-08 15:28 | XMS_ITS | Encounter Summary ---
Author Organization [facility] Address [address] [place] [address] Care Team Providers Care Obgyn Specialist Name Role Phone Diogo Hanson MD Primary Care Provider [phone] Encounter Details Date Type Department Care Team (Latest Contact Info) Description 02/01/2024 Lab Requisition [facility] - Main Lab [address] [facility] [place] [address] Diogo Hanson MD [address] [place] [address] [address] TRINITY Cardenas Human immunodeficiency virus (HIV) disease (CMS/HCC V24, CMS/HCC V28) Social History Tobacco [...] disease (CMS/HCC) LYMPHOCYTE T-CELL PANEL Routine 02/01/20 5:31 AM EST Human immunodeficiency virus (HIV) [...] and particle agglutination (02/01/2024 5:31 AM EST) [facility] T. Pallidum Antibodies Negative Negative LAB CHEMISTRY METHOD 02/01/2024 10:17 AM EST [facility] Blood Venous blood specimen / Unknown 02/01/2024 5:31 AM EST 02/01/2024 9:25 AM EST us Diogo Hanson MD LAB BLOOD ORDERABLES Final Resul t Performing Organization Address City/[facility]/ZIP Co de Phone Number [facility] [address] [place] [address], [place] [phone] * Red tube (02/01/2024 5:31 AM EST) [facility] Extra Tube Hold for add-ons. 02/01/2024 11:01 AM EST [facility] Comment:Auto resulted. Blood Venous blood specimen / Unknown 02/01/2024 5:31 AM EST 02/01/2024 8:34 AM EST us Diogo Hanson MD LAB BLOOD ORDERABLES Final Resul t [facility] [address] [place] [address], [place] [phone] * HIV 1 molecular study quantitative (02/01/2024 5:31 AM EST) [facility] HIV-1 RNA Interpretation Not Detected Not Detected LAB MOLECULAR DIAGNOSTICS METHOD 02/02/2024 9:55 AM EST [facility] Blood Venous blood specimen / Unknown 02/01/2024 5:31 AM EST 02/01/2024 8:02 AM EST us Diogo Hanson MD LAB BLOOD ORDERABLES Final Resul t Performing Organization Address City/[facility]/ZIP Co de Phone Number [facility] [address] [place] [address], [place] [phone] * Alanine aminotransferase (02/01/2024 5:31 AM EST) ALT (SGPT) 11 10 - 60 unit/L LAB CHEMISTRY METHOD 02/01/2024 3:05 PM [facility] Blood Venous blood specimen / Unknown 02/01/2024 5:31 AM EST 02/01/2024 8:02 AM EST us Diogo Hanson MD LAB BLOOD ORDERABLES Final Resul t Performing Organization Address [facility]/ZIP Co de Phone Number [facility] [address] [place] [address], [place] [phone] * Aspartate aminotransferase (02/01/2024 5:31 AM EST) AST (SGOT) 11 10 - 42 unit/L LAB CHEMISTRY METHOD 02/01/2024 3:05 PM EST [facility] Blood Venous blood specimen / Unknown 02/01/2024 5:31 AM EST 02/01/2024 8:02 AM EST us Diogo Hanson MD LAB BLOOD ORDERABLES Final Resul t Performing Organization Address City/[facility]/ZIP Co de Phone Number [facility] [address] [place] [address], [place] [phone] * Creatinine (02/01/2024 5:31 AM EST) Creatinine 1.06 0.70 - 1.30 mg/dL LAB CHEMISTRY METHOD 02/01/2024 3:05 PM EST [facility] eGFR 71 >=60 mL/min/1. 73m2 LAB CHEMISTRY METHOD 02/01/2024 3:05 PM EST [facility] Comment:Calculation based on the??Chronic Kidney Disease Epidemiology Collaboration (CKD-EPI) equation refit??without adjustment for race. Blood Venous blood specimen / Unknown 02/01/2024 5:31 AM EST 02/01/2024 8:02 AM EST us Diogo Hanson MD LAB BLOOD ORDERABLES Final Resul t [facility] [address] [place] [address], [place] [phone] * (ABNORMAL) Lymphocyte T-cell panel (02/01/2024 5:31 AM EST) CD4 1,034 426 - 1,776 cells/mcL 02/03/2024 3:38 PM EST [facility] CD8 1,077(H) 161 - 838 cells/mcL 02/03/2024 3:38 PM EST [facility] CD4/CD8 Ratio 0.96 0.90 - 4.90 02/03/2024 3:38 PM EST [facility] CD4 % 45 33 - 64 % 02/03/2024 3:38 PM EST [facility] CD8 % 47(H) 10 - 39 % 02/03/2024 3:38 PM EST [facility] Blood Venous blood specimen / Unknown 02/01/2024 5:31 AM EST 02/01/2024 8:02 AM EST us Diogo Hanson MD LAB MOLECULAR DIAGNOSTICS ORDERA BLES Final Result [facility] [address] [place] [address], [place] [phone] documented in this encounter Visit Diagnoses Diagnosis Human immunodeficiency virus (HIV) disease ([facility] V24, [facility] V28) Human immunodeficiency virus [HIV] disease documented in this encounter Care Teams Obgyn Specialist Relationship Specialty Start Date End Date Diogo Hanson MD [address] [place] [address] [address] TRINITY Cardenas PCP - General Internal Medicine 05/26/24 documented as of this encounter
--- OUTSIDE RECORDS SUMMARY | 2024-08-08 15:28 | XMS_ITS | Encounter Summary ---
Author Organization [facility] Address [address] [place] [address] Care Team Providers Care Narrow Gauge Engineer Name Role Phone Diogo Hanson MD Primary Care Provider [phone] Encounter Details Date Type Department Care Team (Late st Contact Info) Description 02/01/[address] [facility] - Main Lab [address] [facility] [place] [address] Diogo Hanson MD [address] [place] [address] [address] [place] [address] Social History Tobacco Use Types Packs/Day Years [...] Diagnoses Not on filedocumented in this encounter Care Teams Narrow Gauge Engineer Relationship Specialty Start Date End Date Diogo Hanson MD [address] [place] [address] Dr [address] [place], [place] PCP - General Internal Medicine 05/26/24 documented as of this encounter
--- OUTSIDE RECORDS SUMMARY | 2024-08-08 15:28 | XMS_ITS | Data Portability ---
Author Organization [facility], Main Office Address [address] [place] [address] Assessment Encounter Date Assessment Date Assessment LastModified by Organization Details LastModified Time 03/10/2023 03/10/2023 11 min. Pt at [facility] [place]. AUdio. MD in office [email or web address] Not available 03/10/2023 11:22:19 06/09/2023 06/09/2023 12 min. [place] at [facility] [place] AUdio. MD in office ; [address]uge[address] was with pt [email or web address] Not available 06/09/2023 09:18:35 10/09/2023 10/09/2023 14 min. Pt at [facility] [place]. PHONE/AUDIO. MD in office ; Suge[address] was with pt [email or web address] Not available 10/09/2023 09:30:43 01/08/2024 01/08/2024 16 min. Pt at [facility] [place]. PHONE/AUDIO. MD in office ; [facility] pt [email or web address] Not available 01/08/2024 09:53:26 06/29/2024 06/29/2024 19 min. Pt at [facility] [place]. PHONE/AUDIO. in office ; Sugey sloan [facility] helping [email or web address] Not available 06/29/2024 10:53:18 Plan of Treatment Reminders Order Date Submit Date Provider Last Modified By Organization Details Last Modified Time Details Appointments TH B20 F/U 2024 09:00A Ember Cook MD Not available Not available Not available Lab CBC w/ diff 2024 025 Not available 07/07/2024 10:48:43 ALT (alanin e aminotr ansfera se), serum or plasma 2024 025 Not available 07/07/2024 10:48:43 AST/SGO T (aspart ate aminotr ansfera se), serum or plasma 2024 025 Not available 07/07/2024 10:48:43 creatin ine w/ estimat ed GFR (eGFR), serum or plasma 2024 025 Not available 07/07/2024 10:48:43 HIV-1 RNA, quantit ative, PCR, serum or plasma 2024 025 Not available 07/07/2024 10:48:43 RPR (rapid plasma reagin) , serum 2024 025 Not available 07/07/2024 10:48:43 T-cell regulat ory subsets panel, blood 2024 025 Not available 07/07/2024 10:48:43 HIV 1 provira l DNA, QL, PCR, blood - ARCHIVE PRVIRAL HIV RESISTA NCE TEST NRTI/NN RTI/Int egrase 2024 025 Not available 07/07/2024 10:48:43 CBC w/ diff 2023 024 Not available 01/15/2024 09:26:10 ALT (alanin e aminotr ansfera se), serum or plasma 2023 024 Not available 01/15/2024 09:26:10 AST/SGO T (aspart ate aminotr ansfera se), serum or plasma 2023 024 Not available 01/15/2024 09:26:10 creatin ine w/ estimat ed GFR (eGFR), serum or plasma 2023 024 Not available 01/15/2024 09:26:10 HIV-1 RNA, quantit ative, PCR, serum or plasma 2023 024 Not available 01/15/2024 09:26:10 RPR (rapid plasma reagin) , serum 2023 024 Not available 01/15/2024 09:26:10 T-cell regulat ory subsets panel, blood 2023 024 Not available 01/15/2024 09:26:10 CBC w/ diff 2023 024 [email or web address] Not available 06/17/2023 13:26:56 ALT (alanin e aminotr ansfera se), serum or plasma 2023 024 CELESTE Not available 06/11/2023 19:58:30 AST/SGO T (aspart ate aminotr ansfera se), serum or plasma 2023 024 CELESTE Not available 06/11/2023 19:58:30 creatin ine w/ estimat ed GFR (eGFR), serum or plasma 2023 024 CELESTE Not available 06/11/2023 19:34:31 HIV-1 RNA, quantit ative, PCR, serum or plasma 2023 024 CELESTE Not available 06/12/2023 06:51:43 RPR (rapid plasma reagin) , serum 2023 024 [email or web address] Not available 06/17/2023 13:26:56 T-cell regulat ory subsets panel, blood 2023 024 [email or web address] Not available 06/17/2023 13:26:56 HBsAg (hepati tis B surface Ag), serum 2023 024 CELESTE Not available 06/11/2023 19:58:31 hepatit is C RNA, quant, PCR, serum 2023 024 Not available 06/17/2023 13:26:56 CT + NG DNA, PCR, unspeci fied specime n - urine 2023 024 [email or web address] Not available 06/17/2023 13:26:56 Referral None recorde d. Procedures None recorde d. Surgeries None recorde d. Imaging None recorde d. Medication Orders Dovato 50 mg-300 mg tablet 2024 025 [facility], [address] [facility], [facility] [address], [place], [address], 07/30/2024 13:58:15 Triumeq 600 mg-50 mg-300 mg tablet [address], [place], [address], 01/08/2024 09:52:46 Triumeq 600 mg-50 mg-300 mg tablet 2023 024 [facility] [address], [place], [address], 10/09/2023 10:55:41 Triumeq 600 mg-50 mg-300 mg tablet [address], [place], [address], 06/12/2023 11:47:47 Triumeq 600 mg-50 mg-300 mg tablet [address], [address], 03/10/2023 23:11:24 Patient TargetsNo targets recorded. Patient InstructionsNo instructions recorded. Reason for Referral None Reported. Results Created Date Observation Date Name Description Value Unit Range Abnormal Flag Note LastModifiedBy Organization Detail LastModifiedTime 06/11/1906/11/2023 CREAT ININE WITH GFR glomerular filtration rate 80 >60 This eGFR resul t was calcu lated using the CKD-E PI 2020 Creat inine Equat ion Not Available [facility] [address] [place] [address], [address], 06/11/2023 19:34:31 06/11/19 24 06/11/2023 CREAT ININE WITH GFR performing lab Perfor [facility], a [facility] r of [facility] [address] [facility] [place] [address] Medic al Direc nayaan lechuga MD Not Available [facility] [address] [place] [address], [address], 06/11/2023 19:34:31 06/11/19 24 06/11/2023 CREAT ININE WITH GFR creat 0.96 mg/dL 0.7-1. 3 Not Available [facility] [address] [place], [address], 06/11/2023 19:58:29 06/11/19 24 06/11/2023 CREAT ININE WITH GFR glomerular filtration rate 80 >60 This eGFR resul t was calcu lated using the CKD-E PI 2020 Creat inine Equat ion Not Available [facility] [address] [place] [address], [address], 06/11/2023 19:58:29 06/11/19 24 06/11/2023 SGOT SGOT 9 U/L 10-42 low Not Available [facility] [address] [place] [address], [address], 06/11/2023 19:58:30 06/11/19 24 06/11/2023 SGPT SGPT 16 U/L 10-60 Not Available [facility] [address] [place] [address], [address], 06/11/2023 19:58:30 06/11/19 24 06/11/2023 TREPO NEMAL AB treponemal Ab NEGATI VE negati ve Not Available [facility] [address] [place], [address], 06/11/2023 19:58:31 06/11/19 24 06/11/2023 HEPAT ITIS B SURFA CE ANTIG EN hepatitis B surface antigen NEGATI VE negati ve Over the count er suppl ement s conta ining high doses of bioti n may inter fere with this assay . If inter feren ce is suspe cted, patie nts shoud be retes valente after refra ining from bioti n suppl ement s for 72 hours . Not Available [facility] [address] [place] [address], [address], 06/11/2023 19:58:31 06/11/19 24 06/11/2023 HEPAT ITIS B SURFA CE ANTIG EN performing lab Perfor [facility] [address] [place] [address]. [place] [address] Medic al Direc nayana lechuga MD Not Available [facility] [address] [place] [address], [address], 06/11/2023 19:58:31 06/11/19 24 06/11/2023 HCV VIRAL LOAD HCV viral load qual NOT DETECT ED not detect . HCV RNA not detec valente, unabl e to repor t quant itati ve resul ts Not Available [facility] [address] [place] [address], [address], 06/12/2023 06:51:42 06/11/19 24 06/11/2023 HIV VIRAL LOAD HIV viral load quant < 20 <20 Not Available [facility] [address] [place] [address], [address], 06/12/2023 06:51:42 06/11/19 24 06/11/2023 HIV VIRAL LOAD HIV viral load log < 1.30 <1.30 Not Available [facility] [address] [place] [address], [address], 06/12/2023 06:51:42 06/11/19 24 06/12/2023 HIV VIRAL LOAD HIV viral load qual DETECT ED not detect . abnormal HIV RNA detec valente, but <20 copie s/mL Not Available [facility] [address] [place] [address], [address], 06/12/2023 06:51:42 06/11/19 24 06/12/2023 HIV VIRAL LOAD performing lab Perfor [facility]imbola Lab abnormal [facility], a [facility] of [facility] [address] [facility] [place] [address] Medic al Dire nayana lechuga MD Not Available [facility] [address] [place] [address], [address], 06/12/2023 06:51:42 06/11/19 24 06/18/2023 T4T8 PANEL percent cd3 83 Not Available [facility] [address] [place] [address], [address], 06/18/2023 09:46:43 06/11/19 24 06/18/2023 T4T8 PANEL absolute cd3 2830 cells /uL 690-25 40 high Not Available [facility] [address] [place] [address], [address], 06/18/2023 09:46:43 06/11/19 24 06/18/2023 T4T8 PANEL percent cd8 47 Not Available [facility] [address] [place] [address], [address], 06/18/2023 09:46:43 06/11/19 24 06/18/2023 T4T8 PANEL absolute cd8 1605 Not Available [facility] [address] [place] [address], [address], 06/18/2023 09:46:43 06/11/19 24 06/18/2023 T4T8 PANEL percent cd4 37 Not Available [facility] [address] [place] [address], [address], 06/18/2023 09:46:43 06/11/19 24 06/18/2023 T4T8 PANEL absolute cd4 1249 Not Available [facility] [address] [place] [address], [address], 06/18/2023 09:46:43 06/11/19 24 06/18/2023 T4T8 PANEL percent cd19 5.0 % 6-25 low Not Available [facility] [address] [place] [address], [address], 06/18/2023 09:46:43 06/11/19 24 06/18/2023 T4T8 PANEL absolute cd19 167 Not Available [facility] [address] [place], [address], 06/18/2023 09:46:43 06/11/1906/18/2023 T4T8 PANEL cd4 cd8 ratio 0.8 Not Available [facility] [address] [place], [address], 06/18/2023 09:46:43 06/11/1906/18/2023 T4T8 PANEL percent cd56 11.0 % 5-27 Not Available [facility] [address] [place], [address], 06/18/2023 09:46:43 06/11/1906/18/2023 T4T8 PANEL absolute cd56 372 cells /uL 90-590 Not Available [facility] [address] [place], [address], 06/18/2023 09:46:43 06/11/1906/11/2023 HCV VIRAL LOAD HCV viral load qual NOT DETECT ED not detect . HCV RNA not detec valente, unabl e to repor t quant itati ve resul ts Not Available [facility] [address] [place], [address], 06/18/2023 09:46:44 Result Notes None recorded. Problems Name Problem SNOMED Code Status Onset Date Resolution Date Notes Provider Name and Address Organization Details Recorded Time Cirrhosis of liver 11153225 Active 2013 Cirrhosis of liver without mention of alcohol; snomeddesc ription: Toxic cirrhosis; Report Immunity to Registry: Yes; Not Available [facility] 4 06:58:05 Chronic nonalcoho lic liver disease 17020244 Active 2014 Other chronic nonalcohol ic liver disease; snomeddesc ription: Steatohepa titis; Report Immunity to Registry: Yes; Notes: u/s 2012 fatty liver; Not Available [facility] 4 06:58:05 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; snomeddesc ription: Toxic cirrhosis; Report Immunity to Registry: Yes; Not Available [facility] 4 06:58:06 Type B viral hepatitis 69290944 Active 2016 Type B viral hepatitis; snomeddesc ription: Type B viral hepatitis; Report Immunity to Registry: Yes; Notes: HBV core ab pos; s ab pos; HBV vL nondetecte d 2016, 2017; 2018; Not Available [facility] 4 06:58:06 Chronic hepatitis C 615479982 Active 2012 Chronic hepatitis C without mention of hepatic coma; snomeddesc ription: Chronic hepatitis C; Report Immunity to Registry: Yes; Notes: f4 2014; g1a 2012 olysio and sovaldi 15 SVR; 2016 nondetecte d, 2018; Chronic hepatitis C; snomeddesc ription: Chronic hepatitis C; Report Immunity to Registry: Yes; Notes: f4 2013; g1a 2012 olysio and sovaldi 15 SVR; 2016 nondetecte d, 2017; 2018; Not Available [facility] 4 06:58:06 Viral hepatitis B without hepatic coma 845010037 Active 2016 Unspecifie d viral hepatitis B without hepatic coma; snomeddesc ription: Type B viral hepatitis; Report Immunity to Registry: Yes; Notes: HBV core ab pos; s ab pos; HBV vL nondetecte d 2016, 2017; 2018; Not Available [facility] 4 06:58:06 Human immunodef iciency virus infection 47894139 Active 2012 Human immunodefi ciency virus [HIV] disease; snomeddesc ription: Human immunodefi ciency virus infection; Report Immunity to Registry: Yes; Notes: [id number] neg 2015; Human immunodefi ciency virus infection; snomeddesc ription: Human immunodefi ciency virus infection; Report Immunity to Registry: Yes; Notes: [id number] neg 2015; Not Available [facility] 4 06:58:06 Steatohep atitis [id number] Active 2014 Steatohepa titis; snomeddesc ription: Steatohepa titis; Report Immunity to Registry: Yes; Notes: u/s 2012 fatty liver; Not Available [facility] 4 06:58:06 Problem Notes None recorded. Medical Equipment None Reported. Medications Name Sig Start Date Stop Date Status Note LastModified by Organization Details LastModified Time latanopros t 0.005 % eye drops active Not Available Not Available No t Available terazosin 5 mg capsule 5 MG Quantit y: 30; Duratio n: 30; 0 refill( s) 06/10 completed Duration : 30; VACCINE_ IND: no; Not Available Not Available Not Available metformin 500 mg tablet active Not Available Not Available Not Available oxcarbazep ine 150 mg tablet 150 mg tablet; Quantit y: 60; Duratio n: 30; 0 refill( s) active Not Available Not Available No t Available nystatin 100,000 unit/mL oral suspension 554118/ ML Quantit y: 135; Duratio n: 9; 0 refill( s) 05/10 completed Duration : 9; VACCINE_ IND: no; Not Available Not Available Not Available doxycyclin e hyclate 100 mg capsule 100 MG Quantit y: 20; Duratio n: 10; 0 refill( s) 06/06 completed Duration : 10; VACCINE_ IND: no; Not Available Not Available Not Available benztropin e 0.5 mg tablet MES 0.5 MG TAB; Quantit y: 30; Duratio n: 30; 0 refill( s) 06/29 completed Duration : 30; VACCINE_ IND: no; Not Available Not Available Not Available perphenazi ne 2 mg tablet 2 mg tablet; Quantit y: 60; Duratio n: 30; 0 refill( s) active Not Available Not Available No t Available Stool Softener 100 mg capsule sodium 100 mg Quantit y: ; 0 refill( s) 06/06 completed Frequenc y: tid; VACCINE_ IND: no; SU_FULL_ NAME: other; Not Available Not Available Not Available Zyprexa 10 mg tablet 10 mg Quantit y: ; 0 refill( s) 06/06 completed Frequenc y: qhs; VACCINE_ IND: no; SU_FULL_ NAME: other; Not Available Not Available Not Available lithium carbonate 150 mg capsule 150 MG Quantit y: 14; Duratio n: 14; 0 refill( s) active Not Available Not Available No t Available hydroxyzin e HCl 50 mg tablet HCl 50 mg tablet; Quantit y: 60; Duratio n: 30; 0 refill( s) 02/10 completed Duration : 30; VACCINE_ IND: no; Not Available Not Available Not Available oxcarbazep ine 300 mg tablet 300 mg tablet; Quantit y: 60; Duratio n: 30; 0 refill( s) active Not Available Not Available No t Available Aspir-Low 81 mg tablet,del ayed release 81 mg Quantit y: ; 0 refill( s) 06/06 completed Frequenc y: qd; VACCINE_ IND: no; SU_FULL_ NAME: other; Not Available Not Available Not Available divalproex 500 mg tablet,del ayed release SOD DR 500 MG TAB; Quantit y: 30; Duratio n: 30; 0 refill( s) 06/29 completed Duration : 30; VACCINE_ IND: no; Not Available Not Available Not Available risperidon e 3 mg tablet 3 mg Quantit y: ; 0 refill( s) 07/08 completed Frequenc y: bid; VACCINE_ IND: no; SU_FULL_ NAME: other; Not Available Not Available Not Available risperidon e 2 mg tablet 2 MG TABLET; Quantit y: 60; Duratio n: 30; 0 refill( s) 04/17 completed Duration : 30; VACCINE_ IND: no; Not Available Not Available Not Available propranolo l 10 mg tablet 10MG TAB; Quantit y: 30; Duratio n: 30; 0 refill( s) active Not Available Not Available No t Available Klonopin 0.5 mg tablet 0.5 mg Quantit y: ; 0 refill( s) 06/06 completed Frequenc y: bid; VACCINE_ IND: no; SU_FULL_ NAME: other; Not Available Not Available Not Available tamsulosin 0.4 mg capsule 0.4 MG Quantit y: 30; Duratio n: 30; 0 refill( s) 10/29 completed Duration : 30; VACCINE_ IND: no; Not Available Not Available Not Available lorazepam 2 mg tablet 2 MG TABLET; Quantit y: 30; Duratio n: 15; 0 refill( s) 06/29 completed Duration : 15; VACCINE_ IND: no; Not Available Not Available Not Available lithium carbonate 300 mg capsule 300.000 Quantit y: 30; Duratio n: 30; 0 refill( s) active Not Available Not Available No t Available oseltamivi r 75 mg capsule active Not Available Not Available Not Available perphenazi ne 4 mg tablet 4 mg tablet; Quantit y: 60; Duratio n: 30; 0 refill( s) active Not Available Not Available No t Available omeprazole 20 mg capsule,de layed release 20 MG Quantit y: 30; Duratio n: 30; 0 refill( s) active Not Available Not Available No t Available propranolo l 20 mg tablet 20 mg tablet; Quantit y: 60; Duratio n: 30; 0 refill( s) active Not Available Not Available No t Available perphenazi ne 8 mg tablet 8 mg tablet; Quantit y: 60; Duratio n: 30; 0 refill( s) active Not Available Not Available No t Available finasterid e 5 mg tablet 5 mg tablet; Quantit y: 30; Duratio n: 30; 0 refill( s) active Not Available Not Available No t Available lactulose 10 gram/15 mL oral solution 10.000 Quantit y: 473; Duratio n: 15; 0 refill( s) active Not Available Not Available No t Available senna Quantit y: ; 0 refill( s) 06/06 completed Frequenc y: qhs; VACCINE_ IND: no; SU_FULL_ NAME: PCP; Not Available Not Available Not Available Atripla 600 mg-200 mg-300 mg tablet TABLET; Quantit y: 30; Duratio n: 30; 0 refill( s) 04/17 completed Duration : 30; VACCINE_ IND: no; Not Available Not Available Not Available Natural Vitamin D 700 unit-400 unit capsule 400 intl units Quantit y: ; 0 refill( s) 2011 active Frequenc y: qd; VACCINE_ IND: no; SU_FULL_ NAME: other; Not Available Not Available Not Available Xarelto 10 mg tablet active Not Available Not Available No t Available Xarelto 20 mg tablet 20 mg tablet; Quantit y: 14; Duratio n: 14; 0 refill( s) active Not Available Not Available No t Available Myrbetriq 25 mg tablet,ext ended release 25 mg tablet, extende d release ; Quantit y: 14; Duratio n: 14; 0 refill( s) 06/10 completed Duration : 14; VACCINE_ IND: no; Not Available Not Available Not Available Myrbetriq 50 mg tablet,ext ended release 50MG TAB; Quantit y: 14; Duratio n: 14; 0 refill( s) active Not Available Not Available No t Available Olysio 150 mg capsule 150 mg Quantit y: ; 0 refill( s) 05/30 completed Frequenc y: qd; VACCINE_ IND: no; SU_FULL_ NAME: Brandon tena; Not Available Not Available Not Available Sovaldi 400 mg tablet 400 mg Quantit y: ; 0 refill( s) 05/30 completed Frequenc y: qd; VACCINE_ IND: no; SU_FULL_ NAME: Brandon tena; Not Available Not Available Not Available Triumeq 600 mg-50 mg-300 mg tablet TAQKE 1 TABLET BY MOUTH EVERY DAY active Not Available Not Available No t Available Dovato 50 mg-300 mg tablet Take 1 tablet every day by oral route, for B20. active Not Available Not Available No t Available Vitals None Recorded Social History None recorded. Functional Status None recorded. Mental Status None recorded. Family History Nothing Reported Notes:No known family histor y, Response Property: Yes; , Family history unknown, Response Property: Yes; Medical History No medical history recorded. Past Encounters Encounter ID Performer Location Encounter Start Date Encounter Closed Date Diagnosis/Indication Diagnosis SNOMED-CT Code Diagnosis ICD10 Code Diagnosis Note [id number] Brandon Cook MD Main Office [address] [place] [id number] 12/16/2022 10:40:57 12/16/2022 11:10:18 Human immunodeficiency virus infection 14039120 B20 HIV . Continue Triumeq 1 tab po qd. prefers to keep current regimen. Compliance addressed to prevent viral resistance , keep viral suppressio n, and prevent disease progressio n. [facility] nurse will fax labs results to office and med list. labs 01/2023 flu vaccine and RSV vaccine recommende d; COVID19 vaccine recommende d Plan of care reviewed. [id number] Brandon Cook MD Main Office [address] [place] [id number] 03/10/2023 09:21:06 03/10/2023 15:12:24 Human immunodeficiency virus infection 02395583 B20 HIV . Continue Triumeq 1 tab po qd. will keep current regimen. Compliance addressed to prevent viral resistance , keep viral suppressio n, and prevent disease progressio n. [facility] nurse will fax labs results to office and med list. U=U Plan of care reviewed. [id number] Brandon Cook MD Main Office [address] [place] [address] [id number] 06/09/2023 09:10:13 06/09/2023 10:02:03 Human immunodeficiency virus infection 22637088 B20 HIV . Continue Triumeq 1 tab po qd. will keep current regimen. Compliance addressed to prevent viral resistance , keep viral suppressio n, and prevent disease progressio n. [facility] nurse will fax labs results to office and med list. safe sex. Plan of care reviewed. [id number] rBandon Cook MD Main Office [address] [place] [address] [id number] 10/09/2023 08:59:43 10/09/2023 10:32:41 Human immunodeficiency virus infection 51214010 B20 HIV . Continue Triumeq 1 tab po qd. will keep current regimen. new regimens reviewed to include DOvato and long actinge agents. Compliance addressed to prevent viral resistance , keep viral suppressio n, and prevent disease progressio n. Plan of care reviewed. [id number] Brandon Cook MD Main Office [address] [place] [id number] 01/08/2024 09:04:42 01/08/2024 10:54:09 Human immunodeficiency virus infection 13795029 B20 HIV . Continue Triumeq 1 tab po qd. will keep current regimen. Nurse will call if ongoing difficulti es with getting meds, and alternativ e options will be considered such as Biktarvy, DOvato among other. n/aComplia nce addressed to prevent viral resistance , keep viral suppressio n, and prevent disease progressio n.labsflu, COVID19, prevnar and RSV vaccine reviewed and recommende d Plan of care reviewed. [id number] Brandon Cook MD [facility] [address] [facility] [phone] 06/29/2024 09:54:47 06/29/2024 11:10:41 Human immunodeficiency virus infection 10460009 B20 HIV .Hold Triumeq ; pharmacy inventory issue for months. pt has been off meds for at least 2 monthsSTAR T DOvato 1 tab po qd. SImilar to Triumeq without abacavir; no resistance test available, so limitation in chosing the regimen. another option could be biktarvy if ongoing issues.lab [facility] Nurse will call if ongoing difficulti es with getting meds, and alternativ e options will be considered . pharmacy availabili ty list would be helpfulres istance test will be ordered.Co mpliance addressed to prevent viral resistance , keep viral suppressio n, and prevent disease progressio n.labs Plan of care reviewed. Health Concerns Section Related Observation LastModified by Organization Detai ls LastModified Time None Recorded Concern Status LastModified by Organization Details LastModified Time None Recorded Advance Directives Directive None Recorded Payers Encounter Date Sequence Insurance Name Policy Number Policy Teixeira Covered Member ID Teixeira Member ID Guarantor Name 06/09/2023 [facility] Ras Jacobo [id number] Ras Jacobo 10/09/2023 1 [place] [employer] Ras Jacobo [id number] Ras Jacobo 01/08/2024 1 [place] [employer] Ras Jacobo [id number] Ras Jacobo 01/08/2024 2 [place] Ras Jacobo [id number] Ras Jacobo 06/29/20[facility] [id number] Ras Jacobo 06/29/2024 1 [place] Ras Jacobo [id number] Ras Jacobo Notes Date Note Type Note Provider Name and Address Organization Details Recorded Time 3 text/html Telemedicine visit. Patel Elias is w pt. [facility]f/u HIV.Triumeq 1 tab po qdmed list vagvqnsfgwdszuxwu63/2023 HIV VL nondtected;HCV VL nondetected; RPR NR; SGPT/SGOT; Creatinine; nl8 AW6=126; HIV VL nondetected08/2022 eGFR>603/2022 ALT/AST wnl; eGFR>60; nursing will send HIV VL and CD4 labs to office by fax.08/2021 HIV VL nondetected; YC0=331;not hospitalizedmed list reviewed.has not been sick since he was last seenno n/v/d. no abd pain; no diarrheano hospitalizationsnot sexually activevaccines uptodate w flu and COVID19; pending RSV Brandon Cook MD [address] [place] [address], [phone], TRINITY COOK MD [facility] 03/10/2023 11:22:50 4 text/html Telemedicine visit. Sugey is w pt. [facility]f/u HIV.Triumeq 1 tab po qdmed list ntlrzjjqmodchkioq26/2023 HIV VL nondtected;HCV VL nondetected; RPR NR; SGPT/SGOT; Creatinine; nl10/2022 KT3=905; HIV VL nondetected08/2022 eGFR>60/2022 ALT/AST wnl; eGFR>60; nursing will send HIV VL and CD4 labs to office by fax.08/2021 HIV VL nondetected; PF3=697;med list reviewed.no n/v/d. no abd pain; no diarrheano hospitalizationsnot sexually activevaccines uptodate w flu and COVID19; pending RSV dx w Afib; pacemaker. xarelto. Brandon Cook MD [address] [place] [address], [phone], TRINITY COOK MD [facility] 06/09/2023 09:20:48 4 text/html Telemedicine visit. Sugey is w pt. [facility]f/u HIV.Triumeq 1 tab po qdtolerates well.compliant05/2023 HIV VL nondetected; XJ1=9670; HCV VL nondetceted; HBVsag neg; treponemal ab neg; sLZH=9607/2023 HIV VL nondtected;HCV VL nondetected; RPR NR; SGPT/SGOT; Creatinine; nl10/2022 SM1=337; HIV VL nondetectedmed list reviewed.no n/v/d. no abd pain; no diarrheano hospitalizationsnot sexually active Brandon Cook MD [address] [place] [address], [phone], TRINITY COOK MD [facility] 10/09/2023 10:55:46 4 text/html Telemedicine visit. [facility]f/u HIV.Triumeq 1 tab po qdhas missed about 5 doses; pharmacy issues that does not have the med supply; it is happening with other clients, frequently and other medications per nursing report.tolerates well.no recent labshas not been recently sickcompliant05/2023 HIV VL nondetected; IA5=8596; HCV VL nondetceted; HBVsag neg; treponemal ab neg; nEVS=0514/2023 HIV VL nondtected;HCV VL nondetected; RPR NR; SGPT/SGOT; Creatinine; nl10/2022 ED8=628; HIV VL nondetectedno concerns.med list reviewed.no n/v/d. no abd pain; no diarrheano hospitalizationsnot sexually active Brandon Cook MD [address] [place] [address], [phone], TRINITY COOK MD [facility] 01/08/2024 10:03:21 5 text/html Telemedicine visit. [facility]f/u HIV.Triumeq 1 tab po qd; ; pharmacy issues that does not have the med supply; it is happening with other clients, frequently and other medications per nursing report. NO meds since Apr 26. it is on backorder.needs alternative tx; center is not certain of pharmacy inventory.no resistance testing available.no n/v/d. no abd pain; no diarrheano hospitalizationsnot sexually active 01/2024 HIV VL nondetected; CD4 66525 HIV VL nondetected; DA3=8206; HCV VL nondetceted; HBVsag neg; treponemal ab neg; nNLU=7566/2023 HIV VL nondtected;HCV VL nondetected; RPR NR; SGPT/SGOT; Creatinine; CR1=205; HIV VL nondetected Brandon Cook MD [address] [place] [address], [phone], TRINITY - BRANDON COOK MD [facility] 06/29/2024 10:56:39
[2024-08-08 15:35] LABS: INTERNATIONAL NORM RATIO 1.2 (0.9-1.1); Prothrombin Time 13.7 SEC (10.9-12.4)
[2024-08-08 15:48] LABS: Troponin-I High Sensitivity 10.9 ng/L (<3.5-35.0)
[2024-08-08 15:54] LABS: B Type Natriuretic Peptide 435 pg/mL (<100)
[2024-08-08 15:56] LABS: Alanine Aminotransferase 10 U/L (0-40); Albumin Level 4.2 g/dL (3.5-5.0); Anion Gap 13 (12-20); Aspartate Amino Transferase 25 U/L (5-37); Bilirubin Total 0.7 mg/dL (0.0-1.0); Blood Urea Nitrogen 18 mg/dL (9-16); Calcium 10.3 mg/dL (8.4-10.2); Carbon Dioxide 21 mmol/L (22-29); Chloride 108 mmol/L (96-108); Creatinine Clr Calc Pharmacy 61.1; Estimated Glomerular Filt Rate > 60; Glucose Random 102 mg/dL (60-115); Magnesium 1.9 mg/dL (1.6-2.6); Sodium 138 mmol/L (135-145)
[2024-08-08 16:02] LABS: Influenza A PCR NEGATIVE (Negative); Influenza B PCR NEGATIVE (Negative); Resp Syncy Virus RNA Qual PCR NEGATIVE (Negative); SARS COV2 PCR INHOUSE NEGATIVE (Negative)
[2024-08-08 16:26] LABS: Alkaline Phosphatase 68 U/L (39-117)
--- NOTE | 2024-08-08 16:44 | ED_ITS ---
HPI - General Adult General Chief complaint: Dyspnea Stated complaint: INCR SOB W/EXERTION FROM [facility] PER EMS Time Seen by Provider: 08/08/24 16:04 Source: patient and EMS Mode of arrival: EMS Limitations: other (Dementia) History of Present Illness ED Provider: SEN AMARO PA-C HPI narrative: 79-year-old male with past medical history significant for COPD, bradycardia, atrial flutter and atrial fibrillation with cardiac pacemaker, type 2 diabetes, diverticulitis, GERD, ETOH abuse presents to the ED today via EMS [facility] for [facility]. Per nursing staff, patient had brief episode of diaphoresis, dyspnea on exertion, and irregular heart beat , prompting them to send him to the ED for further evaluation. On arrival, patient well appearing. He tells me he had an episode of shortness of breath while exerting himself during an activity at [facility]. He has no complaints at present. Denies chest pain, palpitations, SOB, LE swelling/pain. History limited secondary to patient's dementia. Related Data Home Medications ?Medication ?Instructions ?Recorded ?Confirmed abacavir 600 mg-dolutegravir 50 1 tab PO DAILY@119908/16/20 04/19/24 mg-lamivudine 300 mg tablet lithium carbonate 300 mg capsule 300 mg PO BEDTIME 08/16/20 04/19/24 oxcarbazepine 150 mg tablet 150 mg PO BID 08/16/20 04/19/24 oxcarbazepine 300 mg tablet 300 mg PO BID 08/16/20 04/19/24 perphenazine 8 mg tablet 8 mg PO BID 08/16/20 04/19/24 propranolol 10 mg tablet 10 mg PO DAILY@1200 08/16/20 04/19/24 propranolol 20 mg tablet 20 mg PO BID 08/16/20 04/19/24 rivaroxaban 20 mg tablet 20 mg PO DAILY@1800 08/16/20 04/19/24 finasteride 5 mg tablet 5 mg PO DAILY 10/29/20 04/19/24 omeprazole 20 mg capsule,delayed 20 mg PO DAILY@1630 03/06/22 04/19/24 release lithium carbonate 150 mg capsule 150 mg PO DAILY 04/16/22 04/19/24 latanoprost 0.005 % eye drops 1 drp ophthalmic (eye) BEDTIME 11/10/22 04/19/24 acetaminophen 325 mg tablet 650 mg PO Q4H PRN Fever Or Pain 04/19/23 04/19/24 (Tylenol) bisacodyl 10 mg rectal suppository 10 mg NC DAILY PRN Constipation 04/19/23 04/19/24 calcium carbonate (Oyster Shell 500 mg PO BID 04/19/23 04/19/24 Calcium 500) cholecalciferol (vitamin D3) 10 10 mcg PO DAILY 04/19/23 04/19/24 mcg (400 unit) tablet (Vitamin D3) docusate sodium 100 mg capsule 200 mg PO DAILY 04/19/23 04/19/24 (Colace) lactulose 20 gram/30 mL oral 20 g PO DAILY 04/19/23 04/19/24 solution miconazole nitrate 2 % topical 1 spray topical BID 04/19/23 04/19/24 spray powder omeprazole 20 mg tablet,delayed 20 mg PO DAILY@0630 04/19/23 04/19/24 release sennosides 8.6 mg tablet (senna) 8.6 mg PO DAILY PRN Constipation 04/19/23 04/19/24 sodium phosphates 19 gram-7 118 ml NC DAILY PRN Constipation 04/19/23 04/19/24 gram/118 mL enema (Fleet Enema) Previous Rx's ?Medication ?Instructions ?Recorded mirabegron 50 mg tablet,extended 50 mg PO DAILY 90 days #90 tabs 04/16/22 release 24 hr (Myrbetriq) Allergies Allergy/AdvReac Type Severity Reaction Status Date / Time No Known Allergies Allergy Verified 08/08/24 15:02 [No Known Allergies*] Review of Systems 2 Review of Systems: Yes all other systems are reviewed and are negative [facility] Past Medical History Attestation statement: The following information was validated with the patient. Source: old records reviewed and nursing notes reviewed Medical History Chronic atrial fibrillation Persistent atrial fibrillation Ascending aortic aneurysm Psychotic disorder with hallucinations due to known physiological condition Unspecified urinary incontinence Constipation, unspecified Preglaucoma, unspecified, unspecified eye Acute stress reaction Ventricular premature depolarization Unspecified cataract Presbyopia Dementia in other diseases classified elsewhere with behavioral disturbance Atrial flutter Deficiency of other vitamins Other abnormalities of gait and mobility Muscular weakness Cyst of kidney, acquired Fatty (change of) liver, not elsewhere classified AAA (abdominal aortic aneurysm) without rupture Personal history of COVID-19 Low back pain Alcohol abuse HIV (human immunodeficiency virus infection) Resides in shelter care facility GERD (gastroesophageal reflux disease) COPD (chronic obstructive pulmonary disease) Right bundle branch block (RBBB) on electrocardiogram (ECG) CVA (cerebral vascular accident) Paroxysmal atrial fibrillation Urgency incontinence BPH loc w urin obs/LUTS Surgical History H/O colonoscopy Social History Social History Household Members: Other Housing: [facility] Housing Other:: [facility] Are you a primary animal care worker to a significant other at home: No Do you presently have visiting nurse or other home services: Yes ([facility]) Comment: COUNTS CORRECT Patient Tobacco Use Status: Former Tobacco user Advance Directives: No Advance Directives Information Provided: Yes Advance Directives Date on File: 07/19/21 Do you have a plan to hurt others: No Plan Physical Exam ED Vital Signs: Vital Signs - 24 hr 08/08/24 15:01 08/08/24 18:00 08/08/24 18:37 Temperature 97.5 F 97.3 F 97.2 F Pulse Rate 77 91 87 Respiratory Rate 18 31 H 14 Blood Pressure 101/69 164/107 H 144/103 H Pulse Oximetry 95 98 95 Oxygen Delivery Method Room Air Room Air Room Air BMI result Body Mass Index 19.6 vital signs stable, afebrile General: Well appearing, in no acute distress. Skin: Warm, dry, intact. No rashes or lesions. Head: Normocephalic, atraumatic. EENT: Hearing is intact b/l. Conjunctiva clear. Sclera is anicteric. PERRLA. EOM intact. Moist mucous membranes.? Neck: Supple without LAD. No JVD. Cardiac: Chest wall symmetric. Irregular rhythm Lungs: Normal respiratory effort without accessory muscle use. Diminished breath sounds throughout, no crackles. Abdomen: Soft, non-tender, non-distended. No rebound tenderness or guarding. Positive BS x4. Back: No midline spinous or paraspinal tenderness. No step off deformity. Ext: Upper and lower extremities atraumatic, without tenderness, deformity, swelling or erythema. No pitting edema to lower extremities. Neuro: alert, oriented to person/place. Normal speech. Ambulating with steady gait. Course Course Course Narrative: 1919 -- CBC without leukocytosis or left shift. normocytic anemia, h&h stable when compared to priors. chemistry without acute electrolyte abnormality requiring intervention. BUN mildly elevated at 18, normal creatinine. Ammonia WNL at 37. Normal liver function. Troponin WNL x2. BNP mildly elevated to 435. TSH WNL. Negative COVID, flu, RSV. Chest x-ray showing pulmonary edema. No evidence of infiltrate or consolidation to suggest pneumonia. EKG showing atrial fibrillation with a rate of 69 beats per minute, no acute ischemic changes or ST elevations. ddimer 321 - age adjusted D-dimer cutoff 400. PE unlikely. > sustaining 93-94% on room air during ambulatory O2 trial. Did not endorse feeling short of breath. Asymptomatic. > given patient resides at [facility], I did reach out to Dr. Hanson. findings consistent w/ mild CHF. Dr. Hanson advises discharge back to [facility] for further management. i feel this is reasonable. Medical Decision Making Medical Decision Making [facility] Narrative: 79-year-old male with past medical history significant for COPD, bradycardia, atrial flutter and atrial fibrillation with cardiac pacemaker, type 2 diabetes, diverticulitis, GERD, ETOH abuse presents to the ED today via EMS from [facility] for evaluation. Differential diagnosis includes viral syndrome, bronchitis, pneumonia, arrhythmia, ACS, pleural effusion, anemia, electrolyte abnormality Plan for labs, ekg, cxr, ambulatory O2, re-evaluation. Differential Diagnosis Differential Diagnoses: The differential diagnosis associated with the presentation includes as above. Admission/Observation consulted dr. hanson regarding care - recommending discharge back to [facility] for further management. patient does not meet criteria for admission. Consult Healthcare Provider Management of the patient was discussed with: Candy Separator Hard (dr. hanson) Lab Data [facility] Lab Attestation statement: I reviewed the patient's lab results. as above 08/08/24 15:19 08/08/24 15:19 Labs: Lab Results 08/08/24 08/08/24 08/08/24 Range/Units 15:19 17:32 17:38 WBC 7.2 (4.8-10.8) X10*3/uL RBC 4.52 L (4.60-5.80) X10*6/uL Hgb 13.5 L (14.0-18.0) g/dl Hct 40.0 L (42.0-52.0) % MCV 88.5 (80.0-98.0) fL MCH 29.9 (27.0-33.0) pg MCHC 33.8 (31.0-36.0) g/dl RDW 17.7 H (11.0-16.0) % Plt Count 178 (160-400) X10*3/uL MPV 9.8 (9.4-12.4) fL Immature Gran % (Auto) 0.3 (0.0-0.4) % Neut % (Auto) 75.0 H (45-73) % Lymph % (Auto) 17.3 L (20-40) % [place] % (Auto) 6.9 (2-11) % Eos % (Auto) 0.4 (0-4) % Baso % (Auto) 0.1 (0-2) % Lymph # (Auto) 1.3 (1.2-4.9) X10*3/uL [place] # (Auto) 0.5 (0.1-1.2) X10*3/uL Eos # (Auto) 0.0 (0.0-0.4) X10*3/uL Baso # (Auto) 0.0 (0.0-0.2) X10*3/uL Abs Immat Gran (auto) 0.02 (0.00-0.03) X10*3/uL Absolute Neuts (auto) 5.4 (2.0-8.3) x10*3/uL Absolute Nucleated RBC 0.000 (0.0-0.012) X10*3/uL Nucleated RBC % (auto) 0.0 (0.0-0.2) /100WBC PT 13.7 H (10.9-12.4) SEC INR 1.2 H (0.9-1.1) D-Dimer High Sensitivty 321 NG/ML VBG pH 7.43 (7.32-7.43) VBG pCO2 30 mmHg VBG pO2 84 mmHg VBG HCO3 20 L (22-26) mmol/L VBG O2 Saturation 98.0 % VBG Base Excess -2.8 mmol/L Sodium 138 (135-145) mmol/L Potassium 4.0 (3.3-5.1) mmol/L Chloride 108 (96-108) mmol/L Carbon Dioxide 21 L (22-29) mmol/L Anion Gap 13 (12-20) BUN 18 H (9-16) mg/dL Creatinine 1.05 (0.5-1.4) mg/dL Estim Creat Clear Calc 61.1 Estimated GFR > 60 Random Glucose 102 (60-115) mg/dL Calcium 10.3 H (8.4-10.2) mg/dL Magnesium 1.9 (1.6-2.6) mg/dL Total Bilirubin 0.7 (0.0-1.0) mg/dL AST 25 (5-37) U/L ALT 10 (0-40) U/L Alkaline Phosphatase 68 (39-117) U/L Ammonia 37 (13-55) umol/L Troponin I High Sens 10.9 D (<3.5-35.0) ng/L B-Natriuretic Peptide 435 H (<100) pg/mL Total Protein 8.0 (6.5-8.0) g/dL Albumin 4.2 (3.5-5.0) g/dL TSH 1.61 (0.32-4.0) uIU/mL Influenza Type A (PCR) NEGATIVE (Negative) Influenza Type B (PCR) NEGATIVE (Negative) RSV RNA Qual (PCR) NEGATIVE (Negative) SARS-CoV-2 RNA (RT-PCR) NEGATIVE (Negative) 08/08/24 Range/Units 18:42 WBC (4.8-10.8) X10*3/uL RBC (4.60-5.80) X10*6/uL Hgb (14.0-18.0) g/dl Hct (42.0-52.0) % MCV (80.0-98.0) fL MCH (27.0-33.0) pg MCHC (31.0-36.0) g/dl RDW (11.0-16.0) % Plt Count (160-400) X10*3/uL MPV (9.4-12.4) fL Immature Gran % (Auto) (0.0-0.4) % Neut % (Auto) (45-73) % Lymph % (Auto) (20-40) % [place] % (Auto) (2-11) % Eos % (Auto) (0-4) % Baso % (Auto) (0-2) % Lymph # (Auto) (1.2-4.9) X10*3/uL [place] # (Auto) (0.1-1.2) X10*3/uL Eos # (Auto) (0.0-0.4) X10*3/uL Baso # (Auto) (0.0-0.2) X10*3/uL Abs Immat Gran (auto) (0.00-0.03) X10*3/uL Absolute Neuts (auto) (2.0-8.3) x10*3/uL Absolute Nucleated RBC (0.0-0.012) X10*3/uL Nucleated RBC % (auto) (0.0-0.2) /100WBC PT (10.9-12.4) SEC INR (0.9-1.1) D-Dimer High Sensitivty NG/ML VBG pH (7.32-7.43) VBG pCO2 mmHg VBG pO2 mmHg VBG HCO3 (22-26) mmol/L VBG O2 Saturation % VBG Base Excess mmol/L Sodium (135-145) mmol/L Potassium (3.3-5.1) mmol/L Chloride (96-108) mmol/L Carbon Dioxide (22-29) mmol/L Anion Gap (12-20) BUN (9-16) mg/dL Creatinine (0.5-1.4) mg/dL Estim Creat Clear Calc Estimated GFR Random Glucose (60-115) mg/dL Calcium (8.4-10.2) mg/dL Magnesium (1.6-2.6) mg/dL Total Bilirubin (0.0-1.0) mg/dL AST (5-37) U/L ALT (0-40) U/L Alkaline Phosphatase (39-117) U/L Ammonia (13-55) umol/L Troponin I High Sens 9.4 (<3.5-35.0) ng/L B-Natriuretic Peptide (<100) pg/mL Total Protein (6.5-8.0) g/dL Albumin (3.5-5.0) g/dL TSH (0.32-4.0) uIU/mL Influenza Type A (PCR) (Negative) Influenza Type B (PCR) (Negative) RSV RNA Qual (PCR) (Negative) SARS-CoV-2 RNA (RT-PCR) (Negative) Independent Interpretation I performed an independent interpretation of an: EKG and Plain X-Ray Interpretation: EKG showing atrial fibrillation, known right bundle-branch block, rate 69 beats per minute, no acute ischemic changes or ST elevations Chest x-ray without focal consolidation or infiltrate Radiology Impression Discussion of test interpretation with radiology: I have reviewed the radiologist's reading. Radiologist Impression: Procedure(s): XR chest 1V Accession Number(s): [id number] cc: Bozena Gutierrez; Diogo Hanson DO~ EXAMINATION: XR CHEST CLINICAL INFORMATION: SOB with exertion COMPARISON: August 24, 2023. TECHNIQUE: Frontal view of the chest was obtained. FINDINGS: Prominence of the interstitial lung markings and perihilar regions. No gross consolidation, pleural fissure pneumothorax. Low lung volume. Cardiomediastinal silhouette size is mildly prominent. Calcified plaque thoracic aortic arch. Multilevel thoracic spondylosis. Degenerative changes in the right greater than left shoulders. Right-sided pacemaker with 2 intact electrode leads in the right heart chambers. XR/XR chest 1V IMPRESSION: Pulmonary edema. Mild cardiomegaly versus pericardial effusion. Electronically signed by: Cam Miguel MD 08/08/2024 03:46 PM EDT External Record Review External record reviewed: Inpatient record Social Determinants Patient?s care significantly limited by Social Determinants of Health including: Other Social Determinant of Health Critical Care Time Critical Care Time Critical Care Time: No Discharge Plan Discharge Clinical Impression: CHF (congestive heart failure) Patient Disposition: Xfer SNF Transfer Details: [facility] Instructions: Heart Failure (ED) Additional Instructions: Work up today is reassuring. Mildly elevated BNP to 435, signs of pulmonary edema on chest xray. EKG shows rate controlled atrial fibrillation. Negative covid/flu/rsv. Vitals have remained stable. Dr. Hanson was consulted - he does not meet criteria for admission. Can continue management at [facility]. Return with any new or worsening symptoms. In the case of an emergency call 911. Prescriptions: No Action sennosides [senna] 8.6 mg Tablet 8.6 mg PO DAILY PRN (Reason: Constipation) acetaminophen [Tylenol] 325 mg Tablet 650 mg PO Q4H PRN (Reason: Fever Or Pain) miconazole nitrate 2 % Aerosol Powder 1 spray TOPICAL BID calcium carbonate [Oyster Shell Calcium 500] 500 mg calcium (1,250 mg) Tablet 500 mg PO BID bisacodyl 10 mg Suppository 10 mg NC DAILY PRN (Reason: Constipation) Fleet Enema 19-7 gram/118 mL Enema 118 ml NC DAILY PRN (Reason: Constipation) docusate sodium [Colace] 100 mg Capsule 200 mg PO DAILY cholecalciferol (vitamin D3) [Vitamin D3] 10 mcg (400 unit) Tablet 10 mcg PO DAILY lactulose 20 gram/30 mL Solution 20 g PO DAILY omeprazole 20 mg Tablet,Delayed Release (Dr/Ec) 20 mg PO DAILY@0630 perphenazine 8 mg tablet 8 mg PO BID oxcarbazepine 150 mg tablet 150 mg PO BID rivaroxaban 20 mg tablet 20 mg PO DAILY@1800 propranolol 20 mg tablet 20 mg PO BID lithium carbonate 300 mg capsule 300 mg PO BEDTIME oxcarbazepine 300 mg tablet 300 mg PO BID [id number] 600-50-300 mg tablet 1 tab PO DAILY@1200 propranolol 10 mg tablet 10 mg PO DAILY@1200 finasteride 5 mg tablet 5 mg PO DAILY omeprazole 20 mg capsule,delayed release(DR/EC) 20 mg PO DAILY@1630 lithium carbonate 150 mg capsule 150 mg PO DAILY Myrbetriq 50 mg tablet extended release 24 hr 50 mg PO DAILY 90 Days Qty: 90 0RF latanoprost 0.005 % drops 1 drp ophthalmic (eye) BEDTIME Referrals: Diogo Hanson DO [Primary Care Provider] - Print Language: Turkmen
[2024-08-08 17:08] LABS: D Dimer High Sensitivity 321 NG/ML
[2024-08-08 17:46] LABS: Ammonia 37 umol/L (13-55)
[2024-08-08 18:00] VITALS: BP 164/107; PULSE 91; RESP 31; TEMP 36.3; O2SAT 98
[2024-08-08 18:14] LABS: TSH reflex Free T4 1.61 uIU/mL (0.32-4.0)
[2024-08-08 18:29] LABS: VBG Base Excess -2.8 mmol/L; VBG HCO3 20 mmol/L (22-26); VBG pCO2 30 mmHg; VBG pH 7.43 (7.32-7.43); VBG pO2 84 mmHg
[2024-08-08 18:30] LABS: Venous Blood Gas Refer to POC result
[2024-08-08 18:37] VITALS: BP 144/103; PULSE 87; RESP 14; TEMP 36.2; O2SAT 95
[2024-08-08 19:07] LABS: Troponin-I High Sensitivity 9.4 ng/L (<3.5-35.0)
[2024-08-08 20:09] VITALS: BP 142/88; PULSE 79; RESP 18; TEMP 36.4; O2SAT 97
--- NOTE | 2024-08-08 20:10 | PC.NURSE ---
nurse to nurse report given to Raciel gutierrez photoengraving supervisor at [facility] where the pt resides.
== END 2024-08-08 22:56 | disposition skilled nursing facility (03) ==
PROVIDERS: Physician Assistant Medical; Emergency Provider Emergency Medicine; PCP Hospitalist
DX: I50.9 Heart failure, unspecified (principal); R06.02 Shortness of breath; Z03.818 Encounter for observation for suspected exposure to other biological agents ruled out; B20 Human immunodeficiency virus [HIV] disease; I48.0 Paroxysmal atrial fibrillation; J44.9 Chronic obstructive pulmonary disease, unspecified; Z79.899 Other long term (current) drug therapy; Z79.01 Long term (current) use of anticoagulants
CPT/HCPCS: 0241U; 36415; 71045; 80053; 82140; 82803; 83735; 83880; 84443; 84484; 85025; 85379; 85610; 93005; 99284

== ENCOUNTER → 2024-08-08 14:59 | Outpatient (BNV) | payer MEDICARE, MEDICAID, SELFPAY | PROVIDERS: PCP Hospitalist; Visit Provider Radiology Diagnostic Radiology | DX: J81.0 Acute pulmonary edema (principal) | CPT/HCPCS: 71045 ==

== ENCOUNTER → 2024-08-08 14:59 | Outpatient (BNV) | payer MEDICARE, MEDICAID, SELFPAY | PROVIDERS: Emergency Provider Emergency Medicine; PCP Hospitalist; Visit Provider Internal Medicine Cardiovascular Disease | DX: I48.91 Unspecified atrial fibrillation (principal); I45.10 Unspecified right bundle-branch block | CPT/HCPCS: 93010 ==

== ENCOUNTER → 2024-08-09 23:59 | Outpatient (BNV) | payer MEDICARE, MEDICAID, SELFPAY ==
--- NOTE | 2024-08-16 14:27 | A.OFFVIS_ITS ---
Intake Visit Reasons: Remote Device Check- [facility] Allergies No Known Allergies [No Known Allergies*] Allergy (Verified 08/08/24 15:02) [facility] Medical History Chronic atrial fibrillation Persistent atrial fibrillation Ascending aortic aneurysm Psychotic disorder with hallucinations due to known physiological condition Unspecified urinary incontinence Constipation, unspecified Preglaucoma, unspecified, unspecified eye Acute stress reaction Ventricular premature depolarization Unspecified cataract Presbyopia Dementia in other diseases classified elsewhere with behavioral disturbance Atrial flutter Deficiency of other vitamins Other abnormalities of gait and mobility Muscular weakness Cyst of kidney, acquired Fatty (change of) liver, not elsewhere classified AAA (abdominal aortic aneurysm) without rupture Personal history of COVID-19 Low back pain Alcohol abuse HIV (human immunodeficiency virus infection) Resides in 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 facility GERD (gastroesophageal reflux disease) COPD (chronic obstructive pulmonary disease) Right bundle branch block (RBBB) on electrocardiogram (ECG) CVA (cerebral vascular accident) Paroxysmal atrial fibrillation Urgency incontinence BPH loc w urin obs/LUTS Surgical History H/O colonoscopy Social History Household Members: Other Housing: Shelter Housing Other:: [facility] Are you a primary healthcare liaison to a significant other at home: No Do you presently have visiting nurse or other home services: Yes ([facility] staff) Comment: COUNTS CORRECT Patient Tobacco Use Status: Former Tobacco user Advance Directives: No Advance Directives Information Provided: Yes Advance Directives Date on File: 07/19/21 Do you have a plan to hurt others: No Plan Office Procedures Cardiac Device Check Cardiac Device Check Details: Remote pacemaker report generated 08/09/2024. Pacemaker function is adequate [id number] Cardiac Device Interrogation, pacemaker Procedure code (CPT) selection complete Assessment & Plan Assessment & Plan (1) Cardiac pacemaker in situ: Comment: [facility] dual-chamber Code(s): Z95.0 - Presence of cardiac pacemaker Category: Medical Plan: See above Coding Level of Care Code Procedure Only Diagnoses Cardiac pacemaker in situ Z95.0 CPT Codes Cardiac Device Check - Cardiac Device 12: [id number] Cardiac Device Interrogation, pacemaker ([id number])
== END ==
PROVIDERS: PCP Hospitalist; Visit Provider Internal Medicine Cardiovascular Disease
DX: Z45.018 Encounter for adjustment and management of other part of cardiac pacemaker (principal)
CPT/HCPCS: 93294

== ENCOUNTER 2024-09-22 14:07 | Outpatient (AMB) | payer MEDICARE, MEDICAID, SELFPAY ==
--- OUTSIDE RECORDS SUMMARY | 2024-09-22 14:11 | XMS_ITS | Encounter Summary ---
Author Organization [facility] Address [address] [place] [address] Care Team Providers Care Rn Surgery Icu Name Role Phone Diogo Hanson MD Primary Care Provider [phone] Encounter Details Date Type Department Care Team (Late st Contact Info) Description 05/26/2024 Lab Requisition [facility] - Main Lab [address] [facility] [place] [address] Diogo Hanson MD [address] [place] [address] Dr [address] [facility]IN[facility] Cardenas Encounter for therapeutic drug level monitoring; Fatty (change of) liver, not elsewhere classified; Psychotic disorder with delusions due to known physiological condition Social History Tobacco Use Types Packs/Day Years [...] Procedure Name Priority Date/Time Associated Diagnosis Comments COMPLETE BLOOD COUNT Routine 05/26/2024 6:29 AM EST Encounter for therapeutic drug level monitoring Fatty (change of) liver, not elsewhere classified Psychotic disorder with delusions due to known physiological condition THYROID STIMULATING HORMONE Routine 05/26/2024 6:29 AM EST Encounter for therapeutic drug level monitoring Fatty (change of) liver, not elsewhere classified Psychotic disorder with delusions due to known physiological condition AMMONIA Routine 05/26/2024 6:29 AM EST Encounter for therapeutic drug level monitoring Fatty (change of) liver, not elsewhere classified Psychotic disorder with delusions due to known physiological condition LITHIUM LEVEL Routine 05/26/2024 6:29 AM EST Encounter for therapeutic drug level monitoring Fatty (change of) liver, not elsewhere classified Psychotic disorder with delusions due to known physiological condition documented in this encounter Results * Ammonia (05/26/2024 6:29 AM EST) Pathologist [facility] Ammonia 19 11 - 35 mcmol/L LAB CHEMISTRY METHOD 05/26/2024 8:06 AM EST [facility] Blood Venous blood specimen / Unknown 05/26/2024 6:29 AM EST 05/26/2024 7:40 AM EST us Diogo Hanson MD LAB BLOOD ORDERABLES Final Resul t Performing Organization Address [facility]/ZIP Co de Phone Number [facility] [address] [place] [address], [place] [phone] * Thyroid stimulating hormone (05/26/2024 6:29 AM EST) Pathologist [facility] TSH 1.67 0.40 - 4.00 mcIU/mL LAB CHEMISTRY METHOD 05/26/2024 8:23 AM EST [facility] Blood Venous blood specimen / Unknown 05/26/2024 6:29 AM EST 05/26/2024 7:40 AM EST us Diogo Hanson MD LAB BLOOD ORDERABLES Final Resul t Performing Organization Address [facility]/ZIP Co de Phone Number [facility] [address] [place] [address], [place] [phone] * (ABNORMAL) Complete blood count (05/26/2024 6:29 AM EST) Pathologist [facility] WBC 5.6 4.8 - 10.8 K/mcL LAB HEMETOLOGY METHOD 05/26/2024 7:51 AM EST [facility] RBC 4.50 4.50 - 5.50 M/mcL LAB HEMETOLOGY METHOD 05/26/2024 7:51 AM EST [facility] Hemoglobin 13.3(L) 13.5 - 17.5 g/dL LAB HEMETOLOGY METHOD 05/26/2024 7:51 AM [facility] Hematocrit 41.6(L) 42.0 - 54.0 % LAB HEMETOLOGY METHOD 05/26/2024 7:51 AM [facility] MCV 91.6 79.0 - 98.0 FL LAB HEMETOLOGY METHOD 05/26/2024 7:51 AM [facility] MCH 29.3 27.0 - 32.0 pcg LAB HEMETOLOGY METHOD 05/26/2024 7:51 AM [facility] MCHC 32.0 32.0 - 37.0 g/dL LAB HEMETOLOGY METHOD 05/26/2024 7:51 AM [facility] RDW 15.4(H) 11.0 - 15.0 % LAB HEMETOLOGY METHOD 05/26/2024 7:51 AM [facility] Platelets 203 130 - 400 K/mcL LAB HEMETOLOGY METHOD 05/26/2024 7:51 AM [facility] MPV 10.5 7.0 - 11.0 FL LAB HEMETOLOGY METHOD 05/26/2024 7:51 AM [facility] NRBC 0.0 <1.0 % LAB HEMETOLOGY METHOD 05/26/2024 7:51 AM [facility] LAB NRBC Absolute 0.00 <0.10 K/mcL LAB HEMETOLOGY METHOD 05/26/2024 7:51 AM [facility] Blood Venous blood specimen / Unknown 05/26/2024 6:29 AM EST 05/26/2024 7:40 AM EST us Diogo Hanson MD LAB BLOOD ORDERABLES Final Resul t [facility] [address] [place] [address], * (ABNORMAL) [place] level (05/26/2024 6:29 AM EST) [place] Level 0.3(L) 0.6 - 1.2 mEq/L LAB CHEMISTRY METHOD 05/26/2024 8:16 AM EST [facility] Blood Venous blood specimen / Unknown 05/26/2024 6:29 AM EST 05/26/2024 7:40 AM EST us Diogo Hanson MD LAB BLOOD ORDERABLES Final Resul t [facility] [address] [place] [address], documented in this encounter Visit Diagnoses Diagnosis Encounter for therapeutic drug level monitoring Fatty (change of) liver, not elsewhere classified Psychotic disorder with delusions due to known physiological condition documented in this encounter Care Teams Rn Surgery Icu Relationship Specialty Start Date End Date Diogo Hanson MD [address] [place] [address] Dr [address] [place], [place] PCP - General Internal Medicine 05/26/24 documented as of this encounter
--- OUTSIDE RECORDS SUMMARY | 2024-09-22 14:11 | XMS_ITS | Patient Health Record ---
Author Organization [facility] Address [address] [place] [address] Care Team Providers Care Head Boys Golf Coach Name Role Phone Diogo Hanson Primary Care Provider Frederic Cobb Unavailable [phone] Reason For Referral No Information Medications Medication [...] Fleet Enema - as directed Rectal Active [place] Carbonate 300 MG Oral for 30 Active [...] Active Lotrimin AF 2 % 1 application Purchasing And Claims Supervisor ally Twice a day for 14 day(s) [...] Problem Status W/U Status Risk Notes Problem 717580609 Encounter for screening for malignant neoplasm of colon (Z12.11) Active confirmed Problem 046211442041155 Preprocedural examination (Z01.818) Active confirmed Problem History of colon polyps (Z86.010) Active confirmed Problem Diverticulosis of colon (734331138) Diverticulosis of colon (K57.30) Active confirmed Problem 027742791 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 confirmed Problem 388084956 termination clerk curren t use of anticoagulant (Z79.01) Active confirmed Plan Of Treatment Future Test Test Name Order Date COLONOSCOPY 04/23/2021 COLONOSCOPY 06/16/2021 Insurance Providers Payer Name Payer Address Payer Phone Subscriber Number Group Number Insured Name Patient Relationship to Insured Coverage Start Date Coverage End Date MEDICARE OF [place] [address] [place] [address] [id number] DAMON VILLEDA Self - patient is the insured [address] [address] DAMON VILLEDA Self - patient is the insured Medical (General) History Medical History History ICD Code COPD HIV(Reported) CYST OF KIDNEY ABNORMALITIES OF GAIT AND MOBILITY ATRIAL FIBRILLATION REPORTED DEMENTIA GERD CONSTIPATION URINARY INCONTINENCE PSYCHOTIC DISORDER Denies VA,DM,CVA,renal disease
--- OUTSIDE RECORDS SUMMARY | 2024-09-22 14:11 | XMS_ITS | Data Portability ---
Author Organization [facility], Main Office Address [address] [place] [address] Assessment Encounter Date Assessment Date Assessment LastModified by Organization Details LastModified Time 03/10/2023 03/10/2023 11 min. Pt at [facility] [place]. AUdio. MD in office [email or web address] Not available 03/10/2023 11:22:19 06/09/2023 06/09/2023 12 min. Pt at [facility] [place] AUdio. MD in office ; Sugey [address] was with pt cmartorell Not available 06/09/2023 09:18:35 10/09/2023 10/09/2023 14 min. Pt at [facility] [place] PHONE/AUDIO. MD in office ; Sugey [address] was with pt [email or web address] Not available 10/09/2023 09:30:43 01/08/2024 01/08/2024 16 min. Pt at [facility] [place] PHONE/AUDIO. MD in office ; [facility] was [facility] pt [email or web address] Not available 01/08/2024 09:53:26 06/29/2024 06/29/2024 19 min. Pt at [facility] [place] PHONE/AUDIO. in office ; Sugey sloan [facility] helping [email or web address] Not available 06/29/2024 10:53:18 Plan of Treatment Reminders Order Date Submit Date Provider Last Modified By Organization Details Last Modified Time Details Appointments TH B20 F/U 2024 09:00A M Brandon Cook MD Not available Not available Not available Lab CBC w/ diff 2024 04092 025 Not available 07/07/2024 10:48:43 ALT (alanin [...] RPR (rapid plasma reagin) , serum 2023 Not available 01/15/2024 09:26:10 T-cell regulat ory subsets panel, blood 2023 024 Not available 01/15/2024 09:26:10 CBC w/ diff 2023 024 [email or web address] Not available 06/17/2023 13:26:56 ALT (alanin e [...] (rapid plasma reagin) , serum 2023 024 [email or web address] Not available 06/17/2023 13:26:56 T-cell regulat ory subsets panel, blood 2023 024 [email or web address] Not available 06/17/2023 13:26:56 HBsAg (hepati tis B surface Ag), serum 2023 024 CELESTE Not available 06/11/2023 19:58:31 hepatit is C RNA, quant, PCR, serum 2023 024 [email or web address] Not available 06/17/2023 13:26:56 CT + NG DNA, PCR, unspeci fied specime n - urine 2023 024 [email or web address] Not available 06/17/2023 13:26:56 Referral None recorde d. Procedures None recorde d. Surgeries None recorde d. Imaging None recorde d. Medication Orders Dovato 50 mg-300 mg tablet 2024 025 [facility], [address], [address], [place], [address], 07/30/2024 13:58:15 Triumeq 600 mg-50 mg-300 mg tablet [address], [place], [address], 01/08/2024 09:52:46 Triumeq 600 mg-50 mg-300 mg tablet [email or web address] [facility] [address], [place], [address], 10/09/2023 10:55:41 Triumeq 600 mg-50 mg-300 mg tablet [address], [place], [address], 06/12/2023 11:47:47 Triumeq 600 mg-50 mg-300 mg tablet [address], [address], 03/10/2023 23:11:24 Patient TargetsNo targets recorded. Patient InstructionsNo instructions recorded. Reason for Referral None Reported. Results Created Date Observation Date Name Description Value Unit Range Abnormal Flag Note LastModifiedBy Organization Detail LastModifiedTime 06/11/1906/11/2023 CREAT ININE WITH GFR glomerular filtration rate 80 >60 This eGFR resul t was calcu lated using the CKD-E PI 2020 Creat inine Equat ion Not Available [facility] [address] [place] [address], [place], [address], 06/11/2023 19:34:31 06/11/19 24 06/11/2023 CREAT ININE WITH GFR performing lab Perfor [facility] a [facility] [address] [place] [address] Medic al Direc nayana lechuga MD Not Available [facility] [address] [place] [address], [address], 06/11/2023 19:34:31 06/11/19 24 06/11/2023 CREAT ININE WITH GFR creat 0.96 mg/dL 0.7-1. 3 Not Available [facility] [address] [place] [address], [address], 06/11/2023 19:58:29 06/11/19 24 06/11/2023 CREAT ININE WITH GFR glomerular filtration rate 80 >60 This eGFR resul t was calcu lated using the CKD-E PI 2020 Creat inine Equat ion Not Available [facility] [address] [place] [address], [address], 06/11/2023 19:58:29 06/11/19 24 06/11/2023 SGOT SGOT 9 U/L 10-42 low Not Available [facility] [address] [place] [address], [address], 06/11/2023 19:58:30 06/11/19 24 06/11/2023 SGPT SGPT 16 U/L 10-60 Not Available [facility] [address] [place] [address], [address], 06/11/2023 19:58:30 06/11/19 24 06/11/2023 TREPO NEMAL AB treponemal Ab NEGATI VE negati ve Not Available [facility] [address] [place] [address], [address], 06/11/2023 19:58:31 06/11/19 24 06/11/2023 HEPAT ITIS [...] 72 hours . Not Available [facility] [address] [place] [address], [address], 06/11/2023 19:58:31 06/11/19 24 06/11/2023 HEPAT ITIS B SURFA CE ANTIG EN performing lab [facility]for [facility] [address] [facility] [place] [address] Medic al Direc nayana lechuga MD Not Available [facility] [address] [place] [address], [address], 06/11/2023 19:58:31 06/11/19 24 06/11/2023 HCV VIRAL LOAD HCV viral load qual NOT DETECT ED not detect . HCV RNA not detec valente, unabl e to repor t quant itati ve resul ts Not Available [facility] [address] [place] [address], [address], 06/12/2023 06:51:42 06/11/19 24 06/11/2023 HIV VIRAL LOAD HIV viral load quant < 20 <20 Not Available [facility] [address] [place] [address], [address], 06/12/2023 06:51:42 06/11/19 24 06/11/2023 HIV VIRAL LOAD HIV viral load log < 1.30 <1.30 Not Available [facility] [address] [place] [address], [address], 06/12/2023 06:51:42 06/11/19 24 06/12/2023 HIV VIRAL LOAD HIV viral load qual DETECT ED not detect . abnormal HIV RNA detec valente, but <20 copie s/mL Not Available [facility] [address] [place] [address], [address], 06/12/2023 06:51:42 06/11/19 24 06/12/2023 HIV VIRAL LOAD performing lab Perfor [facility] Lab abnormal [facility] [address] [facility] [place] [address] Medic al Dire nayana lechuga MD Not Available [facility] [address] [place], [address], 06/12/2023 06:51:42 06/11/19 24 06/18/2023 T4T8 PANEL percent cd3 83 Not Available [facility] [address] [place] [address], [address], 06/18/2023 09:46:43 06/11/19 24 06/18/2023 T4T8 PANEL absolute cd3 2830 cells /uL 690-25 40 high Not Available [facility] [address] [place] [address], [address], 06/18/2023 09:46:43 06/11/19 24 06/18/2023 T4T8 PANEL percent cd8 47 Not Available [facility] [address] [place] [address], [address], 06/18/2023 09:46:43 06/11/19 24 06/18/2023 T4T8 PANEL absolute cd8 1605 Not Available [facility] [address] [place] [address], [address], 06/18/2023 09:46:43 06/11/19 24 06/18/2023 T4T8 PANEL percent cd4 37 Not Available [facility] [address] [place] [address], [address], 06/18/2023 09:46:43 06/11/19 24 06/18/2023 T4T8 PANEL absolute cd4 1249 Not Available [facility] [address] [place] [address], [address], 06/18/2023 09:46:43 06/11/19 24 06/18/2023 T4T8 PANEL percent cd19 5.0 % 6-25 low Not Available [facility] [address] [place] [address], [address], 06/18/2023 09:46:43 03/06/18/2023 T4T8 PANEL absolute cd19 167 Not Available [facility] [address] [place], [address], 06/18/2023 09:46:43 06/11/1906/18/2023 T4T8 PANEL cd4 cd8 ratio 0.8 Not Available [facility] [address] [place], [address], 06/18/2023 09:46:43 06/11/1906/18/2023 T4T8 PANEL percent cd56 11.0 % 5-27 Not Available [facility] [address] [place], [address], 06/18/2023 09:46:43 06/11/1906/18/2023 T4T8 PANEL absolute cd56 372 cells /uL 90-590 Not Available [facility] [address] [place], [address], 06/18/2023 09:46:43 06/11/1906/11/2023 HCV VIRAL LOAD HCV viral load qual NOT DETECT ED not detect . HCV RNA not detec valente, unabl e to repor t quant itati ve resul ts Not Available [facility] [address] [place], [address], 06/18/2023 09:46:44 Result Notes None recorded. 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; snomeddesc ription: Toxic cirrhosis; Report Immunity to Registry: Yes; Not Available [facility] 4 06:58:06 Type B viral hepatitis 86348013 Active 2016 Type B viral hepatitis; snomeddesc ription: Type B viral hepatitis; Report Immunity to Registry: Yes; Notes: HBV core ab pos; s ab pos; HBV vL nondetecte d 2016, 2017; 2018; Not Available [facility] 4 06:58:06 Chronic hepatitis C 356261191 Active 2012 Chronic hepatitis C without mention of hepatic coma; snomeddesc ription: Chronic hepatitis C; Report Immunity to Registry: Yes; Notes: f4 2013; g1a 2012 olysio and sovaldi 03/05-09/09 15 SVR; 2016 nondetecte d, 2018; Chronic hepatitis C; snomeddesc ription: Chronic hepatitis C; Report Immunity to Registry: Yes; Notes: f4 2013; g1a 2012 olysio and sovaldi 03/05-09/09 15 SVR; 2016 nondetecte d, 2017; 2018; Not Available [facility] 4 06:58:06 Viral hepatitis B without hepatic coma 756838782 Active 2016 Unspecifie d viral hepatitis B without hepatic coma; snomeddesc ription: Type B viral hepatitis; Report Immunity to Registry: Yes; Notes: HBV core ab pos; s ab pos; HBV vL nondetecte d 2016, 2017; 2018; Not Available [facility] 4 06:58:06 Human immunodef iciency virus infection 19566466 Active 2012 Human immunodefi ciency virus [HIV] disease; snomeddesc ription: Human immunodefi ciency virus infection; Report Immunity to Registry: Yes; Notes: [id number] neg 2015; Human immunodefi ciency virus infection; snomeddesc ription: Human immunodefi ciency virus infection; Report Immunity to Registry: Yes; Notes: [id number] neg 2015; Not Available [facility] 4 06:58:06 Steatohep atitis 663596081 Active 2014 Steatohepa titis; snomeddesc ription: Steatohepa titis; Report Immunity to Registry: Yes; Notes: u/s 2012 fatty liver; Not Available [facility] 4 06:58:06 Problem Notes None recorded. Medical [...] t Available nystatin 100,000 unit/mL oral suspension 820623/ ML Quantit y: 135; Duratio n: 9; [...] Note 504 Brandon Cook MD Main Office [address] [place] [phone] 12/16/2022 10:40:57 12/16/2022 11:10:18 Human immunodeficiency virus infection 13086298 B20 HIV . Continue Triumeq 1 tab [...] reviewed. 1566 Brandon Cook MD Main Office [address] [place] [phone] 03/10/2023 09:21:06 03/10/2023 15:12:24 Human immunodeficiency virus infection 59657481 B20 HIV . Continue Triumeq 1 tab po qd. will keep current regimen. Compliance addressed to prevent viral resistance , keep viral suppressio n, and prevent disease progressio n. [facility] nurse will fax labs results to office and med list. U=U Plan of care reviewed. 68096 Brandon Cook MD Main Office [address] [place] [phone] 06/09/2023 09:10:13 06/09/2023 10:02:03 Human immunodeficiency virus infection 40574249 B20 HIV . Continue Triumeq 1 tab po qd. will keep current regimen. Compliance addressed to prevent viral resistance , keep viral suppressio n, and prevent disease progressio n. [facility] nurse will fax labs results to office and med list. safe sex. Plan of care reviewed. [id number] Brandon Cook MD Main Office [address] [place] [address] [phone] 10/09/2023 08:59:43 10/09/2023 10:32:41 Human immunodeficiency virus infection 85908099 B20 HIV . Continue Triumeq 1 tab po qd. will keep current regimen. new regimens reviewed to include DOvato and long actinge agents. Compliance addressed to prevent viral resistance , keep viral suppressio n, and prevent disease progressio n. Plan of care reviewed. [id number] Brandon Cook MD Main Office [address] [place] [address] [phone] 01/08/2024 09:04:42 01/08/2024 10:54:09 Human immunodeficiency virus infection 46204270 B20 HIV . Continue Triumeq 1 tab [...] and recommende d Plan of care reviewed. 32508 Brandon Cook MD Main Office [address] [place] [address] [phone] 06/29/2024 09:54:47 06/29/2024 11:10:41 Human immunodeficiency virus infection 07246855 B20 HIV .Hold Triumeq ; pharmacy inventory [...] Recorded Advance Directives Directive None Recorded Payers Insurance Date Sequence Insurance Name Policy Number Policy Teixeira Covered Member ID Teixeira Member ID Guarantor Name 06/29/2024 [facility] Ras Jacobo [id number] Ras Jacobo 03/17/2023 *SELF PAY* Tatum richards Jacobo 06/29/2024 2 [place] Ras Jacobo [id number] Ras Jacobo 06/29/2024 1 [place] [employer] Ras Jacobo [id number] Ras Jacobo 06/29/2024 2 [place] Ras Jacobo [id number] Ras Jacobo Notes Date Note Type Note Provider Name and Address Organization Details Recorded Time 3 text/html Telemedicine visit. Patel Elias is w pt. [facility]f/u HIV.Triumeq 1 tab po qdmed list xuefnjmuczqzvxjob79/2023 HIV VL nondtected;HCV VL nondetected; RPR NR; SGPT/SGOT; Creatinine; nl8 ZR6=488; HIV VL nondetected08/2022 eGFR>603/2022 ALT/AST wnl; eGFR>60; nursing will send HIV VL and CD4 labs to office by fax.08/2021 HIV VL nondetected; NL9=968;not hospitalizedmed list reviewed.has not been sick since he was last seenno n/v/d. no abd pain; no diarrheano hospitalizationsnot sexually activevaccines uptodate w flu and COVID19; pending RSV Brandon Cook MD [address] [place] [address], [phone], [facility] 03/10/2023 11:22:50 4 text/html Telemedicine visit. Sugey is w pt. [facility]f/u HIV.Triumeq 1 tab po qdmed list ftxnayvhemjmlshtb70/2023 HIV VL nondtected;HCV VL nondetected; RPR NR; SGPT/SGOT; Creatinine; nl10/2022 FQ5=759; HIV VL nondetected08/2022 eGFR>6005/2022 ALT/AST wnl; eGFR>60; nursing will send HIV VL and CD4 labs to office by fax.08/2021 HIV VL nondetected; BB9=836;med list reviewed.no n/v/d. no abd pain; no diarrheano hospitalizationsnot sexually activevaccines uptodate w flu and COVID19; pending RSV dx w Afib; pacemaker. xarelto. Brandon Cook MD [address] [place] [address], [phone], [facility] 06/09/2023 09:20:48 4 text/html Telemedicine visit. Sugey is w pt. [facility]f/u HIV.Triumeq 1 tab po qdtolerates well.compliant05/2023 HIV VL nondetected; GQ0=6898; HCV VL nondetceted; HBVsag neg; treponemal ab neg; fMXI=5952/2023 HIV VL nondtected;HCV VL nondetected; RPR NR; SGPT/SGOT; Creatinine; nl10/2022 RR6=374; HIV VL nondetectedmed list reviewed.no n/v/d. no abd pain; no diarrheano hospitalizationsnot sexually active Brandon Cook MD [address] [place] [address], [phone], [facility] 10/09/2023 10:55:46 4 text/html Telemedicine visit. [facility]f/u HIV.Triumeq 1 tab po qdhas missed about 5 doses; pharmacy issues that does not have the med supply; it is happening with other clients, frequently and other medications per nursing report.tolerates well.no recent labshas not been recently sickcompliant05/2023 HIV VL nondetected; MA0=2935; HCV VL nondetceted; HBVsag neg; treponemal ab neg; zPDY=1316/2023 HIV VL nondtected;HCV VL nondetected; RPR NR; SGPT/SGOT; Creatinine; nl10/2022 RD5=713; HIV VL nondetectedno concerns.med list reviewed.no n/v/d. no abd pain; no diarrheano hospitalizationsnot sexually active Brandon Cook MD [address] [place] [address], [phone], [facility] 01/08/2024 10:03:21 5 text/html Telemedicine visit. [...] sexually active 01/2024 HIV VL nondetected; CD4 59895 HIV VL nondetected; XE3=4992; HCV VL nondetceted; HBVsag neg; treponemal ab neg; xCWO=2065/2023 HIV VL nondtected;HCV VL nondetected; RPR NR; SGPT/SGOT; Creatinine; KZ1=154; HIV VL nondetected Brandon Coko MD [address] [place] [address], [phone], [facility] - [facility] 06/29/2024 10:56:39
[2024-09-22 14:16] VITALS: BP 118/68; PULSE 62; BMI 19.6
--- NOTE | 2024-09-22 14:16 | A.OFFVIS_ITS ---
Vital Signs 09/22/24 14:16 Height 6 ft 6 in Weight 170 lb BMI 19.6 BP 118/68 Blood Pressure Location Lt brachial Position Sitting Pulse 62 Pulse Source Monitor Intake Visit Reasons: fu Accompanied by: Family/Other Allergies No Known Allergies (No Known Allergies*) Allergy (Verified 08/08/24 15:02) Medication List - Last Reconciled 09/22/24 by August Rodriguez MD [id number]-dpmoltpywawh-mfxorur 600-50-300 mg 1 tab PO DAILY@1200 acetaminophen (Tylenol) 650 mg PO Q4H PRN bisacodyl 10 mg MS DAILY PRN calcium carbonate (Oyster Shell Calcium 500) 500 mg PO BID cholecalciferol (vitamin D3) (Vitamin D3) 10 mcg PO DAILY docusate sodium (Colace) 200 mg PO DAILY finasteride 5 mg PO DAILY lactulose 20 grams PO DAILY latanoprost 0.005% 1 drp ophthalmic (eye) BEDTIME lithium carbonate 300 mg PO BEDTIME lithium carbonate 150 mg PO DAILY miconazole nitrate 2% 1 spray topical BID mirabegron ER (Myrbetriq) 50 mg PO DAILY 90 days omeprazole 20 mg PO DAILY@0630 oxcarbazepine 150 mg PO BID oxcarbazepine 300 mg PO BID perphenazine 8 mg PO BID propranolol 20 mg PO BID propranolol 10 mg PO DAILY@1200 rivaroxaban 20 mg PO DAILY@1800 sennosides (senna) 8.6 mg PO DAILY PRN sodium phosphates 19-7 gram/118 mL (Fleet Enema) 118 mL MS DAILY PRN HPI Comments Details: Ras comes for follow-up accompanied by rifle case repairer from the [facility]. Patient recently was in the ED in July at which time he was complain of exertional shortness of breath. His BNP was elevated although no therapies would change. He is currently not on diuretic regimen. He comes for follow-up today. Comes walking into the office. Denies any worsening shortness of breath. Denies any orthopnea, PND, leg edema. No prolonged palpitation irregular heartbeat. No lightheadedness, syncope. He has not had any recent echocardiogram from as ascending aortic aneurysm. Otherwise doing well. No exertional chest pain. No bleeding issues or neurologic events. [facility] Medical History Chronic atrial fibrillation Persistent atrial fibrillation Ascending aortic aneurysm Psychotic disorder with hallucinations due to known physiological condition Unspecified urinary incontinence Constipation, unspecified Preglaucoma, unspecified, unspecified eye Acute stress reaction Ventricular premature depolarization Unspecified cataract Presbyopia Dementia in other diseases classified elsewhere with behavioral disturbance Atrial flutter Deficiency of other vitamins Other abnormalities of gait and mobility Muscular weakness Cyst of kidney, acquired Fatty (change of) liver, not elsewhere classified AAA (abdominal aortic aneurysm) without rupture Personal history of COVID-19 Low back pain Alcohol abuse HIV (human immunodeficiency virus infection) Resides in 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 GERD (gastroesophageal reflux disease) COPD (chronic obstructive pulmonary disease) Right bundle branch block (RBBB) on electrocardiogram (ECG) CVA (cerebral vascular accident) Paroxysmal atrial fibrillation Urgency incontinence BPH loc w urin obs/LUTS Surgical History H/O colonoscopy Social History Household Members: Other Housing: Skilled Nursing Housing Other:: [facility] Are you a primary career technology teacher to a significant other at home: No Do you presently have visiting nurse or other home services: Yes ([facility] [place] [facility] staff) Comment: COUNTS CORRECT Patient Tobacco Use Status: Former Tobacco user Advance Directives Date on File: 07/19/21 Review of Systems Const Reports no additional complaints and Denies weakness Eyes Reports no additional complaints ENT Reports no additional complaints and Denies dizziness Card Denies chest pain, Denies chest pain with activity, Denies syncope, Denies rapid heart rate, Denies pedal edema, Denies edema, Denies leg edema, Denies lightheadedness, Denies palpitations, Denies dyspnea, Denies dyspnea on exertion and Denies orthopnea Resp Denies cough, Denies dyspnea and Denies dyspnea on exertion GI Denies hematochezia and Denies change in stool character Musc Denies abnormal gait, Denies muscle cramps, Denies muscle weakness, Denies numbness, Denies radiating pain into limb and Denies tingling Neuro Denies abnormal gait, Denies dizziness, Denies syncope, Denies numbness, Denies tingling and Denies weakness Endo Denies palpitations Physical Exam Vital Signs: Last Vital Signs Pulse 62 09/22/24 14:16 BP 118/68 07/03/25 14:16 BMI result Body Mass Index 19.6 Const General: cooperative, comfortable, no acute distress, alert and awake Nutritional Appearance: thin and other (Frail elderly man) Orientation/consciousness: patient oriented x3 Limitations: ambulation with walker Neck Neck: Yes normal visual inspection and Yes no JVD Resp Effort & Inspection: normal respiratory effort Auscultation: clear to auscultation bilaterally, no crackles, no rales, no rhonchi and no wheezes Cardio Jugular venous distension: no JVD Rate: regular rate Rhythm: regular rhythm Heart sounds: S1 normal heart sound present, S2 normal heart sound present, no murmurs and no rubs Neuro General: patient oriented x3 Extrem General: Yes normal to inspection and No no pedal edema Psych Appearance: grossly normal Mental Status: mental status grossly normal Speech and movement: Normal speech and movement present Office Procedures Cardiac Device Check Cardiac Device Check Details: [employer] pacemaker in place programmed in VVI at 60 beats per minute. Ventricular pacing 40% of the time. Ventricular pacing thresholds excellent and reprogrammed to enhance battery life. Ventricular sensing is adequate. Pacing lead impedance is stable. Battery life is excellent 10780-[id number] Cardiac Device Check, leadless/single lead pacemaker Procedure code (CPT) selection complete Assessment & Plan Assessment & Plan (1) Chronic atrial fibrillation: Code(s): I48.20 - Chronic atrial fibrillation, unspecified Category: Medical Plan: Chronic rate control atrial fibrillation with prior CVA. Continue oral anticoagulation therapy, currently on Xarelto. Semi annual renal function test and annual CBC check should be performed. Continue rate control approach. Rate is currently well optimized with propranolol. Given significant biatrial enlargement and longstanding atrial fibrillation management would be rate control. Rhythm control is unlikely. (2) Cardiac pacemaker in situ: Comment: [employer] dual-chamber Code(s): Z95.0 - Presence of cardiac pacemaker Category: Medical Plan: Cardiac pacemaker in-situ, working well. Programmed well. Follow remotely every 3 months. Follow up in the clinic in 1 year's time. (3) Ascending aortic aneurysm: Code(s): I71.2 - Thoracic aortic aneurysm, without rupture Category: Medical Plan: Moderately enlarged ascending aortic aneurysm. Will follow echocardiogram near future. Continue monitor it. Given his multiple comorbidities and frailty, will have to discuss in detail as comes time for surgical repair if necessary. Will continue monitor it. Continue aggressive blood pressure control. Currently well optimized. (4) Elevated brain natriuretic peptide (BNP) level: Code(s): R79.89 - Other specified abnormal findings of blood chemistry Category: Medical Plan: Elevated BNP without overt signs of congestive heart failure at this point time. Signs and symptoms of heart failure were discussed. Continue monitor for the same. Currently would avoid diuretic regimen to avoid renal insufficiency and dehydration. Continue rate control approach. Will follow up in the clinic in 1 year's time, sooner p.r.n.. Thank you for allowing me to partake in his care Orders: Orders CA echo transthoracic complete Today I71.2 - Thoracic aortic aneurysm, without rupture Coding Level of Care Code Est Pt Level 4 (57521) Complex EM visit Add On G2211 Diagnoses Chronic atrial fibrillation I48.20 Cardiac pacemaker in situ Z95.0 Ascending aortic aneurysm I71.2 Elevated brain natriuretic peptide (BNP) level R79.89 CPT Codes Cardiac Device Check - Cardiac Device 1: [id number]-[id number] Cardiac Device Check, leadless/single lead pacemaker ([id number])
== END 2024-09-22 15:06 | disposition home or self-care (01) ==
LOC: HO.HCS 14:07
PROVIDERS: PCP Hospitalist; Visit Provider Internal Medicine Cardiovascular Disease
DX: I48.20 Chronic atrial fibrillation, unspecified (principal); Z95.0 Presence of cardiac pacemaker; I71.20 Thoracic aortic aneurysm, without rupture, unspecified; R79.89 Other specified abnormal findings of blood chemistry
CPT/HCPCS: 93279; 99214; G2211

== ENCOUNTER → 2024-09-22 14:07 | Outpatient (BNVA) | payer MEDICARE, MEDICAID, SELFPAY | PROVIDERS: PCP Hospitalist; Visit Provider Internal Medicine Cardiovascular Disease | DX: Z45.018 Encounter for adjustment and management of other part of cardiac pacemaker (principal); I48.20 Chronic atrial fibrillation, unspecified; I71.21 Aneurysm of the ascending aorta, without rupture; R79.89 Other specified abnormal findings of blood chemistry | CPT/HCPCS: 99212 ==

== ENCOUNTER 2024-11-07 11:18 | Emergency (ER) | payer MEDICARE, MEDICAID, SELFPAY ==
--- NOTE | ~2024-11-07 | CT_ITS ---
EXAMINATION: CT ABDOMEN AND PELVIS WITH CONTRAST CLINICAL INFORMATION: Worsening renal function, abnormal LFTs, weakness, high CRP. COMPARISON: CT abdomen 01/14/2023, 07/14/2022. MRI abdomen 12/31/2023. TECHNIQUE: Multidetector volumetric images were obtained from the superior aspect of the liver through the pubic symphysis following administration 65 mL of Omnipaque 350 intravenous contrast. Sagittal and coronal reformatted images were obtained on the technologist's workstation. Oral contrast: No This CT examination was performed using dose optimization techniques as appropriate, variously including the following: *Automated exposure control *Adjustment of mA and/or kV according to patient size (this includes techniques or standardized protocols for targeted exams where dose is matched to indication/reason for exam; i.e. extremities or head) *Use of iterative reconstruction technique FINDINGS: LUNG BASES: There is scarring in both lung bases. There is cardiac enlargement. There is a pacer wire within the right ventricle. There are no effusions. The descending thoracic aorta is ectatic. LIVER, GALLBLADDER, AND BILIARY TREE: The liver is normal in size, shape, and diffusely decreased in attenuation consistent with steatosis. There is a 1.8 cm hypoattenuating lesion in segment 7, known hemangioma. No biliary ductal dilatation is present. The gallbladder is unremarkable with no evidence of radiopaque gallstones, gallbladder wall thickening, or obvious pericholecystic inflammatory changes. PANCREAS: Unremarkable. SPLEEN: Stable anterior 1.9 cm hypoattenuating lesion, consistent with hemangioma as per prior MR. 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 There is left adrenal hyperplasia. KIDNEYS AND URETERS: The left kidney is again noted to be larger than the right. There are numerous simple and proteinaceous or hemorrhagic cysts throughout the left kidney, the largest in the upper pole spanning approximately 10 x 6.4 cm. There is no hydronephrosis, or mass identified. There are no calculi. There are foci of renal cortical scarring present. The left kidney also demonstrates the presence of several small cysts, some which are hyperattenuating. There is cortical scarring in the upper pole and midpole regions. There is no hydronephrosis, or mass identified. There are no calculi. BLADDER: Unremarkable. GASTROINTESTINAL TRACT: Moderate fecal burden seen throughout the colon consistent with constipation. Normal appendix. No bowel obstruction. The small bowel is normal in caliber and course. The stomach is somewhat decompressed. The duodenum is normal. There is no rectal abnormality. ABDOMINAL WALL: No significant hernia is appreciated. LYMPH NODES: There is no abnormal lymphadenopathy. VASCULAR: Aortic ectasia without discrete aneurysm. Aorta at the hiatus measures 4.0 cm diameter. Heavy calcific atheromatous disease of the aorta and iliac arteries, as well as their branches. PELVIC VISCERA: The prostate is enlarged measuring 5.2 cm diameter. OSSEOUS STRUCTURES: There is no suspicious lytic or blastic bone lesion. There are degenerative changes throughout the spine, and involving both hip joints. CT/CT abdomen pelvis w IV con IMPRESSION: 1. No acute findings in the abdomen or pelvis. 2. Moderate constipation. 3. Numerous left greater than right renal cysts, some of which are hyperattenuating and consistent with proteinaceous or hemorrhagic cysts. These are essentially stable from the prior MRI examination of 12/31/2023. No hydronephrosis or calculus. 4. Ectasia of the abdominal aorta without definite aneurysm. Extensive calcific atheromatous disease. The aorta at the aortic hiatus measures approximately 4.0 cm diameter. 5. Fatty infiltration of the liver. There are both small hepatic and splenic hemangiomata, better characterized on the prior MRI. 6. Additional ancillary findings as discussed. Electronically signed by: James Abraham MD 11/07/2024 03:47 PM EDT
--- NOTE | ~2024-11-07 | XR_ITS ---
EXAMINATION: XR CHEST CLINICAL INFORMATION: weakess COMPARISON: 08/08/2024. TECHNIQUE: Frontal view of the chest was obtained. FINDINGS: Right-sided dual-lead pacer device in place with leads extending into the right atrium and right ventricle. There is mild cardiac enlargement. Mediastinal and hilar contours appear normal. Aortic mural calcifications. The lungs are clear bilaterally. No pneumothorax or effusion. No focal osseous or soft tissue abnormality. XR/XR chest 1V IMPRESSION: No active pulmonary disease. Electronically signed by: James Abraham MD 11/07/2024 12:39 PM EDT
--- NOTE | ~2024-11-07 | CT_ITS ---
EXAMINATION: CT HEAD WITHOUT CONTRAST CLINICAL INFORMATION: Altered mental status. COMPARISON: None available. TECHNIQUE: Contiguous axial imaging was performed from the skull base to vertex without intravenous administration of contrast. This CT examination was performed using dose optimization techniques as appropriate, variously including the following: *Automated exposure control *Adjustment of mA and/or kV according to patient size (this includes techniques or standardized protocols for targeted exams where dose is matched to indication/reason for exam; i.e. extremities or head) *Use of iterative reconstruction technique FINDINGS: There is no evidence of intracranial hemorrhage or extra-axial fluid collection. There is no mass effect, or edema. No CT evidence of acute territorial infarct. Ventricles, sulci, and cisterns are diffusely somewhat prominent, in keeping with age-related cerebral and cerebellar volume loss. No hydrocephalus. No midline shift. Negative hyperdense MCA sign. Negative insular ribbon sign. Patchy periventricular and deep white matter hypoattenuation is consistent with mild to moderate small vessel ischemic changes. 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 Atheromatous calcification of the bilateral carotid siphons. Globes and orbital contents image normally. No extracranial soft tissue abnormalities. The paranasal sinuses, mastoid air cells, and tympanic cavities are normally aerated. No suspicious bony abnormalities. There are no acute fractures evident. CT/CT head/brain wo IV con IMPRESSION: No acute intracranial abnormality. Stable chronic findings. Electronically signed by: James Abraham MD 11/07/2024 01:24 PM EDT
--- NOTE | 2024-11-07 11:23 | ED_ITS ---
HPI - General Adult General Chief complaint: Altered Mental Status Stated complaint: AMS,?UTI PER EMS Time Seen by Provider: 11/07/24 11:23 History of Present Illness ED Provider: Quintin SYED narrative: The patient is an 79-year-old male who lives at the [facility] nursing [facility] on a long-term basis. Apparently staff at the facility were concerned that the patient's mental status was subtly different over the last week. They felt that he was not walking as well as he normally walks and that he was having more difficulty feeding himself. Three days ago on Thursday he was started on antibiotics for a possible urinary tract infection. He was started on cefuroxime 250 mg b.i.d.. According to staff at the intermediate sensitivities from a culture are not yet back. There has been no fever, sweats, chills. No nausea or vomiting. The patient himself has not had any specific complaints. The patient denies headache, chest pain, shortness of breath, abdominal pain. The patient is on rivaroxaban. Related Data Home Medications ?Medication ?Instructions ?Recorded ?Confirmed abacavir 600 mg-dolutegravir 50 1 tab PO DAILY@1200 09/22/24 mg-lamivudine 300 mg tablet lithium carbonate 300 mg capsule 300 mg PO BEDTIME 09/22/24 oxcarbazepine 150 mg tablet 150 mg PO BID 08/16/2006/14 oxcarbazepine 300 mg tablet 300 mg PO BID 08/16/2006/14 perphenazine 8 mg tablet 8 mg PO BID 08/16/20 5 propranolol 10 mg tablet 10 mg PO DAILY@1200 08/16/20 09/22/24 propranolol 20 mg tablet 20 mg PO BID 08/16/20 rivaroxaban 20 mg tablet 20 mg PO DAILY@1800 08/16/20 09/22/24 finasteride 5 mg tablet 5 mg PO DAILY 10/29/2009/22 lithium carbonate 150 mg capsule 150 mg PO DAILY 04/1609/22/24 latanoprost 0.005 % eye drops 1 drp ophthalmic (eye) B EDTIME 11/10/22 09/22/24 acetaminophen 325 mg tablet 650 mg PO Q4H PRN Fever Or Pain 04/19/23 09/22/24 (Tylenol) bisacodyl 10 mg rectal suppository 10 mg ID DAILY PRN Constipation 04/19/23 09/22/24 calcium carbonate (Oyster Shell 500 mg PO BID 04/19/23 09/22/24 Calcium 500) cholecalciferol (vitamin D3) 10 10 mcg PO DAILY 09/22/24 mcg (400 unit) tablet (Vitamin D3) docusate sodium 100 mg capsule 200 mg PO DAILY 4 09/22/24 (Colace) lactulose 20 gram/30 mL oral 20 g PO DAILY 04/19/23 solution miconazole nitrate 2 % topical 1 spray topical BID 09/22/24 spray powder omeprazole 20 mg tablet,delayed 20 mg PO DAILY@0630 09/22/24 release sennosides 8.6 mg tablet (senna) 8.6 mg PO DAILY PRN C onstipation 04/19/23 09/22/24 sodium phosphates 19 gram-7 118 ml ID DAILY PRN Consti pation 04/19/23 09/22/24 gram/118 mL enema (Fleet Enema) Previous Rx's ?Medication ?Instructions ?Recorded mirabegron 50 mg tablet,extended 50 mg PO DAILY 90 day s #90 tabs 04/16/22 release 24 hr (Myrbetriq) levofloxacin 500 mg tablet 500 mg PO DAILY 5 days #5 t abs 11/07/24 Allergies Allergy/AdvReac Type Severity Reaction Status Date / Time No Known Allergies (No Known Allergy Verified 11/07/24 12:30 Allergies*) Review of Systems 2 Review of Systems: Yes all other systems are reviewed and are negative FOR[facility]LY [facility] Past Medical History Medical History Chronic atrial fibrillation Persistent atrial fibrillation Ascending aortic aneurysm Psychotic disorder with hallucinations due to known physiological condition Unspecified urinary incontinence Constipation, unspecified Preglaucoma, unspecified, unspecified eye Acute stress reaction Ventricular premature depolarization Unspecified cataract Presbyopia Dementia in other diseases classified elsewhere with behavioral disturbance Atrial flutter Deficiency of other vitamins Other abnormalities of gait and mobility Muscular weakness Cyst of kidney, acquired Fatty (change of) liver, not elsewhere classified AAA (abdominal aortic aneurysm) without rupture Personal history of COVID-19 Low back pain Alcohol abuse HIV (human immunodeficiency virus infection) 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 GERD (gastroesophageal reflux disease) COPD (chronic obstructive pulmonary disease) Right bundle branch block (RBBB) on electrocardiogram (ECG) CVA (cerebral vascular accident) Paroxysmal atrial fibrillation Urgency incontinence BPH loc w urin obs/LUTS Surgical History H/O colonoscopy Social History Social History Household Members: Other Housing: [facility] Housing Other:: [facility] Are you a primary physician primary care sports medicine to a significant other at home: No Do you presently have visiting nurse or other home services: Yes ([facility] staff) Comment: COUNTS CORRECT Patient Tobacco Use Status: Former Tobacco user Smoked in Last 30 Days: No Use of substances other than those prescribed or required for medical reasons: No Advance Directives: No Advance Directives Information Provided: Yes Advance Directives Date on File: 07/19/21 Do you have a plan to hurt others: No Plan Physical Exam ED Vital Signs: Vital Signs - 24 hr 11/07/24 12:27 11/07/24 14:08 11/07/24 18:15 Temperature 97.8 F 97.7 F 97.9 F Pulse Rate 73 71 73 Respiratory Rate 23 H 24 H 22 H Blood Pressure 129/73 123/72 126/71 Pulse Oximetry 98 98 99 Oxygen Delivery Method Room Air Room Air Room Air 11/07/24 19:59 11/07/24 20:55 Temperature 98.2 F 98.2 F Pulse Rate 91 91 Respiratory Rate 18 18 Blood Pressure 137/86 137/86 Pulse Oximetry 97 97 Oxygen Delivery Method Room Air Room Air BMI result Body Mass Index 19.3 Const Other: The patient is a tall, thin, chronically ill-appearing 79-year-old man who was awake and alert and does not appear in acute distress. HENMT Other: The face is symmetrical. ?Mucous membranes moist. Eyes Other: Pupils are round equal, conjunctivae are clear, extraocular movements intact Neck Neck: Yes normal visual inspection, Yes full ROM and Yes no JVD Resp Effort & Inspection: normal respiratory effort Auscultation: clear to auscultation bilaterally Cardio Other: The patient has an irregular rate and rhythm with no definite murmur GI Other: Abdomen is soft and nontender Skin Other: The skin is dry and unremarkable General skin exam: no rashes or lesions noted Neuro Other: The patient is awake and alert. Cranial nerves 2-12 are intact. He moves his extremities symmetrically. No obvious focal neurological deficit Extrem Other: No peripheral edema Medications Administered Discontinued Medications Generic Name Dose Route Start Last Admin Trade Name Freq PRN Reason Stop Dose Admin Sodium Chloride 1,000 mls @ 999 mls/hr 11/07/24 14:00 11/07/24 17:00 Ns IV 11/07/24 15:00 Infused .Q1H1M JEMIMA Infusion Lactated Ringer's 1,000 mls @ 999 mls/hr 11/07/24 14:15 11/07/24 17:00 Lr IV 11/07/24 15:15 Infused .Q1H1M JEMIMA Infusion Lactated Ringer's 1,000 mls @ 999 mls/hr 11/07/24 15:30 11/07/24 18:31 Lr IV 11/07/24 16:30 Infused .Q1H1M JEMIMA Infusion Iohexol 100 ml 11/07/24 15:07 11/07/24 15:08 Iohexol 350 Mg/Ml 100 Ml Infus..Btl IV 11/07/24 15:08 85 ml ONCE ONE Administration Levofloxacin 750 mg 11/07/24 18:28 11/07/24 18:55 Levofloxacin 750 Mg Tablet PO 11/07/24 18:29 750 mg ONCE ONE Administration Lidocaine HCl 10 ml 11/07/24 17:15 11/07/24 17:20 Lidocaine Hcl 2 % Urojet 10 Ml Jel.Pf.Rachel TOPICAL 11/07/24 17:16 10 ml ONCE ONE Administration Medical Decision Making Medical Decision Making [facility] Narrative: The patient is an 79-year-old man with a history of HIV, dementia, atrial fibrillation on rivaroxaban, an ascending aortic aneurysm, and BPH who lives at a local intermediate. Apparently staff feels he has been less of his normal self recently and sent him to the emergency room today. I believe he has been on cefuroxime 250 mg b.i.d. for 3 days out of concern about a possible UTI. He has not been febrile. He is not febrile here. He is not tachycardic. His mental status seems fairly clear to me. He has a nonfocal neurological exam. The patient has a workup in the emergency room that included a head CT and a chest x-ray and blood testing. He had a white count of 11.7 with 82% neutrophils. His hemoglobin was 12.8. His basic metabolic panel showed a sodium of 146, chloride 113, creatinine 1.09, BUN 42. His C-reactive protein was quite elevated at 20. His urinalysis was consistent with a UTI. Given his very high CRP I also obtained a CT scan of the abdomen and pelvis with IV contrast. His CT scan showed no definite acute findings in the abdomen or pelvis. He has numerous renal cysts. He has ectasia of the abdominal aorta without definite aneurysm. He has fatty infiltration of the liver. My overall impression was that I was not finding any definite acute process which would require hospitalization. I think it might be reasonable to change his antibiotic since his urinalysis is distinctly abnormal despite cefuroxime. I will therefore switch the patient to a course of levofloxacin. He was given a dose here in the emergency room. Of note the patient is on lithium. His lithium level was therapeutic. The patient seemed stable. He was given IV hydration. He ate a meal. He received a 1st dose of oral levofloxacin. I contacted his guardian and explained that I would be changing his antibiotic. The patient was then returned to his nursing facility. Lab Data 11/07/24 12:13 11/07/24 12:13 Labs: Lab Results 11/07/24 11/07/24 Range/Units 12:13 17:55 WBC 11.7 H (4.8-10.8) X10*3/uL RBC 4.17 L (4.60-5.80) X10*6/uL Hgb 12.8 L (14.0-18.0) g/dl Hct 37.9 L (42.0-52.0) % MCV 90.9 (80.0-98.0) fL MCH 30.7 (27.0-33.0) pg MCHC 33.8 (31.0-36.0) g/dl RDW 15.2 (11.0-16.0) % Plt Count 194 (160-400) X10*3/uL MPV 10.6 (9.4-12.4) fL Immature Gran % (Auto) 1.1 H (0.0-0.4) % Neut % (Auto) 82.5 H (45-73) % Lymph % (Auto) 7.4 L (20-40) % [place] % (Auto) 8.0 (2-11) % Eos % (Auto) 0.9 (0-4) % Baso % (Auto) 0.1 (0-2) % Lymph # (Auto) 0.9 L (1.2-4.9) X10*3/uL [place] # (Auto) 0.9 (0.1-1.2) X10*3/uL Eos # (Auto) 0.1 (0.0-0.4) X10*3/uL Baso # (Auto) 0.0 (0.0-0.2) X10*3/uL Abs Immat Gran (auto) 0.13 H (0.00-0.03) X10*3/uL Absolute Neuts (auto) 9.7 H (2.0-8.3) x10*3/uL Absolute Nucleated RBC 0.020 H (0.0-0.012) X10*3/uL Nucleated RBC % (auto) 0.2 (0.0-0.2) /100WBC PT 15.9 H (10.9-12.4) SEC INR 1.4 H (0.9-1.1) Sodium 146 H (135-145) mmol/L Potassium 4.2 (3.3-5.1) mmol/L Chloride 113 H (96-108) mmol/L Carbon Dioxide 25 (22-29) mmol/L Anion Gap 12 (12-20) BUN 42 H (9-16) mg/dL Creatinine 1.09 (0.5-1.4) mg/dL Estim Creat Clear Calc 58.0 Estimated GFR > 60 Random Glucose 125 H (60-115) mg/dL Calcium 10.8 H (8.4-10.2) mg/dL Magnesium 2.3 (1.6-2.6) mg/dL Total Bilirubin 0.5 (0.0-1.0) mg/dL Direct Bilirubin 0.3 (0.0-0.5) mg/dL AST 70 H (5-37) U/L ALT 46 H (0-40) U/L Alkaline Phosphatase 126 H (39-117) U/L Troponin I High Sens 5.4 (<3.5-35.0) ng/L C-Reactive Protein 20.56 H (< or = 0.50) mg/dL Total Protein 7.3 (6.5-8.0) g/dL Albumin 3.5 (3.5-5.0) g/dL Urine Color Yellow Urine Appearance Clear Urine pH 6.5 (5.0-9.0) Ur Specific [place] >= 1.030 H (1.005-1.025) Urine Protein 30 (1+) H (Neg-Trace) mg/dL Urine Glucose (UA) Negative (Negative) mg/dL Urine Ketones Negative (Negative) mg/dL Urine Blood Small (1+) H (Negative) Urine Nitrite Negative (Negative) Ur Leukocyte Esterase Large (3+) H (Negative) Urine RBC 11-20 H (0-2) /HPF Urine WBC >50 H (0-5) /HPF Ur Squamous Epith Cells 3-5 (0-2) /HPF Urine Bacteria None Seen (None Seen) Hyaline Casts 0-2 (0-2) /LPF [place] 1.03 (0.60-1.20) mmol/L Ethyl Alcohol < 10 mg/dL Influenza Type A (PCR) NEGATIVE (Negative) Influenza Type B (PCR) NEGATIVE (Negative) RSV RNA Qual (PCR) NEGATIVE (Negative) SARS-CoV-2 RNA (RT-PCR) NEGATIVE (Negative) Discharge Plan Discharge Clinical Impression: Altered mental status, Urinary tract infection Patient Disposition: [facility] Additional Instructions: Workup today shows a possible ongoing UTI. His kidney function is slightly worse but not severely so. He has some minor LFT abnormalities. He has a C-reactive protein which is quite high at 20.56. The reason for this high CRP could be a urinary tract infection but I do not have any clear-cut explanation for such a high CRP. He has been hemodynamically stable and does not seem to require hospitalization. I have started him on a course of oral levofloxacin which should replace the current antibiotic he is on, cefuroxime. I have sent a prescription for levofloxacin 500 mg once a day for 5 days. Please have him follow up with his regular providers. Return to the emergency room if significantly worse. Prescriptions: New levofloxacin 500 mg tablet 500 mg PO DAILY 5 Days Qty: 5 0RF No Action sennosides [senna] 8.6 mg Tablet 8.6 mg PO DAILY PRN (Reason: Constipation) acetaminophen [Tylenol] 325 mg Tablet 650 mg PO Q4H PRN (Reason: Fever Or Pain) miconazole nitrate 2 % Aerosol Powder 1 spray TOPICAL BID calcium carbonate [Oyster Shell Calcium 500] 500 mg calcium (1,250 mg) Tablet 500 mg PO BID bisacodyl 10 mg Suppository 10 mg ID DAILY PRN (Reason: Constipation) Fleet Enema 19-7 gram/118 mL Enema 118 ml ID DAILY PRN (Reason: Constipation) docusate sodium [Colace] 100 mg Capsule 200 mg PO DAILY cholecalciferol (vitamin D3) [Vitamin D3] 10 mcg (400 unit) Tablet 10 mcg PO DAILY lactulose 20 gram/30 mL Solution 20 g PO DAILY omeprazole 20 mg Tablet,Delayed Release (Dr/Ec) 20 mg PO DAILY@0630 perphenazine 8 mg tablet 8 mg PO BID oxcarbazepine 150 mg tablet 150 mg PO BID rivaroxaban 20 mg tablet 20 mg PO DAILY@1800 propranolol 20 mg tablet 20 mg PO BID lithium carbonate 300 mg capsule 300 mg PO BEDTIME oxcarbazepine 300 mg tablet 300 mg PO BID oqtvmhtz-cssgdociilzn-izihsgo 600-50-300 mg tablet 1 tab PO DAILY@1200 propranolol 10 mg tablet 10 mg PO DAILY@1200 finasteride 5 mg tablet 5 mg PO DAILY lithium carbonate 150 mg capsule 150 mg PO DAILY Myrbetriq 50 mg tablet extended release 24 hr 50 mg PO DAILY 90 Days Qty: 90 0RF latanoprost 0.005 % drops 1 drp ophthalmic (eye) BEDTIME Interventions: ED Discharge Assessment Last Done: 11/07/24 20:55 Discharge Date/Time: 11/07/24 20:55 Print Language: Greenlandic
--- NOTE | 2024-11-07 11:32 | ECG_ITS ---
Test Reason : AMS Blood Pressure : */* mmHG Vent. Rate : 79 BPM Atrial Rate : * BPM P-R Int : * ms QRS Dur : 122 ms QT Int : 416 ms P-R-T Axes : * 2 12 degrees QTcB Int : 477 ms Atrial fibrillation with premature ventricular or aberrantly conducted complexes Right bundle branch block Abnormal ECG When compared with ECG of 08-Aug-2024 16:11, No significant change was found Referred By: Russ Ribeiro Electronically Signed By:
[2024-11-07 11:43] VITALS: BP 118/78; PULSE 82; O2SAT 96
[2024-11-07 12:20] LABS: MANUAL DIFF FLAG NO
[2024-11-07 12:21] LABS: Hematocrit 37.9 % (42.0-52.0); Hemoglobin 12.8 g/dl (14.0-18.0); Imm Gran Abs Auto 0.13 X10*3/uL (0.00-0.03); Imm Gran Pct Auto 1.1 % (0.0-0.4); Lymphocytes Absolute Auto 0.9 X10*3/uL (1.2-4.9); Mean Corpuscular HGB Conc 33.8 g/dl (31.0-36.0); Mean Corpuscular Hemoglobin 30.7 pg (27.0-33.0); Mean Corpuscular Volume 90.9 fL (80.0-98.0); NRBC Abs Auto 0.020 X10*3/uL (0.0-0.012); NRBC Pct Auto 0.2 /100WBC (0.0-0.2); Platelet Count 194 X10*3/uL (160-400); Red Blood Count 4.17 X10*6/uL (4.60-5.80); White Blood Count 11.7 X10*3/uL (4.8-10.8)
[2024-11-07 12:27] VITALS: BP 129/73; PULSE 73; RESP 23; TEMP 36.6; O2SAT 98; BMI 19.3
[2024-11-07 12:29] LABS: INTERNATIONAL NORM RATIO 1.4 (0.9-1.1); Prothrombin Time 15.9 SEC (10.9-12.4)
[2024-11-07 12:39] LABS: Alanine Aminotransferase 46 U/L (0-40); Albumin Level 3.5 g/dL (3.5-5.0); Alkaline Phosphatase 126 U/L (39-117); Anion Gap 12 (12-20); Aspartate Amino Transferase 70 U/L (5-37); Blood Urea Nitrogen 42 mg/dL (9-16); Calcium 10.8 mg/dL (8.4-10.2); Carbon Dioxide 25 mmol/L (22-29); Chloride 113 mmol/L (96-108); Creatinine Clr Calc Pharmacy 58.0; Estimated Glomerular Filt Rate > 60; Magnesium 2.3 mg/dL (1.6-2.6); Potassium 4.2 mmol/L (3.3-5.1); Sodium 146 mmol/L (135-145); Total Protein 7.3 g/dL (6.5-8.0)
[2024-11-07 12:47] LABS: Troponin-I High Sensitivity 5.4 ng/L (<3.5-35.0)
[2024-11-07 13:05] LABS: Resp Syncy Virus RNA Qual PCR NEGATIVE (Negative); SARS COV2 PCR INHOUSE NEGATIVE (Negative)
--- OUTSIDE RECORDS SUMMARY | 2024-11-07 13:48 | XMS_ITS | Patient Health Record ---
Author Organization [facility] Address [address] [place] [address] Care Team Providers Care Language Asst Name Role Phone Diogo Hanson Primary Care Provider Frederic Cobb Unavailable [phone] Reason For Referral No Information Medications Medication [...] Fleet Enema - as directed Rectal Active [place] Carbonate 300 MG Oral for 30 Active [...] Active Lotrimin AF 2 % 1 application Cyber Intelligence Analyst ally Twice a day for 14 day(s) [...] Problem Status W/U Status Risk Notes Problem [id number] Encounter for screening for malignant neoplasm of colon (Z12.11) Active confirmed Problem [id number] Preprocedural examination (Z01.818) Active confirmed Problem History of colon polyps (Z86.010) Active confirmed Problem Diverticulosis of colon (305531238) Diverticulosis of colon (K57.30) Active confirmed Problem 955974381 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 confirmed Problem 199485092 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) Active confirmed Plan Of Treatment Future Test Test Name Order Date COLONOSCOPY 04/23/2021 COLONOSCOPY 06/16/2021 Insurance Providers Payer Name Payer Address Payer Phone Subscriber Number Group Number Insured Name Patient Relationship to Insured Coverage Start Date Coverage End Date MEDICARE OF [place] [address] [place] [address] [id number] DAMON VILLEDA Self - patient is the insured [address] [address] [phone] DAMON VILLEDA Self - patient is the insured Medical (General) History Medical History History ICD Code COPD HIV(Reported) CYST OF KIDNEY ABNORMALITIES OF GAIT AND MOBILITY ATRIAL FIBRILLATION REPORTED DEMENTIA GERD CONSTIPATION URINARY INCONTINENCE PSYCHOTIC DISORDER Denies [place],DM,CVA,renal disease
--- OUTSIDE RECORDS SUMMARY | 2024-11-07 13:48 | XMS_ITS | Encounter Summary ---
Author Organization [facility] Address [address] [place] [address] Care Team Providers Care Decal Transferrer Name Role Phone Diogo Hanson MD Primary Care Provider [phone] Encounter Details Date Type Department Care Team (Late st Contact Info) Description 05/26/2024 Lab Requisition [facility] - Main Lab [address] [facility] [place] [address] Diogo Hanson MD [address] [place] [address] Dr [address] TRINITY Cardenas Encounter for [...] Ammonia (05/26/2024 6:29 AM EST) Pathologist [facility] Ammonia 19 11 - 35 mcmol/L LAB CHEMISTRY METHOD 05/26/2024 8:06 AM EST [facility] Blood Venous blood specimen / Unknown 05/26/2024 6:29 AM EST 05/26/2024 7:40 AM EST us Diogo Hanson MD LAB BLOOD ORDERABLES Final Resul t Performing Organization Address [facility]/ZIP Co de Phone Number [facility] [address] [place] [address], [place] [phone] * Thyroid stimulating hormone (05/26/2024 6:29 AM EST) Pathologist [facility] TSH 1.67 0.40 - 4.00 mcIU/mL LAB CHEMISTRY METHOD 05/26/2024 8:23 AM EST [facility] Blood Venous blood specimen / Unknown 05/26/2024 6:29 AM EST 05/26/2024 7:40 AM EST us Diogo Hanson MD LAB BLOOD ORDERABLES Final Resul t Performing Organization Address [facility]/ZIP Co de Phone Number [facility] [address] [place] [address], [place] [phone] * (ABNORMAL) Complete blood count (05/26/2024 6:29 AM EST) Pathologist [facility] WBC 5.6 4.8 - 10.8 K/mcL LAB HEMETOLOGY METHOD 05/26/2024 7:51 AM EST [facility] RBC 4.50 4.50 - 5.50 M/mcL LAB HEMETOLOGY METHOD 05/26/2024 7:51 AM EST [facility] Hemoglobin 13.3(L) 13.5 - 17.5 g/dL LAB HEMETOLOGY METHOD 05/26/2024 7:51 AM [facility] Hematocrit 41.6(L) 42.0 - 54.0 % LAB HEMETOLOGY METHOD 05/26/2024 7:51 AM [facility] MCV 91.6 79.0 - 98.0 FL LAB HEMETOLOGY METHOD 05/26/2024 7:51 AM [facility] MCH 29.3 27.0 - 32.0 pcg LAB HEMETOLOGY METHOD 05/26/2024 7:51 AM [facility] MCHC 32.0 32.0 - 37.0 g/dL LAB HEMETOLOGY METHOD 05/26/2024 7:51 AM [facility] RDW 15.4(H) 11.0 - 15.0 % LAB HEMETOLOGY METHOD 05/26/2024 7:51 AM [facility] Platelets 203 130 - 400 K/mcL LAB HEMETOLOGY METHOD 05/26/2024 7:51 AM [facility] MPV 10.5 7.0 - 11.0 FL LAB HEMETOLOGY METHOD 05/26/2024 7:51 AM [facility] NRBC 0.0 <1.0 % LAB HEMETOLOGY METHOD 05/26/2024 7:51 AM [facility] NRBC Absolute 0.00 <0.10 K/mcL LAB HEMETOLOGY METHOD 05/26/2024 7:51 AM [facility] Blood Venous blood specimen / Unknown 05/26/2024 6:29 AM EST 05/26/2024 7:40 AM EST us Diogo Hanson MD LAB BLOOD ORDERABLES Final Resul t [facility] [address] [place] [address], * (ABNORMAL) [place] level (05/26/2024 6:29 AM EST) [place] Level 0.3(L) 0.6 - 1.2 mEq/L LAB CHEMISTRY METHOD 05/26/2024 8:16 AM EST [facility] Blood Venous blood specimen / Unknown 05/26/2024 6:29 AM EST 05/26/2024 7:40 AM EST us Diogo Hanson MD LAB BLOOD ORDERABLES Final Resul t [facility] [address] [place] [address], documented in this encounter Visit Diagnoses Diagnosis Encounter for therapeutic drug level monitoring Fatty (change of) liver, not elsewhere classified Psychotic disorder with delusions due to known physiological condition documented in this encounter Care Teams Decal Transferrer Relationship Specialty Start Date End Date Diogo Hanson MD [address] [place] [address] Dr [address] [place], [place] PCP - General Internal Medicine 05/26/24 documented as of this encounter
[2024-11-07 14:08] VITALS: BP 123/72; PULSE 71; RESP 24; TEMP 36.5; O2SAT 98
[2024-11-07] MEDS: Lactated Ringers 1,000 ML 999 ML IV ×2 (14:28→17:30)
[2024-11-07] MEDS: iohexoL 350 MG/ML 100 ML INFUS..BTL IV (15:08)
[2024-11-07] MEDS: Lidocaine HCl 2 % Urojet 10 ML JEL.PF.APP TOPICAL (17:20)
[2024-11-07 18:03] LABS: Appearance Urine Clear; Glucose Urine UA Negative (Negative); PH 6.5 (5.0-9.0); Specific Gravity - Urine >= 1.030 (1.005-1.025); UMIC TRIGGER UACC YES
[2024-11-07 18:08] LABS: UACC Culture Trigger YES
[2024-11-07 18:15] VITALS: BP 126/71; PULSE 73; RESP 22; TEMP 36.6; O2SAT 99
[2024-11-07 19:31] LABS: Lithium 1.03 mmol/L (0.60-1.20)
--- NOTE | 2024-11-07 19:55 | PC.NURSE ---
Report called to Brooklyn SHEEHAN @ [facility]. Questions answered, abx reviewed. Awaiting EMS ETA.
[2024-11-07 19:59] VITALS: BP 137/86; PULSE 91; RESP 18; TEMP 36.8; O2SAT 97
[2024-11-07 20:55] VITALS: BP 137/86; PULSE 91; RESP 18; TEMP 36.8; O2SAT 97
== END 2024-11-07 20:55 | disposition skilled nursing facility (03) ==
PROVIDERS: Emergency Provider Emergency Medicine; PCP Hospitalist
DX: R41.82 Altered mental status, unspecified (principal); N39.0 Urinary tract infection, site not specified; R53.1 Weakness; R79.82 Elevated C-reactive protein (CRP); R79.89 Other specified abnormal findings of blood chemistry; Z03.818 Encounter for observation for suspected exposure to other biological agents ruled out
CPT/HCPCS: 36415; 51701; 51798; 70450; 71045; 74177; 80048; 80076; 80178; 80307; 80339; 81001; 83735; 84484; 85025; 85610; 86140; 87086; 87637; 93005; 96360; 96361; 99285; J7120; Q9967

== ENCOUNTER → 2024-11-07 11:33 | Outpatient (BNV) | payer MEDICARE, MEDICAID, SELFPAY | PROVIDERS: Emergency Provider Emergency Medicine; Visit Provider Radiology Diagnostic Radiology | DX: R94.5 Abnormal results of liver function studies (principal); R53.1 Weakness; K59.00 Constipation, unspecified; N28.81 Hypertrophy of kidney; R41.82 Altered mental status, unspecified; K76.0 Fatty (change of) liver, not elsewhere classified; D18.03 Hemangioma of intra-abdominal structures | CPT/HCPCS: 70450; 71045; 74177 ==

== ENCOUNTER → 2024-11-08 23:59 | Outpatient (BNV) | payer MEDICARE, MEDICAID, SELFPAY ==
--- NOTE | 2024-11-09 16:20 | MHC.OFFVIS ---
Intake Visit Reasons: Remote Device Check- [facility] Allergies No Known Allergies (No Known Allergies*) Allergy (Verified 11/07/24 12:30) REPLACED BY [facility] Medical History Chronic atrial fibrillation Persistent atrial fibrillation Ascending aortic aneurysm Psychotic disorder with hallucinations due to known physiological condition Unspecified urinary incontinence Constipation, unspecified Preglaucoma, unspecified, unspecified eye Acute stress reaction Ventricular premature depolarization Unspecified cataract Presbyopia Dementia in other diseases classified elsewhere with behavioral disturbance Atrial flutter Deficiency of other vitamins Other abnormalities of gait and mobility Muscular weakness Cyst of kidney, acquired Fatty (change of) liver, not elsewhere classified AAA (abdominal aortic aneurysm) without rupture Personal history of COVID-19 Low back pain Alcohol abuse HIV (human immunodeficiency virus infection) Resides in [facility] care facility GERD (gastroesophageal reflux disease) COPD (chronic obstructive pulmonary disease) Right bundle branch block (RBBB) on electrocardiogram (ECG) CVA (cerebral vascular accident) Paroxysmal atrial fibrillation Urgency incontinence BPH loc w urin obs/LUTS Surgical History H/O colonoscopy Social History Household Members: Other Housing: Longterm Housing Other:: [facility] Are you a primary child care center administrator to a significant other at home: No Do you presently have visiting nurse or other home services: Yes ([facility] staff) Comment: COUNTS CORRECT Patient Tobacco Use Status: Former Tobacco user Smoked in Last 30 Days: No Use of substances other than those prescribed or required for medical reasons: No Advance Directives: No Advance Directives Information Provided: Yes Advance Directives Date on File: 07/19/21 Do you have a plan to hurt others: No Plan Office Procedures Cardiac Device Check Cardiac Device Check Details: Remote pacemaker report generated 11/08/2024. Pacemaker function is adequate [id number] Cardiac Device Interrogation, pacemaker Procedure code (CPT) selection complete Assessment & Plan Assessment & Plan (1) Cardiac pacemaker in situ: Comment: [facility] dual-chamber Code(s): Z95.0 - Presence of cardiac pacemaker Category: Medical Plan: See above Coding Level of Care Code Procedure Only Diagnoses Cardiac pacemaker in situ Z95.0 CPT Codes Cardiac Device Check - Cardiac Device 12: [id number] Cardiac Device Interrogation, pacemaker ([id number])
== END ==
PROVIDERS: PCP Hospitalist; Visit Provider Internal Medicine Cardiovascular Disease
DX: Z45.018 Encounter for adjustment and management of other part of cardiac pacemaker (principal)
CPT/HCPCS: 93294

== ENCOUNTER → 2024-11-11 12:56 | Outpatient (REF) | payer MEDICARE, MEDICAID, SELFPAY ==
--- NOTE | ~2024-11-11 | US_ITS ---
EXAMINATION: US RETROPERITONEAL LIMITED (RENAL ONLY) CLINICAL INFORMATION: Cyst of the kidney. COMPARISON: Correlated to CT dated November 07, 2024 TECHNIQUE: Real-time ultrasound kidneys using grayscale and color Doppler technique. FINDINGS: RIGHT KIDNEY: 11 x 6 x 5 cm (SAG x AP x TRV). Volume: 177 cc normal echotexture. Normal renal cortical thickness. No hydronephrosis. There is a 1.7 cm anechoic lesion with the focal hyperechoic abnormality in the midportion. There is a 1.7 cm anechoic lesion in the midportion without septations or flow on color Doppler interrogation. LEFT KIDNEY: 17 x 8 x 9 cm (SAG x AP x TRV). Volume: 583 cc. Normal renal cortical thickness. Normal echotexture. No hydronephrosis. There is a 3.8 cm heterogeneous mixed echotexture exophytic lesion in the lower pole. There are other cystic lesions. US/US renal BI IMPRESSION: 3.8 cm complex lesion in the left kidney. Recommend dedicated IV contrast enhanced MRI renal mass protocol. No hydronephrosis.. Electronically signed by: Cam Miguel MD 11/11/2024 03:15 PM EDT
--- OUTSIDE RECORDS SUMMARY | 2024-11-11 13:01 | XMS_ITS | Encounter Summary ---
[facility] Organization [facility] Address [address] [place] [address] Care Team Providers Care Latcher Name Role Phone Diogo Hanson MD Primary Care Provider [phone] Encounter Details Date Type Department Care Team (Late st Contact Info) Description 05/26/2024 Lab Requisition [facility] - Main Lab [address] [facility] [place] [address] Diogo Hanson MD [address] [place] [address] Dr [address] TRINITY Cardenas Encounter for [...] LAB CHEMISTRY METHOD 05/26/2024 8:06 AM EST [facility] Blood Venous blood specimen / Unknown 05/26/2024 6:29 AM EST 05/26/2024 7:40 AM EST us Diogo Hanson MD LAB BLOOD ORDERABLES Final Resul t Performing Organization Address [facility]/ZIP Co de Phone Number [facility] [address] [place] [address], [place] [phone] * Thyroid stimulating hormone (05/26/2024 6:29 AM EST) Pathologist [facility] TSH 1.67 0.40 - 4.00 mcIU/mL LAB CHEMISTRY METHOD 05/26/2024 8:23 AM EST [facility] Blood Venous blood specimen / Unknown 05/26/2024 6:29 AM EST 05/26/2024 7:40 AM EST us Diogo Hanson MD LAB BLOOD ORDERABLES Final Resul t Performing Organization Address [facility]/ZIP Co de Phone Number [facility] [address] [place] [address], [place] [phone] * (ABNORMAL) Complete blood count (05/26/2024 6:29 AM EST) Pathologist [facility] WBC 5.6 4.8 - 10.8 K/mcL LAB HEMETOLOGY METHOD 05/26/2024 7:51 AM EST [facility] RBC 4.50 4.50 - 5.50 M/mcL LAB HEMETOLOGY METHOD 05/26/2024 7:51 AM EST [facility] Hemoglobin 13.3(L) 13.5 - 17.5 g/dL LAB HEMETOLOGY METHOD 05/26/2024 7:51 AM [facility] Hematocrit 41.6(L) 42.0 - 54.0 % LAB HEMETOLOGY METHOD 05/26/2024 7:51 AM [facility] MCV 91.6 79.0 - 98.0 FL LAB HEMETOLOGY METHOD 05/26/2024 7:51 AM [facility] MCH 29.3 27.0 - 32.0 pcg LAB HEMETOLOGY METHOD 05/26/2024 7:51 AM [facility] MCHC 32.0 32.0 - 37.0 g/dL LAB HEMETOLOGY METHOD 05/26/2024 7:51 AM [facility] RDW 15.4(H) 11.0 - 15.0 % LAB HEMETOLOGY METHOD 05/26/2024 7:51 AM [facility] Platelets 203 130 - 400 K/mcL LAB HEMETOLOGY METHOD 05/26/2024 7:51 AM [facility] MPV 10.5 7.0 - 11.0 FL LAB HEMETOLOGY METHOD 05/26/2024 7:51 AM [facility] NRBC 0.0 <1.0 % LAB HEMETOLOGY METHOD 05/26/2024 7:51 AM [facility] NRBC Absolute 0.00 <0.10 K/mcL LAB HEMETOLOGY METHOD 05/26/2024 7:51 AM [facility] Blood Venous blood specimen / Unknown 05/26/2024 6:29 AM EST 05/26/2024 7:40 AM EST us Diogo Hanson MD LAB BLOOD ORDERABLES Final Resul t [facility] [address] [place] [address], * (ABNORMAL) [place] level (05/26/2024 6:29 AM EST) [place] Level 0.3(L) 0.6 - 1.2 mEq/L LAB CHEMISTRY METHOD 05/26/2024 8:16 AM EST [facility] Blood Venous blood specimen / Unknown 05/26/2024 6:29 AM EST 05/26/2024 7:40 AM EST us Diogo Hanson MD LAB BLOOD ORDERABLES Final Resul t [facility] [address] [place] [address], documented in this encounter Visit Diagnoses Diagnosis Encounter for therapeutic drug level monitoring Fatty (change of) liver, not elsewhere classified Psychotic disorder with delusions due to known physiological condition documented in this encounter Care Teams Latcher Relationship Specialty Start Date End Date Diogo Hanson MD [address] [place] [address] Dr [address] [place], [place] PCP - General Internal Medicine 05/26/24 documented as of this encounter
--- OUTSIDE RECORDS SUMMARY | 2024-11-11 13:01 | XMS_ITS | Patient Health Record ---
Author Organization [facility] Address [address] [place] [address] Care Team Providers Care Sinter Press Operator Name Role Phone Diogo Hanson Primary Care Provider Frederic Cobb Unavailable [phone] Reason For Referral No Information Medications Medication [...] Fleet Enema - as directed Rectal Active [place] Carbonate 300 MG Oral for 30 Active [...] Active Lotrimin AF 2 % 1 application Patent Solicitor ally Twice a day for 14 day(s) [...] Problem Status W/U Status Risk Notes Problem [id number] Encounter for screening for malignant neoplasm of colon (Z12.11) Active confirmed Problem 086298472593117 Preprocedural examination (Z01.818) Active confirmed Problem History of colon polyps (Z86.010) Active confirmed Problem Diverticulosis of colon (140900182) Diverticulosis of colon (K57.30) Active confirmed Problem 769433278 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 confirmed Problem 992790417 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 (Z79.01) Active confirmed Plan Of Treatment Future Test Test Name Order Date COLONOSCOPY 04/23/2021 COLONOSCOPY 06/16/2021 Insurance Providers Payer Name Payer Address Payer Phone Subscriber Number Group Number Insured Name Patient Relationship to Insured Coverage Start Date Coverage End Date MEDICARE OF [place] [address] [place] [address] [id number] DAMON VILLEDA Self - patient is the insured [address] [address] [phone] DAMON VILLEDA Self - patient is the insured Medical (General) History Medical History History ICD Code COPD HIV(Reported) CYST OF KIDNEY ABNORMALITIES OF GAIT AND MOBILITY ATRIAL FIBRILLATION REPORTED DEMENTIA GERD CONSTIPATION URINARY INCONTINENCE PSYCHOTIC DISORDER Denies [place],DM,CVA,renal disease
--- NOTE | 2024-11-11 13:02 | CA_ITS ---
Transthoracic Echocardiogram Patient (Last, First, Middle): Ras Jacobo, Gender: Male Date of : 1945 Age: 79 Procedure Date: 11/11/2024 Procedure Type: Transthoracic Echocardiogram Location: OP Height: 198.12 cm Weight: 81.65 kg BSA: 2.16 m2 Heart Rate: bpm BP: 118 / 56 mmHg Watch Hairspring Assembler: Referring MD: August Rodriguez MD Yield Clerk: August oRdriguez MD Symptoms: I71.2 - Thoracic aortic aneurysm, without rupture Study Quality: Adequate ECG Rhythm: Atrial Fibrillation Conclusions: - 1. Normal LV ejection fraction of 60-65% 2. Moderately increased RV size with preserved contractility 3. Severe biatrial enlargement 4. Mild aortic and mitral regurgitation 5. Moderately dilated ascending aorta at 4.8 cm 6. Normal RV systolic pressure 7. No gross pericardial effusion Findings Left Ventricle Normal left ventricular size and systolic function. There is mildly increased left ventricular wall thickness. The visually estimated ejection fraction is between 60-65%. Diastolic function is indeterminate on the basis of available data. Right Ventricle Moderately increased right ventricular cavity size. There is normal right ventricular systolic function. There is a pacemaker wire seen in the right ventricle. Atria Severe biatrial enlargement. There is no evidence of interatrial shunt. A pacemaker wire is identified in the right atrium. Aortic Valve Normal aortic valve structure and function. There is no aortic valve stenosis. There is mild aortic valve regurgitation. Mitral Valve Normal mitral valve structure and function. There is mild mitral valve regurgitation. There is no mitral valve stenosis. Pulmonic Valve The pulmonic valve is likely normal. There is trace to mild pulmonic valve regurgitation. Tricuspid Valve Normal tricuspid valve structure. There is moderate tricuspid valve regurgitation. The right ventricular systolic pressure is normal. The right ventricular systolic pressure is 33 mmHg. Normal right atrial pressure. There is no evidence of pulmonary hypertension. Great Vessels The pulmonary artery was not well visualized. There is moderate dilatation of the ascending aorta measuring 4.80 cm. Venous The inferior vena cava is normal in size and collapses greater than 50% with inspiration. Pericardium/Pleural There is no evidence of pericardial effusion. Prior Study Comparison No significant change compared to prior study dated: 08/31/2023. Measurements 2D Linear Measurements IVSd: 1.26 0.6-0.9/0.6-1.0 cm LVIDd: 4.27 3.9-5.3/4.2-5.9 cm LVIDd Index: 1.98 2.4-3.2/2.2-3.1 cm/m2 LVIDs: 2.63 2.0-3.6 cm LVPWd: 1.25 0.7-1.1 cm Ao Root: 4.00 2.1-3.5 cm LA Diam: 4.40 2.7-3.8/3.0-4.0 cm LAIDs Index: 2.04 1.5-2.3 cm/m2 LV Mass: 243.16 67-162/88-224 g LV Mass Index: 112.58 43-95/49-115 g/m2 LVOT Diam: 2.40 3.0+(-)1.3 cm 2D Systolic Function EF 4C: 63.70 >55% EF 2C: 62.30 >55% Mitral Valve MV VTI: 0.24 MV Pk Sj: 0.99 MV Mn Sj: 0.49 MV Pk Grad: 4.00 MV Mn Grad: 1.00 MV Pk E: 1.05 MV Decel Time: 185.00 E'Lateral: 12.60 E'Medial: 5.22 E/E' Med: 20.10 E/E' Lat: 8.30 PHT: 54.00 MVA PHT: 4.07 MVA Continuity: 2.86 Decel Anson: 5.68 Aortic Valve AoV Pk Sj: 1.10 AoV Mn Sj: 0.68 AoV VTI: 0.22 AoV Pk Grad: 5.00 Aov Mn Grad: 2.00 MARÍA Cont.VTI: 3.14 LVOT LVOT Pk Sj: 0.73 LVOT Mn Sj: 0.49 LVOT VTI: 0.15 LVOT Pk Grad: 2.00 LVOT Mn Grad: 1.00 LVOT Diam: 2.40 LVOT Area: 4.52 Diastolic Function MV Pk E: 1.05 E'Medial: 5.22 E/E' Med: 20.10 E' Laterial: 12.60 E/E' Lat: 8.30 Right Ventricle TAPSE (mm): 23.00 TVS' Sj: 21.00 Tricuspid Valve TR Pk Sj: 2.76 TR Pk Grad: 30.00 RA Press: 3.00 RVSP: 33.00 Great Vessels Aorta Ao Root-2D: 4.00 2.0-3.7 cm Ao Asc: 4.80 2.1-3.4 cm Pulmonary Valve PV Pk Sj: 1.22 Peak PV Grad: 6.00 Updated in Other Vendor System with Status of Final August Rodriguez MD electronically signed on 11/12/2024 12:03:08 PM with status of Final
== END ==
LOC: HO.CARD 12:56
PROVIDERS: PCP Hospitalist; Visit Provider Internal Medicine Cardiovascular Disease
DX: N28.1 Cyst of kidney, acquired (principal); I71.20 Thoracic aortic aneurysm, without rupture, unspecified
CPT/HCPCS: 76775; 93306

== ENCOUNTER → 2024-11-11 13:02 | Outpatient (BNV) | payer MEDICARE, MEDICAID, SELFPAY | PROVIDERS: PCP Hospitalist; Visit Provider Internal Medicine Cardiovascular Disease | DX: I34.0 Nonrheumatic mitral (valve) insufficiency (principal); I35.1 Nonrheumatic aortic (valve) insufficiency; I36.1 Nonrheumatic tricuspid (valve) insufficiency; I51.7 Cardiomegaly | CPT/HCPCS: 93306 ==

== ENCOUNTER → 2024-11-11 13:50 | Outpatient (BNV) | payer MEDICARE, MEDICAID, SELFPAY | PROVIDERS: PCP Hospitalist; Visit Provider Radiology Diagnostic Radiology | DX: N28.1 Cyst of kidney, acquired (principal) | CPT/HCPCS: 76775 ==

== ENCOUNTER 2025-01-04 13:47 | Outpatient (AMB) | payer MEDICARE, MEDICAID, SELFPAY ==
--- NOTE | 2025-01-04 13:55 | A.OFFVIS_ITS ---
Intake Visit Reasons: 6m/PSA/US Intake Note: patient presents today for: 6mo/PSA/US urology medications: finasteride blood thinners: rivaroxaban US done: 11/11/24 today's PVR: 144mls Public Relations Specialist Required: No Accompanied by: Health Care Proxy Allergies No Known Allergies (No Known Allergies*) Allergy (Verified 01/04/25 14:45) Medication List - Last Reconciled 01/04/25 by Alisia Bruce [facility]- [id number] 600-50-300 mg 1 tab PO DAILY@1200 acetaminophen (Tylenol) 650 mg PO Q4H PRN bisacodyl 10 mg OH DAILY PRN calcium carbonate (Oyster Shell Calcium 500) 500 mg PO BID cholecalciferol (vitamin D3) (Vitamin D3) 10 mcg PO DAILY docusate sodium (Colace) 200 mg PO DAILY finasteride 5 mg PO DAILY lactulose 20 grams PO DAILY latanoprost 0.005% 1 drp ophthalmic (eye) BEDTIME levofloxacin 500 mg PO DAILY 5 days lithium carbonate 300 mg PO BEDTIME lithium carbonate 150 mg PO DAILY miconazole nitrate 2% 1 spray topical BID mirabegron ER (Myrbetriq) 50 mg PO DAILY 90 days omeprazole 20 mg PO DAILY@0630 oxcarbazepine 150 mg PO BID oxcarbazepine 300 mg PO BID perphenazine 8 mg PO BID propranolol 20 mg PO BID propranolol 10 mg PO DAILY@1200 rivaroxaban 20 mg PO DAILY@1800 sennosides (senna) 8.6 mg PO DAILY PRN sodium phosphates 19-7 gram/118 mL (Fleet Enema) 118 mL OH DAILY PRN HPI Comments Details: Ras is a pleasant 79 year old male who was accompanied by one of the [facility] trapeze artist during today's office visit. He is a patient of Dr. Hanson. He has a past medical history of abdominal aortic aneurysm without rupture, alcohol abuse, ascending aortic aneurysm, atrial flutter, BPH with lower urinary tract symptoms, constipation, COPD, CVA, acquired bilateral cysts of kidneys, dementia, fatty liver, GERD, HIV, paroxysmal AFib, and urgency incontinence. He presents to the office today for follow-up of his lower urinary tract symptoms and renal cysts. In discussion with the patient today he reports to be doing and feeling well. He denies having had any bothersome urinary issues or concerns since his last office visit here. He reports compliance with medications. In review of patient's MAR it appears he is compliant with finasteride and Myrbetriq as prescribed. Most recent renal ultrasound and CT of the abdomen and pelvis were reviewed with the patient today. 11/14 3 0.8 complex lesion in the left kidney. No hydronephrosis or renal calculi noted bilaterally. CT of the abdomen and pelvis with IV contrast 11/14 numerous left greater than right renal cysts, some of which are hyperattenuating and consistent with proteinaceousor hemorrhagic cysts. These are essentially stable when compared to prior MRI examination 12/31/23. No hydronephrosis or renal calculi noted bilaterally per radiology report. We did discuss potential causes and further treatment options of renal cysts. We discussed risks and benefits of these interventions. All questions were answered. Unable to obtain urine for urinalysis as patient unable to void however PVR less than 144 mL. Patient denies dysuria, hematuria, flank pain, fever and or chills. PSAs are as follows: 04/15 3.0, 02/13 3.3, 10/14 3.7, 01/14 4.0 PFSH Medical History (Reviewed 01/04/25 @ 14:33 by DA[facility] Chronic atrial fibrillation Persistent atrial fibrillation Ascending aortic aneurysm Psychotic disorder with hallucinations due to known physiological condition Unspecified urinary incontinence Constipation, unspecified Preglaucoma, unspecified, unspecified eye Acute stress reaction Ventricular premature depolarization Unspecified cataract Presbyopia Dementia in other diseases classified elsewhere with behavioral disturbance Atrial flutter Deficiency of other vitamins Other abnormalities of gait and mobility Muscular weakness Cyst of kidney, acquired Fatty (change of) liver, not elsewhere classified AAA (abdominal aortic aneurysm) without rupture Personal history of COVID-19 Low back pain Alcohol abuse HIV (human immunodeficiency virus infection) Resides in [facility] care facility GERD (gastroesophageal reflux disease) COPD (chronic obstructive pulmonary disease) Right bundle branch block (RBBB) on electrocardiogram (ECG) CVA (cerebral vascular accident) Paroxysmal atrial fibrillation Urgency incontinence BPH loc w urin obs/LUTS Surgical History H/O colonoscopy Social History Household Members: Other Housing: [facility]way Housing Other:: [place] Are you a primary client care coordinator to a significant other at home: No Do you presently have visiting nurse or other home services: Yes ([facility] staff) Comment: COUNTS CORRECT Patient Tobacco Use Status: Former Tobacco user Advance Directives Date on File: 07/19/21 Review of Systems Eyes Reports no additional complaints ENT Reports no additional complaints Card Reports as per [facility] Resp Reports as per [facility] GI Reports as per HPI Reports as per [facility] Musc Reports as per HPI Neuro Reports as per HPI Psych Reports as per HPI Endo Reports as per HPI Michael/Lymph Reports no additional complaints Aller/Immun Reports no additional complaints Physical Exam Const General: cooperative, healthy appearing, comfortable, no acute distress, well developed, alert and awake Orientation/consciousness: patient oriented x3 Limitations: wheelchair HEENT Head: Yes normal to inspection, Yes normocephalic and Yes atraumatic Ears: hearing grossly normal bilaterally Eyes General: appearance normal, both eyes and all related structures Neck Neck: Yes normal visual inspection and Yes trachea midline Chest Chest palpation & inspection: normal inspection of the chest Resp Effort & Inspection: normal respiratory effort and able to speak in complete sentences Cardio Rate: regular rate GI Inspection: Yes normal to inspection General: Yes no CVA tenderness Back/Spine/Pelvis Back: no CVA tenderness Skin General skin exam: no rashes or lesions noted Neuro General: patient oriented x3 Extrem General: Yes normal to inspection Psych Appearance: grossly normal and well kempt Mental Status: mental status grossly normal Speech and movement: Normal speech and movement present and Clear speech present Affect: normal affect Attitude: cooperative Thought process: Normal thought process present Thought content: Normal thought content present Insight: Fair insight present (Psych) Judgement: Fair judgement present (Psych) Office Procedures Post Void Residual Post Residual Void Post Void Residual (PVR): 144 [id number]-Lscc Void Residual by ultrasound Results Reviewed Results Reviewed: Date of Service: 11/11/24 Procedure(s): US renal BI FINDINGS: RIGHT KIDNEY: 11 x 6 x 5 cm (SAG x AP x TRV). Volume: 177 cc normal echotexture. Normal renal cortical thickness. No hydronephrosis. There is a 1.7 cm anechoic lesion with the focal hyperechoic abnormality in the midportion. There is a 1.7 cm anechoic lesion in the midportion without septations or flow on color Doppler interrogation. LEFT KIDNEY: 17 x 8 x 9 cm (SAG x AP x TRV). Volume: 583 cc. Normal renal cortical thickness. Normal echotexture. No hydronephrosis. There is a 3.8 cm heterogeneous mixed echotexture exophytic lesion in the lower pole. There are other cystic lesions. IMPRESSION: 3.8 cm complex lesion in the left kidney. Recommend dedicated IV contrast enhanced MRI renal mass protocol. No hydronephrosis. Date of Service: 11/07/24 Procedure(s): CT abdomen pelvis w IV con FINDINGS: LUNG BASES: There is scarring in both lung bases. There is cardiac enlargement. There is a pacer wire within the right ventricle. There are no effusions. The descending thoracic aorta is ectatic. LIVER, GALLBLADDER, AND BILIARY TREE: The liver is normal in size, shape, and diffusely decreased in attenuation consistent with steatosis. There is a 1.8 cm hypoattenuating lesion in segment 7, known hemangioma. No biliary ductal dilatation is present. The gallbladder is unremarkable with no evidence of radiopaque gallstones, gallbladder wall thickening, or obvious pericholecystic inflammatory changes. PANCREAS: Unremarkable. SPLEEN: Stable anterior 1.9 cm hypoattenuating lesion, consistent with hemangioma as per prior MR. 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 There is left adrenal hyperplasia. KIDNEYS AND URETERS: The left kidney is again noted to be larger than the right. There are numerous simple and proteinaceous or hemorrhagic cysts throughout the left kidney, the largest in the upper pole spanning approximately 10 x 6.4 cm. There is no hydronephrosis, or mass identified. There are no calculi. There are foci of renal cortical scarring present. The left kidney also demonstrates the presence of several small cysts, some which are hyperattenuating. There is cortical scarring in the upper pole and midpole regions. There is no hydronephrosis, or mass identified. There are no calculi. BLADDER: Unremarkable. GASTROINTESTINAL TRACT: Moderate fecal burden seen throughout the colon consistent with constipation. Normal appendix. No bowel obstruction. The small bowel is normal in caliber and course. The stomach is somewhat decompressed. The duodenum is normal. There is no rectal abnormality. ABDOMINAL WALL: No significant hernia is appreciated. LYMPH NODES: There is no abnormal lymphadenopathy. VASCULAR: Aortic ectasia without discrete aneurysm. Aorta at the hiatus measures 4.0 cm diameter. Heavy calcific atheromatous disease of the aorta and iliac arteries, as well as their branches. PELVIC VISCERA: The prostate is enlarged measuring 5.2 cm diameter. OSSEOUS STRUCTURES: There is no suspicious lytic or blastic bone lesion. There are degenerative changes throughout the spine, and involving both hip joints. IMPRESSION: 1. No acute findings in the abdomen or pelvis. 2. Moderate constipation. 3. Numerous left greater than right renal cysts, some of which are hyperattenuating and consistent with proteinaceous or hemorrhagic cysts. These are essentially stable from the prior MRI examination of 12/31/2023. No hydronephrosis or calculus. 4. Ectasia of the abdominal aorta without definite aneurysm. Extensive calcific atheromatous disease. The aorta at the aortic hiatus measures approximately 4.0 cm diameter. 5. Fatty infiltration of the liver. There are both small hepatic and splenic hemangiomata, better characterized on the prior MRI. 6. Additional ancillary findings as discussed. Assessment & Plan Assessment & Plan (1) Renal cysts, acquired, bilateral: Code(s): N28.1 - Cyst of kidney, acquired Category: Medical (2) BPH loc w urin obs/LUTS: Code(s): N40.1 - Benign prostatic hyperplasia with lower urinary tract symptoms Category: Medical Plan Unable to obtain urine for urinalysis as patient unable to void PVR 144mls Continue finasteride and Myrbetriq. Recent renal ultrasound and CT abdomen and pelvis results reviewed with the patient today; as noted above. We discussed further treatment options and risks and benefits of these treatment options. He currently denies any bothersome urinary issues or concerns. Recent PSA results reviewed with the patient today; as noted above. Will continue with surveillance monitoring. We discussed importance of limiting nicotine dependence for overall health and well-being. Follow-up in 6 months with PSA, imaging, and PVR; or sooner with any issues, concerns, and or questions. Orders: Orders PSA,Total (Free>4and<10) 4 Months N40.1 - Benign prostatic hyperplasia with lower urinary tract symptoms AMB Post Void Residual by ultrasound Today N40.1 - Benign prostatic hyperplasia with lower urinary tract symptoms MR abdomen wo/w con 6 Months N28.1 - Cyst of kidney, acquired Patient Instructions: The patient had an opportunity to ask questions regarding the treatment plan. All questions were answered. Physical exam, labs, and imaging were discussed and reviewed in detail. As well as risks, benefits, and discussion of treatment choices. No major barriers to understanding were identified. The patient expressed understanding and agreement with the above treatment plan. The patient was made aware they should contact our office by phone for worsening of their current condition, the appearance of new symptoms, or with any questions or concerns. Compliance is encouraged with any medications and follow up testing that is ordered. It is a privilege to be allowed the opportunity to participate in? your urological care.? Again, if you have any questions or concerns If you have any questions or concerns please do not hesitate to contact me. The office is [phone]. This note is constructed using voice recognition software. While every effort has been made to ensure accuracy casework manager errors may have been included. Yours sincerely, JOSE Pineda Coding Level of Care Code Est Pt Level 3 (74186) Complex EM visit Add On G2211 Diagnoses Renal cysts, acquired, bilateral N28.1 BPH loc w urin obs/LUTS N40.1 CPT Codes Post Residual Void - PVR CPT Code: 97578-Dvel Void Residual by ultrasound ([id number])
--- OUTSIDE RECORDS SUMMARY | 2025-01-04 17:32 | XMS_ITS | Encounter Summary ---
Author Organization [facility] Address [address] [place] [address] Care Team Providers Care Tailings Worker Name Role Phone Diogo Hanson MD Primary Care Provider [phone] Encounter Details Date Type Department Care Team (Late st Contact Info) Description 11/17/2024 Lab Requisition [facility] - Main Lab [address] [facility] [place] [address] Diogo Hanson MD [address] [place] [address] Dr [address] [place] Encounter for other specified special examinations Social History Tobacco Use Types Packs/Day Years Used Date Smoking Tobacco: Never Assessed Sex and Gender Information Value Date Recorded Sex Assigned at Not on file Legal Sex Male 3:10 AM EST Gender Identity Not on file Sexual Orientation Not on file documented as of this encounter Plan of Treatment Pending Results Name Type Priority Associated Diagnoses Date /Time Lavender tube Lab Routine Encounter for other specified special examinations 11/17/2024 6:44 AM EDT documented as of this encounter Procedures Procedure Name Priority Date/Time Associated Diagnosis Comments CBC WITH AUTO DIFFERENTIAL Routine 11/17/2024 6:44 AM EDT Encounter for other specified special examinations OXCARBAZEPINE LEVEL Routine 11/17/2024 6 :44 AM EDT Encounter for other specified special examinations CBC AND DIFFERENTIAL Routine 11/17/2024 6:44 AM EDT Encounter for other specified special examinations B-TYPE NATRIURETIC PEPTIDE Routine 11/17/2024 6:44 AM EDT Encounter for other specified special examinations COMPREHENSIVE METABOLIC PANEL Routine 11/17/2024 6:44 AM EDT Encounter for other specified special examinations documented in this encounter Results * (ABNORMAL) CBC auto differential (11/17/2024 6:44 AM EDT) [facility] WBC 12.2(H) 4.8 - 10.8 K/mcL LAB HEMETOLOGY METHOD 11/17/2024 7:26 AM [facility] RBC 4.30(L) 4.50 - 5.50 M/mcL LAB HEMETOLOGY METHOD 11/17/2024 7:26 AM [facility] Hemoglobin 13.1(L) 13.5 - 17.5 g/dL LAB HEMETOLOGY METHOD 11/17/2024 7:26 AM [facility] Hematocrit 40.7(L) 42.0 - 54.0 % LAB HEMETOLOGY METHOD 11/17/2024 7:26 AM [facility] MCV 94.9 79.0 - 98.0 FL LAB HEMETOLOGY METHOD 11/17/2024 7:26 AM [facility] MCH 30.5 27.0 - 32.0 pcg LAB HEMETOLOGY METHOD 11/17/2024 7:26 AM [facility] MCHC 32.2 32.0 - 37.0 g/dL LAB HEMETOLOGY METHOD 11/17/2024 7:26 AM [facility] RDW 15.8(H) 11.0 - 15.0 % LAB HEMETOLOGY METHOD 11/17/2024 7:26 AM [facility] Platelets 329 130 - 400 K/mcL LAB HEMETOLOGY METHOD 11/17/2024 7:26 AM [facility] MPV 10.1 7.0 - 11.0 FL LAB HEMETOLOGY METHOD 11/17/2024 7:26 AM [facility] NRBC 0.0 <1.0 % LAB HEMETOLOGY METHOD 11/17/2024 7:26 AM [facility] NRBC Absolute 0.00 <0.10 K/mcL LAB HEMETOLOGY METHOD 11/17/2024 7:26 AM [facility] Neutrophils Relative 78.2 % LAB HEMETOLOGY METHOD 11/17/2024 7:26 AM [facility] Lymphocytes Relative 13.7 % LAB HEMETOLOGY METHOD 11/17/2024 7:26 AM [facility] Monocytes Relative 6.1 % LAB HEMETOLOGY METHOD 11/17/2024 7:26 AM [facility] Eosinophils Relative 0.6 % LAB HEMETOLOGY METHOD 11/17/2024 7:26 AM [facility] Basophils Relative 0.3 % LAB HEMETOLOGY METHOD 11/17/2024 7:26 AM [facility] Immature Granulocytes Relative 1.1 % LAB HEMETOLOGY METHOD 11/17/2024 7:26 AM [facility] Neutrophils Absolute 9.54(H) 1.50 - 7.00 K/mcL LAB HEMETOLOGY METHOD 11/17/2024 7:26 AM [facility] Lymphocytes Absolute 1.67 1.00 - 5.00 K/mcL LAB HEMETOLOGY METHOD 11/17/2024 7:26 AM [facility] Monocytes Absolute 0.75 0.20 - 1.00 K/mcL LAB HEMETOLOGY METHOD 11/17/2024 7:26 AM [facility] Eosinophils Absolute 0.07 0.00 - 0.50 K/mcL LAB HEMETOLOGY METHOD 11/17/2024 7:26 AM [facility] Basophils Absolute 0.04 0.00 - 0.20 K/mcL LAB HEMETOLOGY METHOD 11/17/2024 7:26 AM [facility] Immature Granulocytes Absolute 0.14(H) 0.00 - 0.03 K/mcL LAB HEMETOLOGY METHOD 11/17/2024 7:26 AM EDT [facility] Blood Venous blood specimen / Unknown 11/17/2024 6:44 AM EDT 11/17/2024 7:13 AM EDT us Diogo Hanson MD LAB BLOOD ORDERABLES Final Resul t Performing Organization Address [facility] Co de Phone Number [facility] [address] [place] [address], [place] [phone] * Oxcarbazepine level (11/17/2024 6:44 AM EDT) Oxcarbazepine 18.4 10 - 35 ug/mL 11/22/2024 10:09 AM EDT [facility] Comment: If applicable, any drug confirmation testing reported here was developed and the performance characteristics determined by [facility]. This confirmation testing has not been cleared or approved by the FDA. The laboratory is regulated under CLIA as qualified to perform high-complexity testing. This test is used for patient testing purposes. It should not be regarded as investigational or for research. Test performed at [facility], [address] , [place] [address] Laya Rosas MD, PhD - Body Technician/Painter Blood Venous blood specimen / Unknown 11/17/2024 6:44 AM EDT 11/17/2024 7:13 AM EDT us Diogo Hanson MD LAB BLOOD ORDERABLES Final Resul t [facility] [address] [place] [address] * (ABNORMAL) B-type natriuretic peptide (11/17/2024 6:44 AM EDT) BNP 138(H) <=100 pcg/mL LAB CHEMISTRY METHOD 11/17/2024 8:44 AM EDT [facility] Blood Venous blood specimen / Unknown 11/17/2024 6:44 AM EDT 11/17/2024 7:13 AM EDT us Diogo Hanson MD LAB BLOOD ORDERABLES Final Resul t [facility] [address] [place] [address], [place] [phone] * (ABNORMAL) Comprehensive metabolic panel (11/17/2024 6:44 AM EDT) Sodium 138 133 - 145 mmol/L LAB CHEMISTRY METHOD 11/17/2024 8:34 AM [facility] Potassium 4.7 3.5 - 5.5 mmol/L LAB CHEMISTRY METHOD 11/17/2024 8:34 AM [facility] Chloride 106 96 - 110 mmol/L LAB CHEMISTRY METHOD 11/17/2024 8:34 AM [facility] CO2 28 21 - 32 mmol/L LAB CHEMISTRY METHOD 11/17/2024 8:34 AM [facility] Anion Gap 4 3 - 11 LAB CHEMISTRY METHOD 11/17/2024 8:34 AM [facility] Glucose 119(H) 70 - 100 mg/dL LAB CHEMISTRY METHOD 11/17/2024 8:34 AM [facility] BUN 15 5 - 25 mg/dL LAB CHEMISTRY METHOD 11/17/2024 8:34 AM [facility] Creatinine 1.18 0.70 - 1.30 mg/dL LAB CHEMISTRY METHOD 11/17/2024 8:34 AM [facility] eGFR 62 >=60 mL/min/1. 73m2 LAB CHEMISTRY METHOD 11/17/2024 8:34 AM [facility] Comment:Calculation based on the Chronic Kidney Disease Epidemiology Collaboration (CKD-EPI) equation refit without adjustment for race. BUN/Creatinine Ratio 12.7 LAB CHEMISTRY METHOD 11/17/2024 8:34 AM [facility] Calcium 9.7 8.5 - 10.5 mg/dL LAB CHEMISTRY METHOD 11/17/2024 8:34 AM EDT [facility] AST (SGOT) 17 10 - 42 unit/L LAB CHEMISTRY METHOD 11/17/2024 8:34 AM [facility] ALT (SGPT) 22 10 - 60 unit/L LAB CHEMISTRY METHOD 11/17/2024 8:34 AM EDT [facility] Alkaline Phosphatase 97 42 - 121 unit/L LAB CHEMISTRY METHOD 11/17/2024 8:34 AM T [facility] Total Protein 7.2 6.0 - 8.0 g/dL LAB CHEMISTRY METHOD 11/17/2024 8:34 AM [facility] Albumin 3.0(L) 3.2 - 5.0 g/dL LAB CHEMISTRY METHOD 11/17/2024 8:34 AM [facility] Total Bilirubin 0.4 0.0 - 1.4 mg/dL LAB CHEMISTRY METHOD 11/17/2024 8:34 AM [facility] Blood Venous blood specimen / Unknown 11/17/2024 6:44 AM EDT 11/17/2024 7:13 AM EDT us Diogo Hanson MD LAB BLOOD ORDERABLES Final Resul t [facility] [address] [place] [address], documented in this encounter Visit Diagnoses Diagnosis Encounter for other specified special examinations documented in this encounter Care Teams Tailings Worker Relationship Specialty Start Date End Date Diogo Hanson MD [address] [facility] [address] Ines Cardenas [place] PCP - General Internal Medicine 05/26/24 documented as of this encounter
--- OUTSIDE RECORDS SUMMARY | 2025-01-04 17:32 | XMS_ITS | Encounter Summary ---
Author Organization [facility] Address [address] [place] [address] Care Team Providers Care Refrigeration Insulator Name Role Phone Diogo Hanson MD Primary Care Provider Encounter Details Date Type Department Care Team (Late st Contact Info) Description 02/01/2024 Lab Requisition [facility] - Main Lab [address] [facility] [place] [address] Diogo Hanson MD [address] [place] [address] [address] [place] [address] Social History Tobacco Use Types Packs/Day Years [...] on filedocumented in this encounter Care Teams Refrigeration Insulator Relationship Specialty Start Date End Date Diogo Hanson MD [address] [place] [address] Dr [address] [place] [address] PCP - General Internal Medicine 05/26/24 documented as of this encounter
--- OUTSIDE RECORDS SUMMARY | 2025-01-04 17:32 | XMS_ITS | Encounter Summary ---
Author Organization [facility] Address [address] [place] [address] Care Team Providers Care Cutting And Boning Supervisor Name Role Phone Diogo Hanson MD Primary Care Provider [phone] Encounter Details Date Type Department Care Team (Late st Contact Info) Description 06/14/2024 Lab Requisition [facility] - Main Lab [address] [facility] [place] [address] Diogo Hanson MD [address] [place] [address] [address] [place] Unspecified atrial fibrillation (CMS/HCC V24, CMS/HCC V28) [...] LAB CHEMISTRY METHOD 06/14/2024 7:[address] [facility] Potassium 4.4 3.5 - 5.5 mmol/L LAB CHEMISTRY METHOD 06/14/2024 7:[address] [facility] Chloride 103 96 - 110 mmol/L LAB CHEMISTRY METHOD 06/14/2024 7:[address] [facility] CO2 24 21 - 32 mmol/L LAB CHEMISTRY METHOD 06/14/2024 7:55 AM [facility] Anion Gap 8 3 - 11 LAB CHEMISTRY METHOD 06/14/2024 7:55 AM [facility] Glucose 108(H) 70 - 100 mg/dL LAB CHEMISTRY METHOD 06/14/2024 7:55 AM [facility] BUN 11 5 - 25 mg/dL LAB CHEMISTRY METHOD 06/14/2024 7:55 AM [facility] Creatinine 0.72 0.70 - 1.30 mg/dL LAB CHEMISTRY METHOD 06/14/2024 7:55 AM [facility] eGFR 92 >=60 mL/min/1. 73m2 LAB CHEMISTRY METHOD 06/14/2024 7:55 AM [facility] Comment:Calculation based on the Chronic Kidney Disease Epidemiology Collaboration (CKD-EPI) equation refit without adjustment for race. BUN/Creatinine Ratio 15.3 LAB CHEMISTRY METHOD 06/14/2024 7:55 AM [facility] Calcium 9.2 8.5 - 10.5 mg/dL LAB CHEMISTRY METHOD 06/14/2024 7:55 AM [facility] Blood Venous blood specimen / Unknown 06/14/2024 6:48 AM EDT 06/14/2024 7:31 AM EDT us Diogo Hanson MD LAB BLOOD ORDERABLES Final Resul t [facility] [address] [place] [address], documented in this encounter Visit Diagnoses Diagnosis Unspecified atrial fibrillation (CMS/HCC V24, CMS/HCC V28) documented in this encounter Care Teams Cutting And Boning Supervisor Relationship Specialty Start Date End Date Diogo Hanson MD [address] [place] [address] Dr Ines Cardenas [place] PCP - General Internal Medicine 05/26/24 documented as of this encounter
--- OUTSIDE RECORDS SUMMARY | 2025-01-04 17:32 | XMS_ITS | Encounter Summary ---
Author Organization [email or web address] Address [address] [place] [address] Care Team Providers Care Cat Wagon Operator Name Role Phone Diogo Hanson MD Primary Care Provider [phone] Encounter Details Date Type Department Care Team (Late st Contact Info) Description 02/24/2024 Lab Requisition [facility] - Main Lab [address] [facility] [place] [address] Diogo Hanson MD [address] [place] [address] [address] [place] Vitamin D deficiency, unspecified; Unspecified atrial fibrillation [...] LAB HEMETOLOGY METHOD 02/24/2024 12:[address] [facility] Lymphocytes Absolute 2.28 1.00 - 5.00 K/mcL LAB HEMETOLOGY METHOD 02/24/2024 12:[address] [facility] Monocytes Absolute 0.60 0.20 - 1.00 K/mcL LAB HEMETOLOGY METHOD 02/24/2024 12:54 PM [facility] Eosinophils Absolute 0.08 0.00 - 0.50 K/mcL LAB HEMETOLOGY METHOD 02/24/2024 12:54 PM [facility] Basophils Absolute 0.03 0.00 [...] MD LAB BLOOD ORDERABLES Final Resul t [facility] [address] [place] [address], [place] [phone] * Vitamin D 25 hydroxy (02/24/2024 7:35 AM EST) Vit D, 25-Hydroxy 35.1 30.0 - 80.0 ng/mL LAB CHEMISTRY METHOD 02/24/2024 2:[address] [facility] Blood Venous blood specimen / Unknown 02/24/2024 7:35 AM EST 02/24/2024 8:41 AM EST us Diogo Hanson MD LAB BLOOD ORDERABLES Edited Resu lt - Final [facility] [address] [place] [address], [place] [phone] * Hemoglobin A1c (02/24/2024 7:35 AM EST) Pathologist [facility] Hemoglobin A1C 5.9 <6.5 % LAB CHEMISTRY METHOD 02/24/2024 2:[address] [facility] Mean Bld Glu Estim. 123 mg/dL LAB CHEMISTRY METHOD 02/24/2024 2:[address] [facility] Blood Venous blood specimen / Unknown 02/24/2024 7:35 AM EST 02/24/2024 8:41 AM EST us Diogo Hanson MD LAB BLOOD ORDERABLES Final Resul t Performing Organization Address [place]/[facility]/ZIP Co de Phone Number [facility] [address] [place] [address], [place] [phone] * Ammonia (02/24/2024 7:35 AM EST) Pathologist [facility] Ammonia 13 11 - 35 mcmol/L LAB CHEMISTRY METHOD 02/24/2024 9:[address] [facility] Blood Venous blood specimen / Unknown 02/24/2024 7:35 AM EST 02/24/2024 8:41 AM EST us Diogo Hanson MD LAB BLOOD ORDERABLES Final Resul t Performing Organization Address City/[facility]/ZIP Co de Phone Number [facility] [address] [place] [address], [place] [phone] * (ABNORMAL) Lipid panel with reflex to direct LDL (02/24/2024 7:35 AM EST) [facility] Cholesterol 146 0 - 200 mg/dL LAB CHEMISTRY METHOD 02/24/2024 2:[address] [facility] Triglycerides 103 0 - 150 mg/dL LAB CHEMISTRY METHOD 02/24/2024 2:[address] [facility] HDL 39(L) >=40 mg/dL LAB CHEMISTRY METHOD 02/24/2024 2:[address] [facility] LDL Calculated 86 0 - 100 mg/dL LAB CHEMISTRY METHOD 02/24/2024 2:[address] [facility] VLDL Cholesterol Dillon 20.6 mg/dL LAB CHEMISTRY METHOD 02/24/2024 2:[address] [facility] Non HDL Chol. (LDL+VLDL) 107 <145 mg/dL LAB CHEMISTRY METHOD 02/24/2024 2:[address] [facility] Chol/HDL Ratio 3.7 0.0 - 4.4 LAB CHEMISTRY METHOD 02/24/2024 2:46 PM [facility] Blood Venous blood specimen / Unknown 02/24/2024 7:35 AM EST 02/24/2024 8:41 AM EST us Diogo Hanson MD LAB BLOOD ORDERABLES Edited Resu lt - Final [facility] [address] [place] [address], [place] [phone] documented in this encounter Visit Diagnoses Diagnosis Vitamin D deficiency, unspecified Unspecified atrial fibrillation (CMS/HCC V24, CMS/HCC V28) Dementia in other diseases classified elsewhere, unspecified severity, with psychotic disturbance (CMS/HCC V24, CMS/HCC V28) Deficiency of other vitamins documented in this encounter Care Teams Cat Wagon Operator Relationship Specialty Start Date End Date Diogo Hanson MD [address] [place] [address] Dr [address] [place], [place] PCP - General Internal Medicine 05/26/24 documented as of this encounter
--- OUTSIDE RECORDS SUMMARY | 2025-01-04 17:32 | XMS_ITS | Encounter Summary ---
Author Organization [facility] Address [address] [place] [address] Care Team Providers Care Slip Dumper Name Role Phone Diogo Hanson MD Primary Care Provider [phone] Encounter Details Date Type Department Care Team (Late st Contact Info) Description 08/16/2024 Lab Requisition [facility] - Main Lab [address] [facility] [email or web address] [address] Diogo Hanson MD [address] [place] [address] [address] [place] Unspecified atrial fibrillation (CMS/HCC V24, CMS/HCC V28) [...] Associated Diagnosis Comments BASIC METABOLIC PANEL Routine 08/16/2024 6:39 AM EDT Unspecified atrial fibrillation (CMS/HCC V24, CMS/HCC V28) documented in this encounter Results * Basic metabolic panel (08/16/2024 6:39 AM EDT) Sodium 139 133 - 145 mmol/L LAB CHEMISTRY METHOD 08/16/2024 8:36 AM EDT [facility] Potassium 4.4 3.5 - 5.5 mmol/L LAB CHEMISTRY METHOD 08/16/2024 8:36 AM EDT [facility] Chloride 107 96 - 110 mmol/L LAB CHEMISTRY METHOD 08/16/2024 8:36 AM T [facility] CO2 26 21 - 32 mmol/L LAB CHEMISTRY METHOD 08/16/2024 8:36 AM EDT [facility] Anion Gap 6 3 - 11 LAB CHEMISTRY METHOD 08/16/2024 8:36 AM [facility] Glucose 86 70 - 100 mg/dL LAB CHEMISTRY METHOD 08/16/2024 8:36 AM [facility] BUN 15 5 - 25 mg/dL LAB CHEMISTRY METHOD 08/16/2024 8:36 AM [facility] Creatinine 0.83 0.70 - 1.30 mg/dL LAB CHEMISTRY METHOD 08/16/2024 8:36 AM [facility] eGFR 88 >=60 mL/min/1. 73m2 LAB CHEMISTRY METHOD 08/16/2024 8:36 AM [facility] Comment:Calculation based on the Chronic Kidney Disease Epidemiology Collaboration (CKD-EPI) equation refit without adjustment for race. BUN/Creatinine Ratio 18.1 LAB CHEMISTRY METHOD 08/16/2024 8:36 AM [facility] Calcium 9.2 8.5 - 10.5 mg/dL LAB CHEMISTRY METHOD 08/16/2024 8:36 AM [facility] Blood Venous blood specimen / Unknown 08/16/2024 6:39 AM EDT 08/16/2024 7:34 AM EDT us Diogo Hanson MD LAB BLOOD ORDERABLES Final Resul t [facility] [address] [place] [address], documented in this encounter Visit Diagnoses Diagnosis Unspecified atrial fibrillation (CMS/HCC V24, CMS/HCC V28) documented in this encounter Care Teams Slip Dumper Relationship Specialty Start Date End Date Diogo Hanson MD [address] [place] [address] Dr Ines Cardenas [place] PCP - General Internal Medicine 05/26/24 documented as of this encounter
--- OUTSIDE RECORDS SUMMARY | 2025-01-04 17:32 | XMS_ITS | Encounter Summary ---
Author Organization [facility] Address [address] [place] [address] Care Team Providers Care Snuff Grinder And Screener Name Role Phone Diogo Hanson MD Primary Care Provider [phone] Encounter Details Date Type Department Care Team (Late st Contact Info) Description 08/17/2024 Lab Requisition [facility] - Main Lab [address] [place] [address] Diogo Hanson MD [address] [place] [address] Dr [address] [place], [place] Encounter for therapeutic drug level monitoring Social History Tobacco Use Types Packs/Day Years [...] Procedure Name Priority Date/Time Associated Diagnosis Comments B-TYPE NATRIURETIC PEPTIDE Routine 08/17/2024 6:41 AM EDT Encounter for therapeutic drug level monitoring documented in this encounter Results * (ABNORMAL) B-type natriuretic peptide (08/17/2024 6:41 AM EDT) BNP 129(H) <=100 pcg/mL LAB CHEMISTRY METHOD 08/17/2024 7:43 AM EDT [facility] Blood Venous blood specimen / Unknown 08/17/2024 6:41 AM EDT 08/17/2024 7:03 AM EDT us Diogo Hanson MD LAB BLOOD ORDERABLES Final Resul t [facility] [address] [place] [address], [place] [phone] documented in this encounter Visit Diagnoses Diagnosis Encounter for therapeutic drug level monitoring documented in this encounter Care Teams Snuff Grinder And Screener Relationship Specialty Start Date End Date Diogo Hanson MD [address] [place] [address] Dr [address] [place] Cardenas PCP - General Internal Medicine 05/26/24 documented as of this encounter
--- OUTSIDE RECORDS SUMMARY | 2025-01-04 17:32 | XMS_ITS | Encounter Summary ---
Author Organization [employer] [facility] Address [address] [place] [address] Care Team Providers Care Executive Manager Name Role Phone Diogo Hanson MD Primary Care Provider [phone] Encounter Details Date Type Department Care Team (Latest Contact Info) Description 02/01/2024 Lab Requisition [facility] - Main Lab [address] [facility] [place] [address] Diogo Hanson MD [address] [place] [address] Dr [address] TRINITY Cardenas Human immunodeficiency virus [...] and particle agglutination (02/01/2024 5:31 AM EST) [facility] T. Pallidum Antibodies Negative Negative LAB CHEMISTRY METHOD 02/01/2024 10:[address] [facility] Blood Venous blood specimen / Unknown 02/01/2024 5:31 AM EST 02/01/2024 9:25 AM EST us Diogo Hanson MD LAB BLOOD ORDERABLES Final Resul t [facility] [address] [place] [address], [place] [phone] * Red tube (02/01/2024 5:31 AM EST) [facility] Extra Tube Hold for add-ons. 02/01/2024 11:[address] [facility] Comment:Auto resulted. Blood Venous blood specimen / Unknown 02/01/2024 5:31 AM EST 02/01/2024 8:34 AM EST us Diogo Hanson MD LAB BLOOD ORDERABLES Final Resul t [facility] [address] [place] [address], [place] [phone] * HIV 1 molecular study quantitative (02/01/2024 5:31 AM EST) [facility] HIV-1 RNA Interpretation Not Detected Not Detected LAB MOLECULAR DIAGNOSTICS METHOD 02/02/2024 9:[address] [facility] Blood Venous blood specimen / Unknown 02/01/2024 5:31 AM EST 02/01/2024 8:02 AM EST us Diogo Hanson MD LAB BLOOD ORDERABLES Final Resul t Performing Organization Address [facility]/ZIP Co de Phone Number [facility] [address] [place] [address], [place] [phone] * Alanine aminotransferase (02/01/2024 5:31 AM EST) ALT (SGPT) 11 10 - 60 unit/L LAB CHEMISTRY METHOD 02/01/2024 3:[address] [facility] Blood Venous blood specimen / Unknown 02/01/2024 5:31 AM EST 02/01/2024 8:02 AM EST us Diogo Hanson MD LAB BLOOD ORDERABLES Final Resul t Performing Organization Address [facility]/ZIP Co de Phone Number [facility] [address] [place] [address], [place] [phone] * Aspartate aminotransferase (02/01/2024 5:31 AM EST) AST (SGOT) 11 10 - 42 unit/L LAB CHEMISTRY METHOD 02/01/2024 3:[address] [facility] Blood Venous blood specimen / Unknown 02/01/2024 5:31 AM EST 02/01/2024 8:02 AM EST us Diogo Hanson MD LAB BLOOD ORDERABLES Final Resul t Performing Organization Address City/[facility]/ZIP Co de Phone Number [facility] [address] [place] [address], [place] [phone] * Creatinine (02/01/2024 5:31 AM EST) Creatinine 1.06 0.70 - 1.30 mg/dL LAB CHEMISTRY METHOD 02/01/2024 3:[address] [facility] eGFR 71 >=60 mL/min/1. 73m2 LAB CHEMISTRY METHOD 02/01/2024 3:[address] [facility] Comment:Calculation based on the Chronic Kidney Disease Epidemiology Collaboration (CKD-EPI) equation refit without adjustment for race. Blood Venous blood specimen / Unknown 02/01/2024 5:31 AM EST 02/01/2024 8:02 AM EST us Diogo Hanson MD LAB BLOOD ORDERABLES Final Resul t [facility] [address] [place] [address], [place] [phone] * (ABNORMAL) Lymphocyte T-cell panel (02/01/2024 5:31 AM EST) CD4 1,034 426 - 1,776 cells/mcL 02/03/2024 3:38 PM EST [facility] CD8 1,077(H) 161 - 838 cells/mcL 02/03/2024 3:38 PM EST [facility] CD4/CD8 Ratio 0.96 0.90 - 4.90 02/03/2024 3:38 PM EST [facility] CD4 % 45 33 - 64 % 02/03/2024 3:38 PM EST [facility] CD8 % 47(H) 10 - 39 % 02/03/2024 3:38 PM EST [facility] Blood Venous blood specimen / Unknown 02/01/2024 5:31 AM EST 02/01/2024 8:02 AM EST us Diogo Hanson MD LAB MOLECULAR DIAGNOSTICS ORDERA BLES Final Result [facility] [address] [place] [address], [place] [phone] documented in this encounter Visit Diagnoses Diagnosis Human immunodeficiency virus (HIV) disease ([facility] V24, [facility] V28) Human immunodeficiency virus [HIV] disease documented in this encounter Care Teams Executive Manager Relationship Specialty Start Date End Date Diogo Hanson MD [address] [place] [address] [address] TRINITY Cardenas PCP - General Internal Medicine 05/26/24 documented as of this encounter
--- OUTSIDE RECORDS SUMMARY | 2025-01-04 17:32 | XMS_ITS | Encounter Summary ---
Author Organization [employer] Address [address] [place] [address] Care Team Providers Care Senior Firmware Engineer Name Role Phone Diogo Hanson MD Primary Care Provider [phone] Encounter Details Date Type Department Care Team (Late st Contact Info) Description 05/26/2024 Lab Requisition [facility] - Main Lab [address] [facility] [place] [address] Diogo Hanson MD [address] [place] [address] Dr [address] TRINITY Cardenas Encounter for [...] LAB CHEMISTRY METHOD 05/26/2024 8:06 AM EST [facility] Blood Venous blood specimen / Unknown 05/26/2024 6:29 AM EST 05/26/2024 7:40 AM EST us Diogo Hanson MD LAB BLOOD ORDERABLES Final Resul t Performing Organization Address City/[facility]/ZIP Co de Phone Number [facility] [address] [place] [address], [place] [phone] * Thyroid stimulating hormone (05/26/2024 6:29 AM EST) Pathologist [facility] TSH 1.67 0.40 - 4.00 mcIU/mL LAB CHEMISTRY METHOD 05/26/2024 8:23 AM EST [facility] Blood Venous blood specimen / Unknown 05/26/2024 6:29 AM EST 05/26/2024 7:40 AM EST us Diogo Hanson MD LAB BLOOD ORDERABLES Final Resul t Performing Organization Address City/[facility]/ZIP Co de Phone Number [facility] [address] [place] [address], [place] [phone] * (ABNORMAL) Complete blood count (05/26/2024 6:29 AM EST) Pathologist [facility] WBC 5.6 4.8 - 10.8 K/mcL LAB HEMETOLOGY METHOD 05/26/2024 7:51 AM EST [facility] RBC 4.50 4.50 - 5.50 M/mcL LAB HEMETOLOGY METHOD 05/26/2024 7:51 AM EST [facility] Hemoglobin 13.3(L) 13.5 - 17.5 g/dL LAB HEMETOLOGY METHOD 05/26/2024 7:51 AM [facility] Hematocrit 41.6(L) 42.0 - 54.0 % LAB HEMETOLOGY METHOD 05/26/2024 7:51 AM [facility] MCV 91.6 79.0 - 98.0 FL LAB HEMETOLOGY METHOD 05/26/2024 7:51 AM [facility] MCH 29.3 27.0 - 32.0 pcg LAB HEMETOLOGY METHOD 05/26/2024 7:51 AM [facility] MCHC 32.0 32.0 - 37.0 g/dL LAB HEMETOLOGY METHOD 05/26/2024 7:51 AM [facility] RDW 15.4(H) 11.0 - 15.0 % LAB HEMETOLOGY METHOD 05/26/2024 7:51 AM [facility] Platelets 203 130 - 400 K/mcL LAB HEMETOLOGY METHOD 05/26/2024 7:51 AM [facility] MPV 10.5 7.0 - 11.0 FL LAB HEMETOLOGY METHOD 05/26/2024 7:51 AM [facility] NRBC 0.0 <1.0 % LAB HEMETOLOGY METHOD 05/26/2024 7:51 AM [facility] NRBC Absolute 0.00 <0.10 K/mcL LAB HEMETOLOGY METHOD 05/26/2024 7:51 AM [facility] Blood Venous blood specimen / Unknown 05/26/2024 6:29 AM EST 05/26/2024 7:40 AM EST us Diogo Hanson MD LAB BLOOD ORDERABLES Final Resul t [facility] [address] [place] [address], * (ABNORMAL) [place] level (05/26/2024 6:29 AM EST) [place] Level 0.3(L) 0.6 - 1.2 mEq/L LAB CHEMISTRY METHOD 05/26/2024 8:16 AM EST [facility] Blood Venous blood specimen / Unknown 05/26/2024 6:29 AM EST 05/26/2024 7:40 AM EST us Diogo Hanson MD LAB BLOOD ORDERABLES Final Resul t [facility] [address] [place] [address], documented in this encounter Visit Diagnoses Diagnosis Encounter for therapeutic drug level monitoring Fatty (change of) liver, not elsewhere classified Psychotic disorder with delusions due to known physiological condition documented in this encounter Care Teams Senior Firmware Engineer Relationship Specialty Start Date End Date Diogo Hanson MD [address] [place] [address] Dr [address] [place], [place] PCP - General Internal Medicine 05/26/24 documented as of this encounter
--- OUTSIDE RECORDS SUMMARY | 2025-01-04 17:32 | XMS_ITS | Data Portability ---
Author Organization [facility], Main Office Address [address] [place] [address] Assessment Encounter Date Assessment Date Assessment LastModified by Organization Details LastModified Time 06/09/2023 06/09/2023 12 min. Pt at [facility] in [place]. AUdio. MD in office ; Sugey sherman was with pt [email or web address] Not available 06/09/2023 09:18:35 10/09/2023 10/09/2023 14 min. Pt at [facility] [place]. PHONE/AUDIO. in office ; Sugey Chuck sherman was with pt [email or web address] Not available 10/09/2023 09:30:43 01/08/2024 01/08/2024 16 min. Pt at [facility] in [place]. PHONE/AUDIO. MD in office ; nurse [address] was with pt [email or web address] Not available 01/08/2024 09:53:26 06/29/2024 06/29/2024 19 min. Pt at [facility] [place]. PHONE/AUDIO. in office ; Sugey nurse [facility] helping [email or web address] Not available 06/29/2024 10:53:18 10/18/2024 10/18/2024 16min. Pt at [facility] [place]. PHONE/AUDIO. in office ; Sugey nurse [facility] [email or web address] Not available 10/18/2024 09:56:54 Plan of Treatment Reminders Order Date Submit Date Provider Last Modified By Organization Details Last Modified Time Details Appointments TH B20 F/U 2024 09:00A M Brandon Cook MD Not available Not available Not available Lab HIV-1 RNA, quantit ative, PCR, serum or plasma 2024 025 Not available 11/03/2024 11:05:23 T-cell regulat ory subsets panel, blood 2024 025 Not available 11/03/2024 11:05:24 CMP, serum or plasma 2024 025 Not available 11/03/2024 11:05:24 CBC w/ diff 2024 025 Not available [...] 01/15/2024 09:26:10 CBC w/ diff 2023 024 Not available 06/17/2023 13:26:56 ALT (alanin e [...] (rapid plasma reagin) , serum 2023 024 [email or web address] Not available 06/17/2023 13:26:56 T-cell regulat ory subsets panel, blood 2023 024 Not available 06/17/2023 13:26:56 HBsAg (hepati tis B surface Ag), serum 2023 024 CELESTE Not available 06/11/2023 19:58:31 hepatit is C RNA, quant, PCR, serum 2023 024 Not available 06/17/2023 13:26:56 CT + NG DNA, PCR, unspeci fied specime n - urine 2023 024 [email or web address] Not available 06/17/2023 13:26:56 Referral None recorde d. Procedures None recorde d. Surgeries None recorde d. Imaging None recorde d. Medication Orders Dovato 50 mg-300 mg tablet 2024 025 [facility], [address] [place] [address], [facility] [[email or web address] [address], [address], 10/18/2024 11:53:25 Dovato 50 mg-300 mg tablet 2024 025 [facility], [address] [place] [address], [place], [address], 07/30/2024 13:58:15 Triumeq 600 mg-50 mg-300 mg tablet 2023 024 [facility], [address] [place] [address], [place], [address], 01/08/2024 09:52:46 Triumeq 600 mg-50 mg-300 mg tablet [address]23 [email or web address], [facility] [[email or web address]] C, [place], [address], 10/09/2023 10:55:41 Triumeq 600 mg-50 mg-300 mg tablet [address], [address] , [place], [address], 06/12/2023 11:47:47 Patient TargetsNo targets recorded. Patient InstructionsNo instructions recorded. Reason for Referral None Reported. Results Created Date Observation Date Name Description Value Unit Range Abnormal Flag Note LastModifiedBy Organization Detail LastModifiedTime 06/11/19 24 06/11/2023 CREAT ININE WITH GFR glomerular filtration rate 80 >60 This eGFR resul t was calcu lated using the CKD-E PI 2020 Creat inine Equat ion Not Available [facility] [address] [place], [address], 06/11/2023 19:34:31 06/11/19 24 06/11/2023 CREAT ININE WITH GFR performing lab [facility] [address] [facility] [place] [address] Medic al Direc nayana lechuga MD Not Available [facility] [address] [place], [address], 06/11/2023 19:34:31 06/11/19 24 06/11/2023 CREAT ININE WITH GFR creat 0.96 mg/dL 0.7-1. 3 Not Available [facility] [address] [place], [address], 06/11/2023 19:58:29 06/11/19 24 06/11/2023 CREAT ININE WITH GFR glomerular filtration rate 80 >60 This eGFR resul t was calcu lated using the CKD-E PI 2020 Creat inine Equat ion Not Available [facility] [address] [place], [address], 06/11/2023 19:58:29 06/11/19 24 06/11/2023 SGOT SGOT 9 U/L 10-42 low Not Available [facility] [address] [place], [address], 06/11/2023 19:58:30 06/11/19 24 06/11/2023 SGPT SGPT 16 U/L 10-60 Not Available [facility] [address] [place], [address], 06/11/2023 19:58:30 06/11/19 24 06/11/2023 TREPO NEMAL AB treponemal Ab NEGATI VE negati ve Not Available [facility] [address] [place] [address], [address], 06/11/2023 19:58:31 06/11/19 24 06/11/2023 HEPAT ITIS [...] 72 hours . Not Available [facility] [address] [place] [address], [address], 06/11/2023 19:58:31 06/11/19 24 06/11/2023 HEPAT ITIS B SURFA CE ANTIG EN performing lab [facility] [address] [facility] [place] [address] Medic al Direc nayana lechuga MD Not Available [facility] [address] [place] [address], [address], 06/11/2023 19:58:31 06/11/19 24 06/11/2023 HCV VIRAL LOAD HCV viral load qual NOT DETECT ED not detect . HCV RNA not detec valente, unabl e to repor t quant itati ve resul ts Not Available [facility] [address] [place] [address], [address], 06/12/2023 06:51:42 06/11/19 24 06/11/2023 HIV VIRAL LOAD HIV viral load quant < 20 <20 Not Available [facility] [address] [place] [address], [address], 06/12/2023 06:51:42 06/11/19 24 06/11/2023 HIV VIRAL LOAD HIV viral load log < 1.30 <1.30 Not Available [facility] [address] [place] [address], [address], 06/12/2023 06:51:42 06/11/19 24 06/12/2023 HIV VIRAL LOAD HIV viral load qual DETECT ED not detect . abnormal HIV RNA detec valente, but <20 copie s/mL Not Available [facility] [address] [place] [address], [address], 06/12/2023 06:51:42 06/11/19 24 06/12/2023 HIV VIRAL LOAD performing lab [facility] abnormal [facility] [address] [facility] [place] [address] Medic al Direc nayana lechuga MD Not Available [facility] [address] [place] [address], [address], 06/12/2023 06:51:42 06/11/19 24 06/18/2023 T4T8 PANEL percent cd3 83 Not Available [facility] [address] [place] [address], [address], 06/18/2023 09:46:43 06/11/19 24 06/18/2023 T4T8 PANEL absolute cd3 2830 cells /uL 690-25 40 high Not Available [facility] [address] [place] [address], [address], 06/18/2023 09:46:43 06/11/19 24 06/18/2023 T4T8 PANEL percent cd8 47 Not Available [facility] [address] [place] [address], [address], 06/18/2023 09:46:43 06/11/19 24 06/18/2023 T4T8 PANEL absolute cd8 1605 Not Available [facility] [address] [place] [address], [address], 06/18/2023 09:46:43 06/11/19 24 06/18/2023 T4T8 PANEL percent cd4 37 Not Available [facility] [address] [place] [address], [address], 06/18/2023 09:46:43 03/06/18/2023 T4T8 PANEL absolute cd4 1249 Not Available [facility] [address] [place], [address], 06/18/2023 09:46:43 06/11/1906/18/2023 T4T8 PANEL percent cd19 5.0 % 6-25 low Not Available [facility] [address] [place], [address], 06/18/2023 09:46:43 06/11/1906/18/2023 T4T8 PANEL absolute cd19 167 Not Available [facility] [address] [place], [address], 06/18/2023 09:46:43 06/11/1906/18/2023 T4T8 PANEL cd4 cd8 ratio 0.8 Not Available [facility] [address] [place], [address], 06/18/2023 09:46:43 06/11/1906/18/2023 T4T8 PANEL percent cd56 11.0 % 5-27 Not Available [facility] [address] [place], [address], 06/18/2023 09:46:43 06/11/1906/18/2023 T4T8 PANEL absolute cd56 372 cells /uL 90-590 Not Available [facility] [address] [place] [address], [address], 06/18/2023 09:46:43 06/11/1906/11/2023 HCV VIRAL LOAD HCV viral load qual NOT DETECT ED not detect . HCV RNA not detec valente, unabl e to repor t quant itati ve resul ts Not Available [facility] [address] [place], [address], 06/18/2023 09:46:44 Result Notes None recorded. Problems Name Problem SNOMED Code Status Onset Date Resolution Date Notes Provider Name and Address Organization Details Recorded Time Chronic hepatitis C 309644181 Active 2012 Chronic hepatitis C without mention of hepatic coma; snomeddesc ription: Chronic hepatitis C; Report Immunity to Registry: Yes; Notes: f4 2013; g1a 2012 olysio and sovaldi 15 SVR; 2017 nondetecte d, 2017; 2019; Chronic hepatitis C; snomeddesc ription: Chronic hepatitis C; Report Immunity to Registry: Yes; Notes: f4 2014; g1a 2012 olysio and sovaldi 15 SVR; 2017 nondetecte d, 2017; 2019; Not Available [facility] 4 06:58:06 Human immunodef iciency virus infection 33432474 Active 2012 Human immunodefi ciency virus [HIV] disease; snomeddesc ription: Human immunodefi ciency virus infection; Report Immunity to Registry: Yes; Notes: [id number] neg 2015; Human immunodefi ciency virus infection; snomeddesc ription: Human immunodefi ciency virus infection; Report Immunity to Registry: Yes; Notes: [id number] neg 2015; Not Available [facility] 4 06:58:06 Cirrhosis of liver 65951197 Active 2013 Cirrhosis of liver without mention of alcohol; snomeddesc ription: Toxic cirrhosis; Report Immunity to Registry: Yes; Not Available [facility] 4 06:58:05 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; snomeddesc ription: Toxic cirrhosis; Report Immunity to Registry: Yes; Not Available [facility] 4 06:58:06 Chronic nonalcoho lic liver disease 09111875 Active 2014 Other chronic nonalcohol ic liver disease; snomeddesc ription: Steatohepa titis; Report Immunity to Registry: Yes; Notes: u/s 2012 fatty liver; Not Available [facility] 4 06:58:05 Steatohep atitis 941244508 Active 2014 Steatohepa titis; snomeddesc ription: Steatohepa titis; Report Immunity to Registry: Yes; Notes: u/s 2012 fatty liver; Not Available [facility] 4 06:58:06 Type B viral hepatitis 03077579 Active 2016 Type B viral hepatitis; snomeddesc ription: Type B viral hepatitis; Report Immunity to Registry: Yes; Notes: HBV core ab pos; s ab pos; HBV vL nondetecte d 2016, 2017; 2018; Not Available [facility] 4 06:58:06 Viral hepatitis B without hepatic coma 932976493 Active 2016 Unspecifie d viral hepatitis B without hepatic coma; snomeddesc ription: Type B viral hepatitis; Report Immunity to Registry: Yes; Notes: HBV core ab pos; s ab pos; HBV vL nondetecte d 2016, 2017; 2018; Not Available [facility] 4 06:58:06 Problem Notes None recorded. Medical [...] t Available nystatin 100,000 unit/mL oral suspension 882672/ ML Quantit y: 135; Duratio n: 9; [...] every day by oral route, for B20. 2024 active mar Not Available Not Available Not Avai lable Vitals None Recorded Social History None recorded. Functional Status None recorded. Mental Status None recorded. Family History Nothing Reported Notes:No known family histor y, Response Property: Yes; , Family history unknown, Response Property: Yes; Medical History No medical history recorded. Past Encounters Encounter ID Performer Location Encounter Start Date Encounter Closed Date Diagnosis/Indication Diagnosis SNOMED-CT Code Diagnosis ICD10 Code Diagnosis IMO Codes Diagnosis Note [id number] Brandon Cook MD Main Office [address] [place] [phone] 12/16/2022 10:40:57 12/16/2022 11:10:18 Human immunodeficiency virus infection 33948568 B20 HIV . Continue Triumeq 1 tab [...] reviewed. [id number] Brandon Cook MD Main Office [address] [place] [phone] 03/10/2023 09:21:06 03/10/2023 15:12:24 Human immunodeficiency virus infection 20602899 B20 HIV . Continue Triumeq 1 tab po qd. will keep current regimen. Compliance addressed to prevent viral resistance , keep viral suppressio n, and prevent disease progressio n. [facility] nurse will fax labs results to office and med list. U=U Plan of care reviewed. [id number] Brandon Cook MD Main Office [address] [place] [phone] 06/09/2023 09:10:13 06/09/2023 10:02:03 Human immunodeficiency virus infection 99143237 B20 HIV . Continue Triumeq 1 tab po qd. will keep current regimen. Compliance addressed to prevent viral resistance , keep viral suppressio n, and prevent disease progressio n. [facility] nurse will fax labs results to office and med list. safe sex. Plan of care reviewed. [id number] Brandon Cook MD Main Office [address] [place] [phone] 10/09/2023 08:59:43 10/09/2023 10:32:41 Human immunodeficiency virus infection 24648755 B20 HIV . Continue Triumeq 1 tab po qd. will keep current regimen. new regimens reviewed to include DOvato and long actinge agents. Compliance addressed to prevent viral resistance , keep viral suppressio n, and prevent disease progressio n. Plan of care reviewed. [id number] Brandon Cook MD Main Office [address] [place] [address] 01/08/2024 09:04:42 01/08/2024 10:54:09 Human immunodeficiency virus infection 86088936 B20 HIV . Continue Triumeq 1 tab [...] and recommende d Plan of care reviewed. [id number] Brandon Cook MD Main Office [address] [place] [address] 06/29/2024 09:54:47 06/29/2024 11:10:41 Human immunodeficiency virus infection 71331145 B20 HIV .Hold Triumeq ; pharmacy inventory issue for months. pt has been off meds for at least 2 monthsSTAR T DOvato 1 tab po qd. SImilar to Triumeq without abacavir; no resistance test available, so limitation in chosing the regimen. another option could be biktarvy if ongoing issues.linda De Leon Nurse will call if ongoing difficulti es with getting meds, and alternativ e options will be considered . pharmacy availabili ty list would be helpfulres istance test will be ordered.Co mpliance addressed to prevent viral resistance , keep viral suppressio n, and prevent disease progressio n.labs Plan of care reviewed. [id number] Brandon Cook MD Main Office [address] [place] [address] 10/18/2024 09:03:11 10/18/2024 10:58:39 Human immunodeficiency virus infection 46600559 B20 HIV .Continue DOvato 1 tab po qd.Complia nce addressed to prevent viral resistance , keep viral suppressio n, and prevent disease progressio n.labs in 2-3 months Plan of care reviewed. Health Concerns Section Related Observation LastModified by Organization Detai ls LastModified Time None Recorded Concern Status LastModified by Organization Details LastModified Time None Recorded Advance Directives Directive None Recorded Payers Insurance Date Sequence Insurance Name Policy Number Policy Teixeira Covered Member ID Teixeira Member ID Guarantor Name 12/19/2024 [facility] Ras Spraguety [id number] Ras Jacobo 03/17/2023 *SELF PAY* Ro susie Jacobo 12/19/2024 2 [place] Ras Jacobo [id number] Ras Jacobo 12/29/2024 1 [place]: [employer] Ras Jacobo [id number] Ras Jacobo 12/29/2024 2 [place] Ras Jacobo [id number] Ras Jacobo Notes Date Note Type Note Provider Name and Address Organization Details Recorded Time 4 text/html ROS as noted in the HPI Telemedicine visit. Sugey is w pt. [facility]f/u HIV.Triumeq 1 tab po qdmed list gozgoizjubnyakvfj75/2023 HIV VL nondtected;HCV VL nondetected; RPR NR; SGPT/SGOT; Creatinine; nl10/2022 SZ1=178; HIV VL nondetected08/2022 eGFR>6005/2022 ALT/AST wnl; eGFR>60; nursing will send HIV VL and CD4 labs to office by fax.08/2021 HIV VL nondetected; DJ5=424;med list reviewed.no n/v/d. no abd pain; no diarrheano hospitalizationsnot sexually activevaccines uptodate w flu and COVID19; pending RSV dx w Afib; pacemaker. xarelto. Brandon Cook MD [address] [place] [address], [phone], [facility] 06/09/2023 09:20:48 4 text/html ROS as noted in the HPI Telemedicine visit. Sugey is w pt. [facility].f/u HIV.Triumeq 1 tab po qdtolerates well.compliant05/2023 HIV VL nondetected; JM7=5494; HCV VL nondetceted; HBVsag neg; treponemal ab neg; hTCP=0167/2023 HIV VL nondtected;HCV VL nondetected; RPR NR; SGPT/SGOT; Creatinine; nl10/2022 RS7=521; HIV VL nondetectedmed list reviewed.no n/v/d. no abd pain; no diarrheano hospitalizationsnot sexually active Brandon Cook MD [address] [place] [address], [phone], [facility] MD [facility] 10/09/2023 10:55:46 4 text/html ROS as noted in the [facility] Telemedicine visit. [facility]f/u HIV.Triumeq 1 tab po qdhas missed about 5 doses; pharmacy issues that does not have the med supply; it is happening with other clients, frequently and other medications per nursing report.tolerates well.no recent labshas not been recently sickcompliant05/2023 HIV VL nondetected; PC1=6979; HCV VL nondetceted; HBVsag neg; treponemal ab neg; lYHG=6594/2023 HIV VL nondtected;HCV VL nondetected; RPR NR; SGPT/SGOT; Creatinine; nl10/2022 OH0=157; HIV VL nondetectedno concerns.med list reviewed.no n/v/d. no abd pain; no diarrheano hospitalizationsnot sexually active Brandon Cook MD [address] [place] [address], [phone], [facility] 01/08/2024 10:03:21 5 text/html ROS as noted in the [facility] Telemedicine visit. [facility]f/u HIV.Triumeq 1 tab [...] sexually active 01/2024 HIV VL nondetected; CD4 64521 HIV VL nondetected; RE0=5152; HCV VL nondetceted; HBVsag neg; treponemal ab neg; pXIV=4131/2023 HIV VL nondtected;HCV VL nondetected; RPR NR; SGPT/SGOT; Creatinine; nl10/2022 PQ5=248; HIV VL nondetected Brandon Cook MD [address] [place] [address], [phone], [facility] MD [facility] 06/29/2024 10:56:39 text/html ROS as noted in the HPI Telemedicine visit. [facility]. Mayes is the nurse helping with the call.f/u HIV.on DOvato 1 tab po qd. switched from Triumeq due to pharmacy barriers inthe past months.sugey says site has had more consistent delivery of medication from the pharmacy.has tolerated Dovato well. no side effects A fib.no n/v/d. no abd pain; no diarrheanot sexually active07/2024 SZ4=368; VL< HIV VL nondetected; CD4 72771 HIV VL nondetected; EG9=2463; HCV VL nondetceted; HBVsag neg; treponemal ab neg; dTSW=9267/2023 HIV VL nondtected;HCV VL nondetected; RPR NR; SGPT/SGOT; Creatinine; nl10/2022 EI9=586; HIV VL nondetected Barndon Cook MD [address] [place] [address], [phone], [facility] C[facility] MD [facility] 10/18/2024 09:58:17
--- OUTSIDE RECORDS SUMMARY | 2025-01-04 17:32 | XMS_ITS | Encounter Summary ---
Author Organization [employer] Address [address] [place] [address] Care Team Providers Care Furniture Refinisher Name Role Phone Diogo Hanson MD Primary Care Provider [phone] Encounter Details Date Type Department Care Team (Late st Contact Info) Description 11/03/2024 Lab Requisition [facility] - Main Lab [address] [facility] [place] [address] Diogo Hanson MD [address] [place] [address] [address] [place] Type 2 diabetes mellitus without complications (CMS/HCC V24, CMS/[facility] V28) Social History Tobacco Use Types Packs/Day Years Used Date Smoking Tobacco: Never Assessed Sex and Gender Information Value Date Recorded Sex Assigned at Not on file Legal Sex Male 3:10 AM EST Gender Identity Not on file Sexual Orientation Not on file documented as of this encounter Plan of Treatment Pending Results Name Type Priority Associated Diagnoses Date /Time Red tube Lab Routine Type 2 diabetes mellitus without complications ([facility]/HCC V24, [facility] V28) 11/03/2024 7:45 AM EDT documented as of this encounter Procedures Procedure Name Priority Date/Time Associated Diagnosis Comments COMPLETE BLOOD COUNT Routine 11/03/2024 7:45 AM EDT Type 2 diabetes mellitus without complications (CMS/HCC V24, CMS/HCC V28) HEMOGLOBIN A1C Routine 11/03/2024 7:45 AM EDT Type 2 diabetes mellitus without complications (CMS/HCC V24, CMS/HCC V28) AMMONIA Routine 11/03/2024 7:45 AM EDT Type 2 diabetes mellitus without complications (CMS/HCC V24, CMS/HCC V28) LITHIUM LEVEL Routine 11/03/2024 7:45 AM EDT Type 2 diabetes mellitus without complications (CMS/HCC V24, CMS/HCC V28) CARBAMAZEPINE LEVEL, TOTAL Routine 11/03/2024 7:45 AM EDT Type 2 diabetes mellitus without complications ([facility] V24, [facility] V28) COMPREHENSIVE METABOLIC PANEL Routine 11/03/2024 7:45 AM EDT Type 2 diabetes mellitus without complications ([facility] V24, [facility] [place]28[place] documented in this encounter Results * Hemoglobin A1c (11/03/2024 7:45 AM EDT) Hemoglobin A1C 5.8 <6.5 % LAB CHEMISTRY METHOD 11/03/2024 11:08 AM EDT [facility] Mean Bld Glu Estim. 120 mg/dL LAB CHEMISTRY METHOD 11/03/2024 11:08 AM EDT [facility] Blood Venous blood specimen / Unknown 11/03/2024 7:45 AM EDT 11/03/2024 8:36 AM EDT us Diogo Hanson MD LAB BLOOD ORDERABLES Final Resul t Performing Organization Address City/[facility] [address]/ZIP Co de Phone Number [facility] [address] [place] [address], [place] [phone] * (ABNORMAL) Carbamazepine level, total (11/03/2024 7:45 AM EDT) Carbamazepine Level <0.5(L) 8.0 - 12.0 mcg/mL LAB CHEMISTRY METHOD 11/03/2024 9:49 AM EDT [facility] Comment:Results verified by repeat testing Blood Venous blood specimen / Unknown 11/03/2024 7:45 AM EDT 11/03/2024 8:36 AM EDT us Diogo Hanson MD LAB BLOOD ORDERABLES Final Resul t [facility] [address] [place] [address], [place] [phone] * [place] level (11/03/2024 7:45 AM EDT) [facility] [place] Level 1.1 0.6 - 1.2 mEq/L LAB CHEMISTRY METHOD 11/03/2024 9:49 AM EDT [facility] Blood Venous blood specimen / Unknown 11/03/2024 7:45 AM EDT 11/03/2024 8:36 AM EDT Diogo Hanson MD LAB BLOOD ORDERABLES Final Resul t [facility] [address] [place] [address], [place] [phone] * (ABNORMAL) Complete blood count (11/03/2024 7:45 AM EDT) [facility] WBC 13.6(H) 4.8 - 10.8 K/mcL LAB HEMETOLOGY METHOD 11/03/2024 8:53 AM EDT [facility] RBC 4.40(L) 4.50 - 5.50 M/[facility] LAB HEMETOLOGY METHOD 11/03/2024 8:53 AM [facility] Hemoglobin 13.3(L) 13.5 - 17.5 g/dL LAB HEMETOLOGY METHOD 11/03/2024 8:53 AM EDT [facility] Hematocrit 40.8(L) 42.0 - 54.0 % LAB HEMETOLOGY METHOD 11/03/2024 8:53 AM EDT [facility] MCV 93.8 79.0 - 98.0 FL LAB [facility]EMETOLOGY [facility] MCH 30.6 27.0 - 32.0 pcg LAB HEMETOLOGY METHOD 11/03/2024 8:53 AM EDT [facility] MCHC 32.6 32.0 - 37.0 g/dL LAB HEMETOLOGY METHOD 11/03/2024 8:53 AM EDT [facility] RDW 15.3(H) 11.0 - 15.0 % LAB HEMETOLOGY METHOD 11/03/2024 8:53 AM EDT [facility] Platelets 191 130 - 400 K/mcL LAB HEMETOLOGY METHOD 11/03/2024 8:53 AM EDT [facility] MPV 10.6 7.0 - 11.0 FL LAB HEMETOLOGY METHOD 11/03/2024 8:53 AM EDT [facility] NRBC 0.0 <1.0 % LAB HEMETOLOGY METHOD 11/03/2024 8:53 AM EDT [facility] NRBC Absolute 0.00 <0.10 K/mcL LAB HEMETOLOGY METHOD 11/03/2024 8:53 AM EDT [facility] Blood Venous blood specimen / Unknown 11/03/2024 7:45 AM EDT 11/03/2024 8:36 AM EDT us Diogo Hanson MD LAB BLOOD ORDERABLES Final Resul t Performing Organization Address City/[facility] [address]/ZIP Co de Phone Number [facility] [address] [place] [address], * Ammonia (11/03/2024 7:45 AM EDT) Ammonia 15 11 - 35 mcmol/L LAB CHEMISTRY METHOD 11/03/2024 9:49 AM EDT [facility] Blood Venous blood specimen / Unknown 11/03/2024 7:45 AM EDT 11/03/2024 8:36 AM EDT us Diogo Hanson MD LAB BLOOD ORDERABLES Final Resul t [facility] [address] [place] [address], * (ABNORMAL) Comprehensive metabolic panel (11/03/2024 7:45 AM EDT) Sodium 141 133 - 145 mmol/L LAB CHEMISTRY METHOD [facility] Potassium 4.4 3.5 - 5.5 mmol/L LAB CHEMISTRY METHOD 11/03/2024 9:49 AM [facility] Chloride 109 96 - 110 mmol/L LAB CHEMISTRY METHOD 11/03/2024 9:49 AM [facility] CO2 27 21 - 32 mmol/L LAB CHEMISTRY METHOD 11/03/2024 9:49 AM [facility] Anion Gap 5 3 - 11 LAB CHEMISTRY METHOD 11/03/2024 9:49 AM [facility] Glucose 139(H) 70 - 100 mg/dL LAB CHEMISTRY METHOD 11/03/2024 9:49 AM [facility] BUN 27(H) 5 - 25 mg/dL LAB CHEMISTRY METHOD 11/03/2024 9:49 AM [facility] Comment:Results verified by repeat testing Creatinine 1.68(H) 0.70 - 1.30 mg/dL LAB CHEMISTRY METHOD 11/03/2024 9:49 AM [facility] eGFR 41(L) >=60 mL/min/1. 73m2 LAB CHEMISTRY METHOD 11/03/2024 9:49 AM [facility] Comment:Calculation based on the Chronic Kidney Disease Epidemiology Collaboration (CKD-EPI) equation refit without adjustment for race. BUN/Creatinine Ratio 16.1 LAB CHEMISTRY METHOD 11/03/2024 9:49 AM [facility] Calcium 10.0 8.5 - 10.5 mg/dL LAB CHEMISTRY METHOD 11/03/2024 9:49 AM [facility] AST (SGOT) 8(L) 10 - 42 unit/L LAB CHEMISTRY METHOD 11/03/2024 9:49 AM EDT [facility] ALT (SGPT) 7(L) 10 - 60 unit/L LAB CHEMISTRY METHOD 11/03/2024 9:49 AM EDT [facility] Alkaline Phosphatase 82 42 - 121 unit/L LAB CHEMISTRY METHOD 11/03/2024 9:49 AM EDT [facility] Total Protein 7.3 6.0 - 8.0 g/dL LAB CHEMISTRY METHOD 11/03/2024 9:49 AM EDT [facility] Albumin 3.3 3.2 - 5.0 g/dL LAB CHEMISTRY METHOD 11/03/2024 9:49 AM EDT [facility] Total Bilirubin 0.8 0.0 - 1.4 mg/dL LAB CHEMISTRY METHOD 11/03/2024 9:49 AM EDT [facility] Comment:Results verified by repeat testing Blood Venous blood specimen / Unknown 11/03/2024 7:45 AM EDT 11/03/2024 8:36 AM EDT us Diogo Hanson MD LAB BLOOD ORDERABLES Final Resul t [facility] [address] [place] [address], documented in this encounter Visit Diagnoses Diagnosis Type 2 diabetes mellitus without complications (CMS/HCC V24, CMS/HCC V28) documented in this encounter Care Teams Furniture Refinisher Relationship Specialty Start Date End Date Diogo Hanson MD [address] [facility] [facility] TRINITY Cardenas PCP - General Internal Medicine 05/26/24 documented as of this encounter
--- OUTSIDE RECORDS SUMMARY | 2025-01-04 17:32 | XMS_ITS | Clinical Summary ---
Author Organization [address] [facility] Address [address] [place] [address] Phone Care Team Providers Care Static Balancer Name Role Phone Diogo Hanson MD Primary Care Provider Encounters Date Type Department Care Team Description 01/04/2025 Lab Requisition [facility] [address] [place] [phone] Diogo Hanson MD Type 2 diabetes mellitus without complications (CMS/HCC V24, CMS/[facility] V28) 12/07/2024 Lab Requisition [facility] Lab [address] [place] [phone] Diogo Hanson MD Type 2 diabetes mellitus without complications (CMS/HCC V24, CMS/HCC V28); Human immunodeficiency virus (HIV) disease (CMS/HCC V24, CMS/[facility] V28) 11/17/2024 Lab Requisition [facility] [address] [place] [phone] Diogo Hanson MD Encounter for other specified special examinations 11/08/2024 Lab Requisition [facility] [address] [place] [phone] Diogo Hanson MD 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 11/05/2024 Lab Requisition [facility] [address] [place] [phone] Diogo Hanson MD Encounter for other specified special examinations 11/03/2024 Lab Requisition [facility] [address] [place] [phone] Diogo Hanson MD Type 2 diabetes mellitus without complications (CMS/HCC V24, CMS/[facility] V28) from Last 3 Months Social History Tobacco Use Types Packs/Day Years Used Date Smoking Tobacco: Never Assessed Sex and Gender Information Value Date Recorded Sex Assigned at Not on file Legal Sex Male 3:10 AM EST Gender Identity Not on file Sexual Orientation Not on file Plan of Treatment Health Maintenance Due Date Last Done Comments Meningococcal ACWY Vaccine (1 - Risk 2-dose series) 1947 COVID-19 Vaccine (#1) 1949 Diabetes: Annual Foot Exam 1954 Diabetes: Annual Retina Eye Exam 1955 MMR Vaccines (1 of 2 - Risk [...] Patients (1 - 1-dose 75+ series) 06/01/2019 Falls Risk Assessment 02/23/2022 Medicare Annual Wellness Visit 02/23/2022 Social Influencers of Health Screening 02/23/2022 Depression Screening 03/23/2024 Diabetes: Annual Urine Albumin-Creatinine Ratio (uACR) 09/09/2024 Influenza Vaccine (#1) 2024 Diabetes: Blood Sugar Control Test (HGBA1C) 06/06/2025 12/07/2024, 11/03/2024, 09/26/2024, Additional history exists Diabetes: Annual GFR (Glomerular Filtration Rate) 11/17/2025 11/17/2024, 11/03/2024, 09/26/2024, Additional history exists Cholesterol Screening (Lipid Panel) 09/09/2029 09/09/2024, 03/02/2024, 02/24/2024 HIB Vaccines Aged Out No [...] 20 months Aged Out No longer eligible based on patient's age to complete this topic Varicella Vaccines Aged Out No longer eligible based on patient's age to complete this topic Procedures Procedure Name Priority Date/Time Associated Diagnosis Comments PROSTATE SPECIFIC ANTIGEN SCREEN Routine 01/04/2025 6:38 AM EDT Type 2 diabetes mellitus without complications ([facility]/HCC V24, [facility] V28) AMMONIA Routine 12/07/2024 12:00 AM EDT Type 2 diabetes mellitus without complications (CMS/HCC V24, CMS/HCC V28) Human immunodeficiency virus (HIV) disease (CMS/HCC V24, CMS/[facility] V28) HEMOGLOBIN A1C Routine 12/07/2024 12:00 AM EDT Type 2 diabetes mellitus without complications ([facility] V24, CMS/[facility] V28) Human immunodeficiency virus (HIV) disease ([facility]/HCC V24, CMS/[facility] V28) THYROID STIMULATING HORMONE Routine 12/07/2024 12:00 AM EDT Type 2 diabetes mellitus without complications ([facility]/HCC V24, CMS/[facility] V28) Human immunodeficiency virus (HIV) disease (CMS/[facility] V24, CMS/[facility] V28) CBC WITH AUTO DIFFERENTIAL Routine 11/17/2024 6:44 [...] EDT Encounter for other specified special examinations LITHIUM LEVEL Routine 11/08/2024 6:56 AM EDT Other fdc (current) drug therapy URINALYSIS WITH REFLEX MICROSCOPIC AND CULTURE Routine 11/05/2024 7:00 AM EDT Encounter for other specified special examinations IBARRA URINE CULTURE TUBE Routine 11/05/2024 7:00 AM EDT Encounter for other specified special examinations URINALYSIS WITH REFLEX MICROSCOPIC AND CULTURE Routine 11/05/2024 7:00 AM EDT Encounter for other specified special examinations CULTURE URINE Routine 11/05/2024 7:00 AM EDT Encounter for other specified special examinations HEMOGLOBIN A1C Routine 11/03/2024 7:45 AM EDT Type 2 diabetes mellitus without complications (CMS/HCC V24, CMS/HCC V28) CARBAMAZEPINE LEVEL, TOTAL Routine 11/03/2024 7:45 AM EDT Type 2 diabetes mellitus without complications (CMS/HCC V24, CMS/HCC V28) LITHIUM LEVEL Routine 11/03/2024 7:45 AM EDT Type 2 diabetes mellitus without complications (CMS/HCC V24, CMS/HCC V28) COMPLETE BLOOD COUNT Routine 11/03/2024 7:45 AM EDT Type 2 diabetes mellitus without complications (CMS/HCC V24, CMS/HCC V28) AMMONIA Routine 11/03/2024 7:45 AM EDT Type 2 diabetes mellitus without complications (CMS/HCC V24, CMS/HCC V28) COMPREHENSIVE METABOLIC PANEL Routine 11/03/2024 7:45 AM EDT Type 2 diabetes mellitus without complications (CMS/HCC V24, CMS/HCC V28) LIPID PANEL WITH REFLEX TO DIRECT LDL Routine 09/09/2024 6:45 AM EDT Heart failure, unspecified (CMS/HCC V24, CMS/HCC V28) Type 2 diabetes mellitus without complications (CMS/HCC V24, CMS/HCC V28) Fatty (change of) liver, not elsewhere classified from Last 3 Months or Most Recently Relevant to Health Maintenance Results * Prostate specific antigen screen (01/04/2025 6:38 AM EDT) Pathologist [facility] PSA 3.99 0.00 - 4.00 ng/mL LAB CHEMISTRY METHOD 01/04/2025 10:04 AM EDT [facility] Blood Venous blood specimen / Unknown 01/04/2025 6:38 AM EDT 01/04/2025 6:59 AM EDT Narrative [facility] - 01/04/2025 10:04 AM EDT The Siemens Advia EnvironmentIQaur Chemiluminescent Immunoassay is used. Results obtained with different assay methods or kits cannot be used interchangeably. Results cannot be interpreted as absolute evidence of the presence or absence of malignant disease. us Diogo Hanson MD LAB BLOOD ORDERABLES Final Resul t [facility] [address] [place] [address], [place] [phone] * Thyroid stimulating hormone (12/07/2024 12:00 AM EDT) [facility] TSH 1.75 0.40 - 4.00 mcIU/mL LAB CHEMISTRY METHOD 12/07/2024 10:23 AM EDT [facility] Blood Venous blood specimen / Unknown 12/07/2024 12/07/2024 8:18 AM EDT us Diogo Hanson MD LAB BLOOD ORDERABLES Final Resul t [facility] [address] [place] [address], [place] [phone] * Hemoglobin A1c (12/07/2024 12:00 AM EDT) Only the most recent of2 resultswithin the time period is included. Pathologist [facility] Hemoglobin A1C 6.2 <6.5 % LAB CHEMISTRY METHOD 12/07/2024 1:47 PM EDT [facility] Mean Bld Glu Estim. 131 mg/dL LAB CHEMISTRY METHOD 12/07/2024 1:47 PM EDT [facility] Blood Venous blood specimen / Unknown 12/07/2024 12/07/2024 8:18 AM EDT us Diogo Hanson MD LAB BLOOD ORDERABLES Final Resul t Performing Organization Address City/[facility]/ZIP Co de Phone Number [facility] [address] [place] [address], [place] [phone] * Ammonia (12/07/2024 12:00 AM EDT) Only the most recent of2 resultswithin the time period is included. Ammonia 14 11 - 35 mcmol/L LAB CHEMISTRY METHOD 12/07/2024 9:10 AM EDT [facility] Blood Venous blood specimen / Unknown 12/07/2024 12/07/2024 8:18 AM EDT us Diogo Hanson MD LAB BLOOD ORDERABLES Final Resul t Performing Organization Address [facility]/ZIP Co de Phone Number [facility] [address] [place] [address], [place] [phone] * (ABNORMAL) CBC auto differential (11/17/2024 6:44 AM EDT) WBC 12.2(H) 4.8 - 10.8 K/[facility] LAB HEMETOLOGY METHOD 11/17/2024 7:26 AM EDT [facility] RBC 4.30(L) 4.50 - 5.50 M/[facility] LAB HEMETOLOGY METHOD 11/17/2024 7:26 AM EDT [facility] Hemoglobin 13.1(L) 13.5 - 17.5 g/dL LAB HEMETOLOGY METHOD 11/17/2024 7:[address] [facility] Hematocrit 40.7(L) 42.0 - 54.0 % LAB HEMETOLOGY METHOD 11/17/2024 7:[address] [facility] MCV 94.9 79.0 - 98.0 FL LAB HEMETOLOGY METHOD 11/17/2024 7:[address] [facility] MCH 30.5 27.0 - 32.0 pcg LAB HEMETOLOGY METHOD 11/17/2024 7:[address] [facility] MCHC 32.2 32.0 - 37.0 g/dL LAB HEMETOLOGY METHOD 11/17/2024 7:[address] [facility] RDW 15.8(H) 11.0 - 15.0 % LAB HEMETOLOGY METHOD 11/17/2024 7:[address] [facility] Platelets 329 130 - 400 K/mcL LAB HEMETOLOGY METHOD 11/17/2024 7:[address] [facility] MPV 10.1 7.0 - 11.0 FL LAB HEMETOLOGY METHOD 11/17/2024 7:[address] [facility] NRBC 0.0 <1.0 % LAB HEMETOLOGY METHOD 11/17/2024 7:[address] [facility] NRBC Absolute 0.00 <0.10 K/mcL LAB HEMETOLOGY METHOD 11/17/2024 7:[address] [facility] Neutrophils Relative 78.2 % LAB HEMETOLOGY METHOD 11/17/2024 7:[address] [facility] Lymphocytes Relative 13.7 % LAB HEMETOLOGY METHOD 11/17/2024 7:[address] [facility] Monocytes Relative 6.1 % LAB HEMETOLOGY METHOD 11/17/2024 7:[address] [facility] Eosinophils Relative 0.6 % LAB HEMETOLOGY METHOD 11/17/2024 7:26 AM EDT [facility] Basophils Relative 0.3 % LAB HEMETOLOGY METHOD 11/17/2024 7:26 AM EDT [facility] Immature Granulocytes Relative 1.1 % LAB HEMETOLOGY METHOD 11/17/2024 7:26 AM EDT [facility] Neutrophils Absolute 9.54(H) 1.50 - 7.00 K/mcL LAB HEMETOLOGY METHOD 11/17/2024 7:26 AM EDT [facility] Lymphocytes Absolute 1.67 1.00 - 5.00 K/mcL LAB HEMETOLOGY METHOD 11/17/2024 7:26 AM EDT [facility] Monocytes Absolute 0.75 0.20 - 1.00 K/mcL LAB HEMETOLOGY METHOD 11/17/2024 7:26 AM EDT [facility] Eosinophils Absolute 0.07 0.00 - 0.50 K/mcL LAB HEMETOLOGY METHOD 11/17/2024 7:26 AM EDT [facility] Basophils Absolute 0.04 0.00 - 0.20 K/mcL LAB HEMETOLOGY METHOD 11/17/2024 7:26 AM EDT [facility] Immature Granulocytes Absolute 0.14(H) 0.00 - 0.03 K/mcL LAB HEMETOLOGY METHOD 11/17/2024 7:26 AM EDT [facility] Blood Venous blood specimen / Unknown 11/17/2024 6:44 AM EDT 11/17/2024 7:13 AM EDT us Diogo Hanson MD LAB BLOOD ORDERABLES Final Resul t [facility] [address] [place] [address], * Oxcarbazepine level (11/17/2024 6:44 AM EDT) Oxcarbazepine 18.4 10 - 35 ug/mL 11/22/2024 10:09 AM EDT [facility] Comment: If applicable, any drug confirmation testing reported here was developed and the performance characteristics determined by [facility]. This confirmation testing has not been cleared or approved by the FDA. The laboratory is regulated under CLIA as qualified to perform high-complexity testing. This test is used for patient testing purposes. It should not be regarded as investigational or for research. Test performed at [facility], [address] , [place] [address] Laya Rosas MD, PhD - Patent Prosecution Attorney Blood Venous blood specimen / Unknown 11/17/2024 6:44 AM EDT 11/17/2024 7:13 AM EDT us Diogo Hanson MD LAB BLOOD ORDERABLES Final Resul t [facility] [address] [place] [address] * (ABNORMAL) B-type natriuretic peptide (11/17/2024 6:44 AM EDT) Pathologist [facility] BNP 138(H) <=100 pcg/mL LAB CHEMISTRY METHOD 11/17/2024 8:44 AM EDT [facility] Blood Venous blood specimen / Unknown 11/17/2024 6:44 AM EDT 11/17/2024 7:13 AM EDT us Diogo Hanson MD LAB BLOOD ORDERABLES Final Resul t [facility] [address] [place] [address], [place] [phone] * (ABNORMAL) Comprehensive metabolic panel (11/17/2024 6:44 AM EDT) Only the most recent of2 resultswithin the time period is included. Sodium 138 133 - 145 mmol/L LAB CHEMISTRY METHOD 11/17/2024 8:[address] [facility] Potassium 4.7 3.5 - 5.5 mmol/L LAB CHEMISTRY METHOD 11/17/2024 8:[address] [facility] Chloride 106 96 - 110 mmol/L LAB CHEMISTRY METHOD 11/17/2024 8:[address] [facility] CO2 28 21 - 32 mmol/L LAB CHEMISTRY METHOD 11/17/2024 8:[address] [facility] Anion Gap 4 3 - 11 LAB CHEMISTRY METHOD 11/17/2024 8:[address] [facility] Glucose 119(H) 70 - 100 mg/dL LAB CHEMISTRY METHOD 11/17/2024 8:[address] [facility] BUN 15 5 - 25 mg/dL LAB CHEMISTRY METHOD 11/17/2024 8:[address] [facility] Creatinine 1.18 0.70 - 1.30 mg/dL LAB CHEMISTRY METHOD 11/17/2024 8:[address] [facility] eGFR 62 >=60 mL/min/1. 73m2 LAB CHEMISTRY METHOD 11/17/2024 8:[address] [facility] Comment:Calculation based on the Chronic Kidney Disease Epidemiology Collaboration (CKD-EPI) equation refit without adjustment for race. BUN/Creatinine Ratio 12.7 LAB CHEMISTRY METHOD 11/17/2024 8:[address] [facility] Calcium 9.7 8.5 - 10.5 mg/dL LAB CHEMISTRY METHOD 11/17/2024 8:[address] [facility] AST (SGOT) 17 10 - 42 unit/L LAB CHEMISTRY METHOD 11/17/2024 8:[address] [facility] ALT (SGPT) 22 10 - 60 unit/L LAB CHEMISTRY METHOD 11/17/2024 8:[address] [facility] Alkaline Phosphatase 97 42 - 121 unit/L LAB CHEMISTRY METHOD 11/17/2024 8:34 AM EDT [facility] Total Protein 7.2 6.0 - 8.0 g/dL LAB CHEMISTRY METHOD 11/17/2024 8:34 AM EDT [facility] Albumin 3.0(L) 3.2 - 5.0 g/dL LAB CHEMISTRY METHOD 11/17/2024 8:34 AM EDT [facility] Total Bilirubin 0.4 0.0 - 1.4 mg/dL LAB CHEMISTRY METHOD 11/17/2024 8:34 AM EDT [facility] Blood Venous blood specimen / Unknown 11/17/2024 6:44 AM EDT 11/17/2024 7:13 AM EDT us Diogo Hanson MD LAB BLOOD ORDERABLES Final Resul t Performing Organization Address City/[facility]/ZIP Co de Phone Number [facility] [address] [place] [address], [place] [phone] * [place] level (11/08/2024 6:56 AM EDT) Only the most recent of2 resultswithin the time period is included. [place] Level 1.0 0.6 - 1.2 mEq/L LAB CHEMISTRY METHOD 11/08/2024 8:21 AM EDT [facility] Blood Venous blood specimen / Unknown 11/08/2024 6:56 AM EDT 11/08/2024 7:41 AM EDT us Diogo Hanson MD LAB BLOOD ORDERABLES Final Resul t Performing Organization Address City/[facility]/ZIP Co de Phone Number [facility] [address] [place] [address], [place] [phone] * (ABNORMAL) Urinalysis with reflex microscopic and culture (11/05/2024 7:00 AM EDT) Specific [place] Urine 1.014 1.003 - 1.030 LAB URINALYSIS - AUTOMATED METHOD 11/05/2024 2:[address] [facility] pH, Urine 6.0 5.0 - 8.0 pH LAB URINALYSIS - AUTOMATED METHOD 11/05/2024 2:[address] [facility] Leukocytes, Urine Large(A) Negative LAB URINALYSIS - AUTOMATED METHOD 11/05/2024 2:[address] [facility] Nitrite, Urine Positive(A) Negative LAB URINALYSIS - AUTOMATED METHOD 11/05/2024 2:[address] [facility] Protein, Urine 100(A) <=Trace mg/dL LAB URINALYSIS - AUTOMATED METHOD 11/05/2024 2:[address] [facility] Glucose, Urine Negative Negative mg/dL LAB URINALYSIS - AUTOMATED METHOD 11/05/2024 2:[address] [facility] Ketones, Urine Negative Negative mg/dL LAB URINALYSIS - AUTOMATED METHOD 11/05/2024 2:[address] [facility] Urobilinogen , Urine 1.0 0.2 - 1.0 mg/dL LAB URINALYSIS - AUTOMATED METHOD 11/05/2024 2:[address] [facility] Bilirubin, Urine Negative Negative LAB URINALYSIS - AUTOMATED METHOD 11/05/2024 2:[address] [facility] Blood, Urine Large(A) Negative LAB URINALYSIS - AUTOMATED METHOD 11/05/2024 2:[address] [facility] RBC, Urine 30.0(H) 0 - 4 /HPF LAB URINALYSIS - AUTOMATED METHOD 11/05/2024 2:[address] [facility] WBC, Urine 248.9(H) 0 - 4 /HPF LAB URINALYSIS - AUTOMATED METHOD 11/05/2024 2:[address] [facility] Squamous Epithelial, Urine 6 0 - 60 /LPF LAB URINALYSIS - AUTOMATED METHOD 11/05/2024 2:25 PM EDT [facility] Bacteria, Urine Negative Negative /HPF LAB URINALYSIS - AUTOMATED METHOD 11/05/2024 2:25 PM EDT [facility] Hyaline Casts, Urine 0.4 0 - 3 /LPF LAB URINALYSIS - AUTOMATED METHOD 11/05/2024 2:25 PM EDT [facility] Urine Urinary bladder structure / Unknown 11/05/2024 7:00 AM EDT 11/05/2024 1:40 PM EDT us Diogo Hanson MD LAB URINE ORDERABLES Final Resul t Performing Organization Address [facility] Co de Phone Number [facility] [address] [place] [address], [place] [phone] * Ibarra urine culture tube (11/05/2024 7:00 AM EDT) Extra Tube Hold for add-ons. 11/05/2024 3:01 PM EDT [facility] Comment:Auto resulted. Urine Urinary bladder structure / Unknown 11/05/2024 7:00 AM EDT 11/05/2024 1:40 PM EDT us Diogo Hanson MD LAB URINE ORDERABLES Final Resul t Performing Organization Address [facility]/ZIP Co de Phone Number [facility] [address] [place] [address], [place] [phone] * (ABNORMAL) Culture urine (11/05/2024 7:00 AM EDT) Culture, Urine 10,000-49,000 CFU/mL Escherichia coli(A) ABY 11/07/2024 8:24 AM EDT [facility] Urine Urinary bladder structure / Unknown 11/05/2024 7:00 AM EDT 11/05/2024 2:25 PM EDT Narrative Organism Antibiotic Method Susceptibility Escherichia coli Amoxicillin/Clavulanate ABY <=2 ug/ml: Susceptible Escherichia coli Ampicillin/Sulbactam ABY <=2 ug/ml: Susceptible Escherichia coli Piperacillin/Tazobactam ABY <=4 ug/ml: Susceptible Escherichia coli Cefazolin (Urine) ABY <=1 ug/ml: Susceptible Escherichia coli Cefoxitin ABY <=4 ug/ml: Susceptible Escherichia coli Ceftazidime ABY <=0.5 ug/ml: Susceptible Escherichia coli Ceftriaxone ABY <=0.25 ug/ml: Susceptible Escherichia coli Cefepime ABY <=0.12 ug/ml: Susceptible Escherichia coli Meropenem ABY <=0.25 ug/ml: Susceptible Escherichia coli Amikacin ABY 2 ug/ml: Susceptible Escherichia coli Gentamicin ABY <=1 ug/ml: Susceptible Escherichia coli Ciprofloxacin ABY <=0.06 ug/ml: Susceptible Escherichia coli Levofloxacin ABY <=0.12 ug/ml: Susceptible Escherichia coli Nitrofurantoin ABY <=16 ug/ml: Susceptible Escherichia coli Trimethoprim/Sulfamethoxazole ABY >=320 ug/ml: Resistant us Diogo Hanson MD LAB MICROBIOLOGY - GENERAL ORDER RAY Final Result [facility] [address] [place] [address], * (ABNORMAL) Complete blood count (11/03/2024 7:45 AM EDT) WBC 13.6(H) 4.8 - 10.8 K/mcL LAB HEMETOLOGY METHOD 11/03/2024 8:53 AM EDT [facility] RBC 4.40(L) 4.50 - 5.50 M/mcL LAB HEMETOLOGY METHOD 11/03/2024 8:53 AM EDT [facility] Hemoglobin 13.3(L) 13.5 - 17.5 g/dL LAB HEMETOLOGY METHOD 11/03/2024 8:53 AM EDT [facility] Hematocrit 40.8(L) 42.0 - 54.0 % LAB HEMETOLOGY METHOD 11/03/2024 8:53 AM EDT [facility] MCV 93.8 79.0 - 98.0 FL LAB HEMETOLOGY METHOD 11/03/2024 8:53 AM EDT [facility] MCH 30.6 27.0 - 32.0 pcg LAB HEMETOLOGY METHOD 11/03/2024 8:53 AM EDT [facility] MCHC 32.6 32.0 - 37.0 g/dL LAB HEMETOLOGY METHOD 11/03/2024 8:53 AM EDT [facility] RDW 15.3(H) 11.0 - 15.0 % LAB HEMETOLOGY METHOD 11/03/2024 8:53 AM EDT [facility] Platelets 191 130 - 400 K/mcL LAB HEMETOLOGY METHOD 11/03/2024 8:53 AM EDT [facility] MPV 10.6 7.0 - 11.0 FL LAB HEMETOLOGY METHOD 11/03/2024 8:53 AM EDT [facility] NRBC 0.0 <1.0 % LAB HEMETOLOGY METHOD 11/03/2024 8:53 AM EDT [facility] NRBC Absolute 0.00 <0.10 K/mcL LAB HEMETOLOGY METHOD 11/03/2024 8:53 AM EDT [facility] Blood Venous blood specimen / Unknown 11/03/2024 7:45 AM EDT 11/03/2024 8:36 AM EDT us Diogo Hanson MD LAB BLOOD ORDERABLES Final Resul t [facility] [address] [place] [address], * (ABNORMAL) Carbamazepine level, total (11/03/2024 7:45 AM EDT) Carbamazepine Level <0.5(L) 8.0 - 12.0 mcg/mL LAB CHEMISTRY METHOD 11/03/2024 9:49 AM EDT [facility] Comment:Results verified by repeat testing Blood Venous blood specimen / Unknown 11/03/2024 7:45 AM EDT 11/03/2024 8:36 AM EDT us Diogo Hanson MD LAB BLOOD ORDERABLES Final Resul t [facility] [address] [place] [address], [place] [phone] * Lipid panel with reflex to direct LDL (09/09/2024 6:45 AM EDT) Cholesterol 155 0 - 200 mg/dL LAB CHEMISTRY METHOD [facility]24 [facility] Triglycerides 89 0 - 150 mg/dL LAB CHEMISTRY METHOD 09/09/2024 9:[address] [facility] HDL 48 >=40 mg/dL LAB CHEMISTRY METHOD 09/09/2024 9:23 AM T [facility] LDL Calculated 89 0 - 100 mg/dL LAB CHEMISTRY METHOD 09/09/2024 9:[address] [facility] VLDL Cholesterol Dillon 17.8 mg/dL LAB CHEMISTRY METHOD 09/09/2024 9:[address] [facility] Non HDL Chol. (LDL+VLDL) 107 <145 mg/dL LAB CHEMISTRY METHOD 09/09/2024 9:[address] [facility] Chol/HDL Ratio 3.2 0.0 - 4.4 LAB CHEMISTRY METHOD 09/09/2024 9:[address] [facility] Blood Venous blood specimen / Unknown 09/09/2024 6:45 AM EDT 09/09/2024 8:10 AM EDT us Diogo Hanson MD LAB BLOOD ORDERABLES Final Resul t [facility] [place] ([facility] [address] [place] [address], from Last 3 Months or Most Recently Relevant to Health Maintenance Insurance MEDICAID - [place] Member Subscriber Plan / Payer (Ef fective 2024-Present) Name:Jeison Villedaer Member ID:[id number] Relation to Subscriber:Self Name:Damon Villeda Subscriber ID:[id number] Payer ID:[id number] Group ID:Not on file Type:Not on file Address: [place] [id number] MEDICARE Care Teams Static Balancer Relationship Specialty Start Date End Date Diogo Hanson MD [address] [place] [address] Dr [address] [place], [place] PCP - General Internal Medicine 05/26/24
--- OUTSIDE RECORDS SUMMARY | 2025-01-04 17:32 | XMS_ITS | Encounter Summary ---
Author Organization [email or web address] [facility] Address [address] [place] [address] Care Team Providers Care Desk Clerk Name Role Phone Diogo Hanson MD Primary Care Provider [phone] Encounter Details Date Type Department Care Team (Late st Contact Info) Description 02/03/[address] [facility] - Main Lab 299 [facility] [place] [address] Diogo Hanson MD [address] [place] [address] [address] [place] Other keno terminal operator (current) drug therapy Social History Tobacco Use [...] DIFFERENTIAL Routine 02/03/2024 6:15 AM EST Other keno terminal operator (current) drug therapy CBC AND DIFFERENTIAL Routine 02/03/2024 6:15 AM EST Other keno terminal operator (current) drug therapy documented in this encounter Results * (ABNORMAL) CBC auto differential (02/03/2024 6:15 AM EST) WBC 7.9 4.8 - 10.8 K/mcL LAB HEMETOLOGY METHOD 02/03/2024 9:33 AM EST [facility] RBC 4.00(L) 4.50 - 5.50 M/mcL LAB HEMETOLOGY METHOD 02/03/2024 9:33 AM EST [facility] Hemoglobin 12.2(L) 13.5 - 17.5 g/dL LAB HEMETOLOGY METHOD 02/03/2024 9:33 AM [facility] Hematocrit 38.1(L) 42.0 - 54.0 % LAB HEMETOLOGY METHOD 02/03/2024 9:33 AM [facility] MCV 95.3 79.0 - 98.0 FL LAB HEMETOLOGY METHOD 02/03/2024 9:33 AM [facility] MCH 30.5 27.0 - 32.0 pcg LAB HEMETOLOGY METHOD 02/03/2024 9:33 AM [facility] MCHC 32.0 32.0 - 37.0 g/dL LAB HEMETOLOGY METHOD 02/03/2024 9:33 AM [facility] RDW 15.5(H) 11.0 - 15.0 % LAB HEMETOLOGY METHOD 02/03/2024 9:33 AM [facility] Platelets 215 130 - 400 K/mcL LAB HEMETOLOGY METHOD 02/03/2024 9:33 AM [facility] MPV 10.3 7.0 - 11.0 FL LAB HEMETOLOGY METHOD 02/03/2024 9:33 AM [facility] NRBC 0.0 <1.0 % LAB HEMETOLOGY METHOD 02/03/2024 9:33 AM [facility] NRBC Absolute 0.00 <0.10 K/mcL LAB HEMETOLOGY METHOD 02/03/2024 9:33 AM [facility] Neutrophils Relative 57.7 % LAB HEMETOLOGY METHOD 02/03/2024 9:33 AM [facility] Lymphocytes Relative 31.1 % LAB HEMETOLOGY METHOD 02/03/2024 9:33 AM [facility] Monocytes Relative 8.3 % LAB HEMETOLOGY METHOD 02/03/2024 9:33 AM [facility] Eosinophils Relative 2.0 % LAB HEMETOLOGY METHOD 02/03/2024 9:33 AM EST [facility] Basophils Relative 0.4 % LAB HEMETOLOGY METHOD 02/03/2024 9:33 AM [facility] Immature Granulocytes Relative 0.5 % LAB HEMETOLOGY METHOD 02/03/2024 9:33 AM [facility] Neutrophils Absolute 4.57 1.50 - 7.00 K/mcL LAB HEMETOLOGY METHOD 02/03/2024 9:33 AM EST [facility] Lymphocytes Absolute 2.47 1.00 - 5.00 K/mcL LAB HEMETOLOGY METHOD 02/03/2024 9:33 AM [facility] Monocytes Absolute 0.66 0.20 - 1.00 K/mcL LAB HEMETOLOGY METHOD 02/03/2024 9:33 AM [facility] Eosinophils Absolute 0.16 0.00 - 0.50 K/mcL LAB HEMETOLOGY METHOD 02/03/2024 9:33 AM EST [facility] Basophils Absolute 0.03 0.00 - 0.20 K/mcL LAB HEMETOLOGY METHOD 02/03/2024 9:33 AM [facility] Immature Granulocytes Absolute 0.04(H) 0.00 - 0.03 K/mcL LAB HEMETOLOGY METHOD 02/03/2024 9:33 AM [facility] Blood Venous blood specimen / Unknown 02/03/2024 6:15 AM EST 02/03/2024 8:42 AM EST us Diogo Hanson MD LAB BLOOD ORDERABLES Final Resul t [facility]) [facility] [address] [place] [address], documented in this encounter Visit Diagnoses Diagnosis Other longterm (current) drug therapy documented in this encounter Care Teams Desk Clerk Relationship Specialty Start Date End Date Diogo Hanson MD [address] [place] [address] Dr [address] TRINITY Cardenas PCP - General Internal Medicine 05/26/24 documented as of this encounter
--- OUTSIDE RECORDS SUMMARY | 2025-01-04 17:32 | XMS_ITS | Encounter Summary ---
Author Organization [employer] [facility] Address [address] [place] [address] Care Team Providers Care Airport Ramp Attendant Name Role Phone Diogo Hanson MD Primary Care Provider [phone] Encounter Details Date Type Department Care Team (Late st Contact Info) Description 11/05/2024 Lab Requisition [facility] - Main Lab 299 [facility] [place] [address] Diogo Hanson MD [address] [place] [address] Dr [address] [place] Encounter for other specified special examinations Social [...] Procedure Name Priority Date/Time Associated Diagnosis Comments URINALYSIS WITH REFLEX MICROSCOPIC AND CULTURE Routine [...] documented in this encounter Results * (ABNORMAL) Culture urine (11/05/2024 7:00 AM EDT) Culture, Urine 10,000-49,000 CFU/mL Escherichia coli(A) ABY 11/07/2024 8:24 AM EDT [facility] Urine Urinary bladder structure / Unknown [...] MICROBIOLOGY - GENERAL ORDER RAY Final Result [facility] [address] [place] [address], * (ABNORMAL) Urinalysis with reflex microscopic and culture (11/05/2024 7:00 AM EDT) [facility] [place] Urine 1.014 1.003 - 1.030 LAB URINALYSIS - AUTOMATED METHOD 11/05/2024 2:25 PM EDT [facility] pH, Urine 6.0 5.0 - 8.0 pH LAB URINALYSIS - AUTOMATED METHOD 11/05/2024 2:25 PM EDT [facility] Leukocytes, Urine Large(A) Negative LAB URINALYSIS - AUTOMATED METHOD 11/05/2024 2:25 PM [facility] Nitrite, Urine Positive(A) Negative LAB URINALYSIS - AUTOMATED METHOD 11/05/2024 2:25 PM [facility] Protein, Urine 100(A) <=Trace mg/dL LAB URINALYSIS - AUTOMATED METHOD 11/05/2024 2:25 PM [facility] Glucose, Urine Negative Negative mg/dL LAB URINALYSIS - AUTOMATED METHOD 11/05/2024 2:25 PM [facility] Ketones, Urine Negative Negative mg/dL LAB URINALYSIS - AUTOMATED METHOD 11/05/2024 2:25 PM [facility] Urobilinogen , Urine 1.0 0.2 - 1.0 mg/dL LAB URINALYSIS - AUTOMATED METHOD 11/05/2024 2:25 PM [facility] Bilirubin, Urine Negative Negative LAB URINALYSIS - AUTOMATED METHOD 11/05/2024 2:25 PM [facility] Blood, Urine Large(A) Negative LAB URINALYSIS - AUTOMATED METHOD 11/05/2024 2:25 PM [facility] RBC, Urine 30.0(H) 0 - 4 /HPF LAB URINALYSIS - AUTOMATED METHOD 11/05/2024 2:25 PM [facility] WBC, Urine 248.9(H) 0 - 4 /HPF LAB URINALYSIS - AUTOMATED METHOD 11/05/2024 2:25 PM [facility] Squamous Epithelial, Urine 6 0 - 60 /LPF LAB URINALYSIS - AUTOMATED METHOD 11/05/2024 2:25 PM [facility] Bacteria, Urine Negative Negative /HPF LAB URINALYSIS - AUTOMATED METHOD 11/05/2024 2:25 PM [facility] Hyaline Casts, Urine 0.4 0 - 3 /LPF LAB URINALYSIS - AUTOMATED METHOD 11/05/2024 2:25 PM [facility] Urine Urinary bladder structure / Unknown 11/05/2024 7:00 AM EDT 11/05/2024 1:40 PM EDT us Diogo Hanson MD LAB URINE ORDERABLES Final Resul t Performing Organization Address [facility] Co de Phone Number [facility] [address] [place] [address], [place] [phone] * Ibarra urine culture tube (11/05/2024 7:00 AM EDT) Extra Tube Hold for add-ons. 11/05/2024 3:01 PM EDT [facility] Comment:Auto resulted. Urine Urinary bladder structure / Unknown 11/05/2024 7:00 AM EDT 11/05/2024 1:40 PM EDT us Diogo Hanson MD LAB URINE ORDERABLES Final Resul t Performing Organization Address [facility] de Phone Number [facility] [address] [place] [address], [place] [phone] documented in this encounter Visit Diagnoses Diagnosis Encounter for other specified special examinations documented in this encounter Care Teams Airport Ramp Attendant Relationship Specialty Start Date End Date Diogo Hanson MD [address] [place] [address] Dr [address] TRINITY Cardenas PCP - General Internal Medicine 05/26/24 documented as of this encounter
--- OUTSIDE RECORDS SUMMARY | 2025-01-04 17:32 | XMS_ITS | Encounter Summary ---
Author Organization [employer] Address [address] [place] [address] Care Team Providers Care Headstart Teacher Name Role Phone Diogo Hanson MD Primary Care Provider [phone] Encounter Details Date Type Department Care Team (Latest Contact Info) Description 08/09/2024 Lab Requisition [facility] - Main Lab 299 [facility] [place] [address] Diogo Hanson MD [address] [place] [address] [address] TRINITY Cardenas Unspecified atrial fibrillation (CMS/HCC V24, CMS/HCC V28); Human immunodeficiency virus [...] Diagnosis Comments CBC WITH AUTO DIFFERENTIAL Routine 08/09/2024 6:53 AM EDT Unspecified atrial fibrillation (CMS/HCC V24, CMS/HCC V28) Human immunodeficiency virus (HIV) disease (CMS/HCC V24, CMS/HCC V28) LYMPHOCYTE T-CELL PANEL Routine 08/09/2024 6:53 AM EDT Unspecified atrial fibrillation (CMS/HCC V24, CMS/HCC V28) Human immunodeficiency virus (HIV) disease (CMS/HCC V24, CMS/HCC V28) HIV 1 MOLECULAR STUDY QUANTITATIVE Routine 08/09/2024 6:53 AM EDT Unspecified atrial fibrillation (CMS/HCC V24, CMS/HCC V28) Human immunodeficiency virus (HIV) disease (CMS/HCC V24, CMS/HCC V28) CBC AND DIFFERENTIAL Routine 08/09/2024 6:53 AM EDT Unspecified atrial fibrillation (CMS/HCC V24, CMS/HCC V28) Human immunodeficiency virus (HIV) disease (CMS/HCC V24, CMS/HCC V28) COMPREHENSIVE METABOLIC PANEL Routine 08/09/2024 6:53 AM EDT Unspecified atrial fibrillation (CMS/HCC V24, CMS/HCC V28) Human immunodeficiency virus (HIV) disease (CMS/HCC V24, CMS/HCC V28) documented in this encounter Results * (ABNORMAL) CBC auto differential (08/09/2024 6:53 AM EDT) WBC 7.6 4.8 - 10.8 K/mcL LAB HEMETOLOGY METHOD 08/09/2024 7:59 AM [facility] RBC 4.30(L) 4.50 - 5.50 M/mcL LAB HEMETOLOGY METHOD 08/09/2024 7:59 AM [facility] Hemoglobin 12.5(L) 13.5 - 17.5 g/dL LAB HEMETOLOGY METHOD 08/09/2024 7:59 AM [facility] Hematocrit 38.9(L) 42.0 - 54.0 % LAB HEMETOLOGY METHOD 08/09/2024 7:59 AM [facility] MCV 90.7 79.0 - 98.0 FL LAB HEMETOLOGY METHOD 08/09/2024 7:59 AM [facility] MCH 29.1 27.0 - 32.0 pcg LAB HEMETOLOGY METHOD 08/09/2024 7:59 AM [facility] MCHC 32.1 32.0 - 37.0 g/dL LAB HEMETOLOGY METHOD 08/09/2024 7:59 AM [facility] RDW 18.1(H) 11.0 - 15.0 % LAB HEMETOLOGY METHOD 08/09/2024 7:59 AM [facility] Platelets 182 130 - 400 K/mcL LAB HEMETOLOGY METHOD 08/09/2024 7:59 AM [facility] MPV 10.7 7.0 - 11.0 FL LAB HEMETOLOGY METHOD 08/09/2024 7:59 AM [facility] NRBC 0.0 <1.0 % LAB HEMETOLOGY METHOD 08/09/2024 7:59 AM [facility] NRBC Absolute 0.00 <0.10 K/mcL LAB HEMETOLOGY METHOD 08/09/2024 7:59 AM [facility] Neutrophils Relative 70.7 % LAB HEMETOLOGY METHOD 08/09/2024 7:59 AM [facility] Lymphocytes Relative 20.8 % LAB HEMETOLOGY METHOD 08/09/2024 7:59 AM [facility] Monocytes Relative 7.3 % LAB HEMETOLOGY METHOD 08/09/2024 7:59 AM [facility] Eosinophils Relative 0.5 % LAB HEMETOLOGY METHOD 08/09/2024 7:59 AM [facility] Basophils Relative 0.3 % LAB HEMETOLOGY METHOD 08/09/2024 7:59 AM [facility] Immature Granulocytes Relative 0.4 % LAB HEMETOLOGY METHOD 08/09/2024 7:59 AM [facility] Neutrophils Absolute 5.36 1.50 - 7.00 K/mcL LAB HEMETOLOGY METHOD 08/09/2024 7:59 AM [facility] Lymphocytes Absolute 1.58 1.00 - 5.00 K/mcL LAB HEMETOLOGY METHOD 08/09/2024 7:59 AM [facility] Monocytes Absolute 0.55 0.20 - 1.00 K/mcL LAB HEMETOLOGY METHOD 08/09/2024 7:59 AM EDT [facility] Eosinophils Absolute 0.04 0.00 - 0.50 K/[facility] LAB HEMETOLOGY METHOD 08/09/2024 7:59 AM EDT [facility] Basophils Absolute 0.02 0.00 - 0.20 K/[facility] LAB HEMETOLOGY METHOD 08/09/2024 7:59 AM EDT [facility] Immature Granulocytes Absolute 0.03 0.00 - 0.03 K/[facility] LAB HEMETOLOGY METHOD 08/09/2024 7:59 AM EDT [facility] Blood Venous blood specimen / Unknown 08/09/2024 6:53 AM EDT 08/09/2024 7:51 AM EDT Diogo Hanson MD LAB BLOOD ORDERABLES Final Resul t [facility] [address] [place] [address], * (ABNORMAL) HIV 1 molecular study quantitative (08/09/2024 6:53 AM EDT) HIV-1 RNA Interpretation Detected (A) Not Detected LAB MOLECULAR DIAGNOSTICS METHOD 08/09/2024 11:46 AM EDT [facility] HIV-1 RNA Copies <20 <20 copies/mL LAB MOLECULAR DIAGNOSTICS METHOD 08/09/2024 11:46 AM EDT [facility] Comment:HIV RNA detected but below the limit of quantitation. Unable to report quantitative results <20 copies/mL. HIV-1 RNA Log <1.30 <1.30 Log 10 copies/mL LAB MOLECULAR DIAGNOSTICS METHOD 08/09/2024 11:46 AM EDT [facility] Blood Venous blood specimen / Unknown 08/09/2024 6:53 AM EDT 08/09/2024 7:51 AM EDT us Diogo Hanson MD LAB BLOOD ORDERABLES Final Resul t [facility] [address] [place] [address], [place] [phone] * (ABNORMAL) Lymphocyte T-cell panel (08/09/2024 6:53 AM EDT) CD4 475 426 - 1,776 cells/mcL 08/10/2024 10:21 AM EDT [facility] CD8 814 161 - 838 cells/mcL 08/10/2024 10:21 AM EDT [facility] CD4/CD8 Ratio 0.58(L) 0.90 - 4.90 08/10/2024 10:21 AM EDT [facility] CD4 % 30(L) 33 - 64 % 08/10/2024 10:21 AM EDT [facility] CD8 % 51(H) 10 - 39 % 08/10/2024 10:21 AM EDT [facility] Blood Venous blood specimen / Unknown 08/09/2024 6:53 AM EDT 08/09/2024 7:51 AM EDT us Diogo Hanson MD LAB MOLECULAR DIAGNOSTICS ORDERA BLES Final Result Performing Organization Address City/[facility]/ZIP Co de Phone Number [facility] [address] [place] [address], [place] [phone] * (ABNORMAL) Comprehensive metabolic panel (08/09/2024 6:53 AM EDT) Sodium 139 133 - 145 mmol/L LAB CHEMISTRY METHOD 08/09/2024 8:21 AM EDT [facility] Potassium 3.8 3.5 - 5.5 mmol/L LAB CHEMISTRY METHOD 08/09/2024 8:21 AM EDT [facility] Chloride 109 96 - 110 mmol/L LAB CHEMISTRY METHOD 08/09/2024 8:21 AM [facility] CO2 23 21 - 32 mmol/L LAB CHEMISTRY METHOD 08/09/2024 8:21 AM [facility] Anion Gap 7 3 - 11 LAB CHEMISTRY METHOD 08/09/2024 8:21 AM [facility] Glucose 101(H) 70 - 100 mg/dL LAB CHEMISTRY METHOD 08/09/2024 8:21 AM [facility] BUN 22 5 - 25 mg/dL LAB CHEMISTRY METHOD 08/09/2024 8:21 AM [facility] Creatinine 1.11 0.70 - 1.30 mg/dL LAB CHEMISTRY METHOD 08/09/2024 8:21 AM [facility] eGFR 67 >=60 mL/min/1. 73m2 LAB CHEMISTRY METHOD 08/09/2024 8:21 AM [facility] Comment:Calculation based on the Chronic Kidney Disease Epidemiology Collaboration (CKD-EPI) equation refit without adjustment for race. BUN/Creatinine Ratio 19.8 LAB CHEMISTRY METHOD 08/09/2024 8:21 AM [facility] Calcium 9.9 8.5 - 10.5 mg/dL LAB CHEMISTRY METHOD 08/09/2024 8:21 AM [facility] AST (SGOT) 17 10 - 42 unit/L LAB CHEMISTRY METHOD 08/09/2024 8:21 AM [facility] ALT (SGPT) 15 10 - 60 unit/L LAB CHEMISTRY METHOD 08/09/2024 8:21 AM [facility] Alkaline Phosphatase 70 42 - 121 unit/L LAB CHEMISTRY METHOD 08/09/2024 8:21 AM [facility] Total Protein 7.7 6.0 - 8.0 g/dL LAB CHEMISTRY METHOD 08/09/2024 8:21 AM [facility] Albumin 3.7 3.2 - 5.0 g/dL LAB CHEMISTRY METHOD 08/09/2024 8:21 AM EDT [facility] Total Bilirubin 0.7 0.0 - 1.4 mg/dL LAB CHEMISTRY METHOD 08/09/2024 8:21 AM EDT [facility] Blood Venous blood specimen / Unknown 08/09/2024 6:53 AM EDT 08/09/2024 7:51 AM EDT us Diogo Hanson MD LAB BLOOD ORDERABLES Final Resul t [facility] [address] [place] [address], documented in this encounter Visit Diagnoses Diagnosis Unspecified atrial fibrillation (CMS/HCC V24, CMS/HCC V28) Human immunodeficiency virus (HIV) disease (CMS/HCC V24, CMS/HCC V28) Human immunodeficiency virus [HIV] disease documented in this encounter Care Teams Headstart Teacher Relationship Specialty Start Date End Date Diogo Hanson MD [address] [place], [place] PCP - General Internal Medicine 05/26/24 documented as of this encounter
--- OUTSIDE RECORDS SUMMARY | 2025-01-04 17:32 | XMS_ITS | Encounter Summary ---
Author Organization [email or web address] Address [address] [place] [address] Care Team Providers Care Clean In Places Operator Name Role Phone Diogo Hanson MD Primary Care Provider [phone] Encounter Details Date Type Department Care Team (Latest Contact Info) Description 03/02/2024 Lab Requisition [facility] - Main Lab 299 [facility] [place] [address] Diogo Hanson MD [address] [place] [address] [address] TRINITY Cardenas Other computer terminal operator (current) drug therapy; Human immunodeficiency virus (HIV) [...] disease (CMS/HCC) Unspecified atrial fibrillation (CMS/HCC) Other computer terminal operator (current) drug therapy VITAMIN D 25 HYDROXY Routine 03/02/2024 6:49 AM EST Human immunodeficiency virus (HIV) disease (CMS/HCC) Unspecified atrial fibrillation (CMS/HCC) Other fdc (current) drug therapy HEMOGLOBIN A1C Routine 03/02/2024 6:49 AM EST Human immunodeficiency virus (HIV) disease (CMS/HCC) Unspecified atrial fibrillation (CMS/HCC) Other fdc (current) drug therapy documented in this encounter Results * (ABNORMAL) Lipid panel with reflex to direct LDL (03/02/2024 6:49 AM EST) Cholesterol 148 0 - 200 mg/dL LAB CHEMISTRY METHOD 03/02/2024 8:50 AM EST [facility] Triglycerides 150 0 - 150 mg/dL LAB CHEMISTRY METHOD 03/02/2024 8:[address] [facility] HDL 36(L) >=40 mg/dL LAB CHEMISTRY METHOD 03/02/2024 8:50 AM EST [facility] LDL Calculated 82 0 - 100 mg/dL LAB CHEMISTRY METHOD 03/02/2024 8:[address] [facility] VLDL Cholesterol Dillon 30 mg/dL LAB CHEMISTRY METHOD 03/02/2024 8:[address] [facility] Non HDL Chol. (LDL+VLDL) 112 <145 mg/dL LAB CHEMISTRY METHOD 03/02/2024 8:[address] [facility] Chol/HDL Ratio 4.1 0.0 - 4.4 LAB CHEMISTRY METHOD 03/02/2024 8:[address] [facility] Blood Venous blood specimen / Unknown 03/02/2024 6:49 AM EST 03/02/2024 7:32 AM EST Diogo Hanson MD LAB BLOOD ORDERABLES Final Resul t [facility] [address] [place] [address], * (ABNORMAL) Vitamin D 25 hydroxy (03/02/2024 6:49 AM EST) Vit D, 25-Hydroxy 27.6(L) 30.0 - 80.0 ng/mL LAB CHEMISTRY METHOD 03/02/2024 10:[address] [facility] Blood Venous blood specimen / Unknown 03/02/2024 6:49 AM EST 03/02/2024 7:32 AM EST us Diogo Hanson MD LAB BLOOD ORDERABLES Final Resul t Performing Organization Address City/[facility]/ZIP Co de Phone Number [facility] [address] [place] [address], [place] [phone] * (ABNORMAL) Hemoglobin A1c (03/02/2024 6:49 AM EST) Hemoglobin A1C 6.8(H) <6.5 % LAB CHEMISTRY METHOD 03/02/2024 11:25 AM EST [facility] Mean Bld Glu Estim. 148 mg/dL LAB CHEMISTRY METHOD 03/02/2024 11:25 AM EST [facility] Blood Venous blood specimen / Unknown 03/02/2024 6:49 AM EST 03/02/2024 7:32 AM EST us Diogo Hanson MD LAB BLOOD ORDERABLES Final Resul t Performing Organization Address [facility]/ZIP Co de Phone Number [facility] [address] [place] [address], [place] [phone] documented in this encounter Visit Diagnoses Diagnosis Other computer terminal operator (current) drug therapy Human immunodeficiency virus (HIV) disease (CMS/HCC V24, [facility] V28) Human immunodeficiency virus [HIV] disease Unspecified atrial fibrillation (CMS/HCC V24, CMS/HCC V28) documented in this encounter Care Teams Clean In Places Operator Relationship Specialty Start Date End Date Diogo Hanson MD [address] [place] [address] Dr [address] [place] PCP - General Internal Medicine 05/26/24 documented as of this encounter
--- OUTSIDE RECORDS SUMMARY | 2025-01-04 17:32 | XMS_ITS | Encounter Summary ---
Author Organization [facility] Address [address] [place] [address] Care Team Providers Care Instructor Psychiatric Aide Name Role Phone Diogo Hanson MD Primary Care Provider Encounter Details Date Type Department Care Team (Late st Contact Info) Description 11/08/[address] [facility] - Main Lab [address] [place] [address] Diogo Hanson MD [address] [place] [address] [address] [place] Other admitted attorneys (current) drug therapy Social History Tobacco Use [...] Date/Time Associated Diagnosis Comments LITHIUM LEVEL Routine 11/08/2024 6:56 AM EDT Other admitted attorneys (current) drug therapy documented in this encounter Results * Altheimer level (11/08/2024 6:56 AM EDT) Altheimer Level 1.0 0.6 - 1.2 mEq/L LAB CHEMISTRY METHOD 11/08/2024 8:21 AM EDT [facility] Blood Venous blood specimen / Unknown 11/08/2024 6:56 AM EDT 11/08/2024 7:41 AM EDT us Diogo Hanson MD LAB BLOOD ORDERABLES Final Resul t [facility] [address] [place] [address], documented in this encounter Visit Diagnoses Diagnosis Other admitted attorneys (current) drug therapy documented in this encounter Care Teams Instructor Psychiatric Aide Relationship Specialty Start Date End Date Diogo Hanson MD [address] [place] [address] Dr [address] TRINITY Cardenas PCP - General Internal Medicine 05/26/24 documented as of this encounter
--- OUTSIDE RECORDS SUMMARY | 2025-01-04 17:32 | XMS_ITS | Encounter Summary ---
Author Organization [employer] Address [address] [place] [address] Care Team Providers Care Armature Winder Repairer Name Role Phone Diogo Hanson MD Primary Care Provider [phone] Encounter Details Date Type Department Care Team (Late st Contact Info) Description 03/24/[address] [facility] - Main Lab [address] [place] [address] Diogo Hanson MD [address] [place] [address] Dr [address] [place] Elevated prostate specific antigen (PSA); Encounter for [...] LAB CHEMISTRY METHOD 03/24/2024 8:06 AM EST [facility] ([facility]) [facility] Blood Venous blood specimen / Unknown 03/24/2024 6:48 AM EST 03/24/2024 7:19 AM EST [facility] - 03/24/2024 8:06 AM EST The Siemens Advia Centaur Chemiluminescent Immunoassay is used. Results obtained with different assay methods or kits cannot be used interchangeably. Results cannot be interpreted as absolute evidence of the presence or absence of malignant disease. us Diogo Hanson MD LAB BLOOD ORDERABLES Final Resul t [facility] [address] [place] [address], [place] [phone] * (ABNORMAL) Comprehensive metabolic panel (03/24/2024 6:48 AM EST) Sodium 134 133 - 145 mmol/L LAB CHEMISTRY METHOD 03/26/2024 7:48 AM [facility] Potassium 4.0 3.5 - 5.5 mmol/L LAB CHEMISTRY METHOD 03/26/2024 7:48 AM [facility] Chloride 105 96 - 110 mmol/L LAB CHEMISTRY METHOD 03/26/2024 7:48 AM [facility] CO2 22 21 - 32 mmol/L LAB CHEMISTRY METHOD 03/26/2024 7:48 AM [facility] LAB Anion Gap 7 3 - 11 LAB CHEMISTRY METHOD 03/26/2024 7:48 AM [facility] Glucose 142(H) 70 - 100 mg/dL LAB CHEMISTRY METHOD 03/26/2024 7:48 AM [facility] BUN 11 5 - 25 mg/dL LAB CHEMISTRY METHOD 03/26/2024 7:48 AM [facility] Creatinine 1.00 0.70 - 1.30 mg/dL LAB CHEMISTRY METHOD 03/26/2024 7:48 AM [facility] eGFR 77 >=60 mL/min/1. 73m2 LAB CHEMISTRY METHOD 03/26/2024 7:48 AM [facility] Comment:Calculation based on the Chronic Kidney Disease Epidemiology Collaboration (CKD-EPI) equation refit without adjustment for race. BUN/Creatinine Ratio 11.0 LAB CHEMISTRY METHOD 03/26/2024 7:48 AM [facility] Calcium 9.0 8.5 - 10.5 mg/dL LAB CHEMISTRY METHOD 03/26/2024 7:48 AM [facility] AST (SGOT) 10 10 - 42 unit/L LAB CHEMISTRY METHOD 03/26/2024 7:48 AM [facility] ALT (SGPT) 11 10 - 60 unit/L LAB CHEMISTRY METHOD 03/26/2024 7:48 AM [facility] Alkaline Phosphatase 145(H) 42 - 121 unit/L LAB CHEMISTRY METHOD 03/26/2024 7:48 AM [facility] Total Protein 7.5 6.0 - 8.0 g/dL LAB CHEMISTRY METHOD 03/26/2024 7:48 AM [facility] Albumin 3.8 3.2 - 5.0 g/dL LAB CHEMISTRY METHOD 03/26/2024 7:48 AM [facility] Total Bilirubin 0.4 0.0 - 1.4 mg/dL LAB CHEMISTRY METHOD 03/26/2024 7:48 AM [facility] Blood Venous blood specimen / Unknown 03/24/2024 6:48 AM EST 03/24/2024 7:19 AM EST us Diogo Hanson MD LAB BLOOD ORDERABLES Edited Resu lt - Final [facility] [address] [place] [address], documented in this encounter Visit Diagnoses Diagnosis Elevated prostate specific antigen (PSA) Encounter for screening for malignant neoplasm of prostate Unspecified atrial fibrillation (CMS/HCC V24, CMS/HCC V28) documented in this encounter Care Teams Armature Winder Repairer Relationship Specialty Start Date End Date Diogo Hanson MD [address] [place] [address] Dr [address] TRIN[place] Cardenas PCP - General Internal Medicine 05/26/24 documented as of this encounter
--- OUTSIDE RECORDS SUMMARY | 2025-01-04 17:32 | XMS_ITS | Encounter Summary ---
Author Organization [employer] Address [address] [place] [address] Care Team Providers Care Online Content Developer Name Role Phone Diogo Hanson MD Primary Care Provider [phone] Encounter Details Date Type Department Care Team (Latest Contact Info) Description 09/26/2024 Lab Requisition [facility] - Main Lab [address] [facility] [place] [address] Diogo Hanson MD [address] [place] [address] [address] [place] Human immunodeficiency virus (HIV) disease (CMS/HCC V24, CMS/HCC V28); Type 2 diabetes mellitus without complications (CMS/HCC V24, CMS/HCC V28); Dementia in other diseases classified elsewhere, unspecified severity, with psychotic disturbance (CMS/HCC V24, CMS/HCC V28); Encounter for screening for malignant neoplasm of prostate Social History Tobacco Use Types Packs/Day Years [...] Diagnosis Comments PROSTATE SPECIFIC ANTIGEN SCREEN Routine 09/26/2024 7:17 AM EDT Human immunodeficiency virus (HIV) disease (CMS/HCC V24, CMS/HCC V28) Type 2 diabetes mellitus without complications (CMS/HCC V24, CMS/HCC V28) Dementia in other diseases classified elsewhere, unspecified severity, with psychotic disturbance (CMS/HCC V24, CMS/HCC V28) Encounter for screening for malignant neoplasm of prostate LAVENDER - EDTA Routine 09/26/2024 7:17 AM EDT Human immunodeficiency virus (HIV) disease (CMS/HCC V24, CMS/HCC V28) Type 2 diabetes mellitus without complications (CMS/HCC V24, CMS/HCC V28) Dementia in other diseases classified elsewhere, unspecified severity, with psychotic disturbance (CMS/HCC V24, CMS/HCC V28) Encounter for screening for malignant neoplasm of prostate HIV 1 MOLECULAR STUDY QUANTITATIVE Routine 09/26/2024 7:17 AM EDT Human immunodeficiency virus (HIV) disease (CMS/HCC V24, CMS/HCC V28) Type 2 diabetes mellitus without complications (CMS/HCC V24, CMS/HCC V28) Dementia in other diseases classified elsewhere, unspecified severity, with psychotic disturbance (CMS/HCC V24, CMS/HCC V28) Encounter for screening for malignant neoplasm of prostate COMPLETE BLOOD COUNT Routine 09/26/2024 7:17 AM EDT Human immunodeficiency virus (HIV) disease (CMS/HCC V24, CMS/HCC V28) Type 2 diabetes mellitus without complications (CMS/HCC V24, CMS/HCC V28) Dementia in other diseases classified elsewhere, unspecified severity, with psychotic disturbance (CMS/HCC V24, CMS/HCC V28) Encounter for screening for malignant neoplasm of prostate THYROID STIMULATING HORMONE Routine 09/26/2024 7:17 AM EDT Human immunodeficiency virus (HIV) disease (CMS/HCC V24, CMS/HCC V28) Type 2 diabetes mellitus without complications (CMS/HCC V24, CMS/HCC V28) Dementia in other diseases classified elsewhere, unspecified severity, with psychotic disturbance (CMS/HCC V24, CMS/HCC V28) Encounter for screening for malignant neoplasm of prostate HEMOGLOBIN A1C Routine 09/26/2024 7:17 AM EDT Human immunodeficiency virus (HIV) disease (CMS/HCC V24, CMS/HCC V28) Type 2 diabetes mellitus without complications (CMS/HCC V24, CMS/HCC V28) Dementia in other diseases classified elsewhere, unspecified severity, with psychotic disturbance (CMS/HCC V24, CMS/HCC V28) Encounter for screening for malignant neoplasm of prostate LITHIUM LEVEL Routine 09/26/2024 7:17 AM EDT Human immunodeficiency virus (HIV) disease (CMS/HCC V24, CMS/HCC V28) Type 2 diabetes mellitus without complications ([facility] V24, [facility] V28) Dementia in other diseases classified elsewhere, unspecified severity, with psychotic disturbance ([facility] V24, [facility] V28) Encounter for screening for malignant neoplasm of prostate COMPREHENSIVE METABOLIC PANEL Routine 09/26/2024 7:17 AM EDT Human immunodeficiency virus (HIV) disease ([facility] V24, [facility] V28) Type 2 diabetes mellitus without complications ([facility] V24, [facility] V28) Dementia in other diseases classified elsewhere, unspecified severity, with psychotic disturbance ([facility] V24, [facility] V28) Encounter for screening for malignant neoplasm of prostate documented in this encounter Results * Lavender tube (09/26/2024 7:17 AM EDT) Pathologist [facility] Extra Tube Hold for add-ons. 09/27/2024 9:01 AM EDT [facility] Comment:Auto resulted. Blood Venous blood specimen / Unknown 09/26/2024 7:17 AM EDT 09/26/2024 8:31 AM EDT us Diogo Hanson MD LAB BLOOD ORDERABLES Final Resul t [facility] [address] [place] [address], * Prostate specific antigen screen (09/26/2024 7:17 AM EDT) Pathologist [facility] PSA 3.56 0.00 - 4.00 ng/mL LAB CHEMISTRY METHOD 09/26/2024 12:12 PM EDT [facility] Blood Venous blood specimen / Unknown 09/26/2024 7:17 AM EDT 09/26/2024 8:31 AM EDT Narrative [facility] - 09/26/2024 12:12 PM EDT The Siemens Advia Centaur Chemiluminescent Immunoassay is used. Results obtained with different assay methods or kits cannot be used interchangeably. Results cannot be interpreted as absolute evidence of the presence or absence of malignant disease. us Diogo Hanson MD LAB BLOOD ORDERABLES Final Resul t [facility] [address] [place] [address], * (ABNORMAL) Complete blood count (09/26/2024 7:17 AM EDT) [facility] WBC 7.0 4.8 - 10.8 K/mcL LAB HEMETOLOGY METHOD 09/26/2024 8:41 AM EDT [facility] RBC 4.20(L) 4.50 - 5.50 M/mcL LAB HEMETOLOGY [facility] Hemoglobin 12.4(L) 13.5 - 17.5 g/dL LAB HEMETOLOGY METHOD 09/26/2024 8:41 AM EDT [facility] Hematocrit 39.4(L) 42.0 - 54.0 % LAB HEMETOLOGY METHOD [facility]/26/2024 8[facility] MCV 93.8 79.0 - 98.0 FL LAB HEMETOLOGY METHOD 09/26/2024 8:[facility] MCH 29.5 27.0 - 32.0 pcg LAB HEMETOLOGY METHOD 09/26/2024 8:41 AM EDT [facility] MCHC 31.5(L) 32.0 - 37.0 g/dL LAB HEMETOLOGY METHOD 09/26[facility]2024 8[facility] RDW 17.7(H) 11.0 - 15.0 % LAB HEMETOLOGY METHOD 09/26/2024 8:[facility] Platelets 176 130 - 400 K/mcL LAB HEMETOLOGY METHOD 09/26/2024 8:41 AM EDT [facility] MPV 10.6 7.0 - 11.0 FL LAB HEMETOLOGY METHOD 09/26/2024 8:41 AM EDT [facility] NRBC 0.0 <1.0 % LAB HEMETOLOGY METHOD 09/26/2024 8:41 AM EDT [facility] NRBC Absolute 0.00 <0.10 K/mcL LAB HEMETOLOGY METHOD 09/26/2024 8:41 AM EDT [facility] Blood Venous blood specimen / Unknown 09/26/2024 7:17 AM EDT 09/26/2024 8:31 AM EDT us Diogo Hanson MD LAB BLOOD ORDERABLES Final Resul t Performing Organization Address City/[facility]/ZIP Co de Phone Number [facility] [address] [place] [address], * Thyroid stimulating hormone (09/26/2024 7:17 AM EDT) [facility] TSH 1.58 0.40 - 4.00 mcIU/mL LAB CHEMISTRY METHOD 09/26/2024 12:33 PM EDT [facility] Blood Venous blood specimen / Unknown 09/26/2024 7:17 AM EDT 09/26/2024 8:31 AM EDT us Diogo Hanson MD LAB BLOOD ORDERABLES Final Resul t [facility] [address] [place] [address], [place] [phone] * HIV 1 molecular study quantitative (09/26/2024 7:17 AM EDT) Pathologist [facility] HIV-1 RNA Interpretation Not Detected Not Detected LAB MOLECULAR DIAGNOSTICS METHOD 09/27/2024 11:17 AM EDT [facility] Comment:HIV RNA not detected , unable to report quantitative results. Blood Venous blood specimen / Unknown 09/26/2024 7:17 AM EDT 09/26/2024 8:31 AM EDT us Diogo Hanson MD LAB BLOOD ORDERABLES Final Resul t Performing Organization Address [facility] Co de Phone Number [facility] [address] [place] [address], [place] [phone] * [place] level (09/26/2024 7:17 AM EDT) [place] Level 0.8 0.6 - 1.2 mEq/L LAB CHEMISTRY METHOD 09/26/2024 10:12 AM EDT [facility] Blood Venous blood specimen / Unknown 09/26/2024 7:17 AM EDT 09/26/2024 8:31 AM EDT us Diogo Hanson MD LAB BLOOD ORDERABLES Final Resul t Performing Organization Address [facility] de Phone Number [facility] [address] [place] [address], [place] [phone] * Hemoglobin A1c (09/26/2024 7:17 AM EDT) Hemoglobin A1C 5.9 <6.5 % LAB CHEMISTRY METHOD 09/26/2024 12:56 PM EDT [facility] Mean Bld Glu Estim. 123 mg/dL LAB CHEMISTRY METHOD 09/26/2024 12:56 PM EDT [facility] Blood Venous blood specimen / Unknown 09/26/2024 7:17 AM EDT 09/26/2024 8:31 AM EDT us Diogo Hanson MD LAB BLOOD ORDERABLES Final Resul t Performing Organization Address [facility] Co de Phone Number [facility] [address] [place] [address], [place] [phone] * (ABNORMAL) Comprehensive metabolic panel (09/26/2024 7:17 AM EDT) Sodium 138 133 - 145 mmol/L LAB CHEMISTRY METHOD 09/26/2024 10:12 AM [facility] Potassium 4.6 3.5 - 5.5 mmol/L LAB CHEMISTRY METHOD 09/26/2024 10:12 AM [facility] Chloride 107 96 - 110 mmol/L LAB CHEMISTRY METHOD 09/26/2024 10:12 AM [facility] CO2 28 21 - 32 mmol/L LAB CHEMISTRY METHOD 09/26/2024 10:12 AM [facility] Anion Gap 3 3 - 11 LAB CHEMISTRY METHOD 09/26/2024 10:12 AM [facility] Glucose 103(H) 70 - 100 mg/dL LAB CHEMISTRY METHOD 09/26/2024 10:12 AM [facility] BUN 16 5 - 25 mg/dL LAB CHEMISTRY METHOD 09/26/2024 10:12 AM [facility] Creatinine 0.97 0.70 - 1.30 mg/dL LAB CHEMISTRY METHOD 09/26/2024 10:12 AM [facility] eGFR 79 >=60 mL/min/1. 73m2 LAB CHEMISTRY METHOD 09/26/2024 10:12 AM [facility] Comment:Calculation based on the Chronic Kidney Disease Epidemiology Collaboration (CKD-EPI) equation refit without adjustment for race. BUN/Creatinine Ratio 16.5 LAB CHEMISTRY METHOD 09/26/2024 10:12 AM [facility] Calcium 9.9 8.5 - 10.5 mg/dL LAB CHEMISTRY METHOD 09/26/2024 10:12 AM [facility] AST (SGOT) 8(L) 10 - 42 unit/L LAB CHEMISTRY METHOD 09/26/2024 10:12 AM [facility] ALT (SGPT) 10 10 - 60 unit/L LAB CHEMISTRY METHOD 09/26/2024 10:12 AM EDT [facility] Alkaline Phosphatase 72 42 - 121 unit/L LAB CHEMISTRY METHOD 09/26/2024 10:12 AM EDT [facility] Total Protein 6.9 6.0 - 8.0 g/dL LAB CHEMISTRY METHOD 09/26/2024 10:12 AM EDT [facility] Albumin 3.3 3.2 - 5.0 g/dL LAB CHEMISTRY METHOD 09/26/2024 10:12 AM EDT [facility] Total Bilirubin 0.4 0.0 - 1.4 mg/dL LAB CHEMISTRY METHOD 09/26/2024 10:12 AM EDT [facility] Blood Venous blood specimen / Unknown 09/26/2024 7:17 AM EDT 09/26/2024 8:31 AM EDT us Diogo Hanson MD LAB BLOOD ORDERABLES Final Resul t [facility] [address] [place] [address], documented in this encounter Visit Diagnoses Diagnosis Human immunodeficiency virus (HIV) disease ([facility] V24, [facility] V28) Human immunodeficiency virus [HIV] disease Type 2 diabetes mellitus without complications ([facility] V24, [facility] V28) Dementia in other diseases classified elsewhere, unspecified severity, with psychotic disturbance ([facility] V24, [facility] V28) Encounter for screening for malignant neoplasm of prostate documented in this encounter Care Teams Online Content Developer Relationship Specialty Start Date End Date Diogo Hanson MD [address] [place] [address] Dr Ines Cardenas [place] PCP - General Internal Medicine 05/26/24 documented as of this encounter
--- OUTSIDE RECORDS SUMMARY | 2025-01-04 17:32 | XMS_ITS | Encounter Summary ---
Author Organization [facility] Address [address] [place] [address] Care Team Providers Care Barrel Cleaner Name Role Phone Diogo Hanson MD Primary Care Provider [phone] Encounter Details Date Type Department Care Team (Late st Contact Info) Description 01/04/2025 Lab Requisition [facility] - Main Lab [address] [facility] [place] [address] Diogo Hanson MD [address] [place] [address] Dr [address] [place] Type 2 diabetes mellitus without complications (CMS/HCC V24, CMS/HCC V28) Social History Tobacco [...] V28) documented in this encounter Results * Prostate specific antigen screen (01/04/2025 6:38 AM EDT) PSA 3.99 0.00 - 4.00 ng/mL LAB CHEMISTRY METHOD 01/04/2025 10:04 AM EDT [facility] Blood Venous blood specimen / Unknown 01/04/2025 6:38 AM EDT 01/04/2025 6:59 AM EDT Narrative [facility] - 01/04/2025 10:04 AM EDT The Siemens Advia Centaur Chemiluminescent Immunoassay is used. Results obtained with different assay methods or kits cannot be used interchangeably. Results cannot be interpreted as absolute evidence of the presence or absence of malignant disease. Diogo Hanson MD LAB BLOOD ORDERABLES Final Resul t [facility] ([facility]) [facility] [address] [place] [address], documented in this encounter Visit Diagnoses Diagnosis Type 2 diabetes mellitus without complications (CMS/HCC V24, CMS/HCC V28) documented in this encounter Care Teams Barrel Cleaner Relationship Specialty Start Date End Date Diogo Hanson MD [address] [place] [address] Dr [address] [place], [place] PCP - General Internal Medicine 05/26/24 documented as of this encounter
--- OUTSIDE RECORDS SUMMARY | 2025-01-04 17:32 | XMS_ITS | Encounter Summary ---
Author Organization [facility] Address [address] [place] [address] Care Team Providers Care Protective Services Officer Name Role Phone Diogo Hanson MD Primary Care Provider [phone] Encounter Details Date Type Department Care Team (Late st Contact Info) Description 06/20/[address] [facility] - Main Lab [address] [facility] [place] [address] Diogo Hanson MD [address] [place] [address] [address] TRINITY Cardenas Dementia in [...] elsewhere, unspecified severity, with psychotic disturbance (CMS/HCC) documented in this encounter Results * [place] level (06/20/2024 6:34 AM EDT) [place] Level 0.8 0.6 - 1.2 mEq/L LAB CHEMISTRY METHOD 06/20/2024 7:55 AM EDT [facility] ([facility]) [facility] Blood Venous blood specimen / Unknown 06/20/2024 6:34 AM EDT 06/20/2024 7:02 AM EDT us Diogo Hanson MD LAB BLOOD ORDERABLES Final Resul t [facility] ([facility]) [facility] LAB [address] [place] [address], documented in this encounter Visit Diagnoses Diagnosis Dementia in other diseases classified elsewhere, unspecified severity, with psychotic disturbance (CMS/HCC V24, CMS/HCC V28) documented in this encounter Care Teams Protective Services Officer Relationship Specialty Start Date End Date Diogo Hanson MD [address] [facility] [address] [place], [place] PCP - General Internal Medicine 05/26/24 documented as of this encounter
--- OUTSIDE RECORDS SUMMARY | 2025-01-04 17:32 | XMS_ITS | Encounter Summary ---
Author Organization [facility] Address [address] [place] [address] Care Team Providers Care Pipe Smoking Machine Offbearer Name Role Phone Diogo Hanson MD Primary Care Provider [phone] Encounter Details Date Type Department Care Team (Latest Contact Info) Description 12/07/2024 Lab Requisition [facility] - Main Lab [address] [facility] [place] [address] Diogo Hanson MD [address] [place] [address] [address] TRINITY Cardenas Type 2 diabetes mellitus without complications (CMS/HCC V24, CMS/[facility] V28); Human immunodeficiency virus (HIV) disease ([facility] V24, [facility] V28) Social History Tobacco Use Types Packs/Day [...] Procedure Name Priority Date/Time Associated Diagnosis Comments THYROID STIMULATING HORMONE Routine 12/07/2024 12:00 AM EDT Type 2 diabetes mellitus without complications ([facility]/HCC V24, CMS/[facility] V28) Human immunodeficiency virus (HIV) disease ([facility] V24, CMS/[facility] V28) HEMOGLOBIN A1C Routine 12/07/2024 12:00 AM EDT Type 2 diabetes mellitus without complications ([facility]/HCC V24, CMS/HCC V28) Human immunodeficiency virus (HIV) disease (CMS/[facility] V24, CMS/[facility] V28) AMMONIA Routine 12/07/2024 12:00 AM EDT Type 2 diabetes mellitus without complications (CMS/HCC V24, CMS/HCC V28) Human immunodeficiency virus (HIV) disease (CMS/[facility] V24, CMS/HCC V28) documented in this encounter Results * Ammonia (12/07/2024 12:00 AM EDT) Ammonia 14 11 - 35 mcmol/L LAB CHEMISTRY METHOD 12/07/2024 9:10 AM EDT [facility] Blood Venous blood specimen / Unknown 12/07/2024 12/07/2024 8:18 AM EDT us Diogo Hanson MD LAB BLOOD ORDERABLES Final Resul t Performing Organization Address [facility]/ZIP Co de Phone Number [facility] [address] [place] [address], [place] [phone] * Hemoglobin A1c (12/07/2024 12:00 AM EDT) Hemoglobin A1C 6.2 <6.5 % LAB CHEMISTRY METHOD 12/07/2024 1:47 PM EDT [facility] Mean Bld Glu Estim. 131 mg/dL LAB CHEMISTRY METHOD 12/07/2024 1:47 PM EDT [facility] Blood Venous blood specimen / Unknown 12/07/2024 12/07/2024 8:18 AM EDT us Diogo Hanson MD LAB BLOOD ORDERABLES Final Resul t Performing Organization Address City/[facility]/ZIP Co de Phone Number [facility] [address] [place] [address], [place] [phone] * Thyroid stimulating hormone (12/07/2024 12:00 AM EDT) TSH 1.75 0.40 - 4.00 mcIU/mL LAB CHEMISTRY METHOD 12/07/2024 10:23 AM EDT [facility] Blood Venous blood specimen / Unknown 12/07/2024 12/07/2024 8:18 AM EDT us Diogo Hanson MD LAB BLOOD ORDERABLES Final Resul t [facility] ([facility]) [facility] [address] [place] [address], documented in this encounter Visit Diagnoses Diagnosis Type 2 diabetes mellitus without complications ([facility] V24, [facility] V28) Human immunodeficiency virus (HIV) disease ([facility] V24, [facility] V28) Human immunodeficiency virus [HIV] disease documented in this encounter Care Teams Pipe Smoking Machine Offbearer Relationship Specialty Start Date End Date Diogo Hanson MD [address] [place] [address] Dr [address] [place], [place] PCP - General Internal Medicine 05/26/24 documented as of this encounter
--- OUTSIDE RECORDS SUMMARY | 2025-01-04 17:32 | XMS_ITS | Encounter Summary ---
Author Organization [facility] Address [address] [place] [address] Care Team Providers Care Whip Sawyer Name Role Phone Diogo Hanson MD Primary Care Provider [phone] Encounter Details Date Type Department Care Team (Late st Contact Info) Description 08/12/2024 Lab Requisition [facility] - Main Lab [address] [place] [address] Diogo Hanson MD [address] [place] [address] [address] Ronald ID Psychotic disorder with delusions due to known physiological condition; Encounter for therapeutic drug level monitoring Social [...] Date/Time Associated Diagnosis Comments LITHIUM LEVEL Routine 08/12/2024 7:16 AM EDT Psychotic disorder with delusions due to known physiological condition Encounter for therapeutic drug level monitoring documented in this encounter Results * Ault level (08/12/2024 7:16 AM EDT) Ault Level 0.9 0.6 - 1.2 mEq/L LAB CHEMISTRY METHOD 08/12/2024 9:16 AM EDT [facility] Blood Venous blood specimen / Unknown 08/12/2024 7:16 AM EDT 08/12/2024 8:28 AM EDT us Diogo Hanson MD LAB BLOOD ORDERABLES Final Resul t [facility] [address] [place] [address], documented in this encounter Visit Diagnoses Diagnosis Psychotic disorder with delusions due to known physiological condition Encounter for therapeutic drug level monitoring documented in this encounter Care Teams Whip Sawyer Relationship Specialty Start Date End Date Diogo Hanson MD [address] [place] [address] Dr [address] [place], [place] PCP - General Internal Medicine 05/26/24 documented as of this encounter
--- OUTSIDE RECORDS SUMMARY | 2025-01-04 17:32 | XMS_ITS | Patient Health Record ---
Author Organization [facility] Address [address] [place] [address] Care Team Providers Care Wind Farm Support Specialist Name Role Phone Diogo Hanson Primary Care Provider Frederic Cobb Unavailable [phone] Reason For Referral No Information Medications Medication SIG (Take, Route, Frequency, Duration) Notes Start Date End Date Status Acetaminophen 325 MG 1 tablet as needed Orally every 4 hrs Active Tamsulosin HCl 0.4 MG Oral; Duration: 30 Active Perphenazine 4 MG Oral; Duration: 30 Active Finasteride 5 MG Oral; Duration: 30 Active Propranolol HCl 20 MG Oral; Duration: 30 Active Fleet Enema - as directed Rectal Active [place] Carbonate 300 MG Oral; Duration: 30 Active Colace 100 MG 1 capsule as needed Orally Once a day; Duration: 30 day(s) Active Bisacodyl 10 MG 1 suppository as nee ded Rectal Once a day; Duration: 30 day(s) Active Xarelto 20 MG Oral; Duration: 14 Active OXcarbazepine 150 MG Oral; Duration: 30 Active Omeprazole Magnesium 20 MG 1 tablet 30 m inutes before morning meal Orally Once a day; Duration: 30 day(s) Active Triumeq 600-50-300 MG Oral; Duration: 30 Active Lotrimin AF 2 % 1 application Histologist ally Twice a day; Duration: 14 day(s) Active Social History Tobacco Use: [...] Problem Status W/U Status Risk Notes Problem Screening for malignant neoplasm of colon (106518320) Encounter for screening for malignant neoplasm of colon (Z12.11) Active confirmed Problem Preprocedural examination (929489604269624) Preprocedural examination (Z01.818) Active confirmed Problem History of polyp of colon (situation) (576134728) History of colon polyps (Z86.010) Active confirmed Problem Diverticulosis of colon (137708377) Diverticulosis of colon (K57.30) Active confirmed Problem Tubulovillous adenoma of colon (5615602219) 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 confirmed Problem Long-term current use of anticoagulant (527685189) long term acute care registered nurse current use of anticoagulant (Z79.01) Active confirmed Plan Of Treatment Future Test Test Name Order Date COLONOSCOPY 04/23/2021 COLONOSCOPY 06/16/2021 Insurance Providers Payer Name Payer Address Payer Phone Subscriber Number Group Number Insured Name Patient Relationship to Insured Coverage Start Date Coverage End Date MEDICARE OF [place] [address] [place] [address] [id number] DAMON VILLEDA Self - patient is the insured [address] [address] DAMON VILLEDA Self - patient is the insured Medical (General) History Medical History History ICD Code COPD HIV(Reported) CYST OF KIDNEY ABNORMALITIES OF GAIT AND MOBILITY ATRIAL FIBRILLATION REPORTED DEMENTIA GERD CONSTIPATION URINARY INCONTINENCE PSYCHOTIC DISORDER Denies [place],DM,CVA,renal disease
--- OUTSIDE RECORDS SUMMARY | 2025-01-04 17:32 | XMS_ITS | Encounter Summary ---
Author Organization [facility] Address [address] [place] [address] Care Team Providers Care Gluing Pressman Name Role Phone Diogo Hanson MD Primary Care Provider [phone] Encounter Details Date Type Department Care Team (Late st Contact Info) Description 09/09/2024 Lab Requisition [facility] - Main Lab 299 [facility] [place] [address] Diogo Hanson MD [address] [place] [address] [address] [place], [place] Heart failure, unspecified (CMS/HCC V24, CMS/HCC V28); Type 2 diabetes mellitus without complications (CMS/HCC V24, CMS/HCC V28); Fatty (change of) liver, not elsewhere classified Social History Tobacco Use Types Packs/Day Years [...] Fatty (change of) liver, not elsewhere classified HEMOGLOBIN A1C Routine 09/09/2024 6:45 AM EDT Heart failure, unspecified (CMS/HCC V24, CMS/HCC V28) Type 2 diabetes mellitus without complications (CMS/HCC V24, CMS/HCC V28) Fatty (change of) liver, not elsewhere classified AMMONIA Routine 09/09/2024 6:45 AM EDT Heart failure, unspecified (CMS/HCC V24, CMS/HCC V28) Type 2 diabetes mellitus without complications ([facility]/HCC V24, [facility] V28) Fatty (change of) liver, not elsewhere classified documented in this encounter Results * Lipid panel with reflex to direct LDL (09/09/2024 6:45 AM EDT) Cholesterol 155 0 - 200 mg/dL LAB CHEMISTRY METHOD 09/09/2024 9:23 AM EDT [facility] Triglycerides 89 0 - 150 mg/dL LAB CHEMISTRY METHOD 09/09/2024 9:23 AM EDT [facility] HDL 48 >=40 mg/dL LAB CHEMISTRY METHOD 09/09/2024 9:23 AM EDT [facility] LDL Calculated 89 0 - 100 mg/dL LAB CHEMISTRY METHOD [facility] VLDL Cholesterol Dillon 17.8 mg/dL LAB CHEMISTRY METHOD 09/09/2024 9:23 AM [facility] Non HDL Chol. (LDL+VLDL) 107 <145 mg/dL LAB CHEMISTRY METHOD 09/09/2024 9:23 AM [facility] Chol/HDL Ratio 3.2 0.0 - 4.4 LAB CHEMISTRY METHOD 09/09/2024 9:23 AM [facility] Blood Venous blood specimen / Unknown 09/09/2024 6:45 AM EDT 09/09/2024 8:10 AM EDT us Diogo Hanson MD LAB BLOOD ORDERABLES Final Resul t [facility] [address] [place] [address], * Hemoglobin A1c (09/09/2024 6:45 AM EDT) Hemoglobin A1C 5.9 <6.5 % LAB CHEMISTRY METHOD 09/09/2024 12:34 PM EDT [facility] Mean Bld Glu Estim. 123 mg/dL LAB CHEMISTRY METHOD 09/09/2024 12:34 PM EDT [facility] Blood Venous blood specimen / Unknown 09/09/2024 6:45 AM EDT 09/09/2024 8:10 AM EDT us Diogo Hanson MD LAB BLOOD ORDERABLES Final Resul t Performing Organization Address [facility]/ZIP Co de Phone Number [facility] [address] [place] [address], [place] [phone] * (ABNORMAL) Ammonia (09/09/2024 6:45 AM EDT) Ammonia 40(H) 11 - 35 mcmol/L LAB CHEMISTRY METHOD 09/09/2024 8:57 AM EDT [facility] Blood Venous blood specimen / Unknown 09/09/2024 6:45 AM EDT 09/09/2024 8:10 AM EDT us Diogo Hanson MD LAB BLOOD ORDERABLES Final Resul t Performing Organization Address [facility] Co de Phone Number [facility] [address] [place] [address], [place] [phone] documented in this encounter Visit Diagnoses Diagnosis Heart failure, unspecified (CMS/HCC V24, CMS/HCC V28) Heart failure, unspecified Type 2 diabetes mellitus without complications (CMS/HCC V24, CMS/HCC V28) Fatty (change of) liver, not elsewhere classified documented in this encounter Care Teams Gluing Pressman Relationship Specialty Start Date End Date Diogo Hanson MD [address] [place] PCP - General Internal Medicine 05/26/24 documented as of this encounter
--- OUTSIDE RECORDS SUMMARY | 2025-01-04 17:32 | XMS_ITS | Encounter Summary ---
Author Organization [facility] Address [address] [place] [address] Care Team Providers Care Camera Repair Technician Name Role Phone Diogo Hanson MD Primary Care Provider [phone] Encounter Details Date Type Department Care Team (Late st Contact Info) Description 07/06/2024 Lab Requisition [facility] - Main Lab 299 [facility] [place] [address] Diogo Hanson MD [address] [place] [address] [address] [place] Unspecified atrial fibrillation (CMS/HCC V24, CMS/HCC V28) [...] LAB CHEMISTRY METHOD 07/06/2024 8:22 AM EDT [facility] Potassium 4.1 3.5 - 5.5 mmol/L LAB CHEMISTRY METHOD 07/06/2024 8:22 AM EDT [facility] Chloride 103 96 - 110 mmol/L LAB CHEMISTRY METHOD 07/06/2024 8:22 AM EDT [facility] CO2 26 21 - 32 mmol/L LAB CHEMISTRY METHOD 07/06/2024 8:22 AM [facility] Anion Gap 6 3 - 11 LAB CHEMISTRY METHOD 07/06/2024 8:22 AM [facility] Glucose 102(H) 70 - 100 mg/dL LAB CHEMISTRY METHOD 07/06/2024 8:22 AM [facility] BUN 11 5 - 25 mg/dL LAB CHEMISTRY METHOD 07/06/2024 8:22 AM [facility] Creatinine 0.91 0.70 - 1.30 mg/dL LAB CHEMISTRY METHOD 07/06/2024 8:22 AM [facility] eGFR 85 >=60 mL/min/1. 73m2 LAB CHEMISTRY METHOD 07/06/2024 8:22 AM [facility] Comment:Calculation based on the Chronic Kidney Disease Epidemiology Collaboration (CKD-EPI) equation refit without adjustment for race. BUN/Creatinine Ratio 12.1 LAB CHEMISTRY METHOD 07/06/2024 8:22 AM [facility] Calcium 9.3 8.5 - 10.5 mg/dL LAB CHEMISTRY METHOD 07/06/2024 8:22 AM [facility] AST (SGOT) 12 10 - 42 unit/L LAB CHEMISTRY METHOD 07/06/2024 8:22 AM [facility] ALT (SGPT) 13 10 - 60 unit/L LAB CHEMISTRY METHOD 07/06/2024 8:22 AM [facility] Alkaline Phosphatase 90 42 - 121 unit/L LAB CHEMISTRY METHOD 07/06/2024 8:22 AM [facility] Total Protein 7.8 6.0 - 8.0 g/dL LAB CHEMISTRY METHOD 07/06/2024 8:22 AM [facility] Albumin 3.6 3.2 - 5.0 g/dL LAB CHEMISTRY METHOD 07/06/2024 8:22 AM [facility] Total Bilirubin 0.5 0.0 - 1.4 mg/dL LAB CHEMISTRY METHOD 07/06/2024 8:22 AM EDT [facility] Blood Venous blood specimen / Unknown 07/06/2024 6:57 AM EDT 07/06/2024 7:29 AM EDT us Diogo Hanson MD LAB BLOOD ORDERABLES Final Resul t [facility] [address] [place] [address], documented in this encounter Visit Diagnoses Diagnosis Unspecified atrial fibrillation (CMS/HCC V24, CMS/HCC V28) documented in this encounter Care Teams Camera Repair Technician Relationship Specialty Start Date End Date Diogo Hanson MD [address] [place] [address] Dr [address] [place] PCP - General Internal Medicine 05/26/24 documented as of this encounter
== END 2025-01-04 14:23 | disposition home or self-care (01) ==
LOC: HO.HUSH 13:48
PROVIDERS: PCP Hospitalist; Visit Provider Nurse Practitioner Family
DX: N28.1 Cyst of kidney, acquired (principal); N40.1 Benign prostatic hyperplasia with lower urinary tract symptoms
CPT/HCPCS: 99213; G2211

== ENCOUNTER → 2025-01-04 13:47 | Outpatient (BNVA) | payer MEDICARE, MEDICAID, SELFPAY | PROVIDERS: PCP Hospitalist; Visit Provider Nurse Practitioner Family | DX: N40.1 Benign prostatic hyperplasia with lower urinary tract symptoms (principal); N28.1 Cyst of kidney, acquired | CPT/HCPCS: 51798; 99212 ==

== ENCOUNTER → 2025-02-09 12:41 | Outpatient (BNV) | payer MEDICARE, MEDICAID, SELFPAY | DX: Z45.018 Encounter for adjustment and management of other part of cardiac pacemaker (principal) | CPT/HCPCS: 93294 ==